=== PATIENT | female | born 1960 | race African-American/Black ===

== ENCOUNTER 2025-04-18 16:44 | Outpatient (BNV) | payer MEDICAID, SELFPAY | END 2025-04-29 14:09 | PROVIDERS: Admitting Provider Psychiatry & Neurology Psychiatry; Visit Provider Radiology Diagnostic Radiology | DX: G93.89 Other specified disorders of brain (principal) | CPT/HCPCS: 70450 ==

== ENCOUNTER 2025-04-18 16:44 | Outpatient (BNV) | payer MEDICAID, SELFPAY | END 2025-04-20 17:25 | PROVIDERS: Admitting Provider Psychiatry & Neurology Psychiatry; Visit Provider Student in an Organized Health Care Education/Training Program | DX: K80.20 Calculus of gallbladder without cholecystitis without obstruction (principal) | CPT/HCPCS: 74176 ==

== ENCOUNTER 2025-04-18 16:44 | Inpatient (IN) | payer OTHER, SELFPAY ==
--- OUTSIDE RECORDS SUMMARY | 2023-11-01 08:00 | XMS_ITS ---
Author Organization [facility], [facility] Address [address] [place] [address] Care Team Providers Care Printed Circuit Boards Beveler Name Role Phone Renata Junior Primary Care Provider Aida Anderson Unavailable [phone] Ricardo Umana Unavailable [phone] REASON FOR VISIT 2 mon f/u- want to see dr. umana Encounters Encounter Location Date Provider Diagnosis [facility], [address] [place] [address] 11/01/2023 Ricardo Umana Plan Of Treatment Next Appt Details Provider Name:Ricardo Umana, 06/20/2025 11:20:00 AM, [address] [place] [address], [facility] [address], [address], Provider Name:Aida mendoza, 08/02/2025 01:00:00 PM, [address] [place] [address], [facility] [address], [place], [address], Progress Notes * Siena DODDDOB:09/1960 (64 yo F)Acc No.[id number]:11/01/2023 Progress Notes Patient: Yves ESCOBAR Siena Provider: Rafy Umana D.O. :1960 A ge:63 Y S ex:Female Date:11/01/2023 Address:[address] [place] [address] [address], [id number] Pcp:Renata Junior Subjective: * Chief Complaints: * 1 . 2 mon f/u- want to see dr. umana. * Medical History: Objective: * Vitals: Assessment: Plan: * Treatment: * * Electronic signature of Jone Umana DO on 04/18/2025 at 06:56 PM EST Sign off status: Pending * Provider: Rafy Umana D.O. Date: 0 11/01/2023 Generated for Kirill leal/Kayla/Ethanitting on: 06/18/2024 06:56 PM EST
--- OUTSIDE RECORDS SUMMARY | 2023-12-06 05:20 | XMS_ITS ---
Author Organization [facility] [employer], [facility] Address [address] [place] [address] Care Team Providers Care Polarity Tester Name Role Phone Renata Junior Primary Care Provider Aida Anderson Unavailable [phone] Ricardo Umana Unavailable [phone] REASON FOR VISIT 3 month f/u Encounters Encounter Location Date Provider Diagnosis [facility], [address] [place] [address] 12/06/2023 Ricardo Umana Plan Of Treatment Next Appt Details Provider Name:Ricardo Umana, 06/20/2025 11:20:00 AM, [address] [place] [address], [address], [place], [address], Provider Name:Aida mendoza, 08/02/2025 01:00:00 PM, [address] [place] [address], [address], [place], [address], Progress Notes * JUSienaDOB:09/1960 (64 yo F)Acc No.[id number]:12/06/2023 Progress Notes Patient: Siena AGUILAR Provider: Rafy Umana D.O. :1960 A ge:63 Y S ex:Female Date:12/06/2023 Address:[address] [place] [address] [address], [facility] Pcp:Renata Junior Subjective: * Chief Complaints: * 1 . 3 month f/u. * Medical History: Objective: * Vitals: Assessment: Plan: * Treatment: * * Electronic signature of Jone Umana DO on 04/18/2025 at 06:56 PM EST Sign off status: Pending * Provider: Rafy Umana D.O. Date: 0 12/06/2023 Generated for Kirill leal/Kayla/Abelardo on: 06/18/2024 06:56 PM EST
--- OUTSIDE RECORDS SUMMARY | 2024-06-19 06:20 | XMS_ITS ---
Author Organization [employer] Address [address] [address] Care Team Providers Care Anesthesiology Resident Name Role Phone Renata Junior Primary Care Provider Aida Anderson Unavailable [phone] Allergies Allergen (clinical drug ingredient) Drug/Non Drug Allergy documented on EMR Reaction Allergy Type Onset Date Status Blueberry Flavor Unknown Drug Allergy Active Penicillin Unknown Drug Allergy Active Shellfish (FN) Shellfish-derived Products Unknown Drug Allergy Active REASON FOR VISIT 6 month f/u Medications Medication SIG (Take, Route, Frequency, Duration) Notes Start Date End Date Status carBAMazepine 200 MG TAKE 3 TABLETS BY MOUTH TWICE A DAY; Duration: 30 Active Gabapentin 300 MG TAKE 1 CAPSULE BY MOUTH EVERYDAY AT BEDTIME; Duration: 30 Active levETIRAcetam 500 MG 2 tablets in the morning and 3 in the evening orally every 12 hrs as directed; Duration: 90 days Active Ondansetron 4 MG 1 tablet on the tong ue and allow to dissolve Orally Once a day; Duration: 30 day(s) Not-Taking Furosemide 20 MG TAKE 1/2 TABLET BY MOUTH in THE MORNING Orally Once a day; Duration: 90 days Active Januvia 100 MG TAKE 1 TABLET BY DOMINIC TH EVERY DAY Oral; Duration: 90 Active Eliquis 5 MG TAKE 1 TABLET BY DOMINIC TH TWICE A DAY Oral; Duration: 90 Active Lisinopril 10 MG TAKE 1 TABLET BY DOMINIC TH EVERY DAY IN THE MORNING Oral; Duration: 90 Active amLODIPine Besylate 10 MG TAKE 1 TABLET BY MOUTH EVERY DAY Oral; Duration: 90 Active Acetaminophen 325 MG TAKE 2 TABLETS (650 MG TOTAL) BY MOUTH EVERY 6 HOURS NEEDED FOR PAIN OR FEVER FOR UP TO 7 DAYS. Oral; Duration: 7 Active Docusate Sodium 100 MG 1 capsule as need ed Orally Once a day; Duration: 30 day(s) Active Ezetimibe 10 MG 1 tablet Orally Once a day; Duration: 30 day(s) Active Bisacodyl 5 MG 1 tablet as needed Orally Once a day; Duration: 30 day(s) Active Atorvastatin Calcium 40 MG TAKE 1 TABLET BY MOUTH EVERY DAY Orally Once a day Active Sertraline HCl 100 MG TAKE 2 TABLETS BY MOUTH EVERY DAY IN THE MORNING Oral; Duration: 30 Active Lactaid 3000 UNIT 1 tablet with first bite of dairy - containing food Orally Once a day; Duration: 30 day(s) Not-Taking Chlorthalidone 25 MG TAKE 1 TABLET BY MO UTH EVERY DAY Oral; Duration: 90 Not-Taking Calcium & Magnesium Carbonates Not-Taking Meclizine HCl 12.5 MG 2 tablets as neede d Orally Once a day; Duration: 30 day(s) Active Multivitamin - 1 tablet Orally Once a day; Duration: 30 day(s) Active oxyBUTYnin Chloride 5 MG 1 tablet Orally Twice a day; Duration: 30 day(s) Not-Taking metFORMIN HCl 500 MG 1 tablet with a pedro luis l Orally Once a day; Duration: 30 day(s) Not-Taking Prazosin HCl 2 MG 1 capsule at bedtime Oral Once a day Not-Taking OXcarbazepine 600 MG 1 tablet Orally Twi ce a day; Duration: 30 day(s) Not-Taking Banophen 50 MG TAKE 1 CAPSULE BY MOUTH TWICE A DAY NEEDED FOR ANXIETY AND INSOMNIA Oral; Duration: 30 Not-Taking Fluticasone Propionate 50 MCG/ACT 1 spray in each nostril Nasally Once a day; Duration: 30 day(s) Not-Taking busPIRone HCl 15 MG TAKE 1 TABLET BY DOMINIC TH TWICE A DAY Oral; Duration: 30 Not-Taking Escitalopram Oxalate 20 MG 1 tablet Oral ly Once a day; Duration: 30 day(s) Not-Taking risperiDONE 0.5 MG TAKE 1 TABLET BY DOMINIC TH EVERY DAY AT NIGHT Oral; Duration: 30 Not-Taking Social History Tobacco Use: Social History Observation Description Date Details (start date - stop date) Never Smoker NA - NA Tobacco Use/Smoking Question Answer Notes Are you a nonsmoker Alcohol Screen (Audit-C) Question Answer Notes Did you have a drink containing alcohol in the p ast year? No Points 0 Interpretation Negative Encounters Encounter Location Date Provider Diagnosis [address] [place] [address] 06/19/2024 Aida Gordon Plan Of Treatment Next Appt Details Provider Name:Ricardo Umana, 06/20/2025 11:20:00 AM, [address] [place] [address], [address], [place], [address], Provider Name:Aida Tyrone kelly, 08/02/2025 01:00:00 PM, [address] [place] [address], [address], [place], [address], Progress Notes * Siena DODDDOB:09/1960 (64 yo F)Acc No.[id number]:06/19/2024 Progress Notes Patient: Yves Siena ESCOBAR Provider: Yves Gordon D.O. :1960 A ge:63 Y S ex:Female Date:06/19/2024 Address:[address] [place] [address], [address] Pcp:Renata Junior Subjective: * Chief Complaints: * 1 . 6 month f/u. * Medical History: H ypercholesterolemia, Essential (primary) hypertension, Diabetes mellitus, SEIZURES, Localization-related (focal) (partial) idiopathic epilepsy 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, not intractable, without status epilepticus, Left spastic hemiparesis, Meniere''s disease, unspecified laterality, JACQUELINE (obstructive sleep apnea). * Surgical History: t uballigation . * Hospitalization/Major Diagno stic Procedure: s eizure 12/2020, seizures 04/2021, TIA 08/2023. * Family History: F ather: . M other: . 3 son(s) , 5 daughter(s) . . N on-Contributory. Pt does not know much of family history. * Social History: T obacco Use: T obacco Use/Smoking A re you a n onsmoker. D rugs/Alcohol: D rugs H ave you used drugs other than those for medical reasons in the past 12 months??No. A lcohol Screen (Audit-C) D id you have a drink containing alcohol in the past year? No, P oints 0 , I nterpretation N egative. C affeine I ntake: n one Tea, Soda. D o you smoke marijuana?: Denies. Do you drink alcohol?: No. * Medications: T aking Multivitamin - Tablet 1 tablet Orally Once a day , Taking Meclizine HCl 12.5 MG Tablet 2 tablets as needed Orally Once a day , Taking Ezetimibe 10 MG Tablet 1 tablet Orally Once a day , Taking Docusate Sodium 100 MG Capsule 1 capsule as needed Orally Once a day , Taking Bisacodyl 5 MG Tablet Delayed Release 1 tablet as needed Orally Once a day , Taking Sertraline HCl 100 MG Tablet TAKE 2 TABLETS BY MOUTH EVERY DAY IN THE MORNING Oral , Taking Atorvastatin Calcium 40 MG Tablet TAKE 1 TABLET BY MOUTH EVERY DAY Orally Once a day , Taking Eliquis 5 MG Tablet TAKE 1 TABLET BY MOUTH TWICE A DAY Oral , Taking Januvia 100 MG Tablet TAKE 1 TABLET BY MOUTH EVERY DAY Oral , Taking amLODIPine Besylate 10 MG Tablet TAKE 1 TABLET BY MOUTH EVERY DAY Oral , Taking Lisinopril 10 MG Tablet TAKE 1 TABLET BY MOUTH EVERY DAY IN THE MORNING Oral , Taking Acetaminophen 325 MG Tablet TAKE 2 TABLETS (650 MG TOTAL) BY MOUTH EVERY 6 HOURS NEEDED FOR PAIN OR FEVER FOR UP TO 7 DAYS. Oral , Taking Furosemide 20 MG Tablet TAKE 1/2 TABLET BY MOUTH in THE MORNING Orally Once a day , Taking Gabapentin 300 MG Capsule TAKE 1 CAPSULE BY MOUTH EVERYDAY AT BEDTIME , Taking carBAMazepine 200 MG Tablet TAKE 3 TABLETS BY MOUTH TWICE A DAY , Taking levETIRAcetam 500 MG Tablet 2 tablets in the morning and 3 in the evening orally every 12 hrs as directed , Not-Taking/PRN Ondansetron 4 MG Tablet Disintegrating 1 tablet on the tongue and allow to dissolve Orally Once a day , Not-Taking/PRN Fluticasone Propionate 50 MCG/ACT Suspension 1 spray in each nostril Nasally Once a day , Not-Taking/PRN Escitalopram Oxalate 20 MG Tablet 1 tablet Orally Once a day , Not-Taking/PRN busPIRone HCl 15 MG Tablet TAKE 1 TABLET BY MOUTH TWICE A DAY Oral , Not- Taking/PRN risperiDONE 0.5 MG Tablet TAKE 1 TABLET BY MOUTH EVERY DAY AT NIGHT Oral , Not-Taking/PRN Prazosin HCl 2 MG Capsule 1 capsule at bedtime Oral Once a day , Not-Taking/PRN Banophen 50 MG Capsule TAKE 1 CAPSULE BY MOUTH TWICE A DAY NEEDED FOR ANXIETY AND INSOMNIA Oral , Not-Taking/PRN OXcarbazepine 600 MG Tablet 1 tablet Orally Twice a day , Not-Taking/PRN oxyBUTYnin Chloride 5 MG Tablet 1 tablet Orally Twice a day , Not-Taking/PRN metFORMIN HCl 500 MG Tablet 1 tablet with a meal Orally Once a day , Not-Taking/PRN Lactaid 3000 UNIT Tablet 1 tablet with first bite of dairy - containing food Orally Once a day , Not-Taking/PRN Calcium & Magnesium Carbonates , Not-Taking/PRN Chlorthalidone 25 MG Tablet TAKE 1 TABLET BY MOUTH EVERY DAY Oral , Medication List reviewed and reconciled with the patient * Allergies: P enicillin, Shellfish-derived Products, Blueberry Flavor. Objective: * Vitals: Assessment: Plan: * Treatment: * * Electronic signature of Lit Gordon DO on 04/18/2025 at 06:57 PM EST Sign off status: Pending * Provider: Yves Gordon D.O. Date: 0 06/19/2024 Generated for Kirill leal/Kayla/Abelardo on: 06/18/2024 06:57 PM EST
--- OUTSIDE RECORDS SUMMARY | 2024-10-16 06:00 | XMS_ITS ---
Author Organization [facility] [facility], [facility] Address [address] [place] [address] Care Team Providers Care Personal Lines Sales Rep Name Role Phone Renata Junior Primary Care Provider Aida Anderson Unavailable [phone] Ricardo Umana Unavailable [phone] REASON FOR VISIT 6 month f/u m Encounters Encounter Location Date Provider Diagnosis [facility], [address] [place] [address] 10/16/2024 Ricardo Umana Plan Of Treatment Next Appt Details Provider Name:Ricardo Umana, 06/20/2025 11:20:00 AM, [address] [place] [address], [facility] [place], [address], Provider Name:Aida mendoza, 08/02/2025 01:00:00 PM, [address] [place] [address], [address], [address], Progress Notes * JUSienaDOB:09/1960 (64 yo F)Acc No.[id number]:10/16/2024 Progress Notes Patient: Siena AGUILAR Provider: Rafy Umana D.O. :1960 A ge:64 Y S ex:Female Date:10/16/2024 Address:[address] [place] [address] [address], [facility] Pcp:Renata Junior Subjective: * Chief Complaints: * 1 . 6 month f/u m. * Medical History: Objective: * Vitals: Assessment: Plan: * Treatment: * * Electronic signature of Jone Umana DO on 04/18/2025 at 06:56 PM EST Sign off status: Pending * Provider: Rafy Umana D.O. Date: 0 10/16/2024 Generated for Kirill leal/Kayla/Abelardo on: 06/18/2024 06:56 PM EST
--- NOTE | ~2025-04-18 | CT_ITS ---
CLINICAL HISTORY: N V CT abdomen and pelvis without contrast Comparison: None provided Absence of IV contrast limits evaluation of the organs and vasculature. Findings: Lung bases: Clear. Liver: No focal lesions. No biliary ductal dilatation. Gallbladder: Noninflamed gallbladder. Cholelithiasis. Spleen: Normal. Pancreas: Unremarkable. Adrenal glands: No nodules. Kidneys: No hydronephrosis. No stones. Pelvic organs: 3.3 cm lesion adjacent to the left uterine fundus and left ovary (4, 522). Peritoneum and Gastrointestinal: Small hiatal hernia. No bowel obstruction, pneumoperitoneum, or ascites. Noninflamed appendix. Lymph nodes: No lymphadenopathy. Vessels: Atherosclerosis. Bones and soft tissues: Small fat containing anterior abdominal wall hernias. IMPRESSION: No acute CT findings of the abdomen or pelvis. Cholelithiasis. 3.3 cm lesion of the left pelvis which may be a pedunculated fibroid versus an ovarian lesion. Recommend a pelvic ultrasound on a nonurgent basis. This document has been electronically signed by: Mora Bach MD on 04/20/2025 18:22:45
--- NOTE | ~2025-04-18 | US_ITS ---
EXAMINATION: US PELVIS CLINICAL INFORMATION: mass noted in abd/pelvis CT COMPARISON: CT April 20, 2025 TECHNIQUE: Ultrasound of the pelvis is performed using both transabdominal transducers along with Doppler. FINDINGS: Uterus: The uterus is anteverted and measures 8.4 x 4.5 x 5.4 cm. The double wall endometrial thickness is 4 mm. The uterus is smooth in contour and has normal myometrial echogenicity. No visible fibroid. Adnexa: Right ovary measures 4.5 x 2.7 x 2.5 cm. There is a anechoic lesion with increased through transmission that measures 4.4 x 2.4 x 2.3 cm. And demonstrates no internal blood flow or septations. Venous and arterial blood flow is documented in the right ovary by duplex. Left ovary: Not seen US/US pelvic complete IMPRESSION: No left fundal or left adnexal mass is identified. Upon further review of the prior CT scan, the left ovarian vein drains from the left adnexal mass that was described on the prior study which is most consistent with left ovary abutting the left uterine fundus. 4.4 cm simple cyst of the right ovary. Follow-up ultrasound in 3-6 month. Electronically signed by: Cheo Antonio MD 04/29/2025 05:39 PM EST
--- NOTE | ~2025-04-18 | CT_ITS ---
EXAMINATION: CT HEAD WITHOUT IV CONTRAST HISTORY: progressing changes in mental status. TECHNIQUE: Unenhanced helical CT of the head was performed per standard departmental protocol. Coronal and sagittal reformats of the head were also evaluated. One or more of the following techniques was used for dose reduction: Automated exposure control, adjustment of the mA and/or kV according to patient size, use of iterative reconstruction technique. DLP: 668 mGy-cm COMPARISON: There are no prior studies available for comparison. FINDINGS: BRAIN: There is no evidence of an extra-axial collection. There is no evidence of intra or extra-axial hemorrhage. There is large area of encephalomalacia in the right parietal lobe probably representing an old infarct. There is a smaller area of low attenuation in the subcortical white matter of the left parietal lobe also probably representing an old infarct. No mass, mass effect or acute infarct. There is ex vacuo dilatation of the right lateral ventricle. The ventricles and extra-axial CSF spaces are otherwise appropriate. There is nonspecific periventricular white matter disease. SINUSES: Small polyp or cyst in the left posterior ethmoid and sphenoid sinuses. The visualized paranasal sinuses are otherwise clear. The mastoid air cells and middle ear cavities are well pneumatized. ORBITS: The visualized orbits are unremarkable. BONES/SOFT TISSUES: The extracranial soft tissues are unremarkable. The calvarium is intact. No suspicious lytic or sclerotic lesions. CT/CT head/brain wo IV con IMPRESSION: Large area of encephalomalacia in the right parietal lobe probably representing an old infarct. Smaller subcortical white matter low attenuation in the left parietal lobe also probably representing an old infarct. Electronically signed by: Sadia Delatorre MD 04/29/2025 02:36 PM [facility]
[2025-04-18 17:52] VITALS: BMI 38.3
--- NOTE | 2025-04-18 17:59 | PHA.MEDREC ---
Pharmacy Consult ? Medication Reconciliation Pharmacy has reviewed the medication reconciliation completed by nursing, continued medications matched claims.
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
--- OUTSIDE RECORDS SUMMARY | 2025-04-18 18:57 | XMS_ITS | Encounter Summary ---
Author Organization [facility] Address [address] [place] [address] Care Team Providers Care Manager E Learning Name Role Phone Renata Junior MD Primary Care Provider [phone] Encounter Details Date Type Department Care Team (Late st Contact Info) Description 05/09/2020 Orders Only [facility] [address] [place] [address] Cora Eduardo, MANAGER COMMODITIES [address] [place], [place] [id number] Exposure to SARS-associated coronavirus (Primary Dx) Social History Tobacco Use Types Packs/Day Years Used Date Smoking Tobacco: Never Smokeless Tobacco: Never Comments:: Alcohol Use Standard Drinks/Week Comments No 0 (1 standard drink = 0.6 oz pur e alcohol) Comments No Sex and Gender Information Value Date Recorded Sex Assigned at Female 08/14/2023 9:03 AM EDT Legal Sex Female 6:50 PM EDT Gender Identity Not on file Sexual Orientation Not on file documented as of this encounter Plan of Treatment Not on file documented as of this encounter Visit Diagnoses Diagnosis Exposure to SARS-associated coronavirus- Primary documented in this encounter Additional Health Concerns Infection Onset Date Last Indicated Resolved Time COVID-19 - Suspected infection 05/09/2020 05/10/2020 05/10/2020 4:56 AM EST R/O Respiratory Virus Infection 07/13/2021 2 07/13/2021 8:30 PM EST R/O Influenza 07/13/2021 07/13/2021 07/13/2021 8:3 0 PM EST COVID-19 - Suspected infection 07/13/2021 07/13/2021 07/13/2021 8:30 PM EST R/O Respiratory Virus Infection 08/24/2021 08/24/2021 10:05 AM EDT R/O Influenza 08/24/2021 08/24/2021 08/24/2021 10: 05 AM EDT COVID-19 - Suspected infection 08/24/2021 08/24/2021 08/24/2021 10:05 AM EDT documented as of this encounter Care Teams Manager E Learning Relationship Specialty Start Date End Date Renata Junior MD [address] [place] [address] PCP - General Family Medicine 05/18/19 documented as of this encounter
--- OUTSIDE RECORDS SUMMARY | 2025-04-18 18:57 | XMS_ITS | Encounter Summary ---
Author Organization [facility] Address [address] [place] [address] Care Team Providers Care Transitional Kindergarten Teacher Name Role Phone Renata Junior MD Primary Care Provider [phone] Reason for Visit * Reason Comments Med Refill Encounter Details Date Type Department Care Team (Late st Contact Info) Description 03/14/2021 Refill [facility] [address] [place] [address] Zayra Florence MD [address] [place] [address] Social History Tobacco Use Types Packs/Day Years [...] documented as of this encounter Visit Diagnoses Not on filedocumented in this encounter Additional Health Concerns Infection Onset Date Last Indicated Resolved Time R/O Respiratory Virus Infection 07/13/2021 07/13/2021 8:30 PM EST R/O Influenza 07/13/2021 07/13/2021 07/13/2021 8:3 0 PM EST COVID-19 - Suspected infection 07/13/2021 07/13/2021 07/13/2021 8:30 PM EST R/O Respiratory Virus Infection 08/24/2021 08/24/2021 10:05 AM EDT R/O Influenza 08/24/2021 08/24/2021 08/24/2021 10: 05 AM EDT COVID-19 - Suspected infection 08/24/2021 08/24/2021 08/24/2021 10:05 AM EDT documented as of this encounter Care Teams Transitional Kindergarten Teacher Relationship Specialty Start Date End Date Renata Junior MD [address] [place] [address] PCP - General Family Medicine 05/18/19 documented as of this encounter
--- OUTSIDE RECORDS SUMMARY | 2025-04-18 18:57 | XMS_ITS | Clinical Summary ---
Author Organization [facility] Address [address] [facility] [address] [place] [address] Care Team Providers Care Bottle Assembler Name Role Phone Renata Junior MD Primary Care Provider [phone] Social History Tobacco Use Types Packs/Day Years Used Date Smoking Tobacco: Never Assessed Comments Unknown Sex and Gender Information Value Date Recorded Sex Assigned at Not on file Legal Sex Female 12:19 PM EST Gender Identity Not on file Sexual Orientation Not on file Plan of Treatment Health Maintenance Due Date Last Done Comments Colorectal Cancer: COLONOSCO PY Screening every 10 yrs (or Modifier) 1960 Depression: Screening Annual ly using PHQ-2/9 in Adults 18 yrs or above (or HM Modifier)([facility]) 1978 SDOH Screening Reminder: Sheridan shannon for all adults ([facility]) 1978 Tobacco Smoking Cessation: i n Adults excluding Women: Behavioral and Pharmacotherapy Interventions ([facility]) 1978 Cervical Cancer Screenin 1-65 yrs of age (or Modifier) 1981 Cervical Cancer Screening: P ap every 3 yrs pts age 21-65 1981 Cervical Cancer: Pap Screeni ng with Modifier timing ([facility]) 1981 Cervical Cancer: hrHPV alone or with cotesting Pap for Pts 30-65yrs screening every 5yrs ([facility]) 1981 Colorectal Cancer Screening 45 -75 Yrs (or HM Modifier) 2005 Colorectal Cancer: FLEXIBLE SIGMOIDOSCOPY Screening every 5 yrs 2005 Colorectal Cancer: Fecal Immunochemical Test (FIT) Annually [facility] 2005 Colorectal Cancer: High-sens itivity gFOBT Screening Annually [facility] 2005 Colorectal Cancer: Stool Col oguard Screening every 3 yrs 2005 Colorectal Cancer:CT Colonog mayur Screening every 5 yrs 2005 Pneumococcal Vaccination Scr eening: Patients 50+ yrs of age ([facility] ) (1 of 1 - PCV) 2010 DTaP/Tdap/Td Vaccines ([facility]) (1 - Tdap) 06/13/2019 06/12/2019 Zoster/Shingles Vaccine Seri es Screening: Adults aged 18+ yrs (or HM Modifiers)([facility] ) (2 of 2) 01/16/2021 11/21/2020 Breast Cancer: Screening Sheridan ually age 50-74 yrs (or HM Modifier)([facility]) 11/27/2021 11/27/2020, 11/23/2019, 08/31/2018, Additional history exists Flu Vaccination: Yearly for ages 18mos through 64 years (or Modifier)([facility] ) 01/04/2025 03/17/2022, 06/11/2021, 03/28/2019, Additional history exists COVID-19 Vaccine Screening: Initial Series and Booster Status ([facility]) ( - 2024- season) 2025 05/19/2022, 10/29/2020, 09/29/2020, Additional history exists RSV Vaccines (1 - 1-dose 75+ series) 10/08/2035 Hepatitis C Virus Infection in Adolescents and Adults: Screening (or Modifier) ([facility] ) Completed 08/24/2021 Medical Devices Not on file Insurance [facility] Care Teams Bottle Assembler Relationship Specialty Start Date End Date Renata Junior MD [address] [place] [address] PCP - General Family Medicine 04/10/25
--- OUTSIDE RECORDS SUMMARY | 2025-04-18 18:57 | XMS_ITS | Encounter Summary ---
Author Organization [facility] Address [address] [place] [address] Care Team Providers Care Pecan Sheller Name Role Phone Renata Junior MD Primary Care Provider [phone] Reason for Visit * Reason Comments Med Refill Encounter Details Date Type Department Care Team (Late st Contact Info) Description 06/27/[address] [address] Rachel Ferrell MD [address] [place] [address] Social History Tobacco Use Types Packs/Day Years [...] 07/13/2021 8:30 PM EST R/O Influenza 07/13/2021 07/13/202107/1307/13/2021 8:3 0 PM EST COVID-19 - Suspected infection 07/13/2021 07/13/2021 07/13/2021 8:30 PM EST R/O Respiratory Virus Infection 08/24/2021 08/24/2021 10:05 AM EDT R/O Influenza 08/24/2021 08/24/2021 08/24/2021 10: 05 AM EDT COVID-19 - Suspected infection 08/24/2021 08/24/2021 08/24/2021 10:05 AM EDT documented as of this encounter Care Teams Pecan Sheller Relationship Specialty Start Date End Date Renata Junior MD [address] [place] [address] PCP - General Family Medicine 05/18/19 documented as of this encounter
--- OUTSIDE RECORDS SUMMARY | 2025-04-18 18:57 | XMS_ITS | Encounter Summary ---
Author Organization [facility] Address [address] [place] [address] Care Team Providers Care Management Coordinator Name Role Phone Renata Junior MD Primary Care Provider [phone] Reason for Visit * Reason Comments Med Refill Encounter Details Date Type Department Care Team (Late st Contact Info) Description 07/01/[address] [address] Rachel Ferrell MD [address] [place] [address] Social History Tobacco Use Types Packs/Day Years [...] documented as of this encounter Care Teams Management Coordinator Relationship Specialty Start Date End Date Renata Junior MD [address] [place] [address] PCP - General Family Medicine 05/18/19 documented as of this encounter
--- OUTSIDE RECORDS SUMMARY | 2025-04-18 18:57 | XMS_ITS | Data Portability ---
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 issues. no PMB. Mya Medina MD [address], [id number], [facility] 05/01/2024 08:14:21 OBGyn Episode No OBEpisode recorded.
--- OUTSIDE RECORDS SUMMARY | 2025-04-18 18:57 | XMS_ITS | Patient Health Record ---
Author Organization [facility] Address [address] [address] Care Team Providers Care Structural Engineer Name Role Phone Tessagarrick Christodelmy Primary Care Provider Aida Anderson Unavailable [phone] Ricardo Umana Unavailable [phone] Allergies Allergen (clinical drug ingredient) Drug/Non Drug Allergy documented on EMR Reaction Allergy Type Onset Date Status Blueberry Flavor Unknown Drug Allergy Active Penicillin Unknown Drug Allergy Active Shellfish (FN) Shellfish-derived Products Unknown Drug Allergy Active Results Component Value Reference Range Notes Hepatic Function Panel (7)-[id number] Reviewed date:09/27/2024 09:03:18 AM Interpretation: Performing Lab: Notes/Report: Lipid Panel Reviewed date:09/27/2024 09:01:52 AM Interpretation: Performing Lab: Notes/Report: Hemoglobin V2o-[id number] Reviewed date:07/12/2024 01:14:22 PM Interpretation: Performing Lab:[facility], [address] [facility], Phone - [phone], Director - [facility] Notes/Report: Clinical Information:SRC: Hemoglobin A1c 6.3 4.8-5.6 % . Prediabetes: 5.7 - 6.4 Diabetes: >6.4 Glycemic control for adults with diabetes: <7.0 CBC With Differential/Platel et-[id number] Reviewed date:06/23/2024 08:35:44 PM Interpretation: Performing Lab:[facility], [address] [facility], Phone - [phone], Director - [facility] Notes/Report: Clinical Information:SRC: WBC 9.1 3.4-10.8 x10E3/uL RBC 4.95 3.77-5.28 x10E6/uL Hemoglobin 12.4 11.1-15.9 g/dL Hematocrit 38.6 34.0-46.6 % MCV 78 79-97 fL MCH 25.1 26.6-33.0 pg MCHC 32.1 31.5-35.7 g/dL RDW 14.5 11.7-15.4 % Platelets 250 150-450 x10E3/uL Neutrophils 63 Not Estab. % Lymphs 28 Not Estab. % Monocytes 8 Not Estab. % Eos 1 Not Estab. % Basos 0 Not Estab. % Neutrophils (Absolute) 5.6 1.4-7.0 x10E3/uL Lymphs (Absolute) 2.6 0.7-3.1 x10E3/uL Monocytes(Absolute) 0.8 0.1-0.9 x10E3/uL Eos (Absolute) 0.1 0.0-0.4 x10E3/uL Baso (Absolute) 0.0 0.0-0.2 x10E3/uL Immature Granulocytes 0 Not Estab. % Immature Grans (Abs) 0.0 0.0-0.1 x10E3/uL Lipid Panel-[id number] Reviewed date:07/12/2024 01:16:40 PM Interpretation: Performing Lab:[facility], [address] [facility], Phone - [phone], Director - [facility] Notes/Report: Clinical Information:SRC: Cholesterol, Total 163 100-199 mg/dL Triglycerides 80 0-149 mg/dL HDL Cholesterol 31 >39 mg/dL VLDL Cholesterol Wero 15 5-40 mg/dL LDL Chol Calc ([facility]) 117 0-99 mg/dL Comp. Metabolic Panel (14)-[id number] Reviewed date:06/23/2024 08:35:50 PM Interpretation: Performing Lab:[facility], [address] [facility], Phone - [phone], Director - [facility] Notes/Report: Clinical Information:SRC: Glucose 111 70-99 mg/dL BUN 8 8-27 mg/dL Creatinine 0.76 0.57-1.00 mg/dL eGFR 88 >59 mL/min/1.73 BUN/Creatinine Ratio 11 12-28 Sodium 137 134-144 mmol/L Potassium 4.5 3.5-5.2 mmol/L Chloride 100 96-106 mmol/L Carbon Dioxide, Total 24 20-29 mmol/L Calcium 9.2 8.7-10.3 mg/dL Protein, Total 8.0 6.0-8.5 g/dL Albumin 3.9 3.9-4.9 g/dL Globulin, Total 4.1 1.5-4.5 g/dL Bilirubin, Total 0.4 0.0-1.2 mg/dL Alkaline Phosphatase 81 44-121 IU/L AST (SGOT) 17 0-40 IU/L ALT (SGPT) 20 0-32 IU/L TSH reflex to [id number] Reviewed date:06/23/2024 08:37:28 PM Interpretation: Performing Lab:[facility], [address] [place] [address], Phone - [phone], Director - [facility] Notes/Report: Clinical Information:SRC: TSH 1.140 0.450-4.500 uIU/mL Lipid Panel Reviewed date:09/24/2024 01:50:46 PM Interpretation: Performing Lab: Notes/Report: Renal Panel ([id number] Reviewed date:09/19/2024 03:22:28 PM Interpretation: Performing Lab:[facility], [address] [place] [address], Phone - [phone], Director - [facility] Notes/Report: Glucose 94 70-99 mg/dL BUN 17 8-27 mg/dL Creatinine 0.73 0.57-1.00 mg/dL eGFR 92 >59 mL/min/1.73 BUN/Creatinine Ratio 23 12-28 Sodium 142 134-144 mmol/L Potassium 4.8 3.5-5.2 mmol/L Chloride 104 96-106 mmol/L Carbon Dioxide, Total 19 20-29 mmol/L Calcium 9.2 8.7-10.3 mg/dL Phosphorus 2.0 3.0-4.3 mg/dL Albumin 4.1 3.9-4.9 g/dL Lipid Panel-[id number] Reviewed date:10/03/2024 12:24:20 PM Interpretation: Performing Lab:[facility] [address] [place] [address], Phone - [phone], Director - MDJodry Notes/Report: Cholesterol, Total 193 100-199 mg/dL Triglycerides 129 0-149 mg/dL HDL Cholesterol 32 >39 mg/dL VLDL Cholesterol Wero 24 5-40 mg/dL LDL Chol Calc ([facility]) 137 0-99 mg/dL Hepatic Function Panel (7)-3 [id number] Reviewed date:09/10/2024 02:59:29 PM Interpretation: Performing Lab: Notes/Report: Lipid Panel-[id number] Reviewed date:09/10/2024 02:59:06 PM Interpretation: Performing Lab: Notes/Report: Hepatic Function Panel (7)-3 [id number] Reviewed date:12/15/2024 09:19:11 AM Interpretation: Performing Lab:[facility], [address] [place] [address], Phone - [phone], Director - MDJodry Notes/Report: Protein, Total 7.5 6.0-8.5 g/dL Albumin 3.9 3.9-4.9 g/dL Bilirubin, Total 0.3 0.0-1.2 mg/dL Bilirubin, Direct 0.11 0.00-0.40 mg/dL Alkaline Phosphatase 75 44-121 IU/L AST (SGOT) 15 0-40 IU/L ALT (SGPT) 14 0-32 IU/L Hepatic Function Panel (7)-3 [id number] Reviewed date:12/14/2024 01:51:49 PM Interpretation: Performing Lab: Notes/Report: Lipid Panel-[id number] Reviewed date:12/15/2024 09:19:24 AM Interpretation: Performing Lab:[facility], [address] [facility], Phone - [phone], Director - MDJodry Notes/Report: Cholesterol, Total 175 100-199 mg/dL Triglycerides 172 0-149 mg/dL HDL Cholesterol 28 >39 mg/dL VLDL Cholesterol Wero 31 5-40 mg/dL LDL Chol Calc ([facility]) 116 0-99 mg/dL Reason For Referral Referring Provider First Name Renata Referring Provider Last Name Vernon Referring Provider Speciality Family Pra ctice Referred Organization [facility], [facility] Referred Provider Ricardo Umana Referred Address [address] [place] [address],[address],[place], [place],[address], Referred Provider Specialty Neurology Referral Priority Routine Medications Medication SIG (Take, Route, Frequency, Duration) Notes Start Date End Date Status Ezetimibe 10 MG 1 tablet Orally Once a day; Duration: 30 day(s) Active oxyBUTYnin Chloride 5 MG 1 tablet Orally Twice a day; Duration: 30 day(s) Not-Taking Docusate Sodium 100 MG 1 capsule as need ed Orally Once a day; Duration: 30 day(s) Active Lactaid 3000 UNIT 1 tablet with first bite of dairy - containing food Orally Once a day; Duration: 30 day(s) Not-Taking Multivitamin - 1 tablet Orally Once a day; Duration: 30 day(s) Not-Taking Banophen 50 MG TAKE 1 CAPSULE BY MOUTH TWICE A DAY NEEDED FOR ANXIETY AND INSOMNIA Oral; Duration: 30 Not-Taking Meclizine HCl 12.5 MG 2 tablets as neede d Orally Once a day; Duration: 30 day(s) Active OXcarbazepine 600 MG 1 tablet Orally Twi ce a day; Duration: 30 day(s) Not-Taking risperiDONE 0.5 MG TAKE 1 TABLET BY DOMINIC EVERY DAY AT NIGHT Oral; Duration: 30 Not-Taking Prazosin HCl 2 MG 1 capsule at bedtime Oral Once a day Not-Taking busPIRone HCl 15 MG TAKE 1 TABLET BY DOMINIC TWICE A DAY Oral; Duration: 30 Not-Taking Gabapentin 300 MG TAKE 1 CAPSULE BY MOUTH EVERYDAY AT BEDTIME; Duration: 30 Active Lisinopril 40 MG 1 tablet Oral Once a day; Duration: 90 days Active Eliquis 5 MG TAKE 1 TABLET BY DOMINIC TWICE A DAY Oral; Duration: 90 Active amLODIPine Besylate 10 MG TAKE 1 TABLET BY MOUTH EVERY DAY Oral; Duration: 90 Not-Taking Bisacodyl 5 MG 1 tablet as needed Orally Once a day; Duration: 30 day(s) Active Calcium & Magnesium Carbonates Not-Taking Sertraline HCl 100 MG TAKE 2 TABLETS BY MOUTH EVERY DAY IN THE MORNING Oral; Duration: 30 Active Chlorthalidone 25 MG TAKE 1 TABLET BY [facility] EVERY DAY Oral; Duration: 90 Not-Taking carBAMazepine 200 MG 2 tablets Twice a d ay; Duration: 30 days Active Rosuvastatin Calcium 40 MG 1 tablet Oral ly Once a day; Duration: 90 days 10/03/2024 Active Acetaminophen 325 MG 2 tablets Oral; Duration: 7 days As needed Active Furosemide 20 MG TAKE 1/2 TABLET BY MOUTH in THE MORNING Orally Once a day; Duration: 90 days Active levETIRAcetam 500 MG 2 tablets orally tw ice a day; Duration: 90 days Active Fluticasone Propionate 50 MCG/ACT 1 spray in each nostril Nasally Once a day; Duration: 30 day(s) Not-Taking Escitalopram Oxalate 20 MG 1 tablet Oral ly Once a day; Duration: 30 day(s) Not-Taking metFORMIN HCl 500 MG 1 tablet with a pedro luis l Orally Once a day; Duration: 30 day(s) Active Ondansetron 4 MG 1 tablet on the tong ue and allow to dissolve Orally Once a day; Duration: 30 day(s) Not-Taking Social History Tobacco Use: Social History Observation Description Date Details (start date - stop date) Never Smoker NA - NA Tobacco Use/Smoking Question Answer Notes Are you a nonsmoker Alcohol Screen (Audit-C) Question Answer Notes Did you have a drink containing alcohol in the p ast year? 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, not intractable, without status epilepticus (G40.009) Active confirmed Problem Essential hypertension (94963173) Essential primary hypertension (I10) Active confirmed no headache, nausea, vomiting, chest pain, significant lower extremity edema No evidence of end-organ damage Blood pressure well controlled Problem Migraine (49816925) Migraine (G43.909) Active confirmed Problem Insomnia (304518821) Insomnia (G47.00) Active confirmed Problem Obstructive sleep apnea syndrome (83897415) JACQUELINE (obstructive sleep apnea) (G47.33) Active confirmed Problem Diabetes mellitus (46750042) Diabetes mellitus (E11.9) Active confirmed HbA1C 6.3 Problem Diabetic neuropathy (452300259) Diabetic neuropathy (E11.40) Active confirmed Problem Intermittent palpitations (534463641) Intermittent palpitations (R00.2) Active confirmed Patient had one episode today after a long period of being asymptomatic and in remission. Will defer investigation for now with follow-up in 6 months. Can evaluate earlier if symptoms repeat and persist. Problem Spastic hemiplegia of nondominant side (399555695) Left spastic hemiparesis (G81.14) Active confirmed Problem Hypercholesterolem ia (31102282) Hypercholesterol emia (E78.00) Active confirmed Last lipid panel in 04/29: 185/163/29/123 needs improvement Problem Presbycusis (79961668) Presbycusis of both ears (H91.13) Active confirmed Problem Meniere disease (68391556) Meniere''s disease, unspecified laterality (H81.09) Active confirmed Problem Edema (570328385) Lower extremit y edema (R60.0) Active confirmed at baseline. Left lower extremity is mildly edematous, non-pitting and associated with tenderness. Recommend icing and rest to ankle. Problem Body mass index 35.00 to 39.99 (436061863557854) Body mass index [BMI] 36.0-36.9, adult (Z68.36) Active confirmed Problem Chronic cough (43406826) Chronic cough (R05.3) Active confirmed Patient notes cough with expectoration of white sputum since 2.5 months. Admits to needing Tums frequently for heartburn. Would benefit from a PPI, Tesselon pearls for symptomatic relief. Problem History of cerebrovascular accident without residual deficits (730095527) History of CVA (cerebrovascular accident) (Z86.73) Active confirmed Problem History of pulmonary embolism on long-term anticoagulation therapy (15899739236883198 ) Hx pulmonary embolism (Z86.711) Active confirmed Problem Obese class II (finding) (266428376248412) Obesity, class 2 (E66.812) Active confirmed Problem Wound cellulitis (664324175) Wound cellulitis (L03.90) Active confirmed Problem Vascular insufficiency of intestine (79097439) Mesenteric ischemia (K55.9) Active confirmed Vital Signs Heart Rate 85 /min 12/18/2024 Temperature 97.9 degrees Fahrenheit 12/18/2024 Oximetry 95 % 12/18/2024 Blood pressure diastolic 68 mm Hg 12/18/2024 Height 65 in 12/18/2024 Blood pressure systolic 124 mm Hg 12/18/2024 Weight 220 lbs 12/18/2024 BMI 36.61 kg/m2 12/18/2024 Procedures Procedure Date Ordered Date Performed Result Body Sit e Obtain prior medical records 12/18/2024 12/18/2024 N/A Audiology evaluation 12/14/2024 12/19/2024 N/A Lab results needed 06/19/2024 06/19/2024 N/A Encounters Encounter Location Date Provider Diagnosis [address] [place] [address] 06/19/2024 Aida Gordon Essential primary hypertension I10 ; Hypercholesterolemia E78.00 ; Diabetes mellitus E11.9 ; Localization-related (focal) (partial) idiopathic epilepsy 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, not intractable, without status epilepticus G40.009 ; Hx pulmonary embolism Z86.711 ; History of CVA (cerebrovascular accident) Z86.73 ; Lower extremity edema R60.0 ; Intermittent palpitations R00.2 ; Chronic cough R05.3 ; Wound cellulitis L03.90 ; Morbid (severe) obesity due to excess calories E66.01 ; Body mass index [BMI] 36.0-36.9, adult Z68.36 ; Obesity, class 2 E66.812 and Mesenteric ischemia K55.[address] [place] [address] 12/14/2024 Ricardo Umana Localization-related (focal) (partial) idiopathic epilepsy 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, not intractable, without status epilepticus G40.009 ; Left spastic hemiparesis G81.14 and Presbycusis of both ears H91.[address] [place] [address] 12/18/2024 Aida Gordon Essential primary hypertension I10 ; Hypercholesterolemia E78.00 ; Diabetes mellitus E11.9 ; Localization-related (focal) (partial) idiopathic epilepsy 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, not intractable, without status epilepticus G40.009 ; Hx pulmonary embolism Z86.711 ; History of CVA (cerebrovascular accident) Z86.73 ; Lower extremity edema R60.0 ; Intermittent palpitations R00.2 ; Chronic cough R05.3 ; Wound cellulitis L03.90 ; Morbid (severe) obesity due to excess calories E66.01 ; Body mass index [BMI] 36.0-36.9, adult Z68.36 ; Obesity, class 2 E66.812 and Mesenteric ischemia K55.[address] [place] [address] 10/03/2024 Aida Gordon Assessments Encounter Date Diagnosis (ICD Code) Assessment Notes Treatment Notes Treatment Clinical Notes Section Notes 06/19/2024 Essential primary hypertension (ICD-10 - I10) no headache, nausea, vomiting, chest pain, significant lower extremity edema No evidence of end-organ damage Blood pressure well controlled Siena's blood pressure is well controlled today.She does not have known end-organ damage on her electrocardiogram, but likely has heart failure, preserved ejection fraction, LVH as she has lower extremity edema occasionally.Last ECHO was reassuring. Lasix was 20, now half tabamlodipinelisin opril Her ASCVD risk is equivalent to a diabetic; therefore, her atorvastatin was increased to 80 as every diabetic should be on high-intensity moderate dose statin or high-intensity high dose statin. LDL 80 and Alejandrina is not on aspirin as she is on Eliquis. I had the pleasure meeting Azam today in cardiovascular follow-up for lower extremity edema multiple cardiovascular risk factors CVAs TIAs and seizures. Siena is symptomatic with left arm pain appears like cellulitis and anxiety. As well as chronic cough since the fall. Siena has the following cardiovascular risk factors postmenopausal female -Batool n sedentary lifestyle central obesity elevated blood pressure at initial eval then drops and within normal limits on end of visit mixed hyperlipidemia diabetes clotting disorder CVAs mesenteric ischemia I will see her back in 6 months [facility] 06/19/2024 Hypercholesterolem ia (ICD-10 - E78.00) Last lipid panel in 04/29: 185/163/29/123 needs improvement Last lipid panel in 04/29: 185/163/29/123, needs improvement Her goal LDL is 70. If coronary artery disease is identified it would be 55. She is on atorvastatin 40 as every diabetic should be on high-intensity moderate to high dose statin as stated above.zetia on board increase statin to 80 I had the pleasure meeting Azam today in cardiovascular follow-up for lower extremity edema multiple cardiovascular risk factors CVAs TIAs and seizures. Siena is symptomatic with left arm pain appears like cellulitis and anxiety. As well as chronic cough since the fall. Siena has the following cardiovascular risk factors postmenopausal female -Batool n sedentary lifestyle central obesity elevated blood pressure at initial eval then drops and within normal limits on end of visit mixed hyperlipidemia diabetes clotting disorder CVAs mesenteric ischemia I will see her back in 6 months [facility] 12/14/2024 Localization-relat ed (focal) (partial) idiopathic epilepsy 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, not intractable, without status epilepticus (ICD-10 - G40.009) Ms. Zhang is a 64-year-old female who is presenting for follow up for epilepsy and left-sided spastic hemiparesis following a remote acute ischemic stroke. For epilepsy, she has not experienced any seizures since the last visit. 12/14/2024 Left spastic hemiparesis (ICD-10 - G81.14) For left-sided spastic hemiparesis, no new symptoms or changes in her condition were reported. 12/18/2024 Essential primary hypertension (ICD-10 - I10) no headache, nausea, vomiting, chest pain, significant lower extremity edema No evidence of end-organ damage Blood pressure well controlled Siena's blood pressure is well controlled today.She does not have known end-organ damage on her electrocardiogram, but likely has heart failure, preserved ejection fraction, LVH as she has lower extremity edema occasionally.Last ECHO was reassuring. Lasix was 20/20, now half tabamlodipinelisin opril 20/20 Her ASCVD risk is equivalent to a diabetic; therefore, her atorvastatin was increased to 80 as every diabetic should be on high-intensity moderate dose statin or high-intensity high dose statin. LDL 80 and Alejandrina is not on aspirin as she is on Eliquis. I had the pleasure meeting Azam today in cardiovascular follow-up for lower extremity edema multiple cardiovascular risk factors CVAs TIAs and seizures. Siena is symptomatic with left arm pain appears like cellulitis and anxiety. As well as chronic cough since the fall. Siena has the following cardiovascular risk factors postmenopausal female -Batool n sedentary lifestyle central obesity elevated blood pressure at initial eval then drops and within normal limits on end of visit mixed hyperlipidemia diabetes clotting disorder CVAs mesenteric ischemia I will see her back in 6 months Plan (CPT Codes): Anticoagulation : Continue apixaban; emphasize strict adherence to prevent recurrence of venous thromboembolism . (No change) - 49185 (anticoagulatio n management) Lipid management: Maintain increased atorvastatin dose and ezetimibe 10 mg daily; recheck lipid panel in 3 months - 22098. Blood pressure: Continue lisinopril; home BP monitoring advised. Diabetes/Neurop athy: Continue metformin and gabapentin; coordinate with endocrinology for possible neuropathic pain regimen optimization. Order repeat A1c in 3 months - 77730. Imaging: Reschedule transthoracic echocardiogram to assess cardiac structure and function - 98925. Laboratory: Repeat CMP, CBC, lipid panel with A1c at next visit - 77606, 60135, 07373. 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 Return precautions: Seek immediate care for new-onset chest pain, shortness of breath, unilateral leg swelling, or signs of bleeding. Patient Education / Instructions:Di scussed importance of uninterrupted Eliquis therapy, signs/symptoms of DVT/PE, and when to seek urgent evaluation. Reviewed diabetes control, neuropathy strategies (foot care, glucose control), and adherence to statin and antihypertensiv e medications. Provided verbal guidance on weight control and dietary sodium reduction; offered printed handouts on anticoagulation safety and diabetic foot care. 12/18/2024 Hypercholesterolem ia (ICD-10 - E78.00) Last lipid panel in 04/29: 185/163/29/123 needs improvement Last lipid panel in 04/29: 185/163/29/123, needs improvement Her goal LDL is 70. If coronary artery disease is identified it would be 55. She is on atorvastatin 40 as every diabetic should be on high-intensity moderate to high dose statin as stated above.jennietia on board increase statin to 80 I had the pleasure meeting Azam today in cardiovascular follow-up for lower extremity edema multiple cardiovascular risk factors CVAs TIAs and seizures. Siena is symptomatic with left arm pain appears like cellulitis and anxiety. As well as chronic cough since the fall. Siena has the following cardiovascular risk factors postmenopausal female -Batool n sedentary lifestyle central obesity elevated blood pressure at initial eval then drops and within normal limits on end of visit mixed hyperlipidemia diabetes clotting disorder CVAs mesenteric ischemia I will see her back in 6 months Plan (CPT Codes): Anticoagulation : Continue apixaban; emphasize strict adherence to prevent recurrence of venous thromboembolism . (No change) - 59000 (anticoagulatio n management) Lipid management: Maintain increased atorvastatin dose and ezetimibe 10 mg daily; recheck lipid panel in 3 months - 90731. Blood pressure: Continue lisinopril; home BP monitoring advised. Diabetes/Neurop athy: Continue metformin and gabapentin; coordinate with endocrinology for possible neuropathic pain regimen optimization. Order repeat A1c in 3 months - 95787. Imaging: Reschedule transthoracic echocardiogram to assess cardiac structure and function - 61232. Laboratory: Repeat CMP, CBC, lipid panel with A1c at next visit - 84062, 08723, 98268. 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 Return precautions: Seek immediate care for new-onset chest pain, shortness of breath, unilateral leg swelling, or signs of bleeding. Patient Education / Instructions:Di scussed importance of uninterrupted Eliquis therapy, signs/symptoms of DVT/PE, and when to seek urgent evaluation. Reviewed diabetes control, neuropathy strategies (foot care, glucose control), and adherence to statin and antihypertensiv e medications. Provided verbal guidance on weight control and dietary sodium reduction; offered printed handouts on anticoagulation safety and diabetic foot care. 12/14/2024 Presbycusis of both ears (ICD-10 - H91.13) 06/19/2024 Diabetes mellitus (ICD-10 - E11.9) HbA1C 6.3 Reviewed diabetes and cardiovascular risk equivalent. I also reviewed risk of renal dysfunction and on brendan renal protection HbA1C in 04/29 6.3 I had the pleasure meeting Azam today in cardiovascular follow-up for lower extremity edema multiple cardiovascular risk factors CVAs TIAs and seizures. Siena is symptomatic with left arm pain appears like cellulitis and anxiety. As well as chronic cough since the fall. Siena has the following cardiovascular risk factors postmenopausal female -Batool n sedentary lifestyle central obesity elevated blood pressure at initial eval then drops and within normal limits on end of visit mixed hyperlipidemia diabetes clotting disorder CVAs mesenteric ischemia I will see her back in 6 months [facility] 06/19/2024 Localization-relat ed (focal) (partial) idiopathic epilepsy 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, not intractable, without status epilepticus (ICD-10 - G40.009) lasix I had the pleasure meeting Azam today in cardiovascular follow-up for lower extremity edema multiple cardiovascular risk factors CVAs TIAs and seizures. Siena is symptomatic with left arm pain appears like cellulitis and anxiety. As well as chronic cough since the fall. Siena has the following cardiovascular risk factors postmenopausal female -Batool n sedentary lifestyle central obesity elevated blood pressure at initial eval then drops and within normal limits on end of visit mixed hyperlipidemia diabetes clotting disorder CVAs mesenteric ischemia I will see her back in 6 months [facility] 12/18/2024 Diabetes mellitus (ICD-10 - E11.9) HbA1C 6.3 Reviewed diabetes and cardiovascular risk equivalent. I also reviewed risk of renal dysfunction and on brendan renal protection HbA1C in 04/29 6.3 I had the pleasure meeting Azam today in cardiovascular follow-up for lower extremity edema multiple cardiovascular risk factors CVAs TIAs and seizures. Siena is symptomatic with left arm pain appears like cellulitis and anxiety. As well as chronic cough since the fall. Siena has the following cardiovascular risk factors postmenopausal female -[place] sedentary lifestyle central obesity elevated blood pressure at initial eval then drops and within normal limits on end of visit mixed hyperlipidemia diabetes clotting disorder CVAs mesenteric ischemia I will see her back in 6 months Plan (CPT Codes): Anticoagulation : Continue apixaban; emphasize strict adherence to prevent recurrence of venous thromboembolism . (No change) - 40768 (anticoagulatio n management) Lipid management: Maintain increased atorvastatin dose and ezetimibe 10 mg daily; recheck lipid panel in 3 months - 79690. Blood pressure: Continue lisinopril; home BP monitoring advised. Diabetes/Neurop athy: Continue metformin and gabapentin; coordinate with endocrinology for possible neuropathic pain regimen optimization. Order repeat A1c in 3 months - 92624. Imaging: Reschedule transthoracic echocardiogram to assess cardiac structure and function - 15382. Laboratory: Repeat CMP, CBC, lipid panel with A1c at next visit - 20582, 34211, 65001. 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 Return precautions: Seek immediate care for new-onset chest pain, shortness of breath, unilateral leg swelling, or signs of bleeding. Patient Education / Instructions:Di scussed importance of uninterrupted Eliquis therapy, signs/symptoms of DVT/PE, and when to seek urgent evaluation. Reviewed diabetes control, neuropathy strategies (foot care, glucose control), and adherence to statin and antihypertensiv e medications. Provided verbal guidance on weight control and dietary sodium reduction; offered printed handouts on anticoagulation safety and diabetic foot care. 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 Siena is symptomatic with left arm pain appears like cellulitis and anxiety. As well as chronic cough since the fall. Siena has the following cardiovascular risk factors postmenopausal female -[place] sedentary lifestyle central obesity elevated blood pressure at initial eval then drops and within normal limits on end of visit mixed hyperlipidemia diabetes clotting disorder CVAs mesenteric ischemia I will see her back in 6 months Plan (CPT Codes): Anticoagulation : Continue apixaban; emphasize strict adherence to prevent recurrence of venous thromboembolism . (No change) - 02688 (anticoagulatio n management) Lipid management: Maintain increased atorvastatin dose and ezetimibe 10 mg daily; recheck lipid panel in 3 months - 52186. Blood pressure: Continue lisinopril; home BP monitoring advised. Diabetes/Neurop athy: Continue metformin and gabapentin; coordinate with endocrinology for possible neuropathic pain regimen optimization. Order repeat A1c in 3 months - 33321. Imaging: Reschedule transthoracic echocardiogram to assess cardiac structure and function - 28118. Laboratory: Repeat CMP, CBC, lipid panel with A1c at next visit - 14950, 90182, 43058. 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 Return precautions: Seek immediate care for new-onset chest pain, shortness of breath, unilateral leg swelling, or signs of bleeding. Patient Education / Instructions:Di scussed importance of uninterrupted Eliquis therapy, signs/symptoms of DVT/PE, and when to seek urgent evaluation. Reviewed diabetes control, neuropathy strategies (foot care, glucose control), and adherence to statin and antihypertensiv e medications. Provided verbal guidance on weight control and dietary sodium reduction; offered printed handouts on anticoagulation safety and diabetic foot care. 06/19/2024 Hx pulmonary embolism (ICD-10 - Z86.711) It is unclear whether she has a clotting disorder or not. She has also had a CVA and a history of a mesenteric thrombosis. She is on anticoag life long. Will continue such. I had the pleasure meeting Azam today in cardiovascular follow-up for lower extremity edema multiple cardiovascular risk factors CVAs TIAs and seizures. Siena is symptomatic with left arm pain appears like cellulitis and anxiety. As well as chronic cough since the fall. Siena has the following cardiovascular risk factors postmenopausal female -[place] sedentary lifestyle central obesity elevated blood pressure at initial eval then drops and within normal limits on end of visit mixed hyperlipidemia diabetes clotting disorder CVAs mesenteric ischemia I will see her back in 6 months [facility] 06/19/2024 History of CVA (cerebrovascular accident) (ICD-10 - Z86.73) History of embolic stroke. 30-day event monitor no atrial fibrillation. She is on anticoag, which is reassuring. I had the pleasure meeting Azam today in cardiovascular follow-up for lower extremity edema multiple cardiovascular risk factors CVAs TIAs and seizures. Siena is symptomatic with left arm pain appears like cellulitis and anxiety. As well as chronic cough since the fall. Siena has the following cardiovascular risk factors postmenopausal female -[place] sedentary lifestyle central obesity elevated blood pressure at initial eval then drops and within normal limits on end of visit mixed hyperlipidemia diabetes clotting disorder CVAs mesenteric ischemia I will see her back in 6 months [facility] 12/18/2024 Hx pulmonary embolism (ICD-10 - Z86.711) It is unclear whether she has a clotting disorder or not. She has also had a CVA and a history of a mesenteric thrombosis. She is on anticoag life long. Will continue such. I had the pleasure meeting Azam today in cardiovascular follow-up for lower extremity edema multiple cardiovascular risk factors CVAs TIAs and seizures. Siena is symptomatic with left arm pain appears like cellulitis and anxiety. As well as chronic cough since the fall. Siena has the following cardiovascular risk factors postmenopausal female -[place] sedentary lifestyle central obesity elevated blood pressure at initial eval then drops and within normal limits on end of visit mixed hyperlipidemia diabetes clotting disorder CVAs mesenteric ischemia I will see her back in 6 months Plan (CPT Codes): Anticoagulation : Continue apixaban; emphasize strict adherence to prevent recurrence of venous thromboembolism . (No change) - 34615 (anticoagulatio n management) Lipid management: Maintain increased atorvastatin dose and ezetimibe 10 mg daily; recheck lipid panel in 3 months - 65802. Blood pressure: Continue lisinopril; home BP monitoring advised. Diabetes/Neurop athy: Continue metformin and gabapentin; coordinate with endocrinology for possible neuropathic pain regimen optimization. Order repeat A1c in 3 months - 72296. Imaging: Reschedule transthoracic echocardiogram to assess cardiac structure and function - 76384. Laboratory: Repeat CMP, CBC, lipid panel with A1c at next visit - 04344, 49224, 64443. 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 Return precautions: Seek immediate care for new-onset chest pain, shortness of breath, unilateral leg swelling, or signs of bleeding. Patient Education / Instructions:Di scussed importance of uninterrupted Eliquis therapy, signs/symptoms of DVT/PE, and when to seek urgent evaluation. Reviewed diabetes control, neuropathy strategies (foot care, glucose control), and adherence to statin and antihypertensiv e medications. Provided verbal guidance on weight control and dietary sodium reduction; offered printed handouts on anticoagulation safety and diabetic foot care. 12/18/2024 History of CVA (cerebrovascular accident) (ICD-10 - Z86.73) History of embolic stroke. 30-day event monitor no atrial fibrillation. She is on anticoag, which is reassuring. I had the pleasure meeting Azam jones in cardiovascular follow-up for lower extremity edema multiple cardiovascular risk factors CVAs TIAs and seizures. Siena is symptomatic with left arm pain appears like cellulitis and anxiety. As well as chronic cough since the fall. Siena has the following cardiovascular risk factors postmenopausal female -[place] sedentary lifestyle central obesity elevated blood pressure at initial eval then drops and within normal limits on end of visit mixed hyperlipidemia diabetes clotting disorder CVAs mesenteric ischemia I will see her back in 6 months Plan (CPT Codes): Anticoagulation : Continue apixaban; emphasize strict adherence to prevent recurrence of venous thromboembolism . (No change) - 21143 (anticoagulatio n management) Lipid management: Maintain increased atorvastatin dose and ezetimibe 10 mg daily; recheck lipid panel in 3 months - 85392. Blood pressure: Continue lisinopril; home BP monitoring advised. Diabetes/Neurop athy: Continue metformin and gabapentin; coordinate with endocrinology for possible neuropathic pain regimen optimization. Order repeat A1c in 3 months - 91902. Imaging: Reschedule transthoracic echocardiogram to assess cardiac structure and function - 70849. Laboratory: Repeat CMP, CBC, lipid panel with A1c at next visit - 20739, 15806, 57506. 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 Return precautions: Seek immediate care for new-onset chest pain, shortness of breath, unilateral leg swelling, or signs of bleeding. Patient Education / Instructions:Di scussed importance of uninterrupted Eliquis therapy, signs/symptoms of DVT/PE, and when to seek urgent evaluation. Reviewed diabetes control, neuropathy strategies (foot care, glucose control), and adherence to statin and antihypertensiv e medications. Provided verbal guidance on weight control and dietary sodium reduction; offered printed handouts on anticoagulation safety and diabetic foot care. 06/19/2024 Lower extremity edema (ICD-10 - R60.0) at baseline. Left lower extremity is mildly edematous, non-pitting and associated with tenderness. Recommend icing and rest to ankle. Lower extremity edema improvement with Lasix euvolemic today I had the pleasure meeting Jun in cardiovascular follow-up for lower extremity edema multiple cardiovascular risk factors CVAs TIAs and seizures. Siena is symptomatic with left arm pain appears like cellulitis and anxiety. As well as chronic cough since the fall. Siena has the following cardiovascular risk factors postmenopausal female -[place] sedentary lifestyle central obesity elevated blood pressure at initial eval then drops and within normal limits on end of visit mixed hyperlipidemia diabetes clotting disorder CVAs mesenteric ischemia I will see her back in 6 months [facility] 06/19/2024 Intermittent palpitations (ICD-10 - R00.2) Patient had one episode today after a long period of being asymptomatic and in remission. Will defer investigation for now with follow-up in 6 months. Can evaluate earlier if symptoms repeat and persist. resolves with deep breathing, antianxiety meds, occurs during panic Palpitations resolved with antianxiety lytics and occurred during anxiety and panic attacks event monitor in the past no arrhythmias 30-day event monitor no A-fib on anticoagulation will continue to evaluate I had the pleasure meeting Jun in cardiovascular follow-up for lower extremity edema multiple cardiovascular risk factors CVAs TIAs and seizures. Siena is symptomatic with left arm pain appears like cellulitis and anxiety. As well as chronic cough since the fall. Siena has the following cardiovascular risk factors postmenopausal female -[place] sedentary lifestyle central obesity elevated blood pressure at initial eval then drops and within normal limits on end of visit mixed hyperlipidemia diabetes clotting disorder CVAs mesenteric ischemia I will see her back in 6 months [facility] 12/18/2024 Lower extremity edema (ICD-10 - R60.0) at baseline. Left lower extremity is mildly edematous, non-pitting and associated with tenderness. Recommend icing and rest to ankle. Lower extremity edema improvement with Lasix euvolemic today I had the pleasure meeting Azam jones in cardiovascular follow-up for lower extremity edema multiple cardiovascular risk factors CVAs TIAs and seizures. Siena is symptomatic with left arm pain appears like cellulitis and anxiety. As well as chronic cough since the fall. Siena has the following cardiovascular risk factors postmenopausal female -[place] sedentary lifestyle central obesity elevated blood pressure at initial eval then drops and within normal limits on end of visit mixed hyperlipidemia diabetes clotting disorder CVAs mesenteric ischemia I will see her back in 6 months Plan (CPT Codes): Anticoagulation : Continue apixaban; emphasize strict adherence to prevent recurrence of venous thromboembolism . (No change) - 73413 (anticoagulatio n management) Lipid management: Maintain increased atorvastatin dose and ezetimibe 10 mg daily; recheck lipid panel in 3 months - 99234. Blood pressure: Continue lisinopril; home BP monitoring advised. Diabetes/Neurop athy: Continue metformin and gabapentin; coordinate with endocrinology for possible neuropathic pain regimen optimization. Order repeat A1c in 3 months - 01060. Imaging: Reschedule transthoracic echocardiogram to assess cardiac structure and function - 16229. Laboratory: Repeat CMP, CBC, lipid panel with A1c at next visit - 60376, 51677, 48644. 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 Return precautions: Seek immediate care for new-onset chest pain, shortness of breath, unilateral leg swelling, or signs of bleeding. Patient Education / Instructions:Di scussed importance of uninterrupted Eliquis therapy, signs/symptoms of DVT/PE, and when to seek urgent evaluation. Reviewed diabetes control, neuropathy strategies (foot care, glucose control), and adherence to statin and antihypertensiv e medications. Provided verbal guidance on weight control and dietary sodium reduction; offered printed handouts on anticoagulation safety and diabetic foot care. 12/18/2024 Intermittent palpitations (ICD-10 - R00.2) Patient had one episode today after a long period of being asymptomatic and in remission. Will defer investigation for now with follow-up in 6 months. Can evaluate earlier if symptoms repeat and persist. resolves with deep breathing, antianxiety meds, occurs during panic Palpitations resolved with antianxiety lytics and occurred during anxiety and panic attacks event monitor in the past no arrhythmias 30-day event monitor no A-fib on anticoagulation will continue to evaluate I had the pleasure meeting Azam today in cardiovascular follow-up for lower extremity edema multiple cardiovascular risk factors CVAs TIAs and seizures. Siena is symptomatic with left arm pain appears like cellulitis and anxiety. As well as chronic cough since the fall. Siena has the following cardiovascular risk factors postmenopausal female -[place] sedentary lifestyle central obesity elevated blood pressure at initial eval then drops and within normal limits on end of visit mixed hyperlipidemia diabetes clotting disorder CVAs mesenteric ischemia I will see her back in 6 months Plan (CPT Codes): Anticoagulation : Continue apixaban; emphasize strict adherence to prevent recurrence of venous thromboembolism . (No change) - 21926 (anticoagulatio n management) Lipid management: Maintain increased atorvastatin dose and ezetimibe 10 mg daily; recheck lipid panel in 3 months - 87192. Blood pressure: Continue lisinopril; home BP monitoring advised. Diabetes/Neurop athy: Continue metformin and gabapentin; coordinate with endocrinology for possible neuropathic pain regimen optimization. Order repeat A1c in 3 months - 43936. Imaging: Reschedule transthoracic echocardiogram to assess cardiac structure and function - 66053. Laboratory: Repeat CMP, CBC, lipid panel with A1c at next visit - 64172, 29050, 20733. 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 Return precautions: Seek immediate care for new-onset chest pain, shortness of breath, unilateral leg swelling, or signs of bleeding. Patient Education / Instructions:Di scussed importance of uninterrupted Eliquis therapy, signs/symptoms of DVT/PE, and when to seek urgent evaluation. Reviewed diabetes control, neuropathy strategies (foot care, glucose control), and adherence to statin and antihypertensiv e medications. Provided verbal guidance on weight control and dietary sodium reduction; offered printed handouts on anticoagulation safety and diabetic foot care. 06/19/2024 Chronic cough (ICD-10 - R05.3) Patient notes cough with expectoration of white sputum since 2.5 months. Admits to needing Tums frequently for heartburn. Would benefit from a PPI, Tesselon pearls for symptomatic relief. Patient notes cough with expectoration of white sputum since 2.5 months. Admits to needing Tums frequently for heartburn. Would benefit from a PPI, Tesselon pearls for symptomatic relief. I had the pleasure meeting Azam today in cardiovascular follow-up for lower extremity edema multiple cardiovascular risk factors CVAs TIAs and seizures. Siena is symptomatic with left arm pain appears like cellulitis and anxiety. As well as chronic cough since the fall. Siena has the following cardiovascular risk factors postmenopausal female -[place] sedentary lifestyle central obesity elevated blood pressure at initial eval then drops and within normal limits on end of visit mixed hyperlipidemia diabetes clotting disorder CVAs mesenteric ischemia I will see her back in 6 months [facility] 12/18/2024 Chronic cough (ICD-10 - R05.3) Patient notes cough with expectoration of white sputum since 2.5 months. Admits to needing Tums frequently for heartburn. Would benefit from a PPI, Tesselon pearls for symptomatic relief. Patient notes cough with expectoration of white sputum since 2.5 months. Admits to needing Tums frequently for heartburn. Would benefit from a PPI, Tesselon pearls for symptomatic relief. I had the pleasure meeting Azam today in cardiovascular follow-up for lower extremity edema multiple cardiovascular risk factors CVAs TIAs and seizures. Siena is symptomatic with left arm pain appears like cellulitis and anxiety. As well as chronic cough since the fall. Siena has the following cardiovascular risk factors postmenopausal female -[place] sedentary lifestyle central obesity elevated blood pressure at initial eval then drops and within normal limits on end of visit mixed hyperlipidemia diabetes clotting disorder CVAs mesenteric ischemia I will see her back in 6 months Plan (CPT Codes): Anticoagulation : Continue apixaban; emphasize strict adherence to prevent recurrence of venous thromboembolism . (No change) - 27849 (anticoagulatio n management) Lipid management: Maintain increased atorvastatin dose and ezetimibe 10 mg daily; recheck lipid panel in 3 months - 38620. Blood pressure: Continue lisinopril; home BP monitoring advised. Diabetes/Neurop athy: Continue metformin and gabapentin; coordinate with endocrinology for possible neuropathic pain regimen optimization. Order repeat A1c in 3 months - 37866. Imaging: Reschedule transthoracic echocardiogram to assess cardiac structure and function - 03341. Laboratory: Repeat CMP, CBC, lipid panel with A1c at next visit - 68742, 98259, 65681. 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 Return precautions: Seek immediate care for new-onset chest pain, shortness of breath, unilateral leg swelling, or signs of bleeding. Patient Education / Instructions:Di scussed importance of uninterrupted Eliquis therapy, signs/symptoms of DVT/PE, and when to seek urgent evaluation. Reviewed diabetes control, neuropathy strategies (foot care, glucose control), and adherence to statin and antihypertensiv e medications. Provided verbal guidance on weight control and dietary sodium reduction; offered printed handouts on anticoagulation safety and diabetic foot care. 06/19/2024 Wound cellulitis (ICD-10 - L03.90) Left arm redness and induration with tenderness. Patient does not recall insect bite, recent vaccination or injections at the site. No fevers, chills, malaise noted. Would benefit from short course of antibiotics. I had the pleasure meeting Azam jones in cardiovascular follow-up for lower extremity edema multiple cardiovascular risk factors CVAs TIAs and seizures. Siena is symptomatic with left arm pain appears like cellulitis and anxiety. As well as chronic cough since the fall. Siena has the following cardiovascular risk factors postmenopausal female -[place] sedentary lifestyle central obesity elevated blood pressure at initial eval then drops and within normal limits on end of visit mixed hyperlipidemia diabetes clotting disorder CVAs mesenteric ischemia I will see her back in 6 months [facility] 12/18/2024 Wound cellulitis (ICD-10 - L03.90) Left arm redness and induration with tenderness. Patient does not recall insect bite, recent vaccination or injections at the site. No fevers, chills, malaise noted. Would benefit from short course of antibiotics. I had the pleasure meeting Azam jones in cardiovascular follow-up for lower extremity edema multiple cardiovascular risk factors CVAs TIAs and seizures. Siena is symptomatic with left arm pain appears like cellulitis and anxiety. As well as chronic cough since the fall. Siena has the following cardiovascular risk factors postmenopausal female -[place] sedentary lifestyle central obesity elevated blood pressure at initial eval then drops and within normal limits on end of visit mixed hyperlipidemia diabetes clotting disorder CVAs mesenteric ischemia I will see her back in 6 months Plan (CPT Codes): Anticoagulation : Continue apixaban; emphasize strict adherence to prevent recurrence of venous thromboembolism . (No change) - 80333 (anticoagulatio n management) Lipid management: Maintain increased atorvastatin dose and ezetimibe 10 mg daily; recheck lipid panel in 3 months - 05749. Blood pressure: Continue lisinopril; home BP monitoring advised. Diabetes/Neurop athy: Continue metformin and gabapentin; coordinate with endocrinology for possible neuropathic pain regimen optimization. Order repeat A1c in 3 months - 71309. Imaging: Reschedule transthoracic echocardiogram to assess cardiac structure and function - 50251. Laboratory: Repeat CMP, CBC, lipid panel with A1c at next visit - 03149, 64880, 02851. 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 Return precautions: Seek immediate care for new-onset chest pain, shortness of breath, unilateral leg swelling, or signs of bleeding. Patient Education / Instructions:Di scussed importance of uninterrupted Eliquis therapy, signs/symptoms of DVT/PE, and when to seek urgent evaluation. Reviewed diabetes control, neuropathy strategies (foot care, glucose control), and adherence to statin and antihypertensiv e medications. Provided verbal guidance on weight control and dietary sodium reduction; offered printed handouts on anticoagulation safety and diabetic foot care. 06/19/2024 Morbid (severe) obesity due to excess calories (ICD-10 - E66.01) Educated on maintaining a healthy lifestyle with diet and exercise as tolerated. 40 minutes 5 days a week of aerobic exercise encouraged. Nutritional plan reviewed with portion control and an increase in lean protein, veggies and fruits I had the pleasure meeting Azam jones in cardiovascular follow-up for lower extremity edema multiple cardiovascular risk factors CVAs TIAs and seizures. Siena is symptomatic with left arm pain appears like cellulitis and anxiety. As well as chronic cough since the fall. Siena has the following cardiovascular risk factors postmenopausal female -Batool n sedentary lifestyle central obesity elevated blood pressure at initial eval then drops and within normal limits on end of visit mixed hyperlipidemia diabetes clotting disorder CVAs mesenteric ischemia I will see her back in 6 months [facility] 06/19/2024 Body mass index [BMI] 36.0-36.9, adult (ICD-10 - Z68.36) Educated on maintaining a healthy lifestyle with diet and exercise as tolerated. 40 minutes 5 days a week of aerobic exercise encouraged. Nutritional plan reviewed with portion control and an increase in lean protein, veggies and fruits I had the pleasure meeting Azam today in cardiovascular follow-up for lower extremity edema multiple cardiovascular risk factors CVAs TIAs and seizures. Siena is symptomatic with left arm pain appears like cellulitis and anxiety. As well as chronic cough since the fall. Siena has the following cardiovascular risk factors postmenopausal female -Batool n sedentary lifestyle central obesity elevated blood pressure at initial eval then drops and within normal limits on end of visit mixed hyperlipidemia diabetes clotting disorder CVAs mesenteric ischemia I will see her back in 6 months [facility] 12/18/2024 Morbid (severe) obesity due to excess calories (ICD-10 - E66.01) Educated on maintaining a healthy lifestyle with diet and exercise as tolerated. 40 minutes 5 days a week of aerobic exercise encouraged. Nutritional plan reviewed with portion control and an increase in lean protein, veggies and fruits I had the pleasure meeting Azam today in cardiovascular follow-up for lower extremity edema multiple cardiovascular risk factors CVAs TIAs and seizures. Siena is symptomatic with left arm pain appears like cellulitis and anxiety. As well as chronic cough since the fall. Siena has the following cardiovascular risk factors postmenopausal female -Batool n sedentary lifestyle central obesity elevated blood pressure at initial eval then drops and within normal limits on end of visit mixed hyperlipidemia diabetes clotting disorder CVAs mesenteric ischemia I will see her back in 6 months Plan (CPT Codes): Anticoagulation : Continue apixaban; emphasize strict adherence to prevent recurrence of venous thromboembolism . (No change) - 85475 (anticoagulatio n management) Lipid management: Maintain increased atorvastatin dose and ezetimibe 10 mg daily; recheck lipid panel in 3 months - 85861. Blood pressure: Continue lisinopril; home BP monitoring advised. Diabetes/Neurop athy: Continue metformin and gabapentin; coordinate with endocrinology for possible neuropathic pain regimen optimization. Order repeat A1c in 3 months - 57450. Imaging: Reschedule transthoracic echocardiogram to assess cardiac structure and function - 11498. Laboratory: Repeat CMP, CBC, lipid panel with A1c at next visit - 18427, 96971, 70239. 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 Return precautions: Seek immediate care for new-onset chest pain, shortness of breath, unilateral leg swelling, or signs of bleeding. Patient Education / Instructions:Di scussed importance of uninterrupted Eliquis therapy, signs/symptoms of DVT/PE, and when to seek urgent evaluation. Reviewed diabetes control, neuropathy strategies (foot care, glucose control), and adherence to statin and antihypertensiv e medications. Provided verbal guidance on weight control and dietary sodium reduction; offered printed handouts on anticoagulation safety and diabetic foot care. 06/19/2024 Obesity, class 2 (ICD-10 - E66.812) Educated on maintaining a healthy lifestyle with diet and exercise as tolerated. 40 minutes 5 days a week of aerobic exercise encouraged. Nutritional plan reviewed with portion control and an increase in lean protein, veggies and fruits. I had the pleasure meeting Azam today in cardiovascular follow-up for lower extremity edema multiple cardiovascular risk factors CVAs TIAs and seizures. Siena is symptomatic with left arm pain appears like cellulitis and anxiety. As well as chronic cough since the fall. Siena has the following cardiovascular risk factors postmenopausal female -Batool n sedentary lifestyle central obesity elevated blood pressure at initial eval then drops and within normal limits on end of visit mixed hyperlipidemia diabetes clotting disorder CVAs mesenteric ischemia I will see her back in 6 months [facility] 12/18/2024 Body mass index [BMI] 36.0-36.9, adult (ICD-10 - Z68.36) Educated on maintaining a healthy lifestyle with diet and exercise as tolerated. 40 minutes 5 days a week of aerobic exercise encouraged. Nutritional plan reviewed with portion control and an increase in lean protein, veggies and fruits I had the pleasure meeting Azam today in cardiovascular follow-up for lower extremity edema multiple cardiovascular risk factors CVAs TIAs and seizures. Siena is symptomatic with left arm pain appears like cellulitis and anxiety. As well as chronic cough since the fall. Siena has the following cardiovascular risk factors postmenopausal female -Batool n sedentary lifestyle central obesity elevated blood pressure at initial eval then drops and within normal limits on end of visit mixed hyperlipidemia diabetes clotting disorder CVAs mesenteric ischemia I will see her back in 6 months Plan (CPT Codes): Anticoagulation : Continue apixaban; emphasize strict adherence to prevent recurrence of venous thromboembolism . (No change) - 44312 (anticoagulatio n management) Lipid management: Maintain increased atorvastatin dose and ezetimibe 10 mg daily; recheck lipid panel in 3 months - 22480. Blood pressure: Continue lisinopril; home BP monitoring advised. Diabetes/Neurop athy: Continue metformin and gabapentin; coordinate with endocrinology for possible neuropathic pain regimen optimization. Order repeat A1c in 3 months - 23691. Imaging: Reschedule transthoracic echocardiogram to assess cardiac structure and function - 54548. Laboratory: Repeat CMP, CBC, lipid panel with A1c at next visit - 36321, 05659, 36310. 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 Return precautions: Seek immediate care for new-onset chest pain, shortness of breath, unilateral leg swelling, or signs of bleeding. Patient Education / Instructions:Di scussed importance of uninterrupted Eliquis therapy, signs/symptoms of DVT/PE, and when to seek urgent evaluation. Reviewed diabetes control, neuropathy strategies (foot care, glucose control), and adherence to statin and antihypertensiv e medications. Provided verbal guidance on weight control and dietary sodium reduction; offered printed handouts on anticoagulation safety and diabetic foot care. 12/18/2024 Obesity, class 2 (ICD-10 - E66.812) Educated on maintaining a healthy lifestyle with diet and exercise as tolerated. 40 minutes 5 days a week of aerobic exercise encouraged. Nutritional plan reviewed with portion control and an increase in lean protein, veggies and fruits. I had the pleasure meeting Azam jones in cardiovascular follow-up for lower extremity edema multiple cardiovascular risk factors CVAs TIAs and seizures. Siena is symptomatic with left arm pain appears like cellulitis and anxiety. As well as chronic cough since the fall. Siena has the following cardiovascular risk factors postmenopausal female -Batool n sedentary lifestyle central obesity elevated blood pressure at initial eval then drops and within normal limits on end of visit mixed hyperlipidemia diabetes clotting disorder CVAs mesenteric ischemia I will see her back in 6 months Plan (CPT Codes): Anticoagulation : Continue apixaban; emphasize strict adherence to prevent recurrence of venous thromboembolism . (No change) - 86628 (anticoagulatio n management) Lipid management: Maintain increased atorvastatin dose and ezetimibe 10 mg daily; recheck lipid panel in 3 months - 13521. Blood pressure: Continue lisinopril; home BP monitoring advised. Diabetes/Neurop athy: Continue metformin and gabapentin; coordinate with endocrinology for possible neuropathic pain regimen optimization. Order repeat A1c in 3 months - 82922. Imaging: Reschedule transthoracic echocardiogram to assess cardiac structure and function - 95653. Laboratory: Repeat CMP, CBC, lipid panel with A1c at next visit - 24151, 61744, 43687. 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 Return precautions: Seek immediate care for new-onset chest pain, shortness of breath, unilateral leg swelling, or signs of bleeding. Patient Education / Instructions:Di scussed importance of uninterrupted Eliquis therapy, signs/symptoms of DVT/PE, and when to seek urgent evaluation. Reviewed diabetes control, neuropathy strategies (foot care, glucose control), and adherence to statin and antihypertensiv e medications. Provided verbal guidance on weight control and dietary sodium reduction; offered printed handouts on anticoagulation safety and diabetic foot care. 06/19/2024 Mesenteric ischemia (ICD-10 - K55.9) anticoag and statin I had the pleasure meeting Azam today in cardiovascular follow-up for lower extremity edema multiple cardiovascular risk factors CVAs TIAs and seizures. Siena is symptomatic with left arm pain appears like cellulitis and anxiety. As well as chronic cough since the fall. Siena has the following cardiovascular risk factors postmenopausal female -Batool n sedentary lifestyle central obesity elevated blood pressure at initial eval then drops and within normal limits on end of visit mixed hyperlipidemia diabetes clotting disorder CVAs mesenteric ischemia I will see her back in 6 months [facility] 12/18/2024 Mesenteric ischemia (ICD-10 - K55.9) anticoag and statin I had the pleasure meeting Azam today in cardiovascular follow-up for lower extremity edema multiple cardiovascular risk factors CVAs TIAs and seizures. Siena is symptomatic with left arm pain appears like cellulitis and anxiety. As well as chronic cough since the fall. Siena has the following cardiovascular risk factors postmenopausal female -Batool n sedentary lifestyle central obesity elevated blood pressure at initial eval then drops and within normal limits on end of visit mixed hyperlipidemia diabetes clotting disorder CVAs mesenteric ischemia I will see her back in 6 months Plan (CPT Codes): Anticoagulation : Continue apixaban; emphasize strict adherence to prevent recurrence of venous thromboembolism . (No change) - 73774 (anticoagulatio n management) Lipid management: Maintain increased atorvastatin dose and ezetimibe 10 mg daily; recheck lipid panel in 3 months - 72788. Blood pressure: Continue lisinopril; home BP monitoring advised. Diabetes/Neurop athy: Continue metformin and gabapentin; coordinate with endocrinology for possible neuropathic pain regimen optimization. Order repeat A1c in 3 months - 71110. Imaging: Reschedule transthoracic echocardiogram to assess cardiac structure and function - 89365. Laboratory: Repeat CMP, CBC, lipid panel with A1c at next visit - 38205, 86253, 72067. 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 Return precautions: Seek immediate care for new-onset chest pain, shortness of breath, unilateral leg swelling, or signs of bleeding. Patient Education / Instructions:Di scussed importance of uninterrupted Eliquis therapy, signs/symptoms of DVT/PE, and when to seek urgent evaluation. Reviewed diabetes control, neuropathy strategies (foot care, glucose control), and adherence to statin and antihypertensiv e medications. Provided verbal guidance on weight control and dietary sodium reduction; offered printed handouts on anticoagulation safety and diabetic foot care. 06/19/2024 Other Total Time spent: 54 minutes: - Counseling and educating the patient/family/car egiver: 16minutes - Documenting clinical information in the EHR or other health record:18 minutes - Performing a medically appropriate examination and /or evaluation: 6 minutes - Obtaining and/or reviewing separately obtained history: 10 minutes - Ordering medications, test, or procedures: 4 minutes - Referring and communicating with other health care providers: 0 minutes - Independently interpreting results and communicating results to the patient/family/car egiver: 0 minutes I had the pleasure meeting Azam jones in cardiovascular follow-up for lower extremity edema multiple cardiovascular risk factors CVAs TIAs and seizures. Siena is symptomatic with left arm pain appears like cellulitis and anxiety. As well as chronic cough since the fall. Siena has the following cardiovascular risk factors postmenopausal female -Batool n sedentary lifestyle central obesity elevated blood pressure at initial eval then drops and within normal limits on end of visit mixed hyperlipidemia diabetes clotting disorder CVAs mesenteric ischemia I will see her back in 6 months [facility] 12/14/2024 Other For bilateral feet edema, she reports swelling in both feet, more pronounced in the right foot. She has an upcoming appointment with Dr. Gordon, on 12/19/2024, who will likely order an ultrasound of her heart to investigate the cause of the swelling. For hearing loss, a referral to an commissary production supervisor will be made for her hearing aids. The patient will follow up in 6 months. This note has been generated using [employer]. 12/18/2024 Other Total Time spent: 37minutes: - Counseling and educating the patient/family/car egiver: 14minutes - Documenting clinical information in the EHR or other health record:11 minutes - Performing a medically appropriate examination and /or evaluation: 5 minutes - Obtaining and/or reviewing separately obtained history: 5minutes - Ordering medications, test, or procedures: 2 minutes - Referring and communicating with other health care providers: 0 minutes - Independently interpreting results and communicating results to the patient/family/car egiver: 0 minutes I had the pleasure meeting Azam jones in cardiovascular follow-up for lower extremity edema multiple cardiovascular risk factors CVAs TIAs and seizures. Siena is symptomatic with left arm pain appears like cellulitis and anxiety. As well as chronic cough since the fall. Siena has the following cardiovascular risk factors postmenopausal female -Batool n sedentary lifestyle central obesity elevated blood pressure at initial eval then drops and within normal limits on end of visit mixed hyperlipidemia diabetes clotting disorder CVAs mesenteric ischemia I will see her back in 6 months Plan (CPT Codes): Anticoagulation : Continue apixaban; emphasize strict adherence to prevent recurrence of venous thromboembolism . (No change) - 49511 (anticoagulatio n management) Lipid management: Maintain increased atorvastatin dose and ezetimibe 10 mg daily; recheck lipid panel in 3 months - 20745. Blood pressure: Continue lisinopril; home BP monitoring advised. Diabetes/Neurop athy: Continue metformin and gabapentin; coordinate with endocrinology for possible neuropathic pain regimen optimization. Order repeat A1c in 3 months - 51917. Imaging: Reschedule transthoracic echocardiogram to assess cardiac structure and function - 85060. Laboratory: Repeat CMP, CBC, lipid panel with A1c at next visit - 99304, 16067, 84903. 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 Return precautions: Seek immediate care for new-onset chest pain, shortness of breath, unilateral leg swelling, or signs of bleeding. Patient Education / Instructions:Di scussed importance of uninterrupted Eliquis therapy, signs/symptoms of DVT/PE, and when to seek urgent evaluation. Reviewed diabetes control, neuropathy strategies (foot care, glucose control), and adherence to statin and antihypertensiv e medications. Provided verbal guidance on weight control and dietary sodium reduction; offered printed handouts on anticoagulation safety and diabetic foot care. Plan Of Treatment Pending Test Test Name Order Date EKG 06/19/2024 EKG 12/18/2024 Levetiracetam (Keppra), [id number] Next Appt Details Provider Name:Ricardo Lyndsay, 06/20/2025 11:20:00 AM, [address] [place] [address], [address], [place], [address], Provider Name:Aida Tyrone mendoza, 08/02/2025 01:00:00 PM, [address] [place] [address], [address], [place], [address], Insurance Providers Payer Name Payer Address Payer Phone Subscriber Number Group Number Insured Name Patient Relationship to Insured Coverage Start Date Coverage End Date [facility] [address] [place] [phone] [id number] HarishSiena Koch Self - patient is the insured Medical (General) History Medical History History ICD Code Hypercholesterolemia E78.00 Essential (primary) hypertension I10 Diabetes mellitus E11.9 SEIZURES Localization-related (focal) (partial) idiopathic epilepsy 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, not intractable, without status epilepticus G40.009 Left spastic hemiparesis G81.14 Meniere''s disease, unspecified laterali ty H81.09 JACQUELINE (obstructive sleep apnea) G47.33 Mesenteric thrombosis pulmonary embolism Surgical History Surgery Date(Month/Year) tuballigation Hospitalization History Reason Date(Month/Year) TIA 08/2023 seizures 04/2021 seizure 12/2020
--- OUTSIDE RECORDS SUMMARY | 2025-04-18 18:57 | XMS_ITS | Clinical Summary ---
Author Organization [facility] Address [address] [place] [address] Care Team Providers Care Scheduling Analyst Name Role Phone Renata Junior MD Primary Care Provider [phone] Allergies Active Allergy Reactions Criticality Noted Date Comments Blueberry Hives,Rash 08/01/2017 Penicillins Dermatitis,Rash 03/09/2017 Shellfish Derived Hives,Anaphylaxis,Itching,Rash High 08/01/2017 Medications * This document contains information received from the source organization and may not represent a complete record from that organization. docusate sodium (COLACE) 100 mg capsule Take 1 capsule by mouth 2 times a day. Active atorvastatin (LIPITOR) 80 mg tablet Take 80 mg by mouth once a day. Active apixaban (ELIQUIS) 5 mg tablet Take 5 mg by mouth every 12 hours. Active ezetimibe (ZETIA) 10 mg tablet Take 10 mg by mouth once a day. Active levETIRAcetam (KEPPRA) 500 mg tablet Take 3 tablets (1,500 mg total) by mouth 2 times a day. 180 tablet 04/18/20 21 Active acetaminophen (TYLENOL) 325 mg tablet Take 2 tablets (650 mg total) by mouth every 6 hours as needed for headache, fever or pain. 08/27/19 22 Active gabapentin (NEURONTIN) 300 mg capsule Take 300 mg by mouth at bed time. Active diphenhydrAMIN E (Banophen) 25 mg capsule Take 25 mg by mouth nightly as needed for itching. Active carBAMazepine (TEGretol) 200 mg tablet Take 3 tablets (600 mg total) by mouth every 12 hours. 08/18/19 24 Active meclizine (ANTIVERT) 25 mg tablet Take 1 tablet (25 mg total) by mouth 3 times a day as needed for dizziness or nausea. 90 tablet 08/18/19 24 Active sertraline (ZOLOFT) 100 mg tablet Take 2 tablets (200 mg total) by mouth once a day. 08/18/19 24 Active prazosin (MINIPRESS) 2 mg capsuleIndicat ions:hypertens ion Take 1 capsule (2 mg total) by mouth nightly Indications: high blood pressure. 30 capsule 08/18/19 24 Active prochlorperazi ne (COMPAZINE) 10 mg tablet Take 1 tablet (10 mg total) by mouth every 6 hours as needed for nausea or vomiting. 20 tablet 08/18/19 24 Active metoprolol succinate XL (TOPROL XL) 25 mg tablet Take 1 tablet (25 mg total) by mouth once a day. 30 tablet 08/18/19 24 Active butalbital-brendan taminophen-caf feine (FIORICET) 50-325-40 mg tablet Take 1 tablet by mouth every 4 hours as needed for headache. 20 tablet 08/18/19 24 Active carBAMazepine (TEGretol) 200 mg tablet Take 400 mg by mouth 2 (two) times a day. Active furosemide (LASIX) 20 mg tablet Take 20 mg by mouth once a day. Active lisinopriL (PRINIVIL,ZEST RIL) 40 mg tablet Take 40 mg by mouth once a day. Active metFORMIN (GLUCOPHAGE) 500 mg tablet Take 500 mg by mouth daily with food. Active FLUoxetine (PROzac) 40 mg capsuleIndicat ions:major depressive disorder Take 40 mg by mouth daily. 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-sided weakness 08/15/2023 TIA (transient ischemic attack) 08/14/2023 Acute hypokalemia 08/14/2023 Hypoxia 07/14/2021 Seizure 04/16/2021 Other headache syndrome 12/13/2020 History of CVA with residual deficit 12/11/2020 Schizoaffective disorder, depressive type 2020 PTSD (post-traumatic stress disorder) 12/11/2020 Recurrent major depressive disorder, in remissio n 12/11/2020 Anxiety 12/11/2020 Epilepsy 12/11/2020 Fever 12/09/2020 Hypoxia 12/09/2020 Metabolic alkalosis 12/09/2020 Acute pulmonary edema 12/09/2020 Urinary incontinence 12/08/2020 Acute intractable headache 12/08/2020 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 Arthritis, midfoot 09/12/2017 Chronic intractable headache 09/07/2017 Acute right ankle pain 08/01/2017 Arthritis of right foot 08/01/2017 Hemiparesis 11/03/2016 Stroke syndrome 11/03/2016 Seizure disorder 11/03/2016 Screening for human papillomavirus (HPV) 017 Vulvar lesion 09/14/2016 TIA involving carotid artery 01/14/2015 Hypertension Obesity, Class II, BMI 35-39.9 Elevated C-reactive protein (CRP) Leukocytosis Microcytosis On apixaban therapy At risk for polypharmacy Diabetes mellitus Mobility impaired Resolved Problems Problem Noted Date Diagnosed Date Resolved Date Chest heaviness 08/24/2021 08/26/2021 Seizure 12/09/2020 12/16/2020 Severe sepsis 12/09/2020 12/16/2020 Hyponatremia 12/16/2020 Lactic acidosis 12/09/2020 Family History Medical History Relation Name Comments Other Mother No pertinent fa valencia history Relation Name Status Comments Mother Social History Tobacco Use Types Packs/Day Years Used Date Smoking Tobacco: Never Smokeless Tobacco: Never Tobacco Cessation:Counseling Given: No Comments:: Alcohol Use Standard Drinks/Week Comments No 0 (1 standard drink = 0.6 oz pur e alcohol) Comments No Sex and Gender Information Value Date Recorded Sex Assigned at Female 08/14/2023 9:03 AM EDT Legal Sex Female 6:50 PM EDT Gender Identity Not on file Sexual Orientation Not on file Last Filed Vital Signs Vital Sign Reading Time Taken Comments Blood Pressure 141/76 04/18/2025 9:59 AM EST Pulse 81 04/18/2025 9:59 AM EST Temperature 37.1 C (98.8 F) 04/18/2025 9:59 AM EST Respiratory Rate 18 04/18/2025 9:59 AM EST Oxygen Saturation 95% 04/18/2025 9:59 AM EST Inhaled Oxygen Concentration - - Weight 104.3 kg (230 lb) 04/17/2025 5:42 AM EST Height 165.1 cm (5' 5 ) 08/15/2023 10:31 AM EDT Body Mass Index 38.27 08/15/2023 10:31 AM EDT Plan of Treatment Health Maintenance Due Date Last Done Comments Cologuard 1960 Colon Cancer Screening 1960 Colonoscopy 1960 FOBT / Fit Test 1960 Sigmoidoscopy 1960 Ophthalmology Exam 1970 Chlamydia Screening 1976 DTaP,Tdap,and Td Vaccines (1 - Tdap) 06/13/2019 06/12/2019 Pap Smear 09/15/2019 09/14/2016 Pneumococcal Vaccine: 50+ Ye ars (2 of 2 - PCV) 05/02/2020 05/02/2019 Urine Microalbumin 11/11/2020 11/12/2019 Zoster Vaccines (2 of 2) 01/16/2021 11/21/2020 Cervical Cancer Screening 09/14/2021 HPV and Pap Smear 09/14/2021 09/14/2016 Mammogram 08/20/2023 08/19/2021, 07/0 06/2020, 12/04/2020, Additional history exists Hemoglobin A1C 02/15/2024 08/15/2023, 06/0 01/2020, 01/14/2015 Alcohol/Substance Use Screening 06/06/2024 Depression Screening and Follow-Up 06/06/2024 Social Drivers of Health Sher[place] ual Screening 06/06/2024 COVID-19 Vaccine (5 - 2024-2 6 season) 2025 05/19/2022, 10/29/2020, 09/29/2020, Additional history exists Basic Metabolic Panel 04/17/2026 04/17/2025 , 08/16/2023, 08/15/2023, Additional history exists RSV Vaccine (60+ years old a nd patients) (1 - 1-dose 75+ series) 10/08/2035 Hepatitis B Vaccines Completed 11/15/2019, 06/12/2019, 05/02/2019 Influenza Vaccine Completed 03/27/2025, , 03/17/2022, Additional history exists HIV Screening Completed 04/17/2025 Hepatitis C Screening Completed 04/17/2025, 022 Procedures * Due to [place] [employer] law, this organization might not be sharing negative HIV tests. Procedure Name Priority Date/Time Associated Diagnosis Comments URINALYSIS W/REFLEX TO MICROSCOPIC (NO CULTURE) STAT 04/18/2025 10:43 AM EST CHLAMYDIA/NEISSERIA GONORRHEA DNA ([facility] ONLY) STAT 04/17/2025 9:23 AM EST CBC AUTO DIFFERENTIAL STAT 04/17/2025 6:22 AM EST COMPREHENSIVE METABOLIC PANEL STAT 04/17/2025 6:22 AM EST HEPATITIS C ANTIBODY W/REFLEX TO HCV RNA, QUANTITATIVE PCR STAT 04/17/2025 6:22 AM EST HEPATITIS B CORE ANTIBODY, TOTAL STAT 04/17/2025 6:22 AM EST HEPATITIS B SURFACE ANTIGEN W/CONFIRMATION STAT 04/17/2025 6:22 AM EST HEPATITIS B SURFACE ANTIBODY STAT 04/17/2025 6:22 AM EST HEMOGLOBIN A1C Routine 08/15/2023 5:19 AM EDT US BREAST LIMITED LEFT Routine 1 3:45 PM EDT Abnormal finding on mammography MICROALBUMIN, RANDOM URINE WITH CREATININE Routine 11/12/2019 5:29 PM EDT Essential hypertension, benign Mixed hyperlipidemia Type 2 diabetes mellitus without complication, unspecified whether custodial insulin use [facility] PAP W/HPV, MRNA E6/E7, REFLEX 16/18/45 Routine 09/14/2016 12:00 AM EDT from Last 3 Months or Most Recently Relevant to Health Maintenance Results * Due to [place] [employer] law, this organization might not be sharing negative HIV tests. * Urinalysis W/Reflex to Microscopic (No Culture) (04/18/2025 10:43 AM EST) Color, Urine Light Yellow Colorless, Light Yellow, Yellow, Dark Yellow 04/18/2025 10:50 AM EST [facility] Clarity, Urine Clear Clear 04/18/2025 10:50 AM EST [facility] Specific Widener, Urine 1.014 <1.030 04/18/2025 10:50 AM EST [facility] pH, Urine 6.0 5.0 - 8.0 04/18/2025 10:50 AM EST [facility] Protein, Urine Negative Negative 04/18/2025 10:50 AM EST [facility] Glucose, Urine Negative Negative 04/18/2025 10:50 AM EST [facility] Ketones, Urine Negative Negative 04/18/2025 10:50 AM EST [facility] Bilirubin, Urine Negative Negative 04/18/2025 10:50 AM EST [facility] Blood, Urine Negative Negative 04/18/2025 10:50 AM EST [facility] Nitrite, Urine Negative Negative 04/18/2025 10:50 AM EST [facility] Urobilinogen , Urine Normal Normal 04/18/2025 10:50 AM EST [facility] Leukocyte Esterase, Urine Negative Negative 04/18/2025 10:50 AM EST [facility] Urine Urine specimen collection, clean catch / Unknown Non-Blood Collection / Unknown 04/18/2025 10:43 AM EST 04/18/2025 10:46 AM EST [facility] - 04/18/2025 10:50 AM EST Microscopic not indicated according to established criteria. us Terri Muse MD LAB URINE ORDERABLES Cindy l Result Performing Organization Address [facility]/ZIP Co de Phone Number [facility] [address] [place] [phone], [place] * Chlamydia/N Gonorrhoeae DNA DNA ([facility] ONLY) (04/17/2025 9:23 AM EST) C trachomatis DNA Not Detected Not Detected CEPHEID GENEXPERT 04/17/2025 3:21 PM EST [facility] N gonorrhoeae DNA Not Detected Not Detected CEPHEID GENEXPERT 04/17/2025 3:21 PM EST [facility] Swab Structure of anterior region of neck / Unknown Non-Blood Collection / Unknown 04/17/2025 9:23 AM EST 04/17/2025 9:26 AM EST us Delfino Perez MD LAB BODY FLUIDS AND STOO LS ORDERABLES Final Result Performing Organization Address [facility] Co de Phone Number [facility] [address] [place] [phone], [place] * (ABNORMAL) CBC Auto Differential (04/17/2025 6:22 AM EST) WBC 7.2 3.8 - 10.8 10*3/uL 04/17/2025 6:38 AM EST [facility] RBC 5.13(H) 3.80 - 5.10 10*6/uL 04/17/2025 6:38 AM EST [facility] Hemoglobin 13.2 11.7 - 15.5 g/dL 04/17/2025 6:38 AM EST [facility] Hematocrit 38.2 35.0 - 45.0 % 04/17/2025 6:38 AM EST [facility] MCV 74.5(L) 80.0 - 100.0 fL 04/17/2025 6:38 AM EST [facility] MCH 25.7(L) 27.0 - 33.0 pg 04/17/2025 6:38 AM EST [facility] MCHC 34.6 32.0 - 36.0 g/dL 04/17/2025 6:38 AM EST [facility] RDW 14.1 11.0 - 15.0 % 04/17/2025 6:38 AM EST [facility] Platelets 233 140 - 400 10*3/uL 04/17/2025 6:38 AM EST [facility] MPV 9.8 7.5 - 12.5 fL 04/17/2025 6:38 AM EST [facility] Neutrophil % 54.2 % 04/17/2025 6:38 AM EST [facility] Immature Grans % 0.3 0.0 - 0.9 % 04/17/2025 6:38 AM EST [facility] Lymphocyte % 36.1 % 04/17/2025 6:38 AM EST [facility] Monocyte % 7.6 % 04/17/2025 6:38 AM EST [facility] Eosinophil % 1.7 % 04/17/2025 6:38 AM EST [facility] Basophil % 0.1 % 04/17/2025 6:38 AM EST [facility] Neutrophil # 3.91 1.50 - 7.80 10*3/uL 04/17/2025 6:38 AM EST [facility] Immature Grans # <0.03 <=0.03 10*3/uL 04/17/2025 6:38 AM EST [facility] Lymphocyte # 2.60 0.85 - 3.90 10*3/uL 04/17/2025 6:38 AM EST [facility] Monocyte # 0.60 0.20 - 0.95 10*3/uL 04/17/2025 6:38 AM EST [facility] Eosinophil # 0.10 0.02 - 0.50 10*3/uL 04/17/2025 6:38 AM EST [facility] Basophil # <0.03 0.00 - 0.20 10*3/uL 04/17/2025 6:38 AM EST [facility] nRBC % 0.0 /100 WBCs 04/17/2025 6:38 AM EST [facility] nRBC # <0.01 <0.01 10*3/uL 04/17/2025 6:38 AM EST [facility] Blood Structure of peripheral vein / Unknown Venipuncture / Unknown 04/17/2025 6:22 AM EST 04/17/2025 6:33 AM EST us Delfino Perez MD LAB BLOOD ORDERABLES Fin al Result [facility] [address] [place] [address], * Hepatitis C Antibody w/Reflex to PCR (04/17/2025 6:22 AM EST) Hepatitis C Antibody Interpretation Nonreactive Nonreactive 04/18/2025 7:58 AM EST [facility] Blood Structure of peripheral vein / Unknown Venipuncture / Unknown 04/17/2025 6:22 AM EST 04/17/2025 6:34 AM EST Delfino Perez MD LAB BLOOD ORDERABLES Fin al Result Performing Organization Address City/[facility] Co de Phone Number [facility] [address] [place] [phone], [place] * Hepatitis B Core Antibody, Total (04/17/2025 6:22 AM EST) Pathologist [facility] Hepatitis B Core Ab Total Non-React philip Non-React philip 04/18/2025 8:14 AM EST [facility] Blood Structure of peripheral vein / Unknown Venipuncture / Unknown 04/17/2025 6:22 AM EST 04/17/2025 6:34 AM EST Delfino Perez MD LAB BLOOD ORDERABLES Fin al Result Performing Organization Address [facility] de Phone Number [facility] [address] [place] [phone], [place] * Hepatitis B Surface Antibody (04/17/2025 6:22 AM EST) Pathologist [facility] Hepatitis B Surface Antibody Interpretation Reactive Reactive 04/18/2025 8:35 AM EST [facility] Comment:Anti-HBs concentrati on detected at >10 mlU/mL. Individual is considered to be immune to infection with HBV. Blood Structure of peripheral vein / Unknown Venipuncture / Unknown 04/17/2025 6:22 AM EST 04/17/2025 6:33 AM EST Delfino Perez MD LAB BLOOD ORDERABLES Fin al Result Performing Organization Address [facility] Co de Phone Number [facility] [address] [place] [id number], [place] * Hepatitis B Surface Antigen w/Confirmation (04/17/2025 6:22 AM EST) Hepatitis B Surface Antigen Interpretation Non-Reac tive Non-Reac tive 04/18/2025 8:35 AM EST [facility] Blood Structure of peripheral vein / Unknown Venipuncture / Unknown 04/17/2025 6:22 AM EST 04/17/2025 6:34 AM EST us Delfino Perez MD LAB BLOOD ORDERABLES Fin al Result [facility] [address] [place] [phone], * (ABNORMAL) Comprehensive Metabolic Panel (04/17/2025 6:22 AM EST) NA 137 135 - 145 mmol/L 04/17/2025 7:03 AM EST [facility] K 4.2 3.5 - 5.3 mmol/L 04/17/2025 7:03 AM EST [facility] Cl 103 97 - 110 mmol/L 04/17/2025 7:03 AM EST [facility] CO2 27 22 - 32 mmol/L 04/17/2025 7:03 AM EST [facility] Anion Gap 7 5 - 15 04/17/2025 7:03 AM EST [facility] Glucose 117(H) 65 - 99 mg/dL 04/17/2025 7:03 AM EST [facility] Creatinine 0.79 0.50 - 1.20 mg/dL 04/17/2025 7:03 AM EST [facility] Calcium 9.4 8.6 - 10.5 mg/dL 04/17/2025 7:03 AM EST [facility] Total Protein 7.9 6.0 - 8.0 g/dL 04/17/2025 7:03 AM EST [facility] Albumin 3.7 3.5 - 5.2 g/dL 04/17/2025 7:03 AM EST [facility] Bilirubin, Total 0.5 0.2 - 1.2 mg/dL 04/17/2025 7:03 AM EST [facility] Alkaline Phosphatase 72 35 - 129 U/L 04/17/2025 7:03 AM EST [facility] AST 16 10 - 40 U/L 04/17/2025 7:03 AM EST [facility] ALT 12 10 - 40 U/L 04/17/2025 7:03 AM EST [facility] BUN 9 7 - 23 mg/dL 04/17/2025 7:03 AM EST [facility] eGFR 84 >=60 mL/min/1 .73m2 04/17/2025 7:03 AM EST [facility] Comment:The estimated glomer ular filtration rate (eGFR) is calculated using a new formula developed by the NKF-ASN task force to eliminate race-based correction factors. The new formula uses serum/plasma creatinine, age, and gender to determine eGFR. A value below 60mls/min might indicate kidney disease and will be flagged. For additional information, see Michelle et al, Am J Kidney Dis. 2021;79(2):268- 288, A Unifying Approach for GFR estimation: Recommendations of the NKF-ASN Task Force on Reassessing the Inclusion of Race in Diagnosing Kidney Disease . Globulin, Total 4.2 2.1 - 4.2 g/dL 04/17/2025 7:03 AM EST [facility] A/G Ratio 0.9(L) 1.5 - 3.0 04/17/2025 7:03 AM EST [facility] [employer] [facility] Blood Structure of peripheral vein / Unknown Venipuncture / Unknown 04/17/2025 6:22 AM EST 04/17/2025 6:33 AM EST us Delfino Perez MD LAB BLOOD ORDERABLES Fin al Result Performing Organization Address City/[facility]/ZIP Co de Phone Number [facility] [employer] [facility]AINnPicker[facility] [address] [place] [address], [place] * (ABNORMAL) Hemoglobin A1c (08/15/2023 5:19 AM EDT) Hemoglobin A1c 5.7(H) <5.7 % 08/15/2023 6:26 AM EDT [facility]ITAL[facility]ITALnPicker[facility] Comment: Patients >=18 years: 5.7-6.4% Increased risk for diabetes (prediabetes) >= 6.5% Diabetes Patients <18 years: Hemoglobin A1c criteria for diagnosing diabetes have not been established for this age range. Estimated Average Glucose 117 mg/dL 08/15/2023 6:26 AM EDT [facility]ITAL[facility] Blood Structure of peripheral vein / Unknown Venipuncture / Unknown 08/15/2023 5:19 AM EDT 08/15/2023 6:01 AM EDT us Saurav Obrien MD LAB BLOOD ORDERABLES Final Res ult [facility] [address] [place] [id number], [place] * US Breast Limited Left (12/04/2020 3:45 PM EDT) Anatomical Region Laterality Modality Breast Left Ultrasound Narrative 12/04/2020 4:01 PM EDT INDICATIONS 60-year-old woman recalled from screening for a focal asymmetry in the left upper inner breast. TECHNIQUE ELINA Left Add Views Digital Mammo and [place] US Breast Limited Left. R2 CAD was used in the interpretation of this study. The mammographic images are the best possible. Per the technologist, the patient has left-sided weakness related to a prior stroke, and these images were obtained with extra assistance. COMPARISON Compared to: 11/27/2020 [facility] Bilateral Screening Digital Mammogram, 11/23/2019 [facility] Bilateral Screening Digital Mammogram, 08/31/2018 [facility] Bilateral Screening Digital Mammogram, 08/29/2017 US Breast Limited Left, 08/29/2017 ELINA Left Add Views Digital Mamm[facility] [place], 08/22/2017 [facility] Bilateral Screening Digital Mammogram, and 08/19/2016 [facility] Bilateral Screening Digital Mammogram FINDINGS ELINA Left Add Views Digital Mammo and [place] The left breast has scattered areas of fibroglandular density. The previously described focal asymmetry in the left upper inner breast at posterior depth persists on additional views, and corresponds to a low density mass measuring 1.5 cm. This was further evaluated with targeted ultrasound. There is no unexplained architectural distortion or suspicious grouped microcalcifications in the left breast. US Breast Limited Left Targeted ultrasound of the left breast was performed in the area of the mass seen on mammography. In the left breast at 11:00, 6 cm from the nipple there is a simple cyst measuring 1.2 x 0.8 x 0.5 cm. This corresponds to the mammographic mass, and is benign. Of note, the cyst was previously imaged in 2018, and while it has increased slightly in size, it it has not significantly changed in appearance. Return to annual screening mammography is recommended. IMPRESSION A simple cyst in the left breast at 11:00 corresponds to the mass seen on mammography. This is benign, and return to annual screening mammography is recommended. BI-RADS ATLAS category (left): 2 Benign MANAGEMENT Back on Schedule is recommended for left. The patient was entered into a reminder system with a target date for their next breast imaging exam. The above results and recommendations were discussed with the patient by the safety representative immediately following imaging. The patient agrees with the plan. She was given information to schedule her next screening mammogram. If this radiology report contains a blank impression section, it is an incomplete radiology report. Please contact the interpreting radiologist or applicable radiology division as soon as possible to obtain the completed interpretation. us Renata Junior MD IMG BI PROCEDURES Final Resul t * (ABNORMAL) Microalbumin, Random Urine with Creatinine (11/12/2019 5:29 PM EDT) Microalbumin, Urine 1.4 0.0 - 3.0 mg/dL 11/12/2019 8:03 PM EDT [facility] Creatinine, Urine 196(H) 30 - 150 mg/dL 11/12/2019 8:03 PM EDT [facility] Microalb/Creat Ratio, Random Urine 7.1 <30.0 mcg/mgCr 11/12/2019 8:03 PM EDT [facility] Urine Voided urine specimen / Unknown Non-Blood Collection / Unknown 11/12/2019 5:29 PM EDT 11/12/2019 5:29 PM EDT us [place] Katherine Junior MD LAB URINE ORDERABLES Final Re sult [facility] [address] [place] [address], [place] * [facility] Pap w/HPV, mRNA E6/E7, Reflex 16/18/45 (09/14/2016 12:00 AM EDT) Pathologist [facility] TIS, mRNA E6/E7 Miryam (See Below) [facility] Comment: TIS,mRNA E6/E7 MIRYAM CLINICAL INFORMATION: Routine exam Postmenopausal LMP: PMENO PREV. PAP: NONE GIVEN PREV. BX: NONE GIVEN SOURCE: Cervix, Endocervix STATEMENT OF ADEQUACY: Satisfactory for evaluation. Endocervical/transformation zone component present. GENERAL CATEGORIZATION: EPITHELIAL CELL ABNORMALITY INTERPRETATION/RESULT: Atypical Squamous Cells of Undetermined Significance (ASC-US) COMMENT: This Pap test has been evaluated with computer assisted technology. WELDING MACHINE OPERATOR HELPER GAS: DIEGO CASTILLO(ASCP) CT screening location: [address] [address] PATHOLOGIST: Vera Lew M.D. Direct , Board Certified in Anatomic and Clinical Pathology and Cytopathology (electronic signature) Consulting Pathologist [facility] [address] [place] [id number] HPV mRNA E6/E7: Not Detected This test was performed using the APTIMA HPV Assay ([employer] . This assay detects E6/E7 viral messenger RNA (mRNA) from 14 high-risk HPV types (16,18,31,33,35,39,45,51,52,56,58,59,66,68). 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 anation MOLST/POLST 04/20/2021 10:26 AM 06-12-19 Health Care Proxy 12/11/2020 11:16 PM 12-11 Health Care Proxy 12/11/2020 4:12 PM 2020 MOLST/POLST 04/23/2016 [id number] * Full Code (Latest Code Status on File) Date Activated Date Inactivated Comments 08/14/2023 3:35 PM 08/18/2023 7:29 PM * Full Code Date Activated Date Inactivated Comments 08/24/2021 1:00 PM 08/26/2021 6:36 PM * Full Code Date Activated Date Inactivated Comments 07/14/2021 3:59 AM 07/16/2021 4:20 PM * Full Code Date Activated Date Inactivated Comments 04/16/2021 10:50 AM 04/19/2021 6:45 PM * Full Code Date Activated Date Inactivated Comments 12/10/2020 11:46 PM 12/17/2020 4:21 PM Healthcare Agents on File Name Relationship [facility] Bobby Story Daughter Health Care Agent Yasemin Quinones Daughter Alternate Health Care Agent Care Teams Scheduling Analyst Relationship Specialty Start Date End Date Renata Junior MD [address] [place] [id number] PCP - General Family Medicine 05/18/19
--- OUTSIDE RECORDS SUMMARY | 2025-04-18 18:57 | XMS_ITS | Clinical Summary ---
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 Name Role Phone Renata Junior MD Primary Care Provider [phone] Immunizations Immunization Administration Dates Next Due COVID-19, mRNA (Moderna Pre Fall 2022) Monovalent, 100 mcg/0.5 ml or 50 mcg/0.25 ml dose 10/29/2020,08/28/2020 COVID-19, mRNA (Moderna Pre Fall 2022) bivalent, 25 mcg/0.25 ml (6 months - 11 years) or 50 mcg/0.5 ml (12+ years) 05/19/2022 COVID-19, mRNA (Pfizer Pre 2022) Monovalent, 30 mcg/0.3 ml 09/29/2020 Hep A (adult) 08/19/2020,11/15/2019 Hep B (adult) 11/15/2019,06/12/2019,05/02/2019 Influenza,injectable,quad,Prsrv Fr 03/17,06/11/2021,03/28/2019,2017 Influenza,injectable,quad,pr eservativ e 09/25/2020,04/05/2020 Td (adult), adsorbed 06/12/2019 Zoster (Shingrix) 11/21/2020 Social History Tobacco Use Types Packs/Day Years Used Date Smoking Tobacco: Never Assessed Intimate Partner Violence Answer Date R ecorded Fear of Current or Ex-Partner Not on file Emotionally Abused Not on file 01/27/2023 Physically Abused Not on file 01/27/2023 Sexually Abused Not on file 01/27/2023 Feel Safe at Home Not on file 01/27/2023 Comments Unknown Sex and Gender Information Value Date Recorded Sex Assigned at Not on file Legal Sex Female 11:02 AM EDT Gender Identity Not on file Sexual Orientation Not on file Plan of Treatment Health Maintenance Due Date Last Done Comments Hepatitis C Screening 1960 Pap Smear 1976 Mammogram/Breast Imaging 2000 Colon Cancer Screening 2005 Pneumococcal 50+ years (1 of 1 - PCV) 2010 DTaP/Tdap/Td (1 - Tdap) 06/13/2019 06/12/2019 Zoster (Shingrix) (2 of 2) 01/16/2021 11/21/2020 COVID-19 Vaccine ( season) 2025 05/19/2022, 10/29/2020, 09/29/2020, Additional history exists Influenza (#1) 2025 03/17/2022, 11/2021, 09/25/2020, Additional history exists RSV (1 - 1-dose 75+ series) 10/08/2035 Hep B Completed 11/15/2019, 12/2019, 05/02/2019 Hep A Aged Out 08/19/2020, 11/15/2019 No lo nger eligible based on patient's age to complete this topic HPV Vaccine (No Doses Required) Completed Hib Aged Out No longer eligi ble based on patient's age to complete this topic Meningococcal ACWY Aged Out No longer eligible based on patient's age to complete this topic Zoster (Zostavax) Discontinued Insurance [id number] [place] [address] [place] [address] MEDICAID Care Teams Senior Chemical Process Engineer Relationship Specialty Start Date End Date Renata Junior MD [facility] [address] [place] [id number] PCP - General Family Medicine 02/18/21
--- OUTSIDE RECORDS SUMMARY | 2025-04-18 18:58 | XMS_ITS | Data Portability ---
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 [address] 6, [facility] 2 15:49:40 Seizure disorder 307313340 Active 2021 Yang Bassett MD [address] [place] [address], [address] [place] [address], [facility] 2 15:49:40 Obstruct philip sleep apnea of adult 72730497599 03 Active 2021 Yang Bassett MD [address] [place] [address], [address] 6, [facility] 2 15:49:40 Paranoid disorder 830586179 Active 2022 Renata Abarca MD [address] [place] [address], [address], [facility] 3 13:10:05 Diabetes resolved 314564762 Active 2022 Renata Abarca MD [address] [place] [address], [address] 6, [facility] 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 3 08:59:49 Essentia l hyperten gloria 52829965 Active 2022 Renata Abarca MD [address] [place] [address], [address] 6, [facility] 3 10:50:55 Mixed anxiety and depressi ve disorder 634693804 Active 2024 Renata Abarca MD [address] [place] [address], [address] 6, [facility] 5 12:28:19 Prediabe sharonda 555813416 Active 2024 Renata Abarca MD [address] [place] [address], [address] 6, [facility] 5 12:30:47 Hypoalbu minemia 925835532 Active 2024 Renata Abarca MD [address] [place] [address], [address] 6, [facility] 5 15:21:23 Notes:blood clot in the stom ach 2017 Problem Notes None recorded. Procedures Surgical History Date Name Laterality Status Provider Name and Address Organization Details Recorded Time 1 completed Violet Hong [facility] 06/09/2021 16:12:43 0 AWE 5-10 Year Plan - Female completed Renata Abarca MD [address] [place] [address], [phone], [facility] 06/12/2019 13:22:16 0 Fall Risk Screening Tool [facility] 06/12/2019 12:31:49 0 Visual Acuity completed Litzy Gomes [facility] 06/12/2019 12:42:24 0 [facility]COG [facility] 06/12/2019 12:37:58 0 PHQ-9 [facility] 06/12/2019 12:49:47 Tubal Ligation completed Litzy Gomes [facility] 04/04/2019 11:14:41 Coverage Specialist Rn Surgery completed Virginia Meier [facility] 11/17/2020 11:57:57 Imaging Results None recorded. Procedure Notes None recorded. Medical Equipment None Reported. Allergies Allergen ID Allergen Name Allergen Category Reaction Reaction Severity Criticality Documentation Date Start Date Code Code System Note Provider Name and Address Organization Details Recorded Time 167064 blueberry extract food hives rash Not available Not available Not available 10/03/20172017 37829 29 RxNorm Britany patterson [facility] 2 10:34:40 087474 shellfish derived food,medi cation anaphylax is itching rash Not available Not available Not available Not available 10/03/2017 Virginia patterson [facility] 1 11:57:37 971080 Product containin g penicilli n (product) medicatio n rash Not available Not available 10/03/2017 86941 8001 SNOMED Alexus Kirk patterson [facility] 8 12:02:42 Medications Name Sig Start Date Stop Date Status Note LastModified by Organization Details LastModified Time quetiapin e 25 mg tablet TAKE 1 TABLET BY MOUTH EVERY DAY 03/21 completed Not Available Not Available Not Available fluoxetin e 40 mg capsule TAKE 1 CAPSULE BY MOUTH EVERY DAY 01/16 completed Not Available Not Available Not Available atorvasta tin 40 mg tablet TAKE 1 TABLET BY MOUTH EVERY DAY 07/13 completed Not Available Not Available Not Available buspirone 5 mg tablet TAKE 1 1/2TABS 2X/DAILY X1WK, THEN 2 TABS 2X/DAY X1WK, 3TABS IN AM, 2 IN PM X1WK, 3 TABS 2X/DAY X1WK 08/19 completed Not Available Not Available Not Available metformin 500 mg tablet TAKE 1 TABLET BY MOUTH EVERY DAY 2024 active rufina 03/19/25 upcoming appt 06/18/25 Not Available Not Available Not Available RA Underpads 28 x36 active Not Available Not Available Not Available atorvasta tin 80 mg tablet TAKE 1 TABLET BY MOUTH EVERY DAY FOR 90 DAYS active Not Available Not Available No t Available acetamino phen 325 mg tablet Take 650 mg every 6 hours by oral route. 2021 active as needed Not Available Not Available Not Available atorvasta tin 20 mg tablet Take 80 mg by oral route. 11/05 completed Not Available Not Available Not Available sulfameth oxazole 400 mg-trimet hoprim 80 mg tablet TAKE 1 TABLET BY MOUTH EVERY DAY FOR 10 DAYS 09/04 completed Not Available Not Available Not Available levetirac etam 500 mg tablet TAKE 2 TABLETS BY MOUTH TWICE A DAY active Not Available Not Available No t Available hydrocodo ne 5 mg-acetam inophen 325 mg tablet TAKE 1 TABLET BY MOUTH EVERY 6 HOURS NEEDED FOR PAIN FOR UP TO 7 DAYS 01/19 completed Not Available Not Available Not Available lisinopri l 20 mg tablet TAKE 1 TABLET TWICE A DAY BY MOUTH FOR 90 DAYS. 09/04 completed not taking Not Available Not Available Not Available ondansetr on HCl 4 mg tablet 4 mg every 6 hours by oral route. 08/14 completed Not Available Not Available Not Available sertralin e 100 mg tablet TAKE 2 TABLETS BY MOUTH EVERY DAY IN THE MORNING 2024 active Not Available Not Available Not Avai lable terconazo le 0.8 % vaginal cream Insert 1 applicat orful every day by vaginal route for 3 days. 11/08 completed Not Available Not Available Not Available Diflucan 150 mg tablet Take 1 tablet every day by oral route for 1 day. 04/06 completed Not Available Not Available Not Available meclizine 12.5 mg tablet Take 1 {tbl} 3 times a day by oral route. 11/17 completed Not Available Not Available Not Available amlodipin e 2.5 mg tablet TAKE 1 TABLET TWICE A DAY BY ORAL ROUTE FOR 90DAYS. 04/23 completed Not Available Not Available Not Available chlorthal idone 25 mg tablet TAKE 1 TABLET BY MOUTH EVERY DAY active Not Available Not Available No t Available prochlorp erazine maleate 10 mg tablet Take 10 mg every 6 hours by oral route. 09/04 completed Not Available Not Available Not Available tramadol 50 mg tablet Take 50 mg by oral route. 11/17 completed Not Available Not Available Not Available acetamino phen 500 mg tablet Take 500 mg every 6 hours by oral route. 11/17 completed Not Available Not Available Not Available butalbita l-acetami nophen-ca ffeine 50 mg-325 mg-40 mg tablet 1 {tbl} by oral route. 08/17 completed Not Available Not Available Not Available ondansetr on 8 mg disintegr ating tablet Place 1 tablet every 8 hours by translin gual route for 2 days. 11/08 completed Not Available Not Available Not Available carbamaze pine 200 mg tablet TAKE 2 TABLETS BY MOUTH TWICE A DAY active Not Available Not Available No t Available Mi-Acid (calcium carb-magn esium hydroxide ) 700 mg-300 mg chew tablet Take 1 {tbl} 3 times a day by oral route. 11/17 completed Not Available Not Available Not Available warfarin 6 mg tablet TAKE 2 TABLETS BY MOUTH EVERY DAY active RUFINA 09/24/19 , NOV 11/26/19 Not Available Not Available Not Available lorazepam 0.5 mg tablet Take 1 tablet every day by oral route as needed for 30 days. 07/13 completed Not Available Not Available Not Available nifedipin e ER 90 mg tablet,ex tended release 24 hr TAKE 1 TABLET BY MOUTH EVERY DAY 04/18 completed Not Available Not Available Not Available meclizine 25 mg tablet TAKE 1 TABLET BY MOUTH THREE TIMES A DAY NEEDED FOR 10 DAYS active Not Available Not Available No t Available amlodipin e 10 mg tablet TAKE 1 TABLET BY MOUTH EVERY DAY 04/23 completed Not Available Not Available Not Available benzonata te 100 mg capsule TAKE 1 CAPSULE BY MOUTH THREE TIMES A DAY NEEDED FOR 30 DAYS 09/04 completed Not Available Not Available Not Available Lactaid 3,000 unit tablet Take 1 {tbl} 3 times a day by oral route. 11/17 completed Not Available Not Available Not Available triamcino lone acetonide 0.1 % topical ointment APPLY TO ITCHY RASH, ON DAMP SKIN DAILY, AFTER BATHS, FOR 1-2 WEEKS 09/23 completed Not Available Not Available Not Available clotrimaz ole-betam ethasone 1 %-0.05 % topical cream APPLY TO AFFECTED AND SURROUND ED AREAS OF SKIN 3 TIMES DAILY IN THE MORNING AND EVENING FOR 2 WEEKS active Not Available Not Available No t Available lisinopri l 10 mg tablet TAKE 1 TABLET BY MOUTH EVERY DAY IN THE MORNING 90 DAYS 02/17 completed Not Available Not Available Not Available warfarin 2 mg tablet active Not Available Not Available Not Available warfarin 5 mg tablet TAKE 1-2 TABLETS BY MOUTH EVERY DAY AT BEDTIME 09/16 completed RUFINA 04/04/19 , Upcoming -06/12/19 Not Available Not Available Not Available nitroglyc denver 0.4 mg sublingua l tablet 08/14 completed Not Available Not Available Not Available docusate sodium 100 mg capsule Take 1 {capsule } by oral route. 04/23 completed Not Available Not Available Not Available gabapenti n 300 mg capsule TAKE 1 CAPSULE BY MOUTH EVERYDAY AT BEDTIME active Not Available Not Available No t Available Banophen 25 mg capsule Take 25 mg by oral route. 03/13 completed Not Available Not Available Not Available mupirocin 2 % topical ointment APPLY A SMALL AMOUNT TO AFFECTED AREA 3 TIMES A DAY 03/10 completed Not Available Not Available Not Available furosemid e 20 mg tablet TAKE 1 TABLET BY MOUTH EVERY DAY active Not Available Not Available No t Available metoprolo l succinate ER 25 mg tablet,ex tended release 24 hr TAKE 1 TABLET BY MOUTH EVERY DAY IN THE MORNING active Not Available Not Available No t Available ergocalci ferol (vitamin D2) 1,250 mcg (50,000 unit) capsule TAKE 1 CAPSULE EVERY WEEK BY ORAL ROUTE. 09/18 completed Not Available Not Available Not Available lorazepam 1 mg tablet TAKE 1 TABLET BY MOUTH EVERY DAY FOR 10 DAYS 03/21 completed Not Available Not Available Not Available warfarin 1 mg tablet TAKE 1 TABLET BY MOUTH EVERY DAY 09/16 completed Not Available Not Available Not Available hydrocort isone 2.5 % topical ointment APPLY A THIN LAYER TO THE AFFECTED AREA(S) BY TOPICAL ROUTE 2 TIMES PER DAY ON BOTH CHEEKS active Not Available Not Available No t Available oxybutyni n chloride 5 mg tablet 1 {tbl} by oral route. 08/14 completed Not Available Not Available Not Available lisinopri l 40 mg tablet TAKE 1 TABLET BY MOUTH EVERY DAY active Not Available Not Available No t Available ondansetr on 4 mg disintegr ating tablet DISSOLVE 1 TABLET (4 MG TOTAL) IN THE MOUTH EVERY 8 HOURS NEEDED FOR NAUSEA OR VOMITING . 11/17 completed Not Available Not Available Not Available fluoxetin e 20 mg capsule TAKE 1 CAPSULE BY MOUTH ONCE A DAY 10/17 completed Not Available Not Available Not Available fluticaso ne propionat e 50 mcg/actua tion nasal spray,oralia pension 2 {spray}s by nasal route. 08/14 completed Not Available Not Available Not Available lisinopri l 2.5 mg tablet Take 2.5 mg by oral route. 11/17 completed Not Available Not Available Not Available risperido ne 0.5 mg tablet 0.5 mg by oral route. 08/14 completed Not Available Not Available Not Available prazosin 2 mg capsule TAKE 1 CAPSULE BY MOUTH EVERY EVENING 2024 active lov03/19 upcoming appt 06/18/19 26 Not Available Not Available Not Available metoclopr amide 10 mg tablet TAKE 1 TABLET (10 MG TOTAL) BY MOUTH 3 TIMES A DAY NEEDED FOR NAUSEA FOR UP TO 7 DAYS. 07/21 completed for vomittin g , on this hospital admissio n Not Available Not Available Not Available Adult Briefs - Large 09/02 completed Not Available Not Available Not Available buspirone 15 mg tablet TAKE 1 TABLET BY MOUTH TWICE A DAY 12/23 completed Not Available Not Available Not Available escitalop shashank 20 mg tablet Take by oral route. 06/11 completed once a day/ given at the hospital Not Available Not Available Not Available ezetimibe 10 mg tablet TAKE 1 TABLET BY MOUTH EVERY DAY active Not Available Not Available No t Available Correctol 5 mg tablet Take 2 {tbl}s by oral route. 11/17 completed Not Available Not Available Not Available psyllium husk 0.52 gram capsule Take 2 capsules 3 times a day by oral route for 90 days. 09/18 completed Not Available Not Available Not Available Gloves active Not Available Not Availa ble Not Available levetirac etam 1,000 mg tablet TAKE 1 TABLET (1500MG TOTAL) BY MOUTH EVERY 12 HOURS. 01/03 completed Not Available Not Available Not Available Januvia 100 mg tablet 08/14 completed Not Available Not Available Not Available OneTouch Verio test strips active Daughter of Siena jesus this Not Available Not Available Not Available Banophen 50 mg capsule TAKE 1 CAPSULE BY MOUTH TWICE A DAY NEEDED FOR ANXIETY AND INSOMNIA 09/17 completed Not Available Not Available Not Available Eliquis 5 mg tablet TAKE 1 TABLET BY MOUTH TWICE A DAY, 90 days 2024 active Not Available Not Available Not Avai lable Vitals Date Recorded Systolic And Diastolic Provider Name and Address Organization Details Last Updated DateTime 09/04/2024 110/50 mm[Hg] Yves Gresham [address] [place], [address], [facility] 09/04/2024 12:05:33 Date Recorded Oxygen saturation Oxygen saturation in Arterial blood by Pulse oximetry Heart rate Respiratory rate Body temperature Provider Name and Address Organization Details Last Updated DateTime 93 % 93 % 88 /min 16 /min 97.3 [degF] Mary Ruej [facility] 11:45:43 Date Recorded Systolic And Diastolic Provider Name and Address Organization Details Last Updated DateTime 12/04/2024 100/60 mm[Hg] Yves Gresham [address] [place], [address] 12/04/2024 11:35:13 Date Recorded Body weight Oxygen saturation Oxygen saturation in Arterial blood by Pulse oximetry Heart rate Respiratory rate Body temperature Provider Name and Address Organization Details Last Updated DateTime 013772. 42 g 95 % 95 % 77 /min 16 /min 97.7 [degF] Mary Ruiloba RMA [facility] 11:14:07 Date Recorded Body weight Systolic And Diastolic Provider Name and Address Organization Details Last Updated DateTime 03/13/2024 053225.43 g 120/64 mm[Hg] Renata Abarca MD [address] [place], [address], [facility] 03/13/2024 14:47:58 Date Recorded Body temperature Respiratory rate Oxygen saturation Oxygen saturation in Arterial blood by Pulse oximetry Heart rate Systolic And Diastolic Provider Name and Address Organization Details Last Updated DateTime 4 98 [degF] 16 /min 94 % 94 % 68 /min 144/70 mm[Hg] Mary GARCIA [facility] [employer] 4 14:21:40 Date Recorded Systolic And Diastolic Provider Name and Address Organization Details Last Updated DateTime 03/19/2025 122/60 mm[Hg] Yves Gresham [address] [place], [address] [employer] 03/19/2025 11:50:01 Date Recorded Body weight Body temperature Heart rate Oxygen saturation Oxygen saturation in Arterial blood by Pulse oximetry Pain severity - 0-10 verbal numeric rating [Score] - Reported Systolic And Diastolic Provider Name and Address Organization Details Last Updated DateTime 5 994320. 13 g 98.7 [degF] 84 /min 93 % 93 % 0 144/64 mm[Hg] Marika Farfan [facility] [employer] 5 11:36:50 Date Recorded Systolic And Diastolic Provider Name and Address Organization Details Last Updated DateTime 04/18/2024 120/50 mm[Hg] Yves Gresham [address] [place], [address] [employer] 04/18/2024 15:03:23 Date Recorded Oxygen saturation Oxygen saturation in Arterial blood by Pulse oximetry Heart rate Systolic And Diastolic Provider Name and Address Organization Details Last Updated DateTime 04/18/2024 97 % 97 % 96 /min 137/60 mm[Hg] Giovanna Bonds [facility] [employer] 4 14:53:05 Social History Question Answer Notes LastModified by Organizat ion Details LastModified Time Tobacco Smoking Status Never Smoker Alexus patterson [facility] 10/03/2017 12:04:48 Do You Have An Advance Directive? Yes [email or web address] Information not available 02/01/2020 Animal Exposure? No [email or web address] Informat ion not available 11/02/2022 Auto Related Injury? No [email or web address] Information not available 11/02/2022 Are You Blind Or Do You Have Difficulty Seeing? Yes [email or web address] Information not available 12/27/2018 Is Blood Transfusion Acceptable In An Emergency? Yes [email or web address] Information not available 04/27/2019 What Is Your Level Of Caffeine Consumption? None [email or web address] Information not available 04/27/2019 How Much Tobacco Do You Chew? None [email or web address] Information not available 11/02/2022 Are You Deaf Or Do You Have Serious Difficulty Hearing? Yes Sometimes [email or web address] Information not available 07/13/2019 What Type Of Diet Are You Following? REGULAR [email or web address] Information not available 04/27/2019 Which Of Your Hands Is Dominant? Right [email or web address] Information not available 12/21/2017 Live Alone Or With Others? Alone Has QUILL SKINNER [email or web address] Information not available 11/02/2022 Date Of Last Colonoscopy Pt Refused [email or web address] Information not available 06/12/2019 Date Of Last PSA N/a [email or web address] Informat ion not available 04/04/2019 Do You Have A Health Care Proxy? Yes Karen grubbs [email or web address] Information not available 12/21/2017 Smoking Status Non-smoker [email or web address] Informati on not available 07/13/2019 Have You Fallen Within The Last 12 Months No [email or web address] Information not available 04/04/2019 Have You Glidden Down, Depressed, Or Hopeless In The Last 2 Weeks? Yes [email or web address] Information not available 11/09/2019 Do You Have Little Interest Or Pleasure In Doing Things? Yes [email or web address] Information not available 11/09/2019 Illicit Drug Use? No [email or web address] Information not available 04/27/2019 Does The Patient Have Fever And Cough Or Shortness Of Breath AND In The Last 14 Days Has The Patient Come In Contact With Someone With Confirmed 2019-nCoV? No [email or web address] Information not available 07/13/2019 Does The Patient Have Fever OR Cough OR Shortness Of Breath? No [email or web address] Information not available 02/01/2020 In The Last 14 Days, Has The Patient Had Contact With A COVID-19 Positive Patient Or A COVID-19 Suspect Patient Awaiting Test Results? No [email or web address] Information not available 02/01/2020 If Pulse Oximetry Was Done: Is The Patient's Sp02 Less Than 93% On Room Air? No [email or web address] Information not available 02/01/2020 Does The Patient Have At Least TWO Of These Symptoms? Diarrhea, Chills, Muscle Pain, Repeated Shaking & Chills, Headache, Sore Throat, Or New Loss Of Taste/Smell No [email or web address] Information not available 02/01/2020 Marital Status [email or web address] Informatio n not available 11/02/2022 What Was The Date Of Your Most Recent Tobacco Screening? 03/19/2025 [email or web address] Information not available 03/18/2025 How Many Children Do You Have? 8 [email or web address] Information not available 11/02/2022 Do You Have Any Pets? No [email or web address] Information not available 11/02/2022 What Is Your Relationship Status? [email or web address] Information not available 11/02/2022 General Stress Level Medium [email or web address] Information not available 11/02/2022 Has Tobacco Cessation Counseling Been Provided? No [email or web address] Information not available 11/02/2022 How Many Years Have You Smoked Tobacco? 0 [email or web address] Information not available 11/02/2022 Do You Have Difficulty Walking Or Climbing Stairs? Yes [email or web address] Information not available 11/02/2022 Work Related Injury? No [email or web address] Information not available 11/02/2022 Sex: Unknown Functional Status Question Answer Note LastModified by Organizat ion Details LastModified Time Do you use any illicit or recreational drugs? No [email or web address] Information not available 02/17/2021 Do you or have you ever used any other forms of tobacco or nicotine? No [email or web address] Information not available 12/10/2021 What is your level of alcohol consumption? None [email or web address] Information not available 12/21/2017 Do you or have you ever used smokeless tobacco? Never used smokeless tobacco [email or web address] Information not available 11/02/2022 Are you currently employed? No Information not available 11/17/2020 Do you have transportation difficulties? No [email or web address] Information not available 11/02/2022 Are you able to walk independently without assistance or assistive devices? YESLIMIT [email or web address] Information not available 11/02/2022 Do you have difficulty doing errands alone? Yes [email or web address] Information not available 11/02/2022 Are you able to care for yourself independently? No [email or web address] Information not available 02/01/2020 Do you have difficulty dressing, bathing, grooming, or toileting? Yes [email or web address] Information not available 11/02/2022 Do you or have you ever used e-cigarettes or vape? Never used electronic cigarettes [email or web address] Information not available 11/02/2022 What is your exercise level? None Information not available 11/17/2020 Mental Status Question Answer Note LastModified by Organizat ion Details LastModified Time Do you feel stressed (tense, restless, nervous, or anxious, or unable to sleep at night)? [id number] [email or web address] Information not available 12/10/2021 Do you have difficulty concentrating, remembering or making decisions? Yes concentrating [email or web address] Information not available 11/02/2022 Family History Relationship Description Onset Age of this Age Resolved Age Notes LastModified by Organization Details LastModified Time Paternal Grandmother Adopted [email or web address] Not available 06/2021 10:34:12 Medical History Condition Response Seizure Disorder Y Gallbladder Disease/Stones N High Blood Pressure (Hypertension) Y AFib (Atrial Fibrillation) N Edema (Swelling) Y Kidney Disease/Stones N High Cholesterol (Hyperlipidemia) Y Blood Clot (Deep Vein Thrombosis) Y Neuropathy (Numbness, Pain, Tingling) N CHF (Congestive Heart Failure) N Pulmonary Embolism (Blood Clot in the Clau ng) N Diabetes (Non-Insulin Dependent) Y Claustrophobic Y Heart Attack (Myocardial Infarction) N Cancer N Heart Disease/Valve Disease N Heart Rhythm Problem (Palpitations) Y Asthma N Liver Disease/Hepatitis N Headache Y COPD (Chronic Obstructive Pulmonary Dise ase) N Stroke/TIA Y Sleep Apnea N Prior Blood Transfusion N Bleeding Problems N Syncope or Passing Out N CAD (Coronary Artery Disease) N Thyroid Disease/Disorder N Gynecological History Statement/Question Response 12/04/2020 Date of last mammogram 08/27/21 Result of last mammogram normal Date of last pap 08/03/21 Facility of last mammogram History of Abnormal Pap Smear? N Current Control Method Tubal Ligat ion Obstetrics History GPAL:G 0 P 0 0 0 0 Immunizations Vaccine Type Date Status Note Provider Nam e and Address Organization Details Recorded Time Influenza, split virus, quadrivalent, PF 9 completed Not Available [facility] 06/23/2019 02:13:58 Td (adult), 2 Lf tetanus toxoid, preservative free, adsorbed 0 completed Not Available [facility] 06/23/2019 02:12:58 Influenza, split virus, quadrivalent, PF 2 completed Renata Abarca MD [address] [place] [address], [phone], [facility] 03/17/2022 21:22:05 Influenza, split virus, quadrivalent, preservative 0 completed Not Available [facility] 02/19/2023 12:52:27 COVID-19, mRNA, LNP-S, PF, 30 mcg/0.3 mL dose 1 completed Not Available [facility] 02/19/2023 12:52:27 Influenza, split virus, quadrivalent, PF 3 completed Renata Abarca MD [address] [place] [address], [phone], [facility] 04/13/2023 20:18:26 Influenza, split virus, quadrivalent, preservative 1 completed Not Available [facility] 02/19/2023 12:52:27 Influenza, split virus, trivalent, PF 5 [facility] 09:31:19 zoster recombinant 1 completed Not Available [facility] 02/19/2023 12:52:27 COVID-19, mRNA, LNP-S, PF, 100 mcg/0.5mL dose or 50 mcg/0.25mL dose 1 completed Not Available [facility] 02/19/2023 12:52:27 COVID-19, mRNA, LNP-S, PF, 100 mcg/0.5mL dose or 50 mcg/0.25mL dose 1 completed Not Available [facility] 02/19/2023 12:52:27 pneumococcal polysaccharide PPV23 9 completed Not Available [facility] 02/19/2023 12:52:27 Hep A, adult 0 completed Not Available [facility] 02/19/2023 12:52:27 [facility] B, adult 0 completed [facility] 02/19/2023 12:52:27 Hep B, adult 9 completed Not Available [facility] 02/19/2023 12:52:27 Hep A, adult 1 completed Not Available [facility] 02/19/2023 12:52:27 Hep B, adult 0 completed Not Available [facility] 02/19/2023 12:52:27 COVID-19, mRNA, LNP-S, PF, 30 mcg/0.3 mL dose 1 completed Not Available [facility] 02/19/2023 12:52:27 Influenza, split virus, quadrivalent, PF 2 completed Not Available [facility] 02/19/2023 12:52:27 Influenza, split virus, quadrivalent, PF 8 completed Not Available [facility] 02/19/2023 12:52:27 COVID-19, mRNA, LNP-S, bivalent, PF, 50 mcg/0.5 mL or 25mcg/0.25 mL dose 2 completed Not Available [facility] 02/19/2023 12:52:27 zoster recombinant 1 completed Not Available [facility] 03/19/2025 11:18:52 Past Encounters Encounter ID Performer Location Encounter Start Date Encounter Closed Date Diagnosis/Indication Diagnosis SNOMED-CT Code Diagnosis ICD10 Code Diagnosis IMO Codes Diagnosis Note [id number] Salbador Jon MD [facility] [address] 10/03/2017 11:37:51 10/03/2017 12:58:02 Obesity 352712615 E66.9 Anxiety 84598869 F41.9 Seizure disorder 3911821 02 G40.909 Mesenteric embolus 97801 0007 K55.059 not sure if this is the diagnosisw ill wait for records to arriveinr therapeuti cpt is having visiting nursehave provided instructio n for next inr History of cerebrovascular accident 488795441 Z86.73 pt having physical therapy Benign ess ential hypertension 2929215 I10 continue current meds [id number] Salbador Jon MD [address] [address] 10/17/2017 12:36:23 10/17/2017 13:05:44 Blood coagulation disorder 80822063 D68.9 ? hx of blood clot Benign ess ential hypertension 1005042 I10 continue current meds Depressive disorder 3548 9007 F32.9 Deep venou s thrombosis 627810736 I82.458 [id number] Salbador Jon MD [address] [address] 11/17/2017 15:32:06 11/17/2017 16:23:05 Depressive disorder 73611671 F32.9 Benign ess ential hypertension 6122426 I10 continue current meds [id number] Ricardo Umana neurology - [facility] - office [address] [place] [address],[address] [place] [address] 12/21/2017 14:11:42 12/21/2017 14:48:07 Long-term drug therapy 205703562 Z79.899 Hemiplegia of nondominant side as late effect of cerebrovascular disease 161153970 I69.959 Focal epilepsy 608193355 G40.880 [id number] Salbador Jon MD [address] [address] 01/17/2018 15:39:59 01/17/2018 16:13:46 Abdominal pain 95698508 R10.9 Anxiety 13820291 F41.9 Superior m esenteric vein thrombosis 053599217 K55.059 will obtain records from the gastroente rologist to see the next steps for pancreatic mass Benign hypertension 1072 5009 I10 Mass of pancreas 9774345 00 K86.89 will obtain records from dr ching [id number] Salbador Jon MD [address] [address] 03/21/2018 14:02:22 03/21/2018 15:09:03 Mass of pancreas 036010359 K86.89 pancreatic mass seen in late january on ct, ercp was ordered by surgeon but patient never went for follow up Superior m esenteric vein thrombosis 611527302 K55.059 INR being managed by visiting nurse Depressive disorder 2564 9946 F32.9 Screening for malignant neoplasm of colon 277713732 Z12.11 Administra tion of influenza vaccine 89386274 Z23 [id number] Elvin Aguilera PA-C neurology - [facility] - office [address] [place] [address],[address] [place] [address] 03/23/2018 13:51:55 03/23/2018 15:15:38 Focal epilepsy 476431543 G40.009 Hemiplegia of nondominant side as late effect of cerebrovascular disease 844212172 I69.959 Dizziness 046872020 R42 [id number] Salbador Jon MD [facility] [address] 06/16/2018 08:45:51 06/16/2018 09:38:55 Screening for malignant neoplasm of colon 001423449 Z12.11 Mass of pancreas 1283900 00 K86.89 pancreatic mass seen in late january on ct, ercp was ordered by surgeon but patient never went for follow up Pruritic rash 09903967 L 28.2 Blood coag ulation disorder 46234601 D68.9 ? hx of blood clot Hemiplegia of nondominant side as late effect of cerebrovascular disease 926363784 I69.959 Depressive disorder 3548 9007 F32.9 [id number] Ricardo Umana neurology - [facility] - office [address] [place] [address],[address] [address] 09/25/2018 12:13:13 09/25/2018 12:44:04 Focal epilepsy 640548730 G40.009 Hemiplegia of nondominant side as late effect of cerebrovascular disease 426780234 I69.959 Dizziness 827076750 R42 [id number] Ricardo Umana neurology - [facility] - office [address] [place] [address],[address] [address] 12/27/2018 13:46:50 12/27/2018 14:45:11 Long-term drug therapy 404655815 Z79.899 Edema of l ower extremity 094886818 R60.0 Edema of t he upper extremity 770904065 R60.0 Focal epilepsy 382766127 G40.009 Left hemiplegia 63978590 8 G81.94 [id number] Renata Abarca MD [facility] [address] [place] [address] 03/28/2019 13:08:47 03/28/2019 14:58:35 Paranoid schizophrenia 95486506 F20.0 Patient seen today with the history of paranoid schizophre isra ,since 2015 after traumatic event. Patient continues to have feelings of paranoia, Will set patient up for Psychiatry and counseling as soon as possible Essential hypertension 97691824 I10 Patient seen today with BP at borderline , will continue on the same dose of amlodipine 10 mg. Will obtain the labs as ordered. Viral screening 44021295 4 Z11.59 Patient opted for screening Antibody measurement 352 7003 Z01.84 Patient wishes to be screened Venereal d isease screening 418142286 Z11.3 Patient opted for screening Thyroid di sorder screening 155365751 Z13.29 Need update on Labs Hyperlipid emia screening 068086755 Z13.220 Need update on labs Diabetes m ellitus screening 208658895 Z13.1 need update on labs Administra tion of influenza vaccine 07318449 Z23 Patient received Influenza vaccine Obesity 922708312 E66.9 Patient Education: .H:Health Mainneelam e:Diet Counseling Diet: Encouraged to adjust caloric intake to maintain achieve ideal body weight, to emphasize fruits, vegetables , whole grains, and fat-free or low-fat milk and milk products; includes lean meats, poultry, fish, beans, eggs, and nuts; and is low in saturated fats, trans fats, cholestero l, salt (sodium), and added Screening for malignant neoplasm of colon 648561313 Z12.11 patient refused colonoscop y but agrees to FOBT card Has a sore throat 027597 002 J02.9 Patient seen today with the concern of having a sore throat. patient advised on supportive care. Edema of l ower extremity 890546847 R60.0 patient seen with E/L edema , patient to start using compressio n stocking as prescribed [id number] Renata Abarca MD [facility] [address] [place] [address] 04/04/2019 10:50:12 04/04/2019 12:34:18 Type 2 diabetes mellitus without complication 975778964 E11.9 Diabetes- new diagnosis Discussed labs and its inference in detail patient is given understand ing of pathophysi ology , clinical manifestat ion ad well as log term complicati ons of diabetes if not well controlled diabetic care and management discussed in detail goal of blood sugar and HBA1C as well as importance of glycemic controll discussed Pt's questions answered. Reviewed diet, exercise, weight reduction and medication s. discussed importance of annual eye exams and routine foot exams. Follow up visits and labs as ordered. patient verbalize understand ing of plan and agreed to adherence to medical plan Infective hepatitis immunization 025798953 Z23 pt with diagnosis of diabetes , and no hep immunity , needs hep b vaccine , though had recently had flu vaccine , will wait 4 weeks before updating her immunizati on Mixed hyperlipidemia 267 274085 E78.2 . Labs reviewed. Reviewed role of diet, exercise and weight reduction. Discussed management of hyperlipid emia and side effects of medication s. pt to start meds as prescribed Follow up labs and office visit as ordered. Routine gy necologic examination done 2927415625 9101 Z01.419 Patient made aware of quality internship exam finding , alka await pap smear report Screening for malignant neoplasm of cervix 193897907 Z12.4 Pap smear sample taken today. Screening for malignant neoplasm of colon 093309709 Z12.11 patient refused colonoscop y but agrees to FOBT card , pt has FIT card given advised to bring in Fransisca Candidiasis of vagina 72 700152 B37.3 med as prescribed Cough 88659556 R05 patient seen today with cough of over a month , worse at night , given exam likely from post nasal drip Gave nasal steroid spray for symptoms: discussed OTC a nasal saline use and encouraged use four times a day v/s use of netipot once a day prescribed cough syrup as prescribed pt to maintain adequate hydration to come in if no improvemen t over next 3 days or any worsening Administra tion of pneumococcal vaccine 10564981 Z23 pt with diagnosis of diabetes , needs pneumonia 23 vaccine though had recently had flu vaccine , will wait 4 weeks before updating her immunizati on [id number] Aida Gordon, DO [facility] [address] [place] [address],[address] [place] [address] 04/27/2019 14:08:23 04/27/2019 15:45:15 Essential hypertension 67883583 I10 Siena bey blood pressure is not well controlled today. She has a right arm of 160/90 and a left arm of 140/80. She does not have known end-organ damage on her electrocar diogram, but likely has heart failure, preserved ejection fraction, LVH as she has lower extremity edema occasional ly. We will obtain an echocardio gram. I reviewed that it will be done at the hospital. We will do it at hospital as we will get better images. We will also use the opportunit y for a bubble study in the setting of CVA to make sure there is no PFO. She demonstrat ed understand ing and agrees to plan. We will up-titrate her clorthalid one to 25 mg p.o. daily and we will continue her amlodipine 10 mg p.o. daily. The next agent to add is an brendan or an ARB as she is a diabetic and this will help her blood pressure control as well. In one month if her blood pressure remains uncontroll ed, I will add an brendan or an ARB. Her ASCVD risk is equivalent to a diabetic; therefore, her atorvastat in was increased to 40 as every diabetic should be on high-inten sity moderate dose statin or high-inten sity high dose statin. We will repeat lipids in three months, which will be July 28, 2018. She is not on aspirin as she is on warfarin. It would be an increased bleeding risk. She knows her goal INR is 2.5. History of pulmonary embolus 195943187 Z86.711 It is unclear whether she has a clotting disorder or not. She has also had a CVA and a history of a mesenteric thrombosis . She is on warfarin life long. Will continue such. Reviewed goal INRs. I will try to see if she has a clotting disorder based on her documentat ion and records. Mixed hyperlipidemia 267 957823 E78.2 Her goal LDL is 70. If coronary artery disease is identified it would be 55. She is on atorvastat in 40 as every diabetic should be on high-inten sity moderate to high dose statin as stated above. Type 2 alexis betes mellitus without complication 141955786 E11.9 Reviewed diabetes and cardiovasc ular risk equivalent . I also reviewed risk of renal dysfunctio n and starting an brendan or an ARB at next visit if her blood pressure remains uncontroll ed after clorthalid one doubling. She demonstrat ed understand ing. Embolic stroke 335774073 I63.40 We are placing a 30-day event monitor to make sure there is no atrial fibrillati on. She is on warfarin, which is reassuring , but with her symptoms, she is rather symptomati c. We will further evaluate. History of embolism 2755 72523 Z86.718 Obesity 632270430 E66.9 Educated on maintainin g a healthy lifestyle with diet and exercise as tolerated. 40 minutes 5 days a week of aerobic exercise encouraged . Nutritiona l plan reviewed with portion control and an increase in lean protein, veggies and fruits. Edema of lizbeth ower extremity 721836050 R60.0 Likely heart failure, preserved ejection fraction or LVH in the setting of difficult to control blood pressures. Echocardio gram pending. Clorthalid one up-titrate d, which will help edema. Will likely transition her Lasix at next visit. Palpitations 07103612 R0 0.2 We are placing a 30-day event monitor to make sure there is no atrial fibrillati on. She is on warfarin, which is reassuring , but with her symptoms, she is rather symptomati c. We will further evaluate. Non-specif ic intraventricular conduction delay 145542634 I45.4 [id number] Renata Abarca MD [facility] [address] [place] [address] 05/02/2019 09:08:26 05/02/2019 09:44:06 Active or passive immunization 360924166 Z23 05.02.19 admin pneumo 23 to R deltoid, pt. tolerated well, Bren Causey RN05.02.19 admin 1st of Hep b series to L deltoid, pt. tolerated well, Bren Causey RN [id number] [facility] [address] [place] [address] 06/12/2019 11:45:45 06/12/2019 13:57:07 Adult health examination 076714036 Z00.01 patient seen today for well visit Discussed general health measures, self breast exam, need for regular preventati ve care including screening mammogram, pelvic exam, pap smear, osteoporos is screening, colonoscop y. Health maintenanc e measures reviewed. patient declined quality internship exam on this visit Routine blood work setup for patient CBC, CMP, Lipid panel, TSH Labs reviewed with patient Patient Education: .H: Health Maintenanc e or achieve ideal body weight, to emphasize fruits, vegetables , whole grains, and fat-free or low-fat milk and milk products; includes lean meats, poultry, fish, beans, eggs, and nuts; and is low in saturated fats, trans fats, cholestero l, salt (sodium), and added sugars. 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 Stressed the importance of regular exercise Essential hypertension 10062995 I10 Patient seen today with BP at borderline , will continue on the same dose of amlodipine 10 mg. Will obtain the labs as ordered. Paranoid schizophrenia 13308502 F20.0 Patient seen today with the history of paranoid schizophre isra ,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 Patient continues to have feelings of paranoia, Will set patient up for Psychiatry and counseling as soon as possible Obesity 948705949 E66.9 Patient Education: .H:Health Maintenanc e:Diet Counseling Diet: Encouraged to adjust caloric intake to maintain achieve ideal body weight, to emphasize fruits, vegetables , whole grains, and fat-free or low-fat milk and milk products; includes lean meats, poultry, fish, beans, eggs, and nuts; and is low in saturated fats, trans fats, cholestero l, salt (sodium), and added Active or passive immunization 798002494 Z23 updated on immunizati on Administra tion of diphtheria and tetanus vaccine 81641683 Z23 updated on immunizati on Screening for malignant neoplasm of breast 282149390 Z12.39 Patient is due for yearly mammogram , mammogram ordered Mixed hyperlipidemia 267 248953 E78.2 pt who was started on atorvastat in 40 mg on her last ov 3 months ago , needs utd on lab Severe sugey or depression 826615464 F32.2 pt with prison use of escitalopr am 20 mg , unchanged mood , alka ltry to change to sertraline and observe . pt had paper work done to get psychistri st and therapist , not yet scheduled Requires c ourse of hepatitis B vaccination 343617713 Z28.3 pt who was started on hep b series , given booster [id number] Ricardo Umana neurology - [facility] - office [address] [place] [address] 07/13/2019 11:27:22 07/13/2019 11:59:40 Focal epilepsy 959704977 G40.009 Left hemiplegia 39568297 8 G81.94 [id number] Renata Abarca MD [facility] [address] [place] [address] 09/24/2019 11:56:56 09/24/2019 14:13:59 Pruritic rash 50196702 L28.2 pt with recurring itching skin patch under both breasts , needs refil on ointment that always helps her . agreed Essential hypertension 49064085 I10 Patient talked with today with elevated systolic bp , pt is on amlodipine 10 mg , chlorthali done 25 mg and lisinopril 2.5 mg , will increase dose of lisinopril to 10 mg will continue on the same dose of amlodipine 10 mg. Will obtain the labs as ordered. Paranoid schizophrenia 76744699 F20.0 Patient seen today with the history of paranoid schizophre isra ,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 Patient continues to have feelings of paranoia, pt was given referral for Psychiatry and counseling , not yet scheduled , pt has not heard from either Mixed hyperlipidemia 267 778543 E78.2 pt who was started on atorvastat in 40 mg on her last ov 3 months ago , needs utd on lab Severe sugey or depression 654942161 F32.2 pt with prison use of escitalopr am was changed to sertraline from citalopram , 150 mg , doing slighly better in depression . will increase dose to 200 mg a pt had paper work done to get psychiatri st and therapist , not yet scheduled Type 2 alexis betes mellitus without complication 453337381 E11.9 pt needs utd on lab Anxiety 16241263 F41.9 Anxiety: patient is not improved. Plan to increase dose ofsertrali ne and add buspirone med. Changes in medication plan listed below. Patient agrees to call if symptoms worsening before next visit. Plan to meet again in 4 wks. Microalbuminuria 1772116 06 R80.9 pt is started on lisinopril , will utd on l ab in 2 months MD [facility] [address] [place] [address] 11/09/2019 10:29:04 11/11/2019 10:46:53 Severe recurrent major depression without psychotic features 67906910 F33.2 pt with PTSD ,talked with today reporting worsening of depression , though did not see depressed, pt not sure what she is taking, need co ordinated care with visiting nurse Essential hypertension 83004683 I10 Patient talked with today with elevated systolic bp , pt is on amlodipine 10 mg , chlorthali done 25 mg and lisinopril 10 mg , per daughter high pressure when she cries or wakes up in AM , but repeat always normal , I alka schedule ot for hypertensi on f/p myselfwill uTD on lab Mixed hyperlipidemia 267 365507 E78.2 pt who was started on atorvastat in 40 mg on her last ov 3 months ago , needs utd on lab Type 2 alexis betes mellitus without complication 887990760 E11.9 pt needs utd on lab Mass of pancreas 5099012 00 K86.89 pancreatic mass seen in january 2018 on ct, repeat CT abdomen from 06/2019 did not show mass , Steatotic liver disease 132549992 K76.0 patient talked with natural progressio n of this disease in detail , urged her to refrain from alcohol , to serious consider life style modificati on in terms of diet and exercise . to refrain from drugs / medication s that impairs liver function Microalbuminuria 5561303 06 R80.9 pt is started on lisinopril , needs utd on lab [id number] MD [facility] [address] [place] [address] 11/15/2019 11:39:38 11/15/2019 13:01:05 Essential hypertension 99482778 I10 Patient seen today with bp at goal , pt is on amlodipine 10 mg , chlorthali done 25 mg and lisinopril 10 mg , no change in med Mixed hyperlipidemia 267 461460 E78.2 pt with hx of embolic stroke , seen recently w/ LDL at 1421 on current atorvastat in 80 mg , pt reports eating tring healthy , pt who is wheelchair bound agrees to increase physical activity , stationary bicycle . pt sees cardiologi st . will forward this report and see what dr Gordon , cardiologi opines . to add zetia or not Anxiety 93023813 F41.9 Anxiety: patient is not improved. pt is currently off buspirone and on 200 mg of sertraline Plan to resume buspirone Patient agrees to call if symptoms worsening before next visit. Plan to meet again in 4 wks. Severe rec urrent major depression without psychotic features 17648784 F33.2 pt with PTSD ,talked with today reporting worsening of depression , I strongly advised ot call insurance to find a psychiatri st for management Paranoid schizophrenia 09121907 F20.0 Patient seen today with the history of paranoid schizophre isra ,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 Patient continues to have feelings of paranoia, pt was given referral for Psychiatry and counseling , not yet scheduled , pt has not heard from either Steatotic liver disease 736968239 K76.0 patient talked with natural progressio n of this disease in detail , urged her to refrain from alcohol , to serious consider life style modificati on in terms of diet and exercise . to refrain from drugs / medication s that impairs liver function Requires a hepatitis A vaccination [id number] Z28.3 started on hep a series Type 2 alexis betes mellitus without complication 813552121 E11.9 recent A1c at 6 , no change in med , pt is on metformin 500 mg bid Requires c ourse of hepatitis B vaccination 709464510 Z28.3 pt who was started on hep B series , given 3rd dose today [id number] Ricardo Umana neurology - [facility] - office [address] [place] [address] 02/01/2020 10:52:43 02/01/2020 11:12:08 M ni re's disease 79942322 H81.03 Left hemiplegia 52574348 8 G81.94 Focal epilepsy 894727811 G40.895 [id number] Renata Abarca MD [facility] [address] [place] [address] 02/20/2020 12:48:10 02/20/2020 14:09:00 Type 2 diabetes mellitus without complication 059573078 E11.9 recent A1C at 6 , no change in med , pt is on metformin 500 mg bid but reports GI upset so will change to Januvia. Mixed hyperlipidemia 267 249572 E78.2 pt with hx of embolic stroke , seen recently w/ LDL at 142 on current atorvastat in 80 mg , pt reports eating tring healthy , pt who is wheelchair bound agrees to increase physical activity , stationary bicycle . pt sees cardiologi st Benign hypertension 1072 5009 I10 Patient seen today with blood pressure at goal on current dose of amlodipine 10 mg , chlorthali done 25 mg and lisinopril 10 mg Severe rec urrent major depression without psychotic features 74284646 F33.2 pt with PTSD ,talked with today reporting worsening of depression , I strongly advised ot call insurance to find a psychiatri st for management Anxiety 80159663 F41.9 Anxiety: patient is improved. pt is currently off buspirone and on 200 mg of sertraline Plan to continue same dose of buspirone Patient agrees to call if symptoms worsening before next visit. Plan to meet again in 4 wks. Obesity 230303756 E66.9 Patient Education: .H:Health Maintenanc e:Diet Counseling Diet: Encouraged to adjust caloric intake to maintain achieve ideal body weight, to emphasize fruits, vegetables , whole grains, and fat-free or low-fat milk and milk products; includes lean meats, poultry, fish, beans, eggs, and nuts; and is low in saturated fats, trans fats, cholestero l, salt (sodium), and added [id number] Renata Abarca MD [facility] [address] [place] [address] 08/19/2020 13:42:24 08/19/2020 15:31:31 Body mass index 30+ - obesity 965298507 Z68.38 Patient Education: .H:Health Maintenanc e:Diet Counseling Diet: Encouraged to adjust caloric intake to maintain achieve ideal body weight, to emphasize fruits, vegetables , whole grains, and fat-free or low-fat milk and milk products; includes lean meats, poultry, fish, beans, eggs, and nuts; and is low in saturated fats, trans fats, cholestero l, salt (sodium), and added .H:Health Maintenanc e:Exercise [employer] Operators Supervisor Stressed the importance of regular exercise Type 2 alexis betes mellitus without complication 842324574 E11.9 last A1C at 6 from 11/2019 , needs utd on lab ,p t is on januvia 100 mg ,. pt stopped takin g metformin for intoleranc e e in terms of stomach pain Microalbuminuria 9035886 06 R80.9 pt is started on lisinopril , last lab from high creat , but no microalbum in , alka utd on lab annually Mixed hyperlipidemia 267 487976 E78.2 pt with hx of embolic stroke , seen recently w/ LDL at at goal form 11/2019 , needs utd on lab Steatotic liver disease 610108126 K76.0 patient talked with natural progressio n of this disease in detail , urged her to refrain from alcohol , to serious consider life style modificati on in terms of diet and exercise . to refrain from drugs / medication s that impairs liver function Benign hypertension 1072 5009 I10 Patient seen today with blood pressure at goal on current dose of amlodipine 10 mg , chlorthali done 25 mg and lisinopril 10 mg , though given pt is on furosemide , started by neurologis t , discussed risk of hypokalemi a , pot agreed ot stop furosemide Severe rec urrent major depression without psychotic features 35453799 F33.2 pt with PTSD ,talked with today with worsening of depression , now seeing therapist franck psychiatrrobbin araiza , needs TSHand vit d level checked Screening for malignant neoplasm of colon 752568490 Z12.11 patient refused colonoscop y but agrees to FOBT card , pt has FIT card given advised to bring in Fransisca Requires a hepatitis A vaccination 941349374 Z28.3 started on hep a series , given second dose today [id number] Renata Abarca MD [facility] [address] [place] [address] 11/17/2020 11:42:15 11/17/2020 13:13:03 Body mass index 30+ - obesity 864676422 Z68.38 Patient Education: .H:Health Maintenanc e:Diet Counseling Diet: Encouraged to adjust caloric intake to maintain achieve ideal body weight, to emphasize fruits, vegetables , whole grains, and fat-free or low-fat milk and milk products; includes lean meats, poultry, fish, beans, eggs, and nuts; and is low in saturated fats, trans fats, cholestero l, salt (sodium), and added .H:Health Maintenanc e:Exercise [employer] Operators Supervisor Stressed the importance of regular exercise Type 2 alexis betes mellitus without complication 059348002 E11.9 last A1C at 6.2, stable from 11/2020 , needs utd on lab in 3 months ,p t is on januvia 100 mg ,. pt stopped taking metformin for intoleranc e in terms of stomach pain UTD on microalbum in today on A1c and CMP in 3 months ( 6 monthly) History of pulmonary embolus 529898858 Z86.711 pt with hx of PE and embolic stroke , continue with eliquis Benign hypertension 1072 5009 I10 Patient seen today with blood pressure at goal on current dose of amlodipine 10 mg and lisinopril 10 mg , pt was on chlorthali done was taken off as pt was started on furosemide , started by neurologcarol t , no change in med Mixed hyperlipidemia 267 820355 E78.2 pt with hx of embolic stroke , seen recently w/ LDL above goal from 08/2020 needs utd on lab Adult heal th examination 204873675 Z00.01 patient seen today for well visit Discussed general health measures, self breast exam, need for regular preventati ve care including screening mammogram, pelvic exam, pap smear, osteoporos is screening, colonoscop y. Health maintenanc e measures reviewed. patient declined quality internship exam on this visit Routine blood work setup for patient CBC, CMP, Lipid panel, TSH Labs reviewed with patient Patient Education: .H: Health Maintenanc e or achieve ideal body weight, to emphasize fruits, vegetables , whole grains, and fat-free or low-fat milk and milk products; includes lean meats, poultry, fish, beans, eggs, and nuts; and is low in saturated fats, trans fats, cholestero l, salt (sodium), and added sugars. 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 Stressed the importance of regular exercise Immunization advised 310 966078 Z71.9 discussed shingles vaccine in detail Patient agreed to shingles vaccine , prescripti on sent over [id number] Renata Abarca MD [facility] [address] [place] [address] 12/23/2020 12:25:06 12/23/2020 14:05:53 Headache 58458175 R51.9 this was [facility] -7 visit for this pt with hx of embolic stroke with residual weakness , with anseem santos admisison to neuro -icu following her complaint of headache and nausea for concern for seizure and status eplileptic us , also concern for meningitis , s/p negative LP , EEG with epilepsy, but as per erici ng and career center advisor daughter no clear diagnosis on and at discharge and definitely not told to have seizure , seen today with some headache and blurry right eye vision . no clear answer yet for headache she presented withgiven hx possible ? migraine headache Blurring o f visual image 163952963 H53.8 pt with headache and blurry vision , known diabetic , will seek opthalmolo gis's opnion Mixed hyperlipidemia 267 088175 E78.2 pt with hx of embolic stroke , seen recently w/ LDL above goal from 08/2020 needs utd on lab Type 2 alexis betes mellitus without complication 009858734 E11.9 last A1C at 6.2, stable from 11/2020 , needs utd on lab in 3 months ,p t is on januvia 100 mg ,. pt stopped taking metformin for intoleranc e in terms of stomach pain UTD on microalbum in today on A1c and CMP in 3 months ( 6 monthly) Vitamin D deficiency 347 22186 E55.9 pt with hx of vit d deficiency , in view of persistent feelnig of fatigue will obtain vit d level Obesity 234226693 E66.9 Patient Education: .H:Health Maintenanc e:Diet Counseling Diet: Encouraged to adjust caloric intake to maintain achieve ideal body weight, to emphasize fruits, vegetables , whole grains, and fat-free or low-fat milk and milk products; includes lean meats, poultry, fish, beans, eggs, and nuts; and is low in saturated fats, trans fats, cholestero l, salt (sodium), and added [id number] Renata Abarca MD [facility] [address] [place] [address] 02/17/2021 10:10:54 02/17/2021 11:28:20 Benign hypertension 95231720 I10 Patient seen today with blood pressure at goal on current dose of amlodipine 10 mg and lisinopril 10 mg , pt was on chlorthali done was taken off as pt was started on furosemide , started by neurologis t , fpr menier's disease given current bp alka l increase dose of lisinopril to 10 mg po bid Type 2 alexis betes mellitus without complication 476556621 E11.9 last A1C at 6.2, stable from 11/2020 , needs utd on lab in 3 months ,p t is on januvia 100 mg ,. pt stopped taking metformin for intoleranc e in terms of stomach pain Body mass index 30+ - obesity 556437722 Z68.38 Patient Education: .H:Health Maintenanc e:Diet Counseling Diet: Encouraged to adjust caloric intake to maintain achieve ideal body weight, to emphasize fruits, vegetables , whole grains, and fat-free or low-fat milk and milk products; includes lean meats, poultry, fish, beans, eggs, and nuts; and is low in saturated fats, trans fats, cholestero l, salt (sodium), and added .H:Health Maintenanc e:Exercise [employer] Operators Supervisor Stressed the importance of regular exercise Mixed hyperlipidemia 267 094370 E78.2 pt with hx of embolic stroke , seen recently w/ LDL at goal , no change in atrovastat in 80 mg and zetia 10 mg Carotid bruit 514956286 R09.89 pt with hx of embolic stroke , current exam with / carotid bruit , will obtain carotid US [id number] Aida Gordon DO [facility] - [address], [address] [place] [address] 08/04/2021 10:27:23 08/04/2021 11:15:02 Essential hypertension 62329945 I10 Siena bey blood pressure is now well controlled today. She has a right arm of 160/90 and a left arm of 140/80. After a bit 130/70sShe does not have known end-organ damage on her electrocar diogram, but likely has heart failure, preserved ejection fraction, LVH as she has lower extremity edema occasional ly.We will obtain an echocardio gram. Lasix, if her blood pressure remains uncontroll ed, I will add an brendan or an ARB. Her ASCVD risk is equivalent to a diabetic; therefore, her atorvastat in was increased to 80 as every diabetic should be on high-inten sity moderate dose statin or high-inten sity high dose statin. LDL 80 to be repeated 11/25 She is not on aspirin as she is on Eliquis. History of pulmonary embolus 581051195 Z86.711 It is unclear whether she has a clotting disorder or not. She has also had a CVA and a history of a mesenteric thrombosis . She is on anticoag life long. Will continue such. Mixed hyperlipidemia 267 422393 E78.2 Her goal LDL is 70. If coronary artery disease is identified it would be 55. She is on atorvastat in 80 as every diabetic should be on high-inten sity moderate to high dose statin as stated above. Type 2 alexis betes mellitus without complication 870396572 E11.9 Reviewed diabetes and cardiovasc ular risk equivalent . I also reviewed risk of renal dysfunctio n and starting an brendan or an ARB at next visit if her blood pressure remains uncontroll ed after Embolic stroke 126575409 I63.40 30-day event monitor no atrial fibrillati on. She is on anticoag, which is reassuring , but with her symptoms, she is rather symptomati c. We will further evaluate. History of embolism 2755 62208 Z86.718 Obesity 233732150 E66.8 Educated on maintainin g a healthy lifestyle with diet and exercise as tolerated. 40 minutes 5 days a week of aerobic exercise encouraged . Nutritiona l plan reviewed with portion control and an increase in lean protein, veggies and fruits. Edema of l ower extremity 638510603 R60.0 lasix with improvemen t. Palpitations 30858928 R0 0.2 resolves with antianxiet y meds, occurs during panic Non-specif ic intraventricular conduction delay 251445090 I45.4 [id number] Renata Abarca MD [facility] ts [address] [place] [address] 06/11/2021 11:22:47 06/11/2021 12:53:13 Body mass index 40+ - severely obese 616728497 Z68.41 Patient Education: .H:Health Maintenanc e:Diet Counseling Diet: Encouraged to adjust caloric intake to maintain achieve ideal body weight, to emphasize fruits, vegetables , whole grains, and fat-free or low-fat milk and milk products; includes lean meats, poultry, fish, beans, eggs, and nuts; and is low in saturated fats, trans fats, cholestero l, salt (sodium), and added .H:Health Maintenanc e:Exercise [employer] Operators Supervisor Stressed the importance of regular exercise History of hypertension 926530060 Z86.79 pt with current use of frusemide 20 mg twice for pulmonary edema on her hopital admisison from 04/16/21 and taken off other 3 anti hypertensi ve med seen with bp at goalobserv e off her medslab as ordered Pulmonary edema 62697298 J81.1 pt with current use of frusemide 20 mg twice for pulmonary edema on her hopital admisison from 04/16/21 seen today asymptomat ic advised to increase or take additional ; dose of lasix , 1/2 to 1 tab as needed if increase in swelling advised to decrease dose to hold if overnight weight loss of 2-3 lbs all instructio ns given in written Type 2 alexis betes mellitus without complication 535218118 E11.9 last A1C at 6.4, stable from 02/2021 , alka l utd on labpt and career center advisor daughter reminded for annual eye exam this month Mixed hyperlipidemia 267 594697 E78.2 pt with hx of embolic stroke , seen recently w/ LDL at goal , current use atrovastat in 80 mg and zetia 10 mgneeds utd on lab Vitamin D deficiency 347 77731 E55.9 pt with hx of vit d deficiency , pt used high dose only one monthcurre ntly taking otc vit d - not sure of dosewill obtain vit d level Administra tion of influenza vaccine 79718743 Z23 Patient received Influenza vaccine Screening for malignant neoplasm of colon 880286729 Z12.11 patient refused colonoscop y but agrees to FOBT card ,last negative FIT test from 08-20-2020 pt has FIT card given [facility] 2605684620 100 Z91.89 pt with hx of stroke and seizure , recent hospital admisison with stroke like symptoms , but not stroke , sees neurologis t , is high risk for readmissio n to hospital , pt lives home alone , dtr who lives in contact visits her , explored her safety measure and health alert measures. pt wears health allert , has aid coming in [id number] Renata Abarca MD [facility] ts [address] [place] [address] 07/21/2021 10:30:43 07/21/2021 12:18:41 Prolonged QT interval 467750327 I45.81 pt noted to have prolobged QT time on EKG on admssion , will add ot her diagnossi so st ot make sure no med she takes that can have negative effect Hypoxia 264165260 R09.02 pt who was obseserded night itme desat , is advised sleep study , set her uo for home sleep study Screening for malignant neoplasm of colon 738229010 Z12.11 patient refused colonoscop y but agrees to FOBT card ,last negative FIT test from 08-20-2020 pt has FIT card given advised to bring in august Seizure disorder 4060980 02 G40.909 this was TCM 7 visit for this pt with freq hopaital admisison with seizure , likely form non complainac e with use of medication pt is living home alone , dtr living in [place] , comes and viists her as needed , though for now has moved in to live with pt for few monthspt has [employer] coming in night timea nurse comes once a week for pt's medication arrangemen t on this visit good time a spent [place] pt and héctor mederos to [facility] 1) how to increase compliance of medication use , for this pt who forgets to take med leading to seizure . i made few suggestion s such as ot change timmig of pt's medication , change 5 pm medication time ot 10 PM so chainstitch felled seam operator who ocmes in can medicate her , her dtr is home in [place] pt;s dtr nighat , may be be [employer] can have extended 12 hours stay with pt2) pt who was gonig ot day care but stopped going [facility] , ot consider resuming day care so she remains under observatio n3) to have video coles to be hoked u with her dtr's phone so when pt have seizure , she can have immediate attention and helppt with hx of CVA sec to seizure4) pt to f/p with neurologis t Reconcilli ation of drug / mediation done on this office visit [id number] Renata Abarca MD [facility] [address] [place] [address] 09/02/2021 15:14:11 09/02/2021 16:24:21 Dizziness 474217012 R42 this was f/p visit for this pt with known seizure activity , seen in ER on 08/31 with dizziness , normal CT , requests med as prescribed . Patient made aware of medication side effects .pt is advised f/p with cardiologi st Blood pressure taking 46 118124 Z01.30 pt with past hx of htn , off med with bp low on med , had been doing well , recent hospital admission for feeling dizzy , pt's BP was found elevated , this admisison was with seizure , likely cause for elevated bp , pt seen today with normal bp , so was seen on her last ov from 07/21/21 and on visit from 08/04/21 with cardiologi stpt requests medication for BP . I discussed that I will correlate care with cardiologi st [id number] Renata Abarca MD [facility] ts [address] [place] [address] 09/09/2021 11:05:31 09/09/2021 12:30:20 Pruritic rash 60763088 L28.2 pt with recurring itching skin patch under both breasts , needs refil on ointment that always helps her . agreed Essential hypertension 05873872 I10 Patient seen today with bp with mild sytolic elevation , , pt was on amlodipine 10 mg , chlorthali done 25 mg and lisinopril 10 mg , was taken off on her hospital admssion 3 weeks agowil, start with amlodipine 5 mg Type 2 alexis betes mellitus without complication 087227441 E11.9 last A1C at 6.4, stable from 02/2021 , alka nieves utd on labpt and cheri leal manager rn case reminded for annual eye exam this month Mixed hyperlipidemia 267 793799 E78.2 pt with hx of embolic stroke , seen recently w/ LDL at goal , current use atrovastat in 80 mg and zetia 10 mgneeds utd on lab Screening for malignant neoplasm of colon 489539371 Z12.11 Patient has been discussed with colon cancer screen and screening options . Patient does not want colonoscop y , had agreed to FIT test , . stool card for FIT test was given , patient is not submitting it . urged her to submit [facility] [id number] Aida Gordon, DO [facility] [address], [address] [place] [address] 09/17/2021 10:18:07 09/17/2021 11:08:15 Essential hypertension 43293263 I10 Siena bey blood pressure is not well controlled today. She has a right arm of 160/90 and a left arm of 140/80. After a bit 130/70sShe does not have known end-organ damage on her electrocar diogram, but likely has heart failure, preserved ejection fraction, LVH as she has lower extremity edema occasional ly.We will obtain an echocardio gram. Lasix, adding back lisinopril Her ASCVD risk is equivalent to a diabetic; therefore, her atorvastat in was increased to 80 as every diabetic should be on high-inten sity moderate dose statin or high-inten sity high dose statin. LDL 80 to be repeated 11/25 She is not on aspirin as she is on Eliquis. History of pulmonary embolus 866430826 Z86.711 It is unclear whether she has a clotting disorder or not. She has also had a CVA and a history of a mesenteric thrombosis . She is on anticoag life long. Will continue such. Mixed hyperlipidemia 267 912728 E78.2 Her goal LDL is 70. If coronary artery disease is identified it would be 55. She is on atorvastat in 80 as every diabetic should be on high-inten sity moderate to high dose statin as stated above. Type 2 alexis betes mellitus without complication 371410549 E11.9 Reviewed diabetes and cardiovasc ular risk equivalent . I also reviewed risk of renal dysfunctio n and starting an brendan or an ARB at next visit if her blood pressure remains uncontroll ed after Embolic stroke 263057731 I63.40 30-day event monitor no atrial fibrillati on. She is on anticoag, which is reassuring , but with her symptoms, she is rather symptomati c. We will further evaluate. History of embolism 2754 14039 Z86.718 Obesity 838423442 E66.8 Educated on maintainin g a healthy lifestyle with diet and exercise as tolerated. 40 minutes 5 days a week of aerobic exercise encouraged . Nutritiona l plan reviewed with portion control and an increase in lean protein, veggies and fruits. Edema of l ower extremity 805866997 R60.0 lasix with improvemen t. Palpitations 33944101 R0 0.2 resolves with antianxiet y meds, occurs during panic Non-specif ic intraventricular conduction delay 072858585 I45.4 [id number] Aida Gordon DO [facility] [address], [address] [address] 09/23/2021 10:16:09 09/23/2021 11:00:16 [id number] Aida Gordon DO [facility] [address], [address] [address] 10/29/2021 10:21:27 10/29/2021 12:36:41 Essential hypertension 78675460 I10 Siena bey blood pressure is now well controlled today.She does not have known end-organ damage on her electrocar diogram, but likely has heart failure, preserved ejection fraction, LVH as she has lower extremity edema occasional ly.reviewe d reassuring echo today Lasix 20/20, lisinopril 20/20 Her ASCVD risk is equivalent to a diabetic; therefore, her atorvastat in was increased to 80 as every diabetic should be on high-inten sity moderate dose statin or high-inten sity high dose statin. LDL 80 to be repeated 11/25 She is not on aspirin as she is on Eliquis. History of pulmonary embolus 538625486 Z86.711 It is unclear whether she has a clotting disorder or not. She has also had a CVA and a history of a mesenteric thrombosis . She is on anticoag life long. Will continue such. Mixed hyperlipidemia 267 906158 E78.2 Her goal LDL is 70. If coronary artery disease is identified it would be 55. She is on atorvastat in 80 as every diabetic should be on high-inten sity moderate to high dose statin as stated above. Type 2 alexis betes mellitus without complication 520423114 E11.9 Reviewed diabetes and cardiovasc ular risk equivalent . I also reviewed risk of renal dysfunctio n and on brendan renal protection Embolic stroke 440034744 I63.40 30-day event monitor no atrial fibrillati on. She is on anticoag, which is reassuring , but with her symptoms, she is rather symptomati c. We will further evaluate. History of embolism 2755 82997 Z86.718 Obesity 358439160 E66.8 Educated on maintainin g a healthy lifestyle with diet and exercise as tolerated. 40 minutes 5 days a week of aerobic exercise encouraged . Nutritiona l plan reviewed with portion control and an increase in lean protein, veggies and fruits. Edema of l ower extremity 597237623 R60.0 lasix with improvemen t. Palpitations 00570600 R0 0.2 resolves with antianxiet y meds, occurs during panic Non-specif ic intraventricular conduction delay 288253330 I45.4 [id number] Yang Bassett MD [facility] [address] 11/05/2021 14:35:51 11/05/2021 15:38:12 Left hemiplegia 118119954 G81.90 Acute pulmonary edema 40 732492 J81.0 History of embolic stroke with deficits 2851158927 50957 I69.30 Diabetes mellitus 418362 09 E11.9 Headache 16217801 R51.9 History of hypertension 568046743 Z86.79 History of pulmonary embolus 024136590 Z86.711 Obese class II [id number] 1 38257 E66.9 Obesity 536105137 E66.9 [id number] Renata Abarca MD [facility] [address] [place] [address] 12/10/2021 11:05:06 12/10/2021 12:57:46 Type 2 diabetes mellitus without complication 624645887 E11.9 last A1C at 6.4, stable from 02/2021 , alka maldonado on labpt and cheri leal manager rn case reminded for annual eye exam this month Adult heal th examination 238671596 Z00.01 patient seen today for well visit Discussed general health measures, self breast exam, need for regular preventati ve care including screening mammogram, pelvic exam, pap smear, osteoporos is screening, colonoscop y. Health maintenanc e measures reviewed. patient declined quality internship exam on this visit Routine blood work setup for patient CBC, CMP, Lipid panel, TSH Labs reviewed with patient Patient Education: .H: Health Maintenanc e or achieve ideal body weight, to emphasize fruits, vegetables , whole grains, and fat-free or low-fat milk and milk products; includes lean meats, poultry, fish, beans, eggs, and nuts; and is low in saturated fats, trans fats, cholestero l, salt (sodium), and added sugars. 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 Stressed the importance of regular exercise Body mass index 30+ - obesity 167350261 Z68.38 Patient Education: .H:Health Maintenanc e:Diet Counseling Diet: Encouraged to adjust caloric intake to maintain achieve ideal body weight, to emphasize fruits, vegetables , whole grains, and fat-free or low-fat milk and milk products; includes lean meats, poultry, fish, beans, eggs, and nuts; and is low in saturated fats, trans fats, cholestero l, salt (sodium), and added .H:Health Maintenanc e:Exercise [employer]punch Operators Supervisor Stressed the importance of regular exercise History of pulmonary embolus 154239361 Z86.711 pt with hx of PE and embolic stroke , continue with eliquis 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 Pt's questions answered. Reviewed diet, exercise, weight reduction and medication s. Pt reminded of annual eye exams and routine foot exams. Pt's diabetes is well controlled . Medication s to be continued. Follow up visits and labs as ordered. 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 to refrain from drugs / medication s that impairs liver function Essential hypertension 06207874 I10 Patient seen today with bp with mild sytolic elevation , , pt was on amlodipine 10 mg , chlorthali done 25 mg and lisinopril 10 mg , was taken off on her hospital admission 3 weeks agowill, start with amlodipine 5 mg Mixed anxi ety and depressive disorder 109857469 F41.8 pt not doing wellfor now no change in medpt was terminated form her last psych service and have failed ot obtain new providerwi l refer to [employer] [facility] Administra tion of influenza vaccine 83047993 Z23 Patient received Influenza vaccine Mixed hyperlipidemia 267 080356 E78.2 pt with hx of embolic stroke , seen recently w/ LDL at goal , current use atrovastat in 80 mg and zetia 10 mgno change in med Paranoid schizophrenia 24806044 F20.0 Patient seen today with the history of paranoid schizophre isra ,since 2015 after traumatic event. Patient continues to have feelings of paranoia, pt was given referral for Psychiatry and counseling , not yet scheduled , pt has not heard from eitherwil refer to [employer] [facility] [id number] Aida Gordon DO [facility] - [address], [address] [place] [address] 04/20/2022 13:22:10 04/20/2022 14:56:36 Essential hypertension 32578698 I10 Siena s blood pressure is now well controlled today.She does not have known end-organ damage on her electrocar diogram, but likely has heart failure, preserved ejection fraction, LVH as she has lower extremity edema occasional ly.reviewe d reassuring echo today Lasix , lisinopril 20/ Her ASCVD risk is equivalent to a diabetic; therefore, her atorvastat in was increased to 80 as every diabetic should be on high-inten sity moderate dose statin or high-inten sity high dose statin. LDL 80 to be repeated 11/25 She is not on aspirin as she is on Eliquis. History of pulmonary embolus 304313225 Z86.711 It is unclear whether she has a clotting disorder or not. She has also had a CVA and a history of a mesenteric thrombosis . She is on anticoag life long. Will continue such. Mixed hyperlipidemia 267 668281 E78.2 Her goal LDL is 70. If coronary artery disease is identified it would be 55. She is on atorvastat in 80 as every diabetic should be on high-inten sity moderate to high dose statin as stated above. Type 2 alexis betes mellitus without complication 791623257 E11.9 Reviewed diabetes and cardiovasc ular risk equivalent . I also reviewed risk of renal dysfunctio n and on brendan renal protection Embolic stroke 348097762 I63.40 30-day event monitor no atrial fibrillati on. She is on anticoag, which is reassuring , but with her symptoms, she is rather symptomati c. We will further evaluate. History of embolism 2755 55301 Z86.718 on AC Obesity 082703613 E66.8 Educated on maintainin g a healthy lifestyle with diet and exercise as tolerated. 40 minutes 5 days a week of aerobic exercise encouraged . Nutritiona l plan reviewed with portion control and an increase in lean protein, veggies and fruits. Edema of l ower extremity 670259806 R60.0 lasix with improvemen t. Palpitations 20241873 R0 0.2 resolves with antianxiet y meds, occurs during panic Non-specif ic intraventricular conduction delay 896086070 I45.4 [id number] Renata Abarca MD [facility] [address] [place] [address] 08/19/2022 12:01:12 08/19/2022 13:56:31 Type 2 diabetes mellitus without complication 618895602 E11.9 Diabetes-D iscussed labs and etiology and management of diabetes. Pt's questions answered. Reviewed diet, exercise, weight reduction and medication s. Pt reminded of annual eye exams and routine foot exams. Pt's diabetes is well controlled . Medication s to be continued. Follow up visits and labs as ordered. 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 to refrain from drugs / medication s that impairs liver function Essential hypertension 42815075 I10 Patient seen today with bp with mild sytolic elevation , , pt was on amlodipine 10 mg , chlorthali done 25 mg and lisinopril 10 mg , was taken off on her hospital admission 3 weeks agowill, start with amlodipine 5 mg Mixed anxi ety and depressive disorder 212004717 F41.8 pt is currently donig wellfor now no change in med - sertraline 100 mgpt was terminated form her last psych service and have failed to obtain newon her last ov , I had pt referred to psychiatri , not yet scheduled Mixed hyperlipidemia 267 521030 E78.2 pt with hx of embolic stroke , seen recently w/ LDL at goal , current use atorvastat in 80 mg and zetia 10 mgno change in med Paranoid disorder 513319 009 F22 Patient seen today with the history of paranoid schizophre isra ,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 Patient continues to have feelings of paranoia, pt was given referral for Psychiatry and counseling , not yet scheduled , pt has not heard from eitheron this pt denies having schizophre isra . Constipation 04622676 K5 9.00 pt wit chronic constipati on , failed colace use advise to increase po fluid intake , fibers in diet and to start using OTC metamucil // miralax med as prescribe patient to contact if no proper BM despite measures and medication or any discomfort Spasm 24954956 R25.2 pt with use of furosemide , seen with complain of muscle spasms of both LE, obtained lab as ordered Vitamin D deficiency 347 63380 E55.9 pt with hx of vit d deficiency , pt used high dose only one monthcurre ntly taking otc vit d - not sure of dosewill obtain vit d level Body mass index 30+ - obesity 577694684 Z68.38 Patient Education: .H:Health Maintenanc e:Diet Counseling Diet: Encouraged to adjust caloric intake to maintain achieve ideal body weight, to emphasize fruits, vegetables , whole grains, and fat-free or low-fat milk and milk products; includes lean meats, poultry, fish, beans, eggs, and nuts; and is low in saturated fats, trans fats, cholestero l, salt (sodium), and added .H:Health Maintenanc e:Exercise [employer] Operators Supervisor Stressed the importance of regular exercise Obstructiv e sleep apnea of adult 0173537086 103 G47.33 pt sees pulmonolog ist , diagnosis of laura , pt is n ot yet on C p[apwill let pulmonolog ist know about it to take action [id number] Aida Gordon, [facility] [address] [place] [address] 11/02/2022 12:03:16 11/02/2022 13:42:22 Essential hypertension 50095308 I10 Siena bey blood pressure is now well controlled today.She does not have known end-organ damage on her electrocar diogram, but likely has heart failure, preserved ejection fraction, LVH as she has lower extremity edema occasional ly.reviewe d reassuring echo today Lasix was 20/20, now half tabamlodip ine lisinopril 20/20 Her ASCVD risk is equivalent to a diabetic; therefore, her atorvastat in was increased to 80 as every diabetic should be on high-inten sity moderate dose statin or high-inten sity high dose statin. LDL 80 to be repeated 11/25 She is not on aspirin as she is on Eliquis. History of pulmonary embolus 827169864 Z86.711 It is unclear whether she has a clotting disorder or not. She has also had a CVA and a history of a mesenteric thrombosis . She is on anticoag life long. Will continue such. Mixed hyperlipidemia 267 583997 E78.2 Her goal LDL is 70. If coronary artery disease is identified it would be 55. She is on atorvastat in 80 as every diabetic should be on high-inten sity moderate to high dose statin as stated above.zezaid a on board Type 2 alexis betes mellitus without complication 061373867 E11.9 Reviewed diabetes and cardiovasc ular risk equivalent . I also reviewed risk of renal dysfunctio n and on brendan renal protection Embolic stroke 682899767 I63.40 30-day event monitor no atrial fibrillati on. She is on anticoag, which is reassuring , but with her symptoms, she is rather symptomati c. We will further evaluate. History of embolism 2755 30246 Z86.718 on AC Obesity 202182142 E66.8 Educated on maintainin g a healthy lifestyle with diet and exercise as tolerated. 40 minutes 5 days a week of aerobic exercise encouraged . Nutritiona l plan reviewed with portion control and an increase in lean protein, veggies and fruits. Edema of l ower extremity 474472843 R60.0 lasix with improvemen t. Palpitations 94340449 R0 0.2 resolves with antianxiet y meds, occurs during panic Non-specif ic intraventricular conduction delay 462899965 I45.4 [id number] [address] Abarca [facility] [address] [place] [address] 01/03/2023 09:49:57 01/03/2023 11:12:53 Essential hypertension 75527239 I10 Patient seen today with bp on lisinopril 20 mg and amlodipine 2.5 mg. Blood pressure well controlled . No change in med.refill on med at same dose Mixed hyperlipidemia 267 053915 E78.2 pt with hx of embolic stroke , seen recently w/ LDL at goal , current use atorvastat in 80 mg and zetia 10 mgno change in med Obstructiv e sleep apnea of adult 5862759180 103 G47.33 pt sees pulmonolog ist , diagnosis of lauar , pt is n ot yet on C p[apwill let pulmonolog ist know about it to take action Mixed anxi ety and depressive disorder 766831759 F41.8 pt has a SIMONE 19 and PHQ 13 as of today due to an identifiab le stressor at home. She is currently taking 200mg of sertraline . She states the identifiab le stressor has since been taken care of and should no longer be effecting her. Will keep on same med since the identifiab le trigger is taken care of. Pt would benefit from therapy/gr oup therapy services. pt was terminated form her last psych service and have failed to obtain newon her last ov , I had pt referred to psychiatrrobbin araiza , not yet scheduled Diabetes resolved 118619 004 Z86.39 pt with hx of diabetes , last a1c at 5.2c from 08/2022 , off januvia since b seen with a1c A1c today on 01/03/23 in pre diabetic range at 6.1Patient not currently on any medication s for diabetes. Pt has been advised to control with her diet. Avoiding high sugar and carbs, more whole grains, lean protein, fruit vegetables , and low fat dairy products. Screening for malignant neoplasm of colon 929425631 Z12.11 Patient has been discussed with colon cancer screen and screening options . Patient does not want colonoscop y , had agreed to FIT test , . stool card for FIT test was given , patient is not submitting it . urged her to submit [facility] Body mass index measurement declined [id number] 78766 Z53.20 pt declined today BMI checkPatie nt Education: .H:Health Maintenanc e:Diet Counseling Diet: Encouraged to adjust caloric intake to maintain achieve ideal body weight, to emphasize fruits, vegetables , whole grains, and fat-free or low-fat milk and milk products; includes lean meats, poultry, fish, beans, eggs, and nuts; and is low in saturated fats, trans fats, cholestero l, salt (sodium), and added .H:Health Maintenanc e:Exercise [employer] Operators Supervisor Stressed the importance of regular exercise [id number] Jonelle Church DO [facility] [address] [place] [address] 02/23/2023 11:48:35 02/23/2023 14:53:18 Essential hypertension 91577832 I10 [id number] Renata Abarca MD [facility] [address] [place] [address] 04/13/2023 11:06:59 04/13/2023 12:50:55 Constipation 52664130 K59.00 pt with chronic constipati on , failed colace use advise to increase po fluid intake , fibers in diet and to start using OTC metamucil // miralax med as prescribe ( was prescribed on her last ov , pt never obtianed it )patient to contact if no proper BM despite measures and medication or any discomfort Essential hypertension 91272311 I10 Patient seen today with bp on lisinopril 20 mg and amlodipine 2.5 mg.and metoprolol Er 50 mgBlood pressure well controlled . No change in med.refill on med at same dose Mixed hyperlipidemia 267 544637 E78.2 pt with hx of embolic stroke , seen recently w/ LDL at goal , current use atorvastat in 80 mg and zetia 10 mgno change in med Obstructiv e sleep apnea of adult 7887039767 103 G47.33 pt sees neurologis tfollowing her l sleep study , she was advised aut cpap , that pt says was never obtained or started onrev neurologis ts note- mention of using Cpap regularlyI have my nurse ot call office of phuong schaefer to get update on this Mixed anxi ety and depressive disorder 964986880 F41.8 pt has a SIMONE 19 and PHQ 13 as of today due to an identifiab le stressor at home. She is currently taking 200mg of sertraline . She states the identifiab le stressor has since been taken care of and should no longer be effecting her. Will keep on same med since the identifiab le trigger is taken care of. Pt would benefit from therapy/gr oup therapy services. pt was terminated form her last psych service and have failed to obtain newon her last ov , I had pt referred to psychiatrrobbin araiza , pt is on waiting list to be see by psychiatrrobbin araiza Diabetes resolved 045167 004 Z86.39 pt with hx of diabetes , last a1c at 5.2c from 08/2022 , off januvia since b seen with a1c A1c today on 01/03/23 in pre diabetic range at 6.1Patient not currently on any medication s for diabetes. Pt has been advised to control with her diet. Avoiding high sugar and carbs, more whole grains, lean protein, fruit vegetables , and low fat dairy products. Screening for malignant neoplasm of colon 354177908 Z12.11 Patient has been discussed with colon cancer screen and screening options . Patient does not want colonoscop y , had agreed to FIT test , . stool card for FIT test was given , patient is not submitting it . urged her to submit [facility] Body mass index measurement declined [id number] 21320 Z53.20 pt declined today BMI checkPatie nt Education: .H:Health Maintenanc e:Diet Counseling Diet: Encouraged to adjust caloric intake to maintain achieve ideal body weight, to emphasize fruits, vegetables , whole grains, and fat-free or low-fat milk and milk products; includes lean meats, poultry, fish, beans, eggs, and nuts; and is low in saturated fats, trans fats, cholestero l, salt (sodium), and added .H:Health Maintenanc e:Exercise [employer] Operators Supervisor Stressed the importance of regular exercise Prediabetes 568352648 R7 3.03 3p t with hx of diabetes , was last seen with a1c in pre diabetic rangeGluco se in pre diabetic range , pt to restrict carbohydra te and fatty food in diet to prevent progressio n to diabetes . staff genetic counselor on Regular exercisela b on her next ov Hyperlipidemia 76086010 E78.5 pt with current day use of atorvastat in 80 mg and ezetimibe 10 mg , last LDL above goal , obtain lab Administra tion of influenza vaccine 79321957 Z23 Patient received Influenza vaccine Delusional disorder 4850 0005 F22 pt with current day use of prazosin today , seen today reporting paranoid and delusional citation thought of various med for bipolar , but given drug interactio n defer from prescribin g any med now Noncomplia nce with treatment 4680730 Z91.199 pt has visiting nurse who had called to report that pt is not taking her meds prescribed by neurologis t , for seizure as prescribed I talked to pt on this vit , pt reported that she felt it was too much and so started taking lessI spent good time counsellin g pt to remain adherent to medical planadvise to talk to prescribed if she does not feel comfortabl e taking med as prescribed rather than changing dose on her own [id number] Renata Abarca MD [facility] [address] [place] [address] 09/19/2023 10:05:59 09/19/2023 11:46:39 Essential hypertension 41843253 I10 Patient seen today with bp on lisinopril 20 mg and amlodipine 2.5 mg.and metoprolol Er 50 mgBlood pressure well controlled . No change in med.refill on med at same dose Constipation 32542366 K5 9.00 pt with chronic constipati on , failed colace use advise to increase po fluid intake , fibers in diet and to start using OTC metamucil // miralax med as prescribe ( was prescribed on her last ov , pt never obtianed it )patient to contact if no proper BM despite measures and medication or any discomfort Mixed hyperlipidemia 267 362309 E78.2 pt with hx of embolic stroke , seen recently w/ LDL at goal , current use atorvastat in 80 mg and zetia 10 mgno change in med Mixed anxi ety and depressive disorder 479771275 F41.8 pt has a SIMONE 19 and PHQ 13 as of today due to an identifiab le stressor at home. She is currently taking 200mg of sertraline . She states the identifiab le stressor has since been taken care of and should no longer be effecting her. Will keep on same med since the identifiab le trigger is taken care of. Pt would benefit from therapy/gr oup therapy services. pt was terminated form her last psych service and have failed to obtain newon her last ov , I had pt referred to psychiatri , pt is on waiting list to be see by psychiatri Diabetes resolved 417043 004 Z86.39 pt with hx of diabetes , last a1c at 5.2c from 08/2022 , off januvia since b seen with a1c A1c today on 01/03/23 in pre diabetic range at 6.1Patient not currently on any medication s for diabetes. Pt has been advised to control with her diet. Avoiding high sugar and carbs, more whole grains, lean protein, fruit vegetables , and low fat dairy products. Screening for malignant neoplasm of colon 177656098 Z12.11 Patient has been discussed with colon cancer screen and screening options . Patient does not want colonoscop y , had agreed to FIT test , . stool card for FIT test was given , patient is not submitting it . urged her to submitin feb 2024 Body mass index measurement declined [id number] 97533 Z53.20 pt declined today BMI checkPatie nt Education: .H:Health Maintenanc e:Diet Counseling Diet: Encouraged to adjust caloric intake to maintain achieve ideal body weight, to emphasize fruits, vegetables , whole grains, and fat-free or low-fat milk and milk products; includes lean meats, poultry, fish, beans, eggs, and nuts; and is low in saturated fats, trans fats, cholestero l, salt (sodium), and added .H:Health Maintenanc e:Exercise [employer] Operators Supervisor Stressed the importance of regular exercise Prediabetes 701209982 R7 3.03 3p t with hx of diabetes , was last seen with a1c in pre diabetic rangeGluco se in pre diabetic range , pt to restrict carbohydra te and fatty food in diet to prevent progressio n to diabetes . staff genetic counselor on Regular exercisela b on her next ov Hyperlipidemia 88976467 E78.5 pt with current day use of atorvastat in 80 mg and ezetimibe 10 mg , last LDL above goal , obtain lab Delusional disorder 4850 0005 F22 pt with current day use of prazosin today , seen today reporting paranoid and delusional citation thought of various med for bipolar , but given drug interactio n defer from prescribin g any med now Noncomplia nce with treatment 2786886 Z91.199 pt has visiting nurse who had called to report that pt is not taking her meds prescribed by neurologis t , for seizure as prescribed I talked to pt on this vit , pt reported that she felt it was too much and so started taking lessI spent good time counsellin g pt to remain adherent to medical planadvise to talk to prescribed if she does not feel comfortabl e taking med as prescribed rather than changing dose on her own 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 pt was seeing psychiatri st , med prescribed by her , but pt missed appointmen t and is terminated from careagreed to refill this time , but pt needs psych care Edema of l ower extremity 406805008 R60.0 patient seen with resolved edema , patient to start using compressio n stocking as prescribed needs utd on lab [id number] Renata Abarca MD [facility] [address] [place] [address] 03/13/2024 14:02:45 03/13/2024 15:17:55 Adult health examination 891085176 Z00.01 patient seen today for well visit Discussed general health measures, self breast exam, need for regular preventati ve care including screening mammogram, pelvic exam, pap smear, osteoporos is screening, colonoscop y. Health maintenanc e measures reviewed. patient declined quality internship exam on this visit Routine blood work setup for patient CBC, CMP, Lipid panel, TSH Labs reviewed with patient Patient Education: .H: Health Maintenanc e or achieve ideal body weight, to emphasize fruits, vegetables , whole grains, and fat-free or low-fat milk and milk products; includes lean meats, poultry, fish, beans, eggs, and nuts; and is low in saturated fats, trans fats, cholestero l, salt (sodium), and added sugars. 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 Stressed the importance of regular exercise Body mass index 30+ - obesity [id number] Z68.38 pt could not have BMI measuremen t as could not check her height , but apparently is obese Patient Education: .H:Health Maintenanc e:Diet Counseling Diet: Encouraged to adjust caloric intake to maintain achieve ideal body weight, to emphasize fruits, vegetables , whole grains, and fat-free or low-fat milk and milk products; includes lean meats, poultry, fish, beans, eggs, and nuts; and is low in saturated fats, trans fats, cholestero l, salt (sodium), and added .H:Health Maintenanc e:Exercise Keypunch Operators Supervisor Stressed the importance of regular exercise Prediabetes 322549173 R7 3.03 03/13/2024 pt with hx of diabetes , was last seen with a1c in pre diabetic rangeGluco se in pre diabetic range , pt to restrict carbohydra te and fatty food in diet to prevent progressio n to diabetes . staff genetic counselor on Regular exercisela b today Hyperlipidemia 68381523 E78.5 pt with current day use of atorvastat in 80 mg and ezetimibe 10 mg , last LDL above goal , obtain lab Administra tion of influenza vaccine [id number] Z23 Patient received Influenza vaccine [id number] Renata Abarca MD [facility] [address] [place] [address] 04/18/2024 14:34:36 04/18/2024 15:21:25 Mixed hyperlipidemia 659460176 E78.2 pt with hx of embolic stroke , seen recently w/ LDL at goal , current use atorvastat in 80 mg and zetia 10 mgno change in med Prediabetes 454890291 R7 3.03 03/13/2024 pt with hx of diabetes , was last seen with a1c in pre diabetic rangeGluco se in pre diabetic range , pt to restrict carbohydra te and fatty food in diet to prevent progressio n to diabetes . staff genetic counselor on Regular exercisela b today Skin lesion 17308934 L98 .9 pt with intermitte ntly itching thickened skin patches on both cheeks , unclear nature , refer ot dermatolog ist , pending visit lilian CASILLAS as prescribed for symptoms relief Essential hypertension 08702311 I10 Patient seen today with bp on lisinopril 20 mg and amlodipine 2.5 mg.and metoprolol Er 50 mgBlood pressure well controlled . No change in med.though meds rev shows that pt has not filled in her amlodipine for over 2 months , pt is getting both 20 mg and 40 mg lisinopril filledpt could not confirmnee ben nieves pharmacist and visiting nurse to see what pt is takingrefi ll on med at same dose Mixed anxi ety and depressive disorder 273754694 F41.8 pt has a SIMONE 19 and PHQ 13 as of today due to an identifiab le stressor at home. She is currently taking 200mg of sertraline . She states the identifiab le stressor has since been taken care of and should no longer be effecting her. Will keep on same med since the identifiab le trigger is taken care of. Pt would benefit from therapy/gr oup therapy services. pt was terminated form her last psych service and have failed to obtain newon her last ov , I had pt referred to psychiatrrobbin araiza , pt is on waiting list to be see by psychiatrrobbin araiza Delusional disorder 2790 0005 F22 pt with current day use of prazosin today , seen today reporting paranoid and delusional citation thought of various med for bipolar , but given drug interactio n defer from prescribin g any med nowpt has been repetitive ly talked with seeing psychiatri st , not seeing one and refusesdes pite my discussion that to treat [psychotic disorder is out of my specialty and comfort zonept is on prazocin Edema of l ower extremity 641955231 R60.0 patient seen with resolved edema , patient to start using compressio n stocking as prescribed needs utd on lab Body mass index 30+ - obesity 275283218 Z68.38 pt declined today BMI checkPatie nt Education: .H:Health Maintenanc e:Diet Counseling Diet: Encouraged to adjust caloric intake to maintain achieve ideal body weight, to emphasize fruits, vegetables , whole grains, and fat-free or low-fat milk and milk products; includes lean meats, poultry, fish, beans, eggs, and nuts; and is low in saturated fats, trans fats, cholestero l, salt (sodium), and added .H:Health Maintenanc e:Exercise Keypunch Operators Supervisor Stressed the importance of regular exercise Medication review done by doctor [id number] Z76.89 during and after visit I rev pt's medslot of meds that pt has not filled inneed call pharmacy and visiting nurse to conform what pt is taking and what not - message sent to my staff to call both [id number] Renata Abarca [facility] [address] [place] [address] 09/04/2024 11:31:55 09/04/2024 12:59:55 Hyperlipidemia 29385546 E78.5 pt with current day use of atorvastat in 80 mg and ezetimibe 10 mg , last LDL above goal , obtain f/p lab Prediabetes 508764446 R7 3.03 needs utd on labGlucose in pre diabetic range , pt to restrict carbohydra te and fatty food in diet to prevent progressio n to diabetes . staff genetic counselor on Regular exercisept with only one a1c at 6.5 from , ont on any meds Essential hypertension 09208614 I10 Patient seen today with bp on lisinopril 20 mg and amlodipine 2.5 mg.and metoprolol Er 50 mgBlood pressure well controlled . No change in med.though meds rev shows that pt has not filled in her amlodipine for over 2 months , pt is getting both 20 mg and 40 mg lisinopril filledpt could not confirmnemahogany nieves pharmacist and visiting nurse to see what pt is takingrefi ll on med at same dose Mixed anxi ety and depressive disorder 303548899 F41.8 pt seen today with resolved anxiety , depression last sertraline prescribed 200 mg from 03/[facility] pt reports taking itnurse is filling up her med boxI called and talked to nurse Maddy , who agreed pt getting sertraline 200 mg?/ old medmutuall 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 Delusional disorder 4850 0005 F22 pt with current day use of prazosin today , seen today reporting paranoid and delusional citation thought of various med for bipolar , but given drug interactio n defer from prescribin g any med nowpt has been repetitive ly talked with seeing psychiatri st , not seeing one and refusesdes pite my discussion that to treat [psychotic disorder is out of my specialty and comfort zonept is on prazosin Edema of l ower extremity 248205322 R60.0 patient seen with resolved edema on furosemide 20 mg History of embolic stroke with deficits [id number] 27397 I69.30 pt to continue with med usereminde d meds side effect especially risk involved with fallpt is mostly wheelchair bound [id number] Renata Abarca MD [facility] [address] [place] [address] 12/04/2024 10:55:44 12/04/2024 11:51:24 Hyperlipidemia 80931758 E78.5 pt with current day use of atorvastat in 80 mg and ezetimibe 10 mg , last LDL from 09/04/24 above goal at 107 , , low HDL and high TGcounsel on life style changes and diet improvemen tno change in med Essential hypertension 12224905 I10 Patient seen today with bp on lisinopril 20 mg and amlodipine 2.5 mg.and metoprolol Er 50 mgBlood pressure well controlled . 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
[2025-04-18 20:00] VITALS: BP 121/58; PULSE 68; RESP 16; TEMP 36.8; O2SAT 95
[2025-04-19 08:14] LABS: Alanine Aminotransferase 13 U/L (0-31); Albumin Level 3.4 g/dL (3.5-5.0); Alkaline Phosphatase 65 U/L (39-117); Anion Gap 12 (12-20); Aspartate Amino Transferase 19 U/L (5-31); Blood Urea Nitrogen 10 mg/dL (9-16); Calcium 8.8 mg/dL (8.4-10.2); Carbon Dioxide 28 mmol/L (22-29); Chloride 106 mmol/L (96-108); Cholesterol 125 mg/dL (<200); Creatinine Clr Calc Pharmacy 79.1; Estimated Glomerular Filt Rate > 60; HDL Cholesterol 24 mg/dL (>40); Potassium 4.5 mmol/L (3.3-5.1); Sodium 141 mmol/L (135-145); Total Protein 7.1 g/dL (6.5-8.0); Triglycerides 79 mg/dL (<150)
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
[2025-04-19 08:53] VITALS: BP 124/58; PULSE 86; RESP 18; TEMP 36.6; O2SAT 97
[2025-04-19] MEDS: Metoprolol Succinate ER 25 MG TAB.ER.24H PO (08:56)
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
[2025-04-19 20:00] VITALS: BP 129/62; PULSE 73; RESP 16; TEMP 36.9; O2SAT 93
[2025-04-20 08:00] VITALS: BP 159/74; PULSE 91; RESP 18; TEMP 2.7; TEMP 36.8; O2SAT 96
[2025-04-20] MEDS: Metoprolol Succinate ER 25 MG TAB.ER.24H PO (09:18)
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
[2025-04-20 20:00] VITALS: BP 112/66; PULSE 91; RESP 16; TEMP 36.7; O2SAT 95
--- NOTE | 2025-04-20 20:11 | PM.EVENT ---
Event Note Date of Service: 04/20/25 Event Note: Abdomen pelvic CT showed left pelvic lesion; ovarian lesion vs fibroid. Nonurgent pelvic US ordered. All urgent labs ordered are still pending. Time Spent With Patient Time: Total time managing care of this patient today ____ minutes.
[2025-04-20 20:15] LABS: MANUAL DIFF FLAG NO
[2025-04-20 20:18] LABS: Hematocrit 37.3 % (37.0-47.0); Hemoglobin 12.7 g/dl (12.0-16.0); Imm Gran Abs Auto 0.03 X10*3/uL (0.00-0.03); Imm Gran Pct Auto 0.3 % (0.0-0.4); Lymphocytes Absolute Auto 2.6 X10*3/uL (1.2-4.9); Mean Corpuscular HGB Conc 34.0 g/dl (31.0-35.0); Mean Corpuscular Hemoglobin 25.5 pg (27.0-33.0); Mean Corpuscular Volume 74.9 fL (80.0-98.0); NRBC Abs Auto 0.000 X10*3/uL (0.0-0.012); NRBC Pct Auto 0.0 /100WBC (0.0-0.2); Platelet Count 242 X10*3/uL (160-400); Red Blood Count 4.98 X10*6/uL (4.20-5.50); White Blood Count 10.3 X10*3/uL (4.8-10.8)
[2025-04-20 20:34] LABS: Alanine Aminotransferase 15 U/L (0-31); Albumin Level 3.8 g/dL (3.5-5.0); Alkaline Phosphatase 75 U/L (39-117); Anion Gap 15 (12-20); Aspartate Amino Transferase 18 U/L (5-31); Blood Urea Nitrogen 9 mg/dL (9-16); Calcium 9.6 mg/dL (8.4-10.2); Carbon Dioxide 29 mmol/L (22-29); Chloride 99 mmol/L (96-108); Creatinine Clr Calc Pharmacy 83.0; Estimated Glomerular Filt Rate > 60; Lipase 6 U/L (8-78); Potassium 4.5 mmol/L (3.3-5.1); Sodium 138 mmol/L (135-145); Total Protein 7.9 g/dL (6.5-8.0)
[2025-04-20 20:35] LABS: Carbamazepine Tegretol 12.8 mcg/mL (5.0-12.0)
[2025-04-20] MEDS: Milk of Magnesia 30 ML ORAL.SUSP PO (20:48)
[2025-04-21 08:00] VITALS: BP 137/66; PULSE 88; RESP 16; TEMP 37.5; O2SAT 93
[2025-04-21] MEDS: Metoprolol Succinate ER 25 MG TAB.ER.24H PO (09:03)
[2025-04-21 09:50] VITALS: BP 138/70
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
[2025-04-21 20:00] VITALS: BP 140/70; PULSE 84; RESP 16; TEMP 36.6; O2SAT 97
[2025-04-22 08:25] VITALS: BP 131/66; PULSE 82; RESP 16; TEMP 36.2; O2SAT 94
--- NOTE | 2025-04-22 08:34 | P.PNIM_ITS ---
Subjective Subjective Date of Service: 04/22/25 Interval History: Patient is seen for follow up nausea and vomiting. Patient reports that she feels much better today eating her meal. Patient was noted to have a 3.3 cm lesion in the left pelvis which is noted to be other a fibroid versus ovarian lesion. It was recommended that a pelvic ultrasound be performed, patient declined this. CA125 pending. Labs otherwise unremarkable, no liver or renal dysfunction. Lipase not elevated. No leukocytosis. On exam she denies any abdominal pain, chest pain, shortness of breath or any other concerning symptoms. Review of Systems Denies any shortness of breath, chest pain, headaches, dysuria, abdominal pain or discomfort, nausea, vomiting or diarrhea. Denies fever or chills. Physical Exam 2 Exam: Exam: CONST: Alert and oriented, in NAD. Well nourished HEENT: Normocephalic, atraumatic RESP: Respiratory rate even and regular HEART: Not performed GI: Not performed : Not performed SKIN: Color within normal limits, no visible lesions or rashes NEURO: Moves all extremities, Speech clear PSYCH: Answers questions Vital Signs: Vital Signs: Last Vital Signs Temp 97.8 F 04/21/25 20:00 Pulse 84 04/21/25 20:00 Resp 16 04/21/25 20:00 BP 140/70 H 04/21/25 20:00 Pulse Ox 97 04/21/25 20:00 O2 Del Method Room Air 04/21/25 20:00 BMI result Body Mass Index 38.3 Objective Data Active Medications Acetaminophen (Acetaminophen 325 Mg Tablet) 650 mg PO Q6H PRN PRN Reason: Headache/Pain, Scale 1-10 Last Admin: 04/19/25 08:54 Dose: 650 mg Documented By: RITA Al Hydroxide/Mg Hydroxide (Magnesium Hydrox/Alum Hydrox 30 Ml Oral.Susp) 30 ml PO Q6H PRN PRN Reason: Heartburn/Nausea Apixaban (Apixaban 5 Mg Tablet) 5 mg PO BID [facility] Last Admin: 04/21/25 21:56 Dose: 5 mg Documented By: KIAN Carbamazepine (Carbamazepine 200 Mg Tablet) 400 mg PO BID [facility] Last Admin: 04/21/25 22:02 Dose: Not Given Documented By: KIAN Non-Admin Reason: I get this already. she gave me at 5. Furosemide (Furosemide 20 Mg Tablet) 20 mg PO DAILY [facility]; Protocol Last Admin: 04/21/25 09:03 Dose: 20 mg Documented By: BASSAM Gabapentin (Gabapentin 300 Mg Capsule) 300 mg PO BEDTIME [facility] Last Admin: 04/21/25 22:00 Dose: Not Given Documented By: KIAN Non-Admin Reason: Patient Refused Hydroxyzine HCl (Hydroxyzine Hcl 25 Mg Tablet) 25 mg PO Q6H PRN PRN Reason: mild anxiety Magnesium Hydroxide (Milk Of Magnesia 30 Ml Oral.Susp) 30 ml PO DAILY PRN PRN Reason: Constipation Last Admin: 04/20/25 20:48 Dose: 30 ml Documented By: KIAN Metformin HCl (Metformin Hcl 500 Mg Tablet) 500 mg PO DAILY [facility] Last Admin: 04/21/25 09:03 Dose: 500 mg Documented By: BASSAM Metoprolol Succinate (Metoprolol Succinate Er 25 Mg Tab.Er.24h) 25 mg PO DAILY [facility]; Protocol Last Admin: 04/21/25 09:03 Dose: 25 mg Documented By: BASSAM Nicotine (Nicotine 21 Mg Patch.Td24) 21 mg TRANSDERMA DAILY PRN PRN Reason: smoking cessation Nicotine Polacrilex (Nicotine Polacrilex 2 Mg Gum) 4 mg BUCCAL Q2H PRN PRN Reason: Nicotine Cravings Olanzapine (Olanzapine 5 Mg Tablet) 5 mg PO TID PRN PRN Reason: agitation Ondansetron HCl (Ondansetron Odt 4 Mg Tab.Rapdis) 4 mg TRANSLINGU Q6H PRN PRN Reason: Nausea and Vomiting Last Admin: 04/21/25 13:58 Dose: 4 mg Documented By: BASSAM Prazosin HCl (Prazosin Hcl 1 Mg Capsule) 2 mg PO BEDTIME [facility]; Protocol Last Admin: 04/21/25 21:56 Dose: 2 mg Documented By: KIAN Risperidone (Risperidone 0.5 Mg Tablet) 0.5 mg PO BID [facility] Last Admin: 04/21/25 21:56 Dose: 0.5 mg Documented By: KIAN Senna (Sennosides 8.6 Mg Tablet) 17.2 mg PO BEDTIME [facility] Last Admin: 04/21/25 21:56 Dose: 17.2 mg Documented By: KIAN Sertraline HCl (Sertraline Hcl 100 Mg Tablet) 200 mg PO DAILY [facility] Last Admin: 04/21/25 09:03 Dose: 200 mg Documented By: ROMÁNLEOPOLDO Trazodone HCl (Trazodone Hcl 50 Mg Tablet) 50 mg PO BEDTIME MRX1 PRN PRN Reason: Insomnia Labs 04/20/25 19:51 04/20/25 19:51 Assessment and Plan (1) Cholelithiasis: Status: Acute Plan 64-year-old female with past medical history as listed below who presented to the emergency with delusions. Patient was admitted here for further stabilization. She is being seen today in follow up for nausea and vomiting. PTSD/social anxiety/major depressive disorder/agoraphobia/PTSD/delusions Treatment per psychiatric team Nausea/vomiting Resolved Left pelvic lesion Pelvic ultrasound Ordered, patient declining CA 125 pending We will need outpatient follow up for incidental 3.3 cm lesion in the left pelvis which may represent a fibroid versus ovarian lesion Cholelithiasis Workup revealed cholelithiasis, normal liver function We will need outpatient follow up History of CVA/hypertension/history of clotting disorder Continue on Lasix, Eliquis, and Toprol Patient reports that with she was previously on lisinopril Blood pressure stable at this time we will continue to monitor. Cholesterol panel within normal, HDL low. Epilepsy Continue on Tegretol b.i.d., gabapentin at bedtime Type 2 diabetes Continue metformin daily Recent A1c 5.8 Migraines Tylenol as needed Thank you for allowing me to participate in the care of this patient. Will follow with you, please notify medical provider with any changes in condition or concerns. Quality Stroke Does the patient have a stroke diagnosis?: No VTE Prior VTE?: No VTE Risk Level:: Medical - low VTE Device Contraindication: Treatment Not Indicated VTE Drug Contraindication: N/A - Med Ordered
[2025-04-22] MEDS: Metoprolol Succinate ER 25 MG TAB.ER.24H PO (09:15)
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
[2025-04-22] MEDS: Milk of Magnesia 30 ML ORAL.SUSP PO (12:49)
[2025-04-22 20:00] VITALS: BP 120/63; PULSE 69; RESP 16; TEMP 36.9; O2SAT 93
--- NOTE | 2025-04-22 23:10 | PC.NURSE ---
Neurontin @ has been refused by patient since admit.
[2025-04-23 08:00] VITALS: BP 128/59; PULSE 75; RESP 19; TEMP 36.9; O2SAT 93
[2025-04-23 08:23] LABS: Carbamazepine Tegretol 11.7 mcg/mL (5.0-12.0)
[2025-04-23 08:37] VITALS: BP 128/59
[2025-04-23 08:38] VITALS: BP 128/59; PULSE 75
[2025-04-23] MEDS: Metoprolol Succinate ER 25 MG TAB.ER.24H PO (08:38)
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
[2025-04-23 20:00] VITALS: BP 124/59; PULSE 77; RESP 18; TEMP 37; O2SAT 96
[2025-04-23 20:31] VITALS: BP 124/60
[2025-04-24 08:00] VITALS: BP 131/79; PULSE 84; RESP 16; TEMP 36.7; O2SAT 94
[2025-04-24 08:14] LABS: CA-125 7 U/mL (<35)
[2025-04-24 08:54] VITALS: BP 131/79
[2025-04-24 08:55] VITALS: BP 131/79; PULSE 84
[2025-04-24] MEDS: Metoprolol Succinate ER 25 MG TAB.ER.24H PO (08:55)
--- NOTE | 2025-04-24 09:18 | P.PNPSI_ITS ---
Subjective Subjective Date of Service: 04/24/25 Reason For Visit: psychoytic decompensation Subjective Notes: [place] Warning and Conditional Voluntary Medical Problems Affecting Mental Status: Yes Interim History: Has been in control. Remains paranoid about others intentions here in hospital, refused abd U/S again but will think about it. Less forthcoming than on admission but actively mistrustful of clinical staff. Seems frightened and vigilant. Family meeting scheduled. Patient does not seem able to provide more remote history and does not have insight in to symptoms, causing her to refuse care, feel others are in some way trying to harm her and has been reportedly been questioning others intentions (to not feed her, why dothey ask her to sign something) Refuse one of her medications but Has been receiving medications with minimal refusal Side effects from medications: No (not reported) Attending Groups: Intermittent Review of Systems Had 2 CVAs with neurocognitive sequelae. CT abd/pelvis small adnexal/uterine mass, refused U/s several times Medical Review of Systems: unchanged Review of Systems Review of Systems No changes except as above Mental Status Exam Mental Status Exam Patient Appearance: Unkempt Patient Orientation: Person, Place and Time (partial) Level of Consciousness: Awake, Drowsy (alert but slowed down (not change in intensity)), Alert and Follows Commands Patient Behavior: Appropriate, Guarded, Passive, Suspicious, Anxious, Fearful, Avoidant, Fatigued, Confused and Isolative Mood Description: Blunted, Sad and Nervous Affect Description: Fearful, Anxious and Blunted Ability to Follow Directions: Good (simple verbal) Speech Pattern: Impoverished, Monotone, Soft-Spoken, Delayed and Long Pauses Memory Description: Immediate Impaired, Chain Saw Operator Impaired and Recent Impaired Hallucinations: Tactile (gustatory, tastes semen) Delusions: Paranoid Ideation and Present Perceptual Disturbances: Hallucinations Thought Process: Rumination, Slowed Thinking and Confusion Thought Content: positive for [place], positive for Perseveration, positive for Poverty of Content, positive for Preoccupation, positive for Slowed Thinking, positive for Evasive, negative for Suicidal Ideation or negative for Homicidal Ideation Abnormal Motor Activity Signs and Symptoms: Psychomotor Retardation Judgement: Poor (increasingly deems to be worse than believed initially ) Diagnostics Vital Signs (24Hr): Vital Signs - 24 hr 04/23/25 20:00 04/23/25 20:31 04/24/25 08:00 Temperature 98.6 F 98.1 F Pulse Rate 77 84 Respiratory Rate 18 16 Blood Pressure 124/59 L 124/60 131/79 Pulse Oximetry 96 94 Oxygen Delivery Method Room Air Room Air 04/24/25 08:54 04/24/25 08:55 Temperature Pulse Rate 84 Respiratory Rate Blood Pressure 131/79 131/79 Pulse Oximetry Oxygen Delivery Method BMI result Body Mass Index 38.3 Labs 04/20/25 19:51 04/20/25 19:51 Labs: Laboratory Results - last 48 hr 04/21/25 04/23/25 16:05 07:26 CA 125 Antigen 7 Carbamazepine 11.7 Imaging Radiology Impressions: CT scan if none recent Medications Medications Current Medications Acetaminophen (Acetaminophen 325 Mg Tablet) 650 mg PO Q6H PRN PRN Reason: Headache/Pain, Scale 1-10 Last Admin: 04/24/25 02:34 Dose: 650 mg Al Hydroxide/Mg Hydroxide (Magnesium Hydrox/Alum Hydrox 30 Ml Oral.Susp) 30 ml PO Q6H PRN PRN Reason: Heartburn/Nausea Apixaban (Apixaban 5 Mg Tablet) 5 mg PO BID [facility] Last Admin: 04/24/25 08:54 Dose: 5 mg Carbamazepine (Carbamazepine 200 Mg Tablet) 400 mg PO BID [facility] Last Admin: 04/24/25 08:54 Dose: 400 mg Furosemide (Furosemide 20 Mg Tablet) 20 mg PO DAILY [facility]; Protocol Last Admin: 04/24/25 08:54 Dose: 20 mg Gabapentin (Gabapentin 300 Mg Capsule) 300 mg PO BEDTIME [facility] Last Admin: 04/23/25 20:35 Dose: Not Given Hydroxyzine HCl (Hydroxyzine Hcl 25 Mg Tablet) 25 mg PO Q6H PRN PRN Reason: mild anxiety Magnesium Hydroxide (Milk Of Magnesia 30 Ml Oral.Susp) 30 ml PO DAILY PRN PRN Reason: Constipation Last Admin: 04/22/25 12:49 Dose: 30 ml Metformin HCl (Metformin Hcl 500 Mg Tablet) 500 mg PO DAILY [facility] Last Admin: 04/24/25 08:54 Dose: 500 mg Metoprolol Succinate (Metoprolol Succinate Er 25 Mg Tab.Er.24h) 25 mg PO DAILY [facility]; Protocol Last Admin: 04/24/25 08:55 Dose: 25 mg Nicotine (Nicotine 21 Mg Patch.Td24) 21 mg TRANSDERMA DAILY PRN PRN Reason: smoking cessation Nicotine Polacrilex (Nicotine Polacrilex 2 Mg Gum) 4 mg BUCCAL Q2H PRN PRN Reason: Nicotine Cravings Olanzapine (Olanzapine 5 Mg Tablet) 5 mg PO TID PRN PRN Reason: agitation Ondansetron HCl (Ondansetron Odt 4 Mg Tab.Rapdis) 4 mg TRANSLINGU Q6H PRN PRN Reason: Nausea and Vomiting Last Admin: 04/23/25 11:40 Dose: 4 mg Prazosin HCl (Prazosin Hcl 1 Mg Capsule) 2 mg PO BEDTIME [facility]; Protocol Last Admin: 04/23/25 20:31 Dose: 2 mg Risperidone (Risperidone 0.5 Mg Tablet) 0.5 mg PO BID [facility] Last Admin: 04/24/25 08:54 Dose: 0.5 mg Senna (Sennosides 8.6 Mg Tablet) 17.2 mg PO BEDTIME [facility] Last Admin: 04/23/25 20:34 Dose: 17.2 mg Sertraline HCl (Sertraline Hcl 100 Mg Tablet) 200 mg PO DAILY [facility] Last Admin: 04/24/25 08:54 Dose: 200 mg Trazodone HCl (Trazodone Hcl 50 Mg Tablet) 50 mg PO BEDTIME MRX1 PRN PRN Reason: Insomnia Allergies Allergies Allergy/AdvReac Type Severity Reaction Status Date / Time Penicillins AdvReac Unknown Unknown Verified 04/18/25 17:49 shellfish derived (shellfish) AdvReac Unknown Unknown Verified 04/18/25 16:56 blueberries AdvReac Unknown Unknown Uncoded 04/18/25 16:56 Assessment & Plan Assessment & Plan (1) Major depression with psychotic features: Status: Acute Code(s): F32.3 - Major depressive disorder, single episode, severe with psychotic features (2) Mild neurocognitive disorder due to another medical condition: Status: Acute Code(s): F06.70 - Mild neurocognitive disorder due to known physiological condition without behavioral disturbance (3) Type 2 diabetes mellitus: Status: Acute Code(s): E11.9 - Type 2 diabetes mellitus without complications (4) Cholelithiasis: Status: Acute Code(s): K80.20 - Calculus of gallbladder without cholecystitis without obstruction (5) Obesity: Status: Acute Code(s): E66.9 - Obesity, unspecified (6) CVD (cerebrovascular disease): Status: Acute Code(s): I67.9 - Cerebrovascular disease, unspecified (7) 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 She has not been treated for psychotic symptoms and only prescribed been mostly untreated in the sense that she has been prescribed only antidepressants, despite the ongoing and insidious nature of her current symptomatology. She denies SI/HI. She has agreed to receive treatment in a voluntary basis. Collateral information from daughter reviewed- daughter who also confirms the onset and trajectory of her symptoms and confirmed that also it has been difficult to assist patient due to her paranoid, there are no safety concerns in terms of suicidal or homicidal ideation or violence towards others, however significant impairment in self care and distress associated with delusions/hallucinations that have affected her being open to get help from family. We discussed risks, benefits and alternative treatment options. Pt agreed to start risperidone 0.5mg po BID and to titration. PLAN Legal CV, 15 minutes checks 2. start risperidone 0.5mg po BID. Continue sertraline 200mg po daily. contiue prazosin. 3. OT assessment: cognitive/memory/functional 4. family meeting 5-coord care, aftercare and d/c planning as appropriate for safe transition 04/20: If N/V unresolved will consult medicine. Otherwise continue current management and treatment plan. 04/21: continue current management and treatment plan. Adjust Risperidone slowly given some sedation objectively. Patient educated on: diagnosis, medication risk/benefits and therapeutic strategies Informed Consent: further education needed Reason for continued inpatient stay Substantial Risk for: inability to function, rapid decompensation and other Time Spent With Patient Time: Total time managing care of this patient today ___30_ minutes.
--- NOTE | 2025-04-24 17:46 | PC.NURSE ---
Shift Review 3pm-7pm Patient alert and oriented with confusion at times. Pt using WC in halls IND. Ate 100% of dinner. No pain, feels safe. Continue POC
[2025-04-24 20:00] VITALS: BP 150/70; PULSE 78; RESP 18; TEMP 36.9; O2SAT 97
--- NOTE | 2025-04-25 03:44 | PC.NURSE ---
Pt took all her HS meds except for Gabapentin and Risperidal, states I will talk to my Provider tomorrow.
[2025-04-25 08:00] VITALS: BP 143/67; PULSE 81; RESP 18; TEMP 37; O2SAT 96
[2025-04-25 08:19] VITALS: BP 143/67; PULSE 81
[2025-04-25] MEDS: Metoprolol Succinate ER 25 MG TAB.ER.24H PO (08:19)
--- NOTE | 2025-04-25 11:30 | HO.HCP ---
Health Care Proxy Invocation Health Care Proxy Declaration: Sabrina Kruger MD , on the date cited below, have determined that, Siena Calderon, lacks the capacity to make or communicate, informed health care decision. This determination is made in accordance with accepted standards of medical judgment and pursuant to [place] c[place] 201[place], the [place] Health Care Proxy Law. The cause, nature, extent and probable duration of the patient's inapacity are described below: Cause: Psychiatric and neurocognitive symptoms associated with CVA Nature: Delusions/hallucinations Neuropsychiatric Sequelae of stroke x2 (CVA'S) Delusional thinking causing to believe others are harming her or plotting to do. No insight and poor judgment, including rejecting assistance/services placed given inability to safely function. In addition to the impact of delusions and hallucinations, patient has neurocognitive sequelae of two CVA's furthr impact her comprehension and retention of relevant information (diagnostic/treatment/supportive interventions recommended), her appreciating symptoms and need to accept supports for safe return to the community. She has not demonstrated appreciation of impact of her symptoms in her safety and prognosis. She is not able to manage the information to make a consistent and informed decision about care proposed./ She does not demonstrate an ability to weight risks/and benefits of interventions recommended and to communicate consistent choices (ie, accepts/then refuses interventions such as pelvic U/S for uterine mass despite education bc she doesn't trust others intentions) Combination of symptoms impair ability to understand and retain information, to appreciate impact of symptoms in her life and to rationally weight factors including prognosis, risks, benefits, implications of her choices. She Has been inconsistent in her choices, which are not consistent or informed due to current mental status and functional abilities/limitations. Extent: Understanding and retaining info needed to make informed decision regarding medical, psychiatric and environmental interventions to support her remaining safe in the setting appropriate for care. Probable Duration of Patient's Incapacity:extended
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
[2025-04-25 20:00] VITALS: BP 149/72; PULSE 83; RESP 18; TEMP 36.6; O2SAT 97
[2025-04-25] MEDS: Milk of Magnesia 30 ML ORAL.SUSP PO (23:51)
[2025-04-26 08:00] VITALS: BP 154/74; PULSE 77; RESP 18; O2SAT 95
[2025-04-26 08:01] LABS: Creatinine Clr Calc Pharmacy 81.1; Estimated Glomerular Filt Rate > 60
[2025-04-26 08:25] VITALS: BP 154/74
[2025-04-26 08:26] VITALS: BP 154/74; PULSE 77
[2025-04-26] MEDS: Metoprolol Succinate ER 25 MG TAB.ER.24H PO (08:26)
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
[2025-04-26 20:00] VITALS: BP 149/66; PULSE 84; RESP 18; TEMP 36.8; O2SAT 95
[2025-04-27 08:24] VITALS: BP 149/70; PULSE 88; RESP 17; TEMP 36.8; O2SAT 94
[2025-04-27] MEDS: Metoprolol Succinate ER 25 MG TAB.ER.24H PO (08:25)
[2025-04-27 08:52] LABS: Creatinine Clr Calc Pharmacy 86.2; Estimated Glomerular Filt Rate > 60
[2025-04-27 08:58] LABS: Carbamazepine Tegretol 7.9 mcg/mL (5.0-12.0)
--- NOTE | 2025-04-27 12:18 | HO.PSYCHPN ---
Subjective Subjective Date of Service: 04/27/25 Reason For Visit: psychoytic decompensation Subjective Notes: Conditional Voluntary Interim History: Patient was seen and discussed in rounds today. Records and plans were reviewed. Continues to be pleasant and cooperative but still very paranoid. Medications are taken most of the time. She is anxious and fearful about leaving. No behavioral issues. No SI. No changes were made today Review of Systems Review of Systems Yes all other systems are reviewed and are negative Mental Status Exam Mental Status Exam Patient Appearance: Fatigued and Unkempt Patient Orientation: Person (forgets who I am, gave her names of team members in writing), Place and Situation Level of Consciousness: Awake, Drowsy and Follows Commands Patient Behavior: Guarded, Passive, Suspicious, Anxious and Fearful Mood Description: Suspicious, Fearful, Anxious, Blunted and Nervous Affect Description: Suspicious, Anxious, Blunted and Nervous Ability to Follow Directions: Good Speech Pattern: Impoverished, Monotone, Soft-Spoken, Delayed and Long Pauses Hallucinations: Tactile (gustatory) Delusions: Paranoid Ideation, Present and Bizarre Perceptual Disturbances: Hallucinations Thought Process: Distracted, Rumination, Slowed Thinking and Confusion Thought Content: positive for [place], positive for Perseveration, positive for Poverty of Content, positive for Preoccupation, positive for Thought Blocking, positive for Slowed Thinking, negative for Suicidal Ideation or negative for Homicidal Ideation Abnormal Motor Activity Signs and Symptoms: Psychomotor Retardation Judgement: Poor (limited) Diagnostics Vital Signs (24Hr): Vital Signs - 24 hr 04/26/25 20:00 04/27/25 08:24 Temperature 98.2 F 98.3 F Pulse Rate 84 88 Respiratory Rate 18 17 Blood Pressure 149/66 H 149/70 H Pulse Oximetry 95 94 Oxygen Delivery Method Room Air Blow By Room Air BMI result Body Mass Index 38.3 Labs 04/20/25 19:51 04/27/25 08:14 Labs: Laboratory Results - last 48 hr 04/26/25 04/27/25 04/27/25 07:15 08:14 08:15 Creatinine 0.84 0.79 Estim Creat Clear Calc 81.1 86.2 Estimated GFR > 60 > 60 Carbamazepine 7.9 Medications Medications Current Medications Acetaminophen (Acetaminophen 325 Mg Tablet) 650 mg PO Q6H PRN PRN Reason: Headache/Pain, Scale 1-10 Last Admin: 04/25/25 13:08 Dose: 650 mg Al Hydroxide/Mg Hydroxide (Magnesium Hydrox/Alum Hydrox 30 Ml Oral.Susp) 30 ml PO Q6H PRN PRN Reason: Heartburn/Nausea Apixaban (Apixaban 5 Mg Tablet) 5 mg PO BID [facility] Last Admin: 04/27/25 08:26 Dose: 5 mg Carbamazepine (Carbamazepine 200 Mg Tablet) 400 mg PO BID [facility] Last Admin: 04/27/25 08:27 Dose: 400 mg Furosemide (Furosemide 20 Mg Tablet) 20 mg PO DAILY [facility]; Protocol Last Admin: 04/27/25 08:26 Dose: 20 mg Gabapentin (Gabapentin 300 Mg Capsule) 300 mg PO BEDTIME [facility] Last Admin: 04/26/25 22:15 Dose: Not Given Hydroxyzine HCl (Hydroxyzine Hcl 25 Mg Tablet) 25 mg PO Q6H PRN PRN Reason: mild anxiety Hydroxyzine HCl (Hydroxyzine Hcl 10 Mg Tablet) 10 mg PO Q6H PRN PRN Reason: Anxiety Magnesium Hydroxide (Milk Of Magnesia 30 Ml Oral.Susp) 30 ml PO DAILY PRN PRN Reason: Constipation Last Admin: 04/25/25 23:51 Dose: 30 ml Metformin HCl (Metformin Hcl 500 Mg Tablet) 500 mg PO DAILY [facility] Last Admin: 04/27/25 08:26 Dose: 500 mg Metoprolol Succinate (Metoprolol Succinate Er 25 Mg Tab.Er.24h) 25 mg PO DAILY [facility]; Protocol Last Admin: 04/27/25 08:25 Dose: 25 mg Nicotine (Nicotine 21 Mg Patch.Td24) 21 mg TRANSDERMA DAILY PRN PRN Reason: smoking cessation Nicotine Polacrilex (Nicotine Polacrilex 2 Mg Gum) 4 mg BUCCAL Q2H PRN PRN Reason: Nicotine Cravings Olanzapine (Olanzapine 5 Mg Tablet) 5 mg PO TID PRN PRN Reason: agitation Ondansetron HCl (Ondansetron Odt 4 Mg Tab.Rapdis) 4 mg TRANSLINGU Q6H PRN PRN Reason: Nausea and Vomiting Last Admin: 04/25/25 13:08 Dose: 4 mg Prazosin HCl (Prazosin Hcl 1 Mg Capsule) 2 mg PO BEDTIME [facility]; Protocol Last Admin: 04/26/25 20:25 Dose: 2 mg Risperidone (Risperidone 0.5 Mg Tablet) 0.5 mg PO BID [facility] Last Admin: 04/27/25 08:27 Dose: 0.5 mg Senna (Sennosides 8.6 Mg Tablet) 17.2 mg PO BEDTIME [facility] Last Admin: 04/26/25 20:27 Dose: 17.2 mg Sertraline HCl (Sertraline Hcl 100 Mg Tablet) 200 mg PO DAILY [facility] Last Admin: 04/27/25 08:26 Dose: 200 mg Trazodone HCl (Trazodone Hcl 50 Mg Tablet) 50 mg PO BEDTIME PRN PRN Reason: Insomnia Allergies Allergies Allergy/AdvReac Type Severity Reaction Status Date / Time Penicillins AdvReac Unknown Unknown Verified 04/18/25 17:49 shellfish derived (shellfish) AdvReac Unknown Unknown Verified 04/18/25 16:56 blueberries AdvReac Unknown Unknown Uncoded 04/18/25 16:56 Assessment & Plan Assessment & Plan (1) Major depression with psychotic features: Status: Acute Code(s): F32.3 - Major depressive disorder, single episode, severe with psychotic features (2) Mild neurocognitive disorder due to another medical condition: Status: Acute Code(s): F06.70 - Mild neurocognitive disorder due to known physiological condition without behavioral disturbance (3) Type 2 diabetes mellitus: Status: Acute Code(s): E11.9 - Type 2 diabetes mellitus without complications (4) Cholelithiasis: Status: Acute Code(s): K80.20 - Calculus of gallbladder without cholecystitis without obstruction (5) Obesity: Status: Acute Code(s): E66.9 - Obesity, unspecified (6) CVD (cerebrovascular disease): Status: Acute Code(s): I67.9 - Cerebrovascular disease, unspecified (7) 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 She has not been treated for psychotic symptoms and only prescribed been mostly untreated in the sense that she has been prescribed only antidepressants, despite the ongoing and insidious nature of her current symptomatology. She denies SI/HI. She has agreed to receive treatment in a voluntary basis. Collateral information from daughter reviewed- daughter who also confirms the onset and trajectory of her symptoms and confirmed that also it has been difficult to assist patient due to her paranoid, there are no safety concerns in terms of suicidal or homicidal ideation or violence towards others, however significant impairment in self care and distress associated with delusions/hallucinations that have affected her being open to get help from family. We discussed risks, benefits and alternative treatment options. Pt agreed to start risperidone 0.5mg po BID and to titration. PLAN Legal CV, 15 minutes checks 2. start risperidone 0.5mg po BID. Continue sertraline 200mg po daily. contiue prazosin. Refused Gabapentin again, took risperdal but c/o excessive sedation despite small dose and will hold increase to avoiod making her more sedated/drowsy. 3. OT assessment: cognitive/memory/functional 4. family meeting 5-coord care, aftercare and d/c planning as appropriate for safe transition 04/20: If N/V unresolved will consult medicine. Otherwise continue current management and treatment plan. 04/21: continue current management and treatment plan. Adjust Risperidone slowly given some sedation objectively. 04/26 HCP invoked, patient reminded but seems to have little interest and says she itrusts dtrs who are HCPs but not the one who is HOME HEALTH CARE PROVIDER. Ongoing delusions and increasing paranoid beliefs, however, patient c/o being too sleepy despite low dose Risperdal--will checlk labs including CBZ levels and hold on medication increase. Has been refusing Neurontin off and on--will hold and reevaluate. Will lower Trazodone to one maximum (without repeat) and consider Hydroxyzine 04/27:Continue current regimen and plans Reason for continued inpatient stay Substantial Risk for: med/psych decompensation Time Spent With Patient Time: Total time managing care of this patient today ____ minutes.
[2025-04-27 20:00] VITALS: BP 148/74; PULSE 76; RESP 17; TEMP 37.3; O2SAT 96
[2025-04-27 20:55] VITALS: BP 148/74
[2025-04-28 08:02] LABS: Creatinine Clr Calc Pharmacy 81.1; Estimated Glomerular Filt Rate > 60
[2025-04-28 08:20] VITALS: BP 147/68; PULSE 77; RESP 16; TEMP 36.8
[2025-04-28] MEDS: Metoprolol Succinate ER 25 MG TAB.ER.24H PO (08:38)
--- NOTE | 2025-04-28 12:50 | P.PNPSI_ITS ---
Subjective Subjective Date of Service: 04/28/25 Reason For Visit: psychoytic decompensation Subjective Notes: Conditional Voluntary Interim History: Patient was seen and discussed in rounds today. Records and plans were reviewed. She denies any depression or anxiety. She is hiding things in her room. Continues to be religiously preoccupied. She also states that she has been on lisinopril which was not part of the home meds. Nursing will verify with her pharmacy and we will order it accordingly. No SI. No changes were made today so far. Constipation is resolved by will leave the lactulose on for now Review of Systems Review of Systems Yes all other systems are reviewed and are negative Mental Status Exam Mental Status Exam Patient Appearance: Fatigued and Unkempt Patient Orientation: Person (forgets who I am, gave her names of team members in writing), Place and Situation Level of Consciousness: Awake, Drowsy and Follows Commands Patient Behavior: Guarded, Passive, Suspicious, Anxious and Fearful Mood Description: Suspicious, Fearful, Anxious, Blunted and Nervous Affect Description: Suspicious, Anxious, Blunted and Nervous Ability to Follow Directions: Good Speech Pattern: Impoverished, Monotone, Soft-Spoken, Delayed and Long Pauses Hallucinations: Tactile (gustatory) Delusions: Paranoid Ideation, Present and Bizarre Perceptual Disturbances: Hallucinations Thought Process: Distracted, Rumination, Slowed Thinking and Confusion Thought Content: positive for [place], positive for Perseveration, positive for Poverty of Content, positive for Preoccupation, positive for Thought Blocking, positive for Slowed Thinking, negative for Suicidal Ideation or negative for Homicidal Ideation Abnormal Motor Activity Signs and Symptoms: Psychomotor Retardation Judgement: Poor (limited) Diagnostics Vital Signs (24Hr): Vital Signs - 24 hr 04/27/25 20:00 04/27/25 20:55 04/28/25 08:20 Temperature 99.1 F 98.2 F Pulse Rate 76 77 Respiratory Rate 17 16 Blood Pressure 148/74 H 148/74 H 147/68 H Pulse Oximetry 96 Oxygen Delivery Method Room Air Room Air BMI result Body Mass Index 38.3 Labs 04/20/25 19:51 04/28/25 07:21 Labs: Laboratory Results - last 48 hr 04/27/25 04/27/25 04/28/25 08:14 08:15 07:21 Creatinine 0.79 0.84 Estim Creat Clear Calc 86.2 81.1 Estimated GFR > 60 > 60 Carbamazepine 7.9 Medications Medications Current Medications Acetaminophen (Acetaminophen 325 Mg Tablet) 650 mg PO Q6H PRN PRN Reason: Headache/Pain, Scale 1-10 Last Admin: 04/25/25 13:08 Dose: 650 mg Al Hydroxide/Mg Hydroxide (Magnesium Hydrox/Alum Hydrox 30 Ml Oral.Susp) 30 ml PO Q6H PRN PRN Reason: Heartburn/Nausea Apixaban (Apixaban 5 Mg Tablet) 5 mg PO BID [facility] Last Admin: 04/28/25 08:38 Dose: 5 mg Carbamazepine (Carbamazepine 200 Mg Tablet) 400 mg PO BID [facility] Last Admin: 04/28/25 08:38 Dose: 400 mg Furosemide (Furosemide 20 Mg Tablet) 20 mg PO DAILY [facility]; Protocol Last Admin: 04/28/25 08:38 Dose: 20 mg Gabapentin (Gabapentin 300 Mg Capsule) 300 mg PO BEDTIME [facility] Last Admin: 04/27/25 20:56 Dose: Not Given Hydroxyzine HCl (Hydroxyzine Hcl 25 Mg Tablet) 25 mg PO Q6H PRN PRN Reason: mild anxiety Hydroxyzine HCl (Hydroxyzine Hcl 10 Mg Tablet) 10 mg PO Q6H PRN PRN Reason: Anxiety Lactulose (Lactulose 20 Gm/30 Ml Solution) 30 gm PO DAILY [facility] Stop: 04/30/25 12:29 Last Admin: 04/28/25 08:39 Dose: 30 gm Magnesium Hydroxide (Milk Of Magnesia 30 Ml Oral.Susp) 30 ml PO DAILY PRN PRN Reason: Constipation Last Admin: 04/25/25 23:51 Dose: 30 ml Metformin HCl (Metformin Hcl 500 Mg Tablet) 500 mg PO DAILY [facility] Last Admin: 04/28/25 08:39 Dose: 500 mg Metoprolol Succinate (Metoprolol Succinate Er 25 Mg Tab.Er.24h) 25 mg PO DAILY [facility]; Protocol Last Admin: 04/28/25 08:38 Dose: 25 mg Nicotine (Nicotine 21 Mg Patch.Td24) 21 mg TRANSDERMA DAILY PRN PRN Reason: smoking cessation Nicotine Polacrilex (Nicotine Polacrilex 2 Mg Gum) 4 mg BUCCAL Q2H PRN PRN Reason: Nicotine Cravings Olanzapine (Olanzapine 5 Mg Tablet) 5 mg PO TID PRN PRN Reason: agitation Ondansetron HCl (Ondansetron Odt 4 Mg Tab.Rapdis) 4 mg TRANSLINGU Q6H PRN PRN Reason: Nausea and Vomiting Last Admin: 04/25/25 13:08 Dose: 4 mg Prazosin HCl (Prazosin Hcl 1 Mg Capsule) 2 mg PO BEDTIME [facility]; Protocol Last Admin: 04/27/25 20:55 Dose: 2 mg Risperidone (Risperidone 0.5 Mg Tablet) 0.5 mg PO BID [facility] Last Admin: 04/28/25 08:39 Dose: 0.5 mg Senna (Sennosides 8.6 Mg Tablet) 17.2 mg PO BEDTIME [facility] Last Admin: 04/27/25 20:56 Dose: 17.2 mg Sertraline HCl (Sertraline Hcl 100 Mg Tablet) 200 mg PO DAILY [facility] Last Admin: 04/28/25 08:39 Dose: 200 mg Trazodone HCl (Trazodone Hcl 50 Mg Tablet) 50 mg PO BEDTIME PRN PRN Reason: Insomnia Allergies Allergies Allergy/AdvReac Type Severity Reaction Status Date / Time Penicillins AdvReac Unknown Unknown Verified 04/18/25 17:49 shellfish derived (shellfish) AdvReac Unknown Unknown Verified 04/18/25 16:56 blueberries AdvReac Unknown Unknown Uncoded 04/18/25 16:56 Assessment & Plan Assessment & Plan (1) Major depression with psychotic features: Status: Acute Code(s): F32.3 - Major depressive disorder, single episode, severe with psychotic features (2) Mild neurocognitive disorder due to another medical condition: Status: Acute Code(s): F06.70 - Mild neurocognitive disorder due to known physiological condition without behavioral disturbance (3) Type 2 diabetes mellitus: Status: Acute Code(s): E11.9 - Type 2 diabetes mellitus without complications (4) Cholelithiasis: Status: Acute Code(s): K80.20 - Calculus of gallbladder without cholecystitis without obstruction (5) Obesity: Status: Acute Code(s): E66.9 - Obesity, unspecified (6) CVD (cerebrovascular disease): Status: Acute Code(s): I67.9 - Cerebrovascular disease, unspecified (7) 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 She has not been treated for psychotic symptoms and only prescribed been mostly untreated in the sense that she has been prescribed only antidepressants, despite the ongoing and insidious nature of her current symptomatology. She denies SI/HI. She has agreed to receive treatment in a voluntary basis. Collateral information from daughter reviewed- daughter who also confirms the onset and trajectory of her symptoms and confirmed that also it has been difficult to assist patient due to her paranoid, there are no safety concerns in terms of suicidal or homicidal ideation or violence towards others, however significant impairment in self care and distress associated with delusions/hallucinations that have affected her being open to get help from family. We discussed risks, benefits and alternative treatment options. Pt agreed to start risperidone 0.5mg po BID and to titration. PLAN Legal CV, 15 minutes checks 2. start risperidone 0.5mg po BID. Continue sertraline 200mg po daily. contiue prazosin. Refused Gabapentin again, took risperdal but c/o excessive sedation despite small dose and will hold increase to avoiod making her more sedated/drowsy. 3. OT assessment: cognitive/memory/functional 4. family meeting 5-coord care, aftercare and d/c planning as appropriate for safe transition 04/20: If N/V unresolved will consult medicine. Otherwise continue current management and treatment plan. 04/21: continue current management and treatment plan. Adjust Risperidone slowly given some sedation objectively. 04/26 HCP invoked, patient reminded but seems to have little interest and says she itrusts dtrs who are HCPs but not the one who is [employer]. Ongoing delusions and increasing paranoid beliefs, however, patient c/o being too sleepy despite low dose Risperdal--will checlk labs including CBZ levels and hold on medication increase. Has been refusing Neurontin off and on--will hold and reevaluate. Will lower Trazodone to one maximum (without repeat) and consider Hydroxyzine 04/27:Continue current regimen and plans 04/28:Continue current regimen and plans. Verify lisinopril with pharmacy Patient educated on: medication risk/benefits Reason for continued inpatient stay Substantial Risk for: med/psych decompensation Time Spent With Patient Time: Total time managing care of this patient today ____ minutes.
[2025-04-28 20:00] VITALS: BP 144/74; PULSE 71; RESP 18; TEMP 36.8; O2SAT 95
[2025-04-29 08:00] VITALS: BP 136/63; PULSE 80; RESP 18; TEMP 36.8; O2SAT 95
[2025-04-29 08:09] LABS: Creatinine Clr Calc Pharmacy 85.1; Estimated Glomerular Filt Rate > 60
[2025-04-29 09:26] VITALS: BP 136/63
[2025-04-29 09:27] VITALS: BP 136/63; PULSE 80
[2025-04-29] MEDS: Metoprolol Succinate ER 25 MG TAB.ER.24H PO (09:27)
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
[2025-04-29 20:00] VITALS: BP 152/72; PULSE 85; RESP 18; TEMP 36; O2SAT 94
[2025-04-30 08:00] VITALS: BP 154/71; PULSE 80; RESP 19; TEMP 36.8; O2SAT 92
[2025-04-30 08:35] LABS: Creatinine Clr Calc Pharmacy 84.1; Estimated Glomerular Filt Rate > 60
[2025-04-30] MEDS: Metoprolol Succinate ER 25 MG TAB.ER.24H PO (10:03)
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
[2025-04-30 14:20] VITALS: BP 148/67
--- NOTE | 2025-04-30 17:35 | PC.NURSE ---
Patient refused TEDs stating I just took them off Continues to be paranoid/ suspicious about her food, was upset at breakfast stating they are messing with my food, they are doing it on purpose BP elevated in am systolic 154, recheck slightly lower systolic at 148. Patient c/o R hip/back pain, treated with Tylenol with good effect. Compliant with medication, visible in the common area, in the wheelchair able to move by herself.
--- NOTE | 2025-04-30 17:51 | PC.NURSE ---
Patient refused TEDs stating I just took them off Continues to be paranoid/ suspicious about her food, was upset at breakfast stating they are messing with my food, they are doing it on purpose BP elevated in am systolic 154, recheck slightly lower systolic at 148. Compliant with medication, visible in the common area, in the wheelchair able to move by herself. No c/o pain.
[2025-04-30 20:00] VITALS: BP 134/71; PULSE 86; RESP 18; TEMP 37; O2SAT 97
[2025-05-01 08:11] VITALS: BP 126/65; PULSE 83; RESP 17; TEMP 36.2; O2SAT 96
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
[2025-05-01 08:43] LABS: Creatinine Clr Calc Pharmacy 84.1; Estimated Glomerular Filt Rate > 60
[2025-05-01] MEDS: Metoprolol Succinate ER 25 MG TAB.ER.24H PO (09:01)
[2025-05-01 20:00] VITALS: BP 131/61; PULSE 82; RESP 15; TEMP 36.7; O2SAT 95
[2025-05-01 20:29] VITALS: BP 131/61
[2025-05-02 08:23] VITALS: BP 158/73; PULSE 92; RESP 16; TEMP 36.3; O2SAT 90
[2025-05-02] MEDS: Metoprolol Succinate ER 25 MG TAB.ER.24H PO (08:28)
--- NOTE | 2025-05-02 08:51 | P.PNPSI_ITS ---
Subjective Subjective Date of Service: 05/02/25 Reason For Visit: psychoytic decompensation Subjective Notes: Conditional Voluntary Interim History: Pt slept through the night. She reports she feels better, less anxious. She seems more trusting of the staff here on the unit. She denies SI/HI. VS stable. no behavioral concerns. Medication Compliance: Intermittent Mental Status Exam Mental Status Exam Narrative: Appearance: wearing hospital gown, fair hygiene, in wheelchair, in NAD Behavior: cooperative and friendly Psychomotor: no agitation or retardation noted Speech: clear, normal rate/rhythm/volume, spontaneous TP: mostly linear TC: feeling better Mood: better Affect: calm SI: denies HI: denies VH/AH: Delusions: less persecutory/paranoid delusions. Insight/judgment: improving x 2. Memory/cog: alert, oriented x 3. Diagnostics Vital Signs (24Hr): Vital Signs - 24 hr 05/01/25 20:00 05/01/25 20:29 05/02/25 08:23 Temperature 98.1 F 97.3 F Pulse Rate 82 92 Respiratory Rate 15 16 Blood Pressure 131/61 131/61 158/73 H Pulse Oximetry 95 90 L Oxygen Delivery Method Room Air Room Air BMI result Body Mass Index 38.3 Labs 04/20/25 19:51 05/02/25 07:25 Labs: Laboratory Results - last 48 hr 05/01/25 05/02/25 07:26 07:25 Hold Purple Top SEE NOTE Creatinine 0.81 Estim Creat Clear Calc 84.1 Estimated GFR > 60 Imaging Radiology Impressions: ITS Impressions Head CT 04/29/25 14:09 IMPRESSION: Large area of encephalomalacia in the right parietal lobe probably representing an old infarct. Smaller subcortical white matter low attenuation in the left parietal lobe also probably representing an old infarct. Electronically signed by: Sadia Delatorre MD 04/29/2025 02:36 PM [facility] Pelvis Ultrasound 04/29/25 16:58 IMPRESSION: No left fundal or left adnexal mass is identified. Upon further review of the prior CT scan, the left ovarian vein drains from the left adnexal mass that was described on the prior study which is most consistent with left ovary abutting the left uterine fundus. 4.4 cm simple cyst of the right ovary. Follow-up ultrasound in 3-6 month. Electronically signed by: Cheo Antonio MD 04/29/2025 05:39 PM [facility] Medications Medications Current Medications Acetaminophen (Acetaminophen 325 Mg Tablet) 650 mg PO Q6H PRN PRN Reason: Headache/Pain, Scale 1-10 Last Admin: 04/29/25 22:38 Dose: 650 mg Al Hydroxide/Mg Hydroxide (Magnesium Hydrox/Alum Hydrox 30 Ml Oral.Susp) 30 ml PO Q6H PRN PRN Reason: Heartburn/Nausea Apixaban (Apixaban 5 Mg Tablet) 5 mg PO BID [facility] Last Admin: 05/02/25 08:28 Dose: 5 mg Carbamazepine (Carbamazepine 200 Mg Tablet) 400 mg PO BID [facility] Last Admin: 05/02/25 08:29 Dose: 400 mg Furosemide (Furosemide 20 Mg Tablet) 20 mg PO DAILY [facility]; Protocol Last Admin: 05/02/25 08:28 Dose: 20 mg Gabapentin (Gabapentin 300 Mg Capsule) 300 mg PO BEDTIME [facility] Last Admin: 05/01/25 20:33 Dose: Not Given Hydroxyzine HCl (Hydroxyzine Hcl 25 Mg Tablet) 25 mg PO Q6H PRN PRN Reason: mild anxiety Hydroxyzine HCl (Hydroxyzine Hcl 10 Mg Tablet) 10 mg PO Q6H PRN PRN Reason: Anxiety Magnesium Hydroxide (Milk Of Magnesia 30 Ml Oral.Susp) 30 ml PO DAILY PRN PRN Reason: Constipation Last Admin: 04/25/25 23:51 Dose: 30 ml Metformin HCl (Metformin Hcl 500 Mg Tablet) 500 mg PO DAILY [facility] Last Admin: 05/02/25 08:25 Dose: 500 mg Metoprolol Succinate (Metoprolol Succinate Er 25 Mg Tab.Er.24h) 25 mg PO DAILY [facility]; Protocol Last Admin: 05/02/25 08:28 Dose: 25 mg Nicotine (Nicotine 21 Mg Patch.Td24) 21 mg TRANSDERMA DAILY PRN PRN Reason: smoking cessation Nicotine Polacrilex (Nicotine Polacrilex 2 Mg Gum) 4 mg BUCCAL Q2H PRN PRN Reason: Nicotine Cravings Olanzapine (Olanzapine 5 Mg Tablet) 5 mg PO TID PRN PRN Reason: agitation Ondansetron HCl (Ondansetron Odt 4 Mg Tab.Rapdis) 4 mg TRANSLINGU Q6H PRN PRN Reason: Nausea and Vomiting Last Admin: 04/25/25 13:08 Dose: 4 mg Prazosin HCl (Prazosin Hcl 1 Mg Capsule) 2 mg PO BEDTIME [facility]; Protocol Last Admin: 05/01/25 20:29 Dose: 2 mg Risperidone (Risperidone 1 Mg Tablet) 1 mg PO BEDTIME [facility] Last Admin: 05/01/25 20:29 Dose: 1 mg Risperidone (Risperidone 0.5 Mg Tablet) 0.5 mg PO DAILY [facility] Last Admin: 05/02/25 08:29 Dose: 0.5 mg Senna (Sennosides 8.6 Mg Tablet) 17.2 mg PO BEDTIME [facility] Last Admin: 05/01/25 20:30 Dose: 17.2 mg Sertraline HCl (Sertraline Hcl 100 Mg Tablet) 200 mg PO DAILY [facility] Last Admin: 05/02/25 08:29 Dose: 200 mg Trazodone HCl (Trazodone Hcl 50 Mg Tablet) 50 mg PO BEDTIME PRN PRN Reason: Insomnia Allergies Allergies Allergy/AdvReac Type Severity Reaction Status Date / Time Penicillins AdvReac Unknown Unknown Verified 04/18/25 17:49 shellfish derived (shellfish) AdvReac Unknown Unknown Verified 04/18/25 16:56 blueberries AdvReac Unknown Unknown Uncoded 04/18/25 16:56 Assessment & Plan Assessment & Plan (1) Mild neurocognitive disorder due to another medical condition: Status: Acute Code(s): F06.70 - Mild neurocognitive disorder due to known physiological condition without behavioral disturbance (2) Type 2 diabetes mellitus: Status: Acute Code(s): E11.9 - Type 2 diabetes mellitus without complications (3) Cholelithiasis: Status: Acute Code(s): K80.20 - Calculus of gallbladder without cholecystitis without obstruction (4) Obesity: Status: Acute Code(s): E66.9 - Obesity, unspecified (5) CVD (cerebrovascular disease): Status: Acute Code(s): I67.9 - Cerebrovascular disease, unspecified (6) 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): Status: Acute Code(s): I63.9 - Cerebral infarction, unspecified; F06.31 - Mood disorder due to known physiological condition with depressive features (7) Psychosis: Qualifiers: Psychosis type: unspecified psychosis type Qualified Code(s): F29 - Unspecified psychosis not due to a substance or known physiological condition Status: Acute Code(s): F29 - Unspecified psychosis not due to a substance or known physiological condition (8) Seizure disorder as sequela of cerebrovascular accident: Status: Acute Code(s): I69.398 - Other sequelae of cerebral infarction; G40.909 - Epilepsy, unspecified, not intractable, without status epilepticus Plan Mrs. 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 She has not been treated for psychotic symptoms and only prescribed been mostly untreated in the sense that she has been prescribed only antidepressants, despite the ongoing and insidious nature of her current symptomatology. She denies SI/HI. She has agreed to receive treatment in a voluntary basis. Collateral information from daughter reviewed- daughter who also confirms the onset and trajectory of her symptoms and confirmed that also it has been difficult to assist patient due to her paranoid, there are no safety concerns in terms of suicidal or homicidal ideation or violence towards others, however significant impairment in self care and distress associated with delusions/hallucinations that have affected her being open to get help from family. We discussed risks, benefits and alternative treatment options. Pt agreed to start risperidone 0.5mg po BID and to titration. PLAN Legal CV, 15 minutes checks 2. start risperidone 0.5mg po BID. Continue sertraline 200mg po daily. contiue prazosin. Refused Gabapentin again, took risperdal but c/o excessive sedation despite small dose and will hold increase to avoiod making her more sedated/drowsy. 3. OT assessment: cognitive/memory/functional 4. family meeting 5-coord care, aftercare and d/c planning as appropriate for safe transition 04/20: If N/V unresolved will consult medicine. Otherwise continue current management and treatment plan. 04/21: continue current management and treatment plan. Adjust Risperidone slowly given some sedation objectively. 04/26 HCP invoked, patient reminded but seems to have little interest and says she itrusts dtrs who are HCPs but not the one who is [employer]. Ongoing delusions and increasing paranoid beliefs, however, patient c/o being too sleepy despite low dose Risperdal--will checlk labs including CBZ levels and hold on medication increase. Has been refusing Neurontin off and on--will hold and reevaluate. Will lower Trazodone to one maximum (without repeat) and consider Hydroxyzine 04/27:Continue current regimen and plans 04/28:Continue current regimen and plans. Verify lisinopril with pharmacy 04/29 Long meeting with patient who presents as increasingly paranoid and depressed, feeling hopeless/helpless about situation and reporting she doesn't trust food as she continues to perceive world thru paranoid lens. Increase Risperdal slowly given c/o sedation. Reviewing antidepressant options 05/01 DC Neurontin Update HCP on results and tx recommendations. Collateral from neurologist if patient/HCP are able to identify 05/02 continue current medications. appears less paranoid, VS stable. taking medications. Reason for continued inpatient stay Substantial Risk for: inability to function Time Spent With Patient Time: Total time managing care of this patient today ____ minutes.
[2025-05-02] MEDS: Milk of Magnesia 30 ML ORAL.SUSP PO (09:02)
[2025-05-02 09:09] LABS: Creatinine Clr Calc Pharmacy 85.1; Estimated Glomerular Filt Rate > 60
[2025-05-02 20:00] VITALS: BP 163/78; PULSE 81; RESP 16; TEMP 37.3; O2SAT 95
[2025-05-03 08:00] VITALS: BP 148/75; PULSE 80; RESP 18; TEMP 36.8; O2SAT 97
[2025-05-03] MEDS: Metoprolol Succinate ER 25 MG TAB.ER.24H PO (08:15)
[2025-05-03 08:16] LABS: Creatinine Clr Calc Pharmacy 82.0; Estimated Glomerular Filt Rate > 60
[2025-05-03] MEDS: Milk of Magnesia 30 ML ORAL.SUSP PO (09:06)
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
[2025-05-03 20:00] VITALS: BP 135/72; PULSE 85; RESP 16; TEMP 36.6; O2SAT 98
[2025-05-04 07:39] LABS: Creatinine Clr Calc Pharmacy 85.1; Estimated Glomerular Filt Rate > 60
[2025-05-04 08:00] VITALS: BP 149/65; PULSE 68; RESP 16; TEMP 36.8; O2SAT 94
--- NOTE | 2025-05-04 08:35 | P.PNPSI_ITS ---
Subjective Subjective Date of Service: 05/04/25 Reason For Visit: psychoytic decompensation Subjective Notes: Conditional Voluntary Interim History: Pt reports she is doing fine, but feels somnolent in the morning. She did in fact slept through lunch and RN confirms they couldn't wake her up. Pt reports carbamazepne dose is high and it used to be 200mg po BID. however, this is not what records show and carbamazepine level is wnl. will continue to monitor and reasses. I did d/c gabapentin as pt declines. pt appears less paranoid. confused as to who this global technical writer is and then worried that she has seen me but struggles to remember my role, asks this global technical writer do you think that's a bad sign? Mental Status Exam Mental Status Exam Narrative: Appearance: wearing hospital gown, fair hygiene, in wheelchair, in NAD Behavior: cooperative and friendly Psychomotor: no agitation or retardation noted Speech: clear, normal rate/rhythm/volume, spontaneous TP: mostly linear TC: feeling better Mood: sleepy Affect: calm, more awake when seen but it appears earlier more sleepy. SI: denies HI: denies VH/AH: Delusions: less persecutory/paranoid delusions. Insight/judgment: improving x 2. Memory/cog: alert, oriented x 3. Diagnostics Vital Signs (24Hr): Vital Signs - 24 hr 05/03/25 20:00 Temperature 97.8 F Pulse Rate 85 Respiratory Rate 16 Blood Pressure 135/72 Pulse Oximetry 98 Oxygen Delivery Method Room Air BMI result Body Mass Index 38.3 Labs 04/20/25 19:51 05/05/25 08:09 Labs: Laboratory Results - last 48 hr 05/02/25 05/03/25 05/04/25 07:25 07:23 06:51 Creatinine 0.80 0.83 0.80 Estim Creat Clear Calc 85.1 82.0 85.1 Estimated GFR > 60 > 60 > 60 Imaging Radiology Impressions: ITS Impressions Head CT 04/29/25 14:09 IMPRESSION: Large area of encephalomalacia in the right parietal lobe probably representing an old infarct. Smaller subcortical white matter low attenuation in the left parietal lobe also probably representing an old infarct. Electronically signed by: Sadia Delatorre MD 04/29/2025 02:36 PM [facility] Pelvis Ultrasound 04/29/25 16:58 IMPRESSION: No left fundal or left adnexal mass is identified. Upon further review of the prior CT scan, the left ovarian vein drains from the left adnexal mass that was described on the prior study which is most consistent with left ovary abutting the left uterine fundus. 4.4 cm simple cyst of the right ovary. Follow-up ultrasound in 3-6 month. Electronically signed by: Cheo Antonio MD 04/29/2025 05:39 PM [facility] Medications Medications Current Medications Acetaminophen (Acetaminophen 325 Mg Tablet) 650 mg PO Q6H PRN PRN Reason: Headache/Pain, Scale 1-10 Last Admin: 04/29/25 22:38 Dose: 650 mg Al Hydroxide/Mg Hydroxide (Magnesium Hydrox/Alum Hydrox 30 Ml Oral.Susp) 30 ml PO Q6H PRN PRN Reason: Heartburn/Nausea Apixaban (Apixaban 5 Mg Tablet) 5 mg PO BID [facility] Last Admin: 05/03/25 20:40 Dose: 5 mg Carbamazepine (Carbamazepine 200 Mg Tablet) 400 mg PO BID [facility] Last Admin: 05/03/25 20:40 Dose: 400 mg Furosemide (Furosemide 20 Mg Tablet) 20 mg PO DAILY [facility]; Protocol Last Admin: 05/03/25 08:15 Dose: 20 mg Gabapentin (Gabapentin 300 Mg Capsule) 300 mg PO BEDTIME [facility] Last Admin: 05/03/25 20:42 Dose: Not Given Hydroxyzine HCl (Hydroxyzine Hcl 25 Mg Tablet) 25 mg PO Q6H PRN PRN Reason: mild anxiety Hydroxyzine HCl (Hydroxyzine Hcl 10 Mg Tablet) 10 mg PO Q6H PRN PRN Reason: Anxiety Magnesium Hydroxide (Milk Of Magnesia 30 Ml Oral.Susp) 30 ml PO DAILY PRN PRN Reason: Constipation Last Admin: 05/03/25 09:06 Dose: 30 ml Metformin HCl (Metformin Hcl 500 Mg Tablet) 500 mg PO DAILY [facility] Last Admin: 05/03/25 08:54 Dose: 500 mg Metoprolol Succinate (Metoprolol Succinate Er 25 Mg Tab.Er.24h) 25 mg PO DAILY [facility]; Protocol Last Admin: 05/03/25 08:15 Dose: 25 mg Nicotine (Nicotine 21 Mg Patch.Td24) 21 mg TRANSDERMA DAILY PRN PRN Reason: smoking cessation Nicotine Polacrilex (Nicotine Polacrilex 2 Mg Gum) 4 mg BUCCAL Q2H PRN PRN Reason: Nicotine Cravings Olanzapine (Olanzapine 5 Mg Tablet) 5 mg PO TID PRN PRN Reason: agitation Ondansetron HCl (Ondansetron Odt 4 Mg Tab.Rapdis) 4 mg TRANSLINGU Q6H PRN PRN Reason: Nausea and Vomiting Last Admin: 04/25/25 13:08 Dose: 4 mg Prazosin HCl (Prazosin Hcl 1 Mg Capsule) 2 mg PO BEDTIME [facility]; Protocol Last Admin: 05/03/25 20:39 Dose: 2 mg Risperidone (Risperidone 1 Mg Tablet) 1 mg PO BEDTIME [facility] Last Admin: 05/03/25 20:40 Dose: 1 mg Risperidone (Risperidone 0.5 Mg Tablet) 0.5 mg PO DAILY [facility] Last Admin: 05/03/25 08:15 Dose: 0.5 mg Senna (Sennosides 8.6 Mg Tablet) 17.2 mg PO BEDTIME [facility] Last Admin: 05/03/25 20:39 Dose: 17.2 mg Sertraline HCl (Sertraline Hcl 100 Mg Tablet) 200 mg PO DAILY [facility] Last Admin: 05/03/25 08:14 Dose: 200 mg Trazodone HCl (Trazodone Hcl 50 Mg Tablet) 50 mg PO BEDTIME PRN PRN Reason: Insomnia Allergies Allergies Allergy/AdvReac Type Severity Reaction Status Date / Time Penicillins AdvReac Unknown Unknown Verified 04/18/25 17:49 shellfish derived (shellfish) AdvReac Unknown Unknown Verified 04/18/25 16:56 blueberries AdvReac Unknown Unknown Uncoded 04/18/25 16:56 Assessment & Plan Assessment & Plan (1) Mild neurocognitive disorder due to another medical condition: Status: Acute Code(s): F06.70 - Mild neurocognitive disorder due to known physiological condition without behavioral disturbance (2) Type 2 diabetes mellitus: Status: Acute Code(s): E11.9 - Type 2 diabetes mellitus without complications (3) Cholelithiasis: Status: Acute Code(s): K80.20 - Calculus of gallbladder without cholecystitis without obstruction (4) Obesity: Status: Acute Code(s): E66.9 - Obesity, unspecified (5) CVD (cerebrovascular disease): Status: Acute Code(s): I67.9 - Cerebrovascular disease, unspecified (6) 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): Status: Acute Code(s): I63.9 - Cerebral infarction, unspecified; F06.31 - Mood disorder due to known physiological condition with depressive features (7) Psychosis: Qualifiers: Psychosis type: unspecified psychosis type Qualified Code(s): F29 - Unspecified psychosis not due to a substance or known physiological condition Status: Acute Code(s): F29 - Unspecified psychosis not due to a substance or known physiological condition (8) Seizure disorder as sequela of cerebrovascular accident: Status: Acute Code(s): I69.398 - Other sequelae of cerebral infarction; G40.909 - Epilepsy, unspecified, not intractable, without status epilepticus Plan Mrs. 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 She has not been treated for psychotic symptoms and only prescribed been mostly untreated in the sense that she has been prescribed only antidepressants, despite the ongoing and insidious nature of her current symptomatology. She denies SI/HI. She has agreed to receive treatment in a voluntary basis. Collateral information from daughter reviewed- daughter who also confirms the onset and trajectory of her symptoms and confirmed that also it has been difficult to assist patient due to her paranoid, there are no safety concerns in terms of suicidal or homicidal ideation or violence towards others, however significant impairment in self care and distress associated with delusions/hallucinations that have affected her being open to get help from family. We discussed risks, benefits and alternative treatment options. Pt agreed to start risperidone 0.5mg po BID and to titration. PLAN Legal CV, 15 minutes checks 2. start risperidone 0.5mg po BID. Continue sertraline 200mg po daily. contiue prazosin. Refused Gabapentin again, took risperdal but c/o excessive sedation despite small dose and will hold increase to avoiod making her more sedated/drowsy. 3. OT assessment: cognitive/memory/functional 4. family meeting 5-coord care, aftercare and d/c planning as appropriate for safe transition 04/20: If N/V unresolved will consult medicine. Otherwise continue current management and treatment plan. 04/21: continue current management and treatment plan. Adjust Risperidone slowly given some sedation objectively. 04/26 HCP invoked, patient reminded but seems to have little interest and says she itrusts dtrs who are HCPs but not the one who is COMMUNITY SERVICE WORKER. Ongoing delusions and increasing paranoid beliefs, however, patient c/o being too sleepy despite low dose Risperdal--will checlk labs including CBZ levels and hold on medication increase. Has been refusing Neurontin off and on--will hold and reevaluate. Will lower Trazodone to one maximum (without repeat) and consider Hydroxyzine 04/27:Continue current regimen and plans 04/28:Continue current regimen and plans. Verify lisinopril with pharmacy 04/29 Long meeting with patient who presents as increasingly paranoid and depressed, feeling hopeless/helpless about situation and reporting she doesn't trust food as she continues to perceive world thru paranoid lens. Increase Risperdal slowly given c/o sedation. Reviewing antidepressant options 05/01 DC Neurontin Update HCP on results and tx recommendations. Collateral from neurologist if patient/HCP are able to identify 05/02 continue current medications. appears less paranoid, VS stable. taking medications. 05/03 continue medications and tx plan 05/04 reports somnolence in the morning/mid day, missed lunch. RN confirms. looked into carbamazepine dose but this is the dose she came on for seizures, and level is therapeutic. will not lower, will defer to her primary attending. Reason for continued inpatient stay Substantial Risk for: inability to function Time Spent With Patient Time: Total time managing care of this patient today ____ minutes.
[2025-05-04] MEDS: Milk of Magnesia 30 ML ORAL.SUSP PO (08:54)
[2025-05-04] MEDS: Metoprolol Succinate ER 25 MG TAB.ER.24H PO (08:55)
[2025-05-04 20:00] VITALS: BP 143/71; PULSE 68; RESP 16; TEMP 36.9; O2SAT 98
[2025-05-05 08:00] VITALS: BP 125/66; PULSE 76; RESP 16; TEMP 37; O2SAT 95
[2025-05-05 08:52] LABS: Creatinine Clr Calc Pharmacy 88.4; Estimated Glomerular Filt Rate > 60
[2025-05-05] MEDS: Metoprolol Succinate ER 25 MG TAB.ER.24H PO (09:00)
[2025-05-05 19:49] VITALS: BP 150/72; PULSE 81; RESP 16; TEMP 36.4; O2SAT 95
--- NOTE | 2025-05-05 20:35 | HO.PSYCHPN ---
Subjective Subjective Date of Service: 05/05/25 Reason For Visit: psychoytic decompensation Subjective Notes: Conditional Voluntary Interim History: pt reports doing better here on the unit. less accusatory. Again, confused as to who this ad copy writer is and then worried that she has seen me but struggles to remember my role, asks this ad copy writer do you think that's a bad sign? No SI/HI. Vs stable, although noted SBP 150's Review of Systems Review of Systems No new Yes all other systems are reviewed and are negative and Other (c/o sedation due to medications otherwise no new complaints on ROS) Reports confusion Psychiatric: Reports anxiety, Reports confusion, Reports depression, Reports difficulty concentrating, Reports hopelessness, Reports anhedonia, Reports paranoia, Reports visual hallucinations and Reports hallucinations Mental Status Exam Mental Status Exam Narrative: Appearance: wearing hospital gown, fair hygiene, in wheelchair, in NAD Behavior: cooperative and friendly Psychomotor: no agitation or retardation noted Speech: clear, normal rate/rhythm/volume, spontaneous TP: mostly linear TC: feeling better Mood: sleepy Affect: calm, more awake when seen but it appears earlier more sleepy. SI: denies HI: denies VH/AH: Delusions: less persecutory/paranoid delusions. Insight/judgment: improving x 2. Memory/cog: alert, oriented x 3. Diagnostics Vital Signs (24Hr): Vital Signs - 24 hr 05/05/25 08:00 05/05/25 19:49 Temperature 98.6 F 97.6 F Pulse Rate 76 81 Respiratory Rate 16 16 Blood Pressure 125/66 150/72 H Pulse Oximetry 95 95 Oxygen Delivery Method Room Air Room Air BMI result Body Mass Index 38.3 Labs 04/20/25 19:51 05/05/25 08:09 Labs: Laboratory Results - last 48 hr 05/04/25 05/05/25 06:51 08:09 Hold Purple Top SEE NOTE Creatinine 0.80 0.77 Estim Creat Clear Calc 85.1 88.4 Estimated GFR > 60 > 60 Imaging Radiology Impressions: ITS Impressions Head CT 04/29/25 14:09 IMPRESSION: Large area of encephalomalacia in the right parietal lobe probably representing an old infarct. Smaller subcortical white matter low attenuation in the left parietal lobe also probably representing an old infarct. Electronically signed by: Sadia Delatorre MD 04/29/2025 02:36 PM EST RP Pelvis Ultrasound 04/29/25 16:58 IMPRESSION: No left fundal or left adnexal mass is identified. Upon further review of the prior CT scan, the left ovarian vein drains from the left adnexal mass that was described on the prior study which is most consistent with left ovary abutting the left uterine fundus. 4.4 cm simple cyst of the right ovary. Follow-up ultrasound in 3-6 month. Electronically signed by: Cheo Antonio MD 04/29/2025 05:39 PM EST RP Medications Medications Current Medications Acetaminophen (Acetaminophen 325 Mg Tablet) 650 mg PO Q6H PRN PRN Reason: Headache/Pain, Scale 1-10 Last Admin: 04/29/25 22:38 Dose: 650 mg Al Hydroxide/Mg Hydroxide (Magnesium Hydrox/Alum Hydrox 30 Ml Oral.Susp) 30 ml PO Q6H PRN PRN Reason: Heartburn/Nausea Apixaban (Apixaban 5 Mg Tablet) 5 mg PO BID ON LICENSE OF [facility] Last Admin: 05/05/25 20:22 Dose: 5 mg Carbamazepine (Carbamazepine 200 Mg Tablet) 400 mg PO BID ON LICENSE OF [facility] Last Admin: 05/05/25 20:23 Dose: 200 mg Furosemide (Furosemide 20 Mg Tablet) 20 mg PO DAILY ON LICENSE OF [facility]; Protocol Last Admin: 05/05/25 09:00 Dose: 20 mg Hydroxyzine HCl (Hydroxyzine Hcl 25 Mg Tablet) 25 mg PO Q6H PRN PRN Reason: mild anxiety Hydroxyzine HCl (Hydroxyzine Hcl 10 Mg Tablet) 10 mg PO Q6H PRN PRN Reason: Anxiety Magnesium Hydroxide (Milk Of Magnesia 30 Ml Oral.Susp) 30 ml PO DAILY PRN PRN Reason: Constipation Last Admin: 05/04/25 08:54 Dose: 30 ml Metformin HCl (Metformin Hcl 500 Mg Tablet) 500 mg PO DAILY ON LICENSE OF [facility] Last Admin: 05/05/25 09:01 Dose: 500 mg Metoprolol Succinate (Metoprolol Succinate Er 25 Mg Tab.Er.24h) 25 mg PO DAILY ON LICENSE OF [facility]; Protocol Last Admin: 05/05/25 09:00 Dose: 25 mg Nicotine (Nicotine 21 Mg Patch.Td24) 21 mg TRANSDERMA DAILY PRN PRN Reason: smoking cessation Nicotine Polacrilex (Nicotine Polacrilex 2 Mg Gum) 4 mg BUCCAL Q2H PRN PRN Reason: Nicotine Cravings Olanzapine (Olanzapine 5 Mg Tablet) 5 mg PO TID PRN PRN Reason: agitation Ondansetron HCl (Ondansetron Odt 4 Mg Tab.Rapdis) 4 mg TRANSLINGU Q6H PRN PRN Reason: Nausea and Vomiting Last Admin: 04/25/25 13:08 Dose: 4 mg Prazosin HCl (Prazosin Hcl 1 Mg Capsule) 2 mg PO BEDTIME [facility]; Protocol Last Admin: 05/05/25 20:22 Dose: 2 mg Risperidone (Risperidone 1 Mg Tablet) 1 mg PO BEDTIME [facility] Last Admin: 05/05/25 20:22 Dose: 1 mg Risperidone (Risperidone 0.5 Mg Tablet) 0.5 mg PO DAILY [facility] Last Admin: 05/05/25 09:00 Dose: 0.5 mg Senna (Sennosides 8.6 Mg Tablet) 17.2 mg PO BEDTIME [facility] Last Admin: 05/05/25 20:22 Dose: 17.2 mg Sertraline HCl (Sertraline Hcl 100 Mg Tablet) 200 mg PO DAILY [facility] Last Admin: 05/05/25 08:59 Dose: 200 mg Trazodone HCl (Trazodone Hcl 50 Mg Tablet) 50 mg PO BEDTIME PRN PRN Reason: Insomnia Allergies Allergies Allergy/AdvReac Type Severity Reaction Status Date / Time Penicillins AdvReac Unknown Unknown Verified 04/18/25 17:49 shellfish derived (shellfish) AdvReac Unknown Unknown Verified 04/18/25 16:56 blueberries AdvReac Unknown Unknown Uncoded 04/18/25 16:56 Assessment & Plan Assessment & Plan (1) Mild neurocognitive disorder due to another medical condition: Status: Acute Code(s): F06.70 - Mild neurocognitive disorder due to known physiological condition without behavioral disturbance (2) Type 2 diabetes mellitus: Status: Acute Code(s): E11.9 - Type 2 diabetes mellitus without complications (3) Cholelithiasis: Status: Acute Code(s): K80.20 - Calculus of gallbladder without cholecystitis without obstruction (4) Obesity: Status: Acute Code(s): E66.9 - Obesity, unspecified (5) CVD (cerebrovascular disease): Status: Acute Code(s): I67.9 - Cerebrovascular disease, unspecified (6) 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): Status: Acute Code(s): I63.9 - Cerebral infarction, unspecified; F06.31 - Mood disorder due to known physiological condition with depressive features (7) Psychosis: Qualifiers: Psychosis type: unspecified psychosis type Qualified Code(s): F29 - Unspecified psychosis not due to a substance or known physiological condition Status: Acute Code(s): F29 - Unspecified psychosis not due to a substance or known physiological condition (8) Seizure disorder as sequela of cerebrovascular accident: Status: Acute Code(s): I69.398 - Other sequelae of cerebral infarction; G40.909 - Epilepsy, unspecified, not intractable, without status epilepticus Plan Mrs. 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 She has not been treated for psychotic symptoms and only prescribed been mostly untreated in the sense that she has been prescribed only antidepressants, despite the ongoing and insidious nature of her current symptomatology. She denies SI/HI. She has agreed to receive treatment in a voluntary basis. Collateral information from daughter reviewed- daughter who also confirms the onset and trajectory of her symptoms and confirmed that also it has been difficult to assist patient due to her paranoid, there are no safety concerns in terms of suicidal or homicidal ideation or violence towards others, however significant impairment in self care and distress associated with delusions/hallucinations that have affected her being open to get help from family. We discussed risks, benefits and alternative treatment options. Pt agreed to start risperidone 0.5mg po BID and to titration. PLAN Legal CV, 15 minutes checks 2. start risperidone 0.5mg po BID. Continue sertraline 200mg po daily. contiue prazosin. Refused Gabapentin again, took risperdal but c/o excessive sedation despite small dose and will hold increase to avoiod making her more sedated/drowsy. 3. OT assessment: cognitive/memory/functional 4. family meeting 5-coord care, aftercare and d/c planning as appropriate for safe transition 04/20: If N/V unresolved will consult medicine. Otherwise continue current management and treatment plan. 04/21: continue current management and treatment plan. Adjust Risperidone slowly given some sedation objectively. 04/26 HCP invoked, patient reminded but seems to have little interest and says she itrusts dtrs who are HCPs but not the one who is [employer]. Ongoing delusions and increasing paranoid beliefs, however, patient c/o being too sleepy despite low dose Risperdal--will checlk labs including CBZ levels and hold on medication increase. Has been refusing Neurontin off and on--will hold and reevaluate. Will lower Trazodone to one maximum (without repeat) and consider Hydroxyzine 04/27:Continue current regimen and plans 04/28:Continue current regimen and plans. Verify lisinopril with pharmacy 04/29 Long meeting with patient who presents as increasingly paranoid and depressed, feeling hopeless/helpless about situation and reporting she doesn't trust food as she continues to perceive world thru paranoid lens. Increase Risperdal slowly given c/o sedation. Reviewing antidepressant options 05/01 DC Neurontin Update HCP on results and tx recommendations. Collateral from neurologist if patient/HCP are able to identify 05/02 continue current medications. appears less paranoid, VS stable. taking medications. 05/03 continue medications and tx plan 05/04 reports somnolence in the morning/mid day, missed lunch. RN confirms. looked into carbamazepine dose but this is the dose she came on for seizures, and level is therapeutic. will not lower, will defer to her primary attending. 05/05 continue tx. Reason for continued inpatient stay Substantial Risk for: inability to function Time Spent With Patient Time: Total time managing care of this patient today ____ minutes.
--- NOTE | 2025-05-06 07:58 | P.PNPSI_ITS ---
Subjective Subjective Date of Service: 05/06/25 Reason For Visit: psychoytic decompensation Subjective Notes: Conditional Voluntary Healthcare Proxy: Yes Medical Problems Affecting Mental Status: Yes Interim History: Less preoccupied than on admission Medication Compliance: Intermittent Side effects from medications: Yes Review of Systems Review of Systems No new Yes all other systems are reviewed and are negative and Other (c/o sedation due to medications otherwise no new complaints on ROS) Reports confusion Psychiatric: Reports anxiety, Reports confusion, Reports depression, Reports difficulty concentrating, Reports hopelessness, Reports anhedonia, Reports paranoia, Reports visual hallucinations and Reports hallucinations Mental Status Exam Mental Status Exam Narrative: Appearance: fair hygiene Behavior:calm, pleasant Psychomotor: mild retardation noted Speech: soft, some latency, normal rate/rhythm/low volume TP: tangentiality has decreased some, goal directed overall, poverty TC: not as forthcoming re: persecutory delusional ideas Mood:worried Affect: constricted, anxious SI/HI: no VH/AH: did not appear internally stimulated presently Insight/judgment: limited, improving x 2. Memory/cog: alert, oriented x 3. Diagnostics Vital Signs (24Hr): Vital Signs - 24 hr 05/05/25 08:00 05/05/25 19:49 Temperature 98.6 F 97.6 F Pulse Rate 76 81 Respiratory Rate 16 16 Blood Pressure 125/66 150/72 H Pulse Oximetry 95 95 Oxygen Delivery Method Room Air Room Air BMI result Body Mass Index 38.3 Labs 04/20/25 19:51 05/05/25 08:09 Labs: Laboratory Results - last 48 hr 05/05/25 08:09 Hold Purple Top SEE NOTE Creatinine 0.77 Estim Creat Clear Calc 88.4 Estimated GFR > 60 Imaging Radiology Impressions: ITS Impressions Head CT 04/29/25 14:09 IMPRESSION: Large area of encephalomalacia in the right parietal lobe probably representing an old infarct. Smaller subcortical white matter low attenuation in the left parietal lobe also probably representing an old infarct. Electronically signed by: Sadia Delatorre MD 04/29/2025 02:36 [place] [facility] [place] 04/29/25 16:58 IMPRESSION: No left fundal or left adnexal mass is identified. Upon further review of the prior CT scan, the left ovarian vein drains from the left adnexal mass that was described on the prior study which is most consistent with left ovary abutting the left uterine fundus. 4.4 cm simple cyst of the right ovary. Follow-up ultrasound in 3-6 month. Electronically signed by: Cheo Antonio MD 04/29/2025 05:39 PM [facility] [place] Medications Current Medications Acetaminophen (Acetaminophen 325 Mg Tablet) 650 mg PO Q6H PRN PRN Reason: Headache/Pain, Scale 1-10 Last Admin: 04/29/25 22:38 Dose: 650 mg Al Hydroxide/Mg Hydroxide (Magnesium Hydrox/Alum Hydrox 30 Ml Oral.Susp) 30 ml PO Q6H PRN PRN Reason: Heartburn/Nausea Apixaban (Apixaban 5 Mg Tablet) 5 mg PO BID [facility] Last Admin: 05/05/25 20:22 Dose: 5 mg Carbamazepine (Carbamazepine 200 Mg Tablet) 400 mg PO BID [facility] Last Admin: 05/05/25 20:23 Dose: 200 mg Furosemide (Furosemide 20 Mg Tablet) 20 mg PO DAILY [facility]; Protocol Last Admin: 05/05/25 09:00 Dose: 20 mg Hydroxyzine HCl (Hydroxyzine Hcl 25 Mg Tablet) 25 mg PO Q6H PRN PRN Reason: mild anxiety Hydroxyzine HCl (Hydroxyzine Hcl 10 Mg Tablet) 10 mg PO Q6H PRN PRN Reason: Anxiety Magnesium Hydroxide (Milk Of Magnesia 30 Ml Oral.Susp) 30 ml PO DAILY PRN PRN Reason: Constipation Last Admin: 05/04/25 08:54 Dose: 30 ml Metformin HCl (Metformin Hcl 500 Mg Tablet) 500 mg PO DAILY [facility] Last Admin: 05/05/25 09:01 Dose: 500 mg Metoprolol Succinate (Metoprolol Succinate Er 25 Mg Tab.Er.24h) 25 mg PO DAILY [facility]; Protocol Last Admin: 05/05/25 09:00 Dose: 25 mg Nicotine (Nicotine 21 Mg Patch.Td24) 21 mg TRANSDERMA DAILY PRN PRN Reason: smoking cessation Nicotine Polacrilex (Nicotine Polacrilex 2 Mg Gum) 4 mg BUCCAL Q2H PRN PRN Reason: Nicotine Cravings Olanzapine (Olanzapine 5 Mg Tablet) 5 mg PO TID PRN PRN Reason: agitation Ondansetron HCl (Ondansetron Odt 4 Mg Tab.Rapdis) 4 mg TRANSLINGU Q6H PRN PRN Reason: Nausea and Vomiting Last Admin: 04/25/25 13:08 Dose: 4 mg Prazosin HCl (Prazosin Hcl 1 Mg Capsule) 2 mg PO BEDTIME [facility]; Protocol Last Admin: 05/05/25 20:22 Dose: 2 mg Risperidone (Risperidone 1 Mg Tablet) 1 mg PO BEDTIME [facility] Last Admin: 05/05/25 20:22 Dose: 1 mg Risperidone (Risperidone 0.5 Mg Tablet) 0.5 mg PO DAILY [facility] Last Admin: 05/05/25 09:00 Dose: 0.5 mg Senna (Sennosides 8.6 Mg Tablet) 17.2 mg PO BEDTIME [facility] Last Admin: 05/05/25 20:22 Dose: 17.2 mg Sertraline HCl (Sertraline Hcl 100 Mg Tablet) 200 mg PO DAILY [facility] Last Admin: 05/05/25 08:59 Dose: 200 mg Trazodone HCl (Trazodone Hcl 50 Mg Tablet) 50 mg PO BEDTIME PRN PRN Reason: Insomnia Allergies Allergies Allergy/AdvReac Type Severity Reaction Status Date / Time Penicillins AdvReac Unknown Unknown Verified 04/18/25 17:49 shellfish derived (shellfish) AdvReac Unknown Unknown Verified 04/18/25 16:56 blueberries AdvReac Unknown Unknown Uncoded 04/18/25 16:56 Assessment & Plan Assessment & Plan (1) Mild neurocognitive disorder due to another medical condition: Status: Acute Code(s): F06.70 - Mild neurocognitive disorder due to known physiological condition without behavioral disturbance (2) Type 2 diabetes mellitus: Status: Acute Code(s): E11.9 - Type 2 diabetes mellitus without complications (3) Cholelithiasis: Status: Acute Code(s): K80.20 - Calculus of gallbladder without cholecystitis without obstruction (4) Obesity: Status: Acute Code(s): E66.9 - Obesity, unspecified (5) CVD (cerebrovascular disease): Status: Acute Code(s): I67.9 - Cerebrovascular disease, unspecified (6) 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): Status: Acute Code(s): I63.9 - Cerebral infarction, unspecified; F06.31 - Mood disorder due to known physiological condition with depressive features (7) Psychosis: Qualifiers: Psychosis type: unspecified psychosis type Qualified Code(s): F29 - Unspecified psychosis not due to a substance or known physiological condition Status: Acute Code(s): F29 - Unspecified psychosis not due to a substance or known physiological condition (8) Seizure disorder as sequela of cerebrovascular accident: Status: Acute Code(s): I69.398 - Other sequelae of cerebral infarction; G40.909 - Epilepsy, unspecified, not intractable, without status epilepticus Plan Mrs. 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 She has not been treated for psychotic symptoms and only prescribed been mostly untreated in the sense that she has been prescribed only antidepressants, despite the ongoing and insidious nature of her current symptomatology. She denies SI/HI. She has agreed to receive treatment in a voluntary basis. Collateral information from daughter reviewed- daughter who also confirms the onset and trajectory of her symptoms and confirmed that also it has been difficult to assist patient due to her paranoid, there are no safety concerns in terms of suicidal or homicidal ideation or violence towards others, however significant impairment in self care and distress associated with delusions/hallucinations that have affected her being open to get help from family. We discussed risks, benefits and alternative treatment options. Pt agreed to start risperidone 0.5mg po BID and to titration. PLAN Legal CV, 15 minutes checks 2. start risperidone 0.5mg po BID. Continue sertraline 200mg po daily. contiue prazosin. Refused Gabapentin again, took risperdal but c/o excessive sedation despite small dose and will hold increase to avoiod making her more sedated/drowsy. 3. OT assessment: cognitive/memory/functional 4. family meeting 5-coord care, aftercare and d/c planning as appropriate for safe transition 04/20: If N/V unresolved will consult medicine. Otherwise continue current management and treatment plan. 04/21: continue current management and treatment plan. Adjust Risperidone slowly given some sedation objectively. 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 Ongoing delusions and increasing paranoid beliefs, however, patient c/o being too sleepy despite low dose Risperdal--will checlk labs including CBZ levels and hold on medication increase. Has been refusing Neurontin off and on--will hold and reevaluate. Will lower Trazodone to one maximum (without repeat) and consider Hydroxyzine 04/27:Continue current regimen and plans 04/28:Continue current regimen and plans. Verify lisinopril with pharmacy 04/29 Long meeting with patient who presents as increasingly paranoid and depressed, feeling hopeless/helpless about situation and reporting she doesn't trust food as she continues to perceive world thru paranoid lens. Increase Risperdal slowly given c/o sedation. Reviewing antidepressant options 05/01 DC Neurontin Update HCP on results and tx recommendations. Collateral from neurologist if patient/HCP are able to identify 05/02 continue current medications. appears less paranoid, VS stable. taking medications. 05/03 continue medications and tx plan Reason for continued inpatient stay Substantial Risk for: inability to function Time Spent With Patient Time: Total time managing care of this patient today ____ minutes.
[2025-05-06 08:00] VITALS: BP 132/65; PULSE 76; RESP 16; TEMP 36.7; O2SAT 93
[2025-05-06] MEDS: Milk of Magnesia 30 ML ORAL.SUSP PO (08:19)
--- NOTE | 2025-05-06 08:20 | PC.NURSE ---
Pt refusing Tegretol 400mg, and stating I am cutting myself down . She took 200mg. Reported to provider.
[2025-05-06] MEDS: Metoprolol Succinate ER 25 MG TAB.ER.24H PO (08:36)
[2025-05-06 19:55] VITALS: BP 140/65; PULSE 77; RESP 16; TEMP 36.8; O2SAT 97
[2025-05-07 08:25] VITALS: BP 133/63; PULSE 74; RESP 17; TEMP 36.6; O2SAT 99
[2025-05-07] MEDS: Metoprolol Succinate ER 25 MG TAB.ER.24H PO (08:29)
[2025-05-07 20:00] VITALS: BP 138/68; PULSE 79; RESP 16; TEMP 36.6; O2SAT 95
[2025-05-07 20:52] VITALS: BP 138/68
[2025-05-08 09:09] VITALS: BP 136/63; PULSE 78; TEMP 37.2; O2SAT 93
[2025-05-08] MEDS: Metoprolol Succinate ER 25 MG TAB.ER.24H PO (09:13)
[2025-05-08] MEDS: Milk of Magnesia 30 ML ORAL.SUSP PO (09:20)
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
--- NOTE | 2025-05-08 09:33 | HO.PSYCHPN ---
Subjective Subjective Date of Service: 05/08/25 Reason For Visit: psychoytic decompensation Subjective Notes: Conditional Voluntary Healthcare Proxy: Yes Guardianship: No Medical Problems Affecting Mental Status: Yes Interim History: Patient seen, appears in better spirits today. Did not complain about food being switched, stated today she received what she ordered. Observed in DR, sitting with peers, appearing more comfortable. No physical complaints/concerns expressed.Vitals stable. Only accepted half of Tegretol again despite committing to take her full dose. Says again she will take full dose tonight. Given refusal of CBZ, and hx seizures, will avoid Bupropion and use Remeron to address sleep, depressive and anxiety sxs. Patient c/o sedation with meds, which has been noted and prevents repid increase in medication but bc of tolerance to rapid dose increases and because she feels dose of medication too high and will decline. Patient had call from daughter and visit was shorter today. Family meeting scheduled this week. Pharmacy records reflect prescriber for AED is Dr. Umana and will ask HCP for release to communicate with provider. Medication Compliance: Intermittent (partial for CBZ despite education. ) Side effects from medications: Yes ( sedation which impacts rate/acceptance of medications) Review of Systems Review of Systems No new medical complaints Yes all other systems are reviewed and are negative (as noted) and Other; No unobtainable due to endotracheal tube, Unobtainable due to mental condition or Unobtainable due to mental status Mental Status Exam Mental Status Exam Narrative: Appearance: fair hygiene, appropriate attire Behavior:cooperative, pleasant Psychomotor: mild retardation noted Speech: soft, some latency response, normal rate/rhythm/soft volume TP: no significant tangentiality, goal directed overall TC: less preoccupied by persecutory delusional ideas today Mood: worried , better Affect: constricted but reports she feels less anxious/depressed SI/HI: denies VH/AH: did not appear internally stimulated Insight/judgment: limited, improving x 2. Memory/cog: alert, oriented x 3, difficulty recalling information provided (ie test results). Patient Cognition Impaired: Yes Ability to Follow Directions: Good Diagnostics Vital Signs (24Hr): Vital Signs - 24 hr 05/07/25 20:00 05/07/25 20:52 05/08/25 09:09 Temperature 97.9 F 99.0 F Pulse Rate 79 78 Respiratory Rate 16 Blood Pressure 138/68 138/68 136/63 Pulse Oximetry 95 93 Oxygen Delivery Method Room Air Room Air BMI result Body Mass Index 38.3 Labs 04/20/25 19:51 05/05/25 08:09 Imaging Radiology Impressions: ITS Impressions Head CT 04/29/25 14:09 IMPRESSION: Large area of encephalomalacia in the right parietal lobe probably representing an old infarct. Smaller subcortical white matter low attenuation in the left parietal lobe also probably representing an old infarct. Electronically signed by: Sadia Delatorre MD 04/29/2025 02:36 PM EST RP Pelvis Ultrasound 04/29/25 16:58 IMPRESSION: No left fundal or left adnexal mass is identified. Upon further review of the prior CT scan, the left ovarian vein drains from the left adnexal mass that was described on the prior study which is most consistent with left ovary abutting the left uterine fundus. 4.4 cm simple cyst of the right ovary. Follow-up ultrasound in 3-6 month. Electronically signed by: Cheo Antonio MD 04/29/2025 05:39 PM EST RP Medications Medications Current Medications Acetaminophen (Acetaminophen 325 Mg Tablet) 650 mg PO Q6H PRN PRN Reason: Headache/Pain, Scale 1-10 Last Admin: 05/08/25 09:13 Dose: 650 mg Al Hydroxide/Mg Hydroxide (Magnesium Hydrox/Alum Hydrox 30 Ml Oral.Susp) 30 ml PO Q6H PRN PRN Reason: Heartburn/Nausea Apixaban (Apixaban 5 Mg Tablet) 5 mg PO BID [facility] Last Admin: 05/08/25 09:12 Dose: 5 mg Carbamazepine (Carbamazepine 200 Mg Tablet) 400 mg PO BID [facility] Last Admin: 05/08/25 09:14 Dose: 200 mg Furosemide (Furosemide 20 Mg Tablet) 20 mg PO DAILY [facility]; Protocol Last Admin: 05/08/25 09:13 Dose: 20 mg Hydroxyzine HCl (Hydroxyzine Hcl 25 Mg Tablet) 25 mg PO Q6H PRN PRN Reason: mild anxiety Hydroxyzine HCl (Hydroxyzine Hcl 10 Mg Tablet) 10 mg PO Q6H PRN PRN Reason: Anxiety Magnesium Hydroxide (Milk Of Magnesia 30 Ml Oral.Susp) 30 ml PO DAILY PRN PRN Reason: Constipation Last Admin: 12/03/25 09:20 Dose: 30 ml Metformin HCl (Metformin Hcl 500 Mg Tablet) 500 mg PO DAILY NAZANIN Last Admin: 05/08/25 09:12 Dose: 500 mg Metoprolol Succinate (Metoprolol Succinate Er 25 Mg Tab.Er.24h) 25 mg PO DAILY NAZANIN; Protocol Last Admin: 05/08/25 09:13 Dose: 25 mg Nicotine (Nicotine 21 Mg Patch.Td24) 21 mg TRANSDERMA DAILY PRN PRN Reason: smoking cessation Nicotine Polacrilex (Nicotine Polacrilex 2 Mg Gum) 4 mg BUCCAL Q2H PRN PRN Reason: Nicotine Cravings Olanzapine (Olanzapine 5 Mg Tablet) 5 mg PO TID PRN PRN Reason: agitation Ondansetron HCl (Ondansetron Odt 4 Mg Tab.Rapdis) 4 mg TRANSLINGU Q6H PRN PRN Reason: Nausea and Vomiting Last Admin: 04/25/25 13:08 Dose: 4 mg Prazosin HCl (Prazosin Hcl 1 Mg Capsule) 2 mg PO BEDTIME NAZANIN; Protocol Last Admin: 05/07/25 20:52 Dose: 2 mg Risperidone (Risperidone 1 Mg Tablet) 1 mg PO BEDTIME NAZANIN Last Admin: 05/07/25 20:53 Dose: 1 mg Risperidone (Risperidone 0.5 Mg Tablet) 0.5 mg PO DAILY NAZANIN Last Admin: 05/08/25 09:12 Dose: 0.5 mg Senna (Sennosides 8.6 Mg Tablet) 17.2 mg PO BEDTIME NAZANIN Last Admin: 05/07/25 20:53 Dose: 17.2 mg Sertraline HCl (Sertraline Hcl 100 Mg Tablet) 200 mg PO DAILY NAZANIN Last Admin: 05/08/25 09:12 Dose: 200 mg Trazodone HCl (Trazodone Hcl 50 Mg Tablet) 50 mg PO BEDTIME PRN PRN Reason: Insomnia Allergies Allergies Allergy/AdvReac Type Severity Reaction Status Date / Time Penicillins AdvReac Unknown Unknown Verified 04/18/25 17:49 shellfish derived (shellfish) AdvReac Unknown Unknown Verified 04/18/25 16:56 blueberries AdvReac Unknown Unknown Uncoded 04/18/25 16:56 Assessment & Plan Assessment & Plan (1) Mild neurocognitive disorder due to another medical condition: Status: Acute Code(s): F06.70 - Mild neurocognitive disorder due to known physiological condition without behavioral disturbance (2) Type 2 diabetes mellitus: Status: Acute Code(s): E11.9 - Type 2 diabetes mellitus without complications (3) Cholelithiasis: Status: Acute Code(s): K80.20 - Calculus of gallbladder without cholecystitis without obstruction (4) Obesity: Status: Acute Code(s): E66.9 - Obesity, unspecified (5) CVD (cerebrovascular disease): Status: Acute Code(s): I67.9 - Cerebrovascular disease, unspecified (6) 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): Status: Acute Code(s): I63.9 - Cerebral infarction, unspecified; F06.31 - Mood disorder due to known physiological condition with depressive features (7) Psychosis: Qualifiers: Psychosis type: unspecified psychosis type Qualified Code(s): F29 - Unspecified psychosis not due to a substance or known physiological condition Status: Acute Code(s): F29 - Unspecified psychosis not due to a substance or known physiological condition (8) Seizure disorder as sequela of cerebrovascular accident: Status: Acute Code(s): I69.398 - Other sequelae of cerebral infarction; G40.909 - Epilepsy, unspecified, not intractable, without status epilepticus Plan Mrs. 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 She has not been treated for psychotic symptoms and only prescribed been mostly untreated in the sense that she has been prescribed only antidepressants, despite the ongoing and insidious nature of her current symptomatology. She denies SI/HI. She has agreed to receive treatment in a voluntary basis. Collateral information from daughter reviewed- daughter who also confirms the onset and trajectory of her symptoms and confirmed that also it has been difficult to assist patient due to her paranoid, there are no safety concerns in terms of suicidal or homicidal ideation or violence towards others, however significant impairment in self care and distress associated with delusions/hallucinations that have affected her being open to get help from family. We discussed risks, benefits and alternative treatment options. Pt agreed to start risperidone 0.5mg po BID and to titration. PLAN Legal CV, 15 minutes checks 2. start risperidone 0.5mg po BID. Continue sertraline 200mg po daily. contiue prazosin. Refused Gabapentin again, took risperdal but c/o excessive sedation despite small dose and will hold increase to avoiod making her more sedated/drowsy. 3. OT assessment: cognitive/memory/functional 4. family meeting 5-coord care, aftercare and d/c planning as appropriate for safe transition 04/20: If N/V unresolved will consult medicine. Otherwise continue current management and treatment plan. 04/21: continue current management and treatment plan. Adjust Risperidone slowly given some sedation objectively. 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 Ongoing delusions and increasing paranoid beliefs, however, patient c/o being too sleepy despite low dose Risperdal--will checlk labs including CBZ levels and hold on medication increase. Has been refusing Neurontin off and on--will hold and reevaluate. Will lower Trazodone to one maximum (without repeat) and consider Hydroxyzine 04/27:Continue current regimen and plans 04/28:Continue current regimen and plans. Verify lisinopril with pharmacy 04/29 Long meeting with patient who presents as increasingly paranoid and depressed, feeling hopeless/helpless about situation and reporting she doesn't trust food as she continues to perceive world thru paranoid lens. Increase Risperdal slowly given c/o sedation. Reviewing antidepressant options 05/01 DC Neurontin Update HCP on results and tx recommendations. Collateral from neurologist if patient/HCP are able to identify 05/02 continue current medications. appears less paranoid, VS stable. taking medications. 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 05/08-Will simplify regime to limit side effects (sedation and cognitive), to allow dose modification and address potential refusal of additions Family meeting this week Patient educated on: diagnosis, medication risk/benefits, therapeutic strategies and medical condition Guardian/Caregiver educated on: diagnosis, medication risk/benefits, therapeutic strategies and medical condition Reason for continued inpatient stay Substantial Risk for: inability to function, rapid decompensation and med/psych decompensation Time Spent With Patient Time: Total time managing care of this patient today 35 ____ minutes.
[2025-05-08 20:00] VITALS: BP 136/67; PULSE 80; RESP 18; TEMP 36.6; O2SAT 94
--- NOTE | 2025-05-08 20:04 | HO.PSYCHPN ---
Subjective Subjective Reason For Visit: psychoytic decompensation Diagnostics Vital Signs (24Hr): Vital Signs - 24 hr 05/07/25 20:52 05/08/25 09:09 Temperature 99.0 F Pulse Rate 78 Blood Pressure 138/68 136/63 Pulse Oximetry 93 Oxygen Delivery Method Room Air BMI result Body Mass Index 38.3 Labs 04/20/25 19:51 05/05/25 08:09 Imaging Radiology Impressions: ITS Impressions Head CT 04/29/25 14:09 IMPRESSION: Large area of encephalomalacia in the right parietal lobe probably representing an old infarct. Smaller subcortical white matter low attenuation in the left parietal lobe also probably representing an old infarct. Electronically signed by: Sadia Delatorre MD 04/29/2025 02:36 PM EST RP Pelvis Ultrasound 04/29/25 16:58 IMPRESSION: No left fundal or left adnexal mass is identified. Upon further review of the prior CT scan, the left ovarian vein drains from the left adnexal mass that was described on the prior study which is most consistent with left ovary abutting the left uterine fundus. 4.4 cm simple cyst of the right ovary. Follow-up ultrasound in 3-6 month. Electronically signed by: Cheo Antonio MD 04/29/2025 05:39 PM EST RP Medications Medications Current Medications Acetaminophen (Acetaminophen 325 Mg Tablet) 650 mg PO Q6H PRN PRN Reason: Headache/Pain, Scale 1-10 Last Admin: 05/08/25 09:13 Dose: 650 mg Al Hydroxide/Mg Hydroxide (Magnesium Hydrox/Alum Hydrox 30 Ml Oral.Susp) 30 ml PO Q6H PRN PRN Reason: Heartburn/Nausea Apixaban (Apixaban 5 Mg Tablet) 5 mg PO BID [facility] Last Admin: 05/08/25 09:12 Dose: 5 mg Carbamazepine (Carbamazepine 200 Mg Tablet) 400 mg PO BID [facility] Last Admin: 05/08/25 09:14 Dose: 200 mg Furosemide (Furosemide 20 Mg Tablet) 20 mg PO DAILY [facility]; Protocol Last Admin: 05/08/25 09:13 Dose: 20 mg Hydroxyzine HCl (Hydroxyzine Hcl 10 Mg Tablet) 10 mg PO Q6H PRN PRN Reason: Anxiety Magnesium Hydroxide (Milk Of Magnesia 30 Ml Oral.Susp) 30 ml PO DAILY PRN PRN Reason: Constipation Last Admin: 05/08/25 09:20 Dose: 30 ml Metformin HCl (Metformin Hcl 500 Mg Tablet) 500 mg PO DAILY [facility] Last Admin: 05/08/25 09:12 Dose: 500 mg Metoprolol Succinate (Metoprolol Succinate Er 25 Mg Tab.Er.24h) 25 mg PO DAILY [facility]; Protocol Last Admin: 05/08/25 09:13 Dose: 25 mg Mirtazapine (Mirtazapine 7.5 Mg Tablet) 7.5 mg PO BEDTIME [facility] Nicotine (Nicotine 21 Mg Patch.Td24) 21 mg TRANSDERMA DAILY PRN PRN Reason: smoking cessation Nicotine Polacrilex (Nicotine Polacrilex 2 Mg Gum) 4 mg BUCCAL Q2H PRN PRN Reason: Nicotine Cravings Olanzapine (Olanzapine 5 Mg Tablet) 5 mg PO TID PRN PRN Reason: agitation Ondansetron HCl (Ondansetron Odt 4 Mg Tab.Rapdis) 4 mg TRANSLINGU Q6H PRN PRN Reason: Nausea and Vomiting Last Admin: 04/25/25 13:08 Dose: 4 mg Prazosin HCl (Prazosin Hcl 1 Mg Capsule) 2 mg PO BEDTIME [facility]; Protocol Last Admin: 05/07/25 20:52 Dose: 2 mg Risperidone (Risperidone 1 Mg Tablet) 1 mg PO BEDTIME [facility] Last Admin: 05/07/25 20:53 Dose: 1 mg Risperidone (Risperidone 0.5 Mg Tablet) 0.5 mg PO DAILY [facility] Last Admin: 05/08/25 09:12 Dose: 0.5 mg Senna (Sennosides 8.6 Mg Tablet) 17.2 mg PO BEDTIME [facility] Last Admin: 05/07/25 20:53 Dose: 17.2 mg Sertraline HCl (Sertraline Hcl 100 Mg Tablet) 200 mg PO DAILY [facility] Last Admin: 05/08/25 09:12 Dose: 200 mg Allergies Allergies Allergy/AdvReac Type Severity Reaction Status Date / Time Penicillins AdvReac Unknown Unknown Verified 04/18/25 17:49 shellfish derived (shellfish) AdvReac Unknown Unknown Verified 04/18/25 16:56 blueberries AdvReac Unknown Unknown Uncoded 04/18/25 16:56 Assessment & Plan Assessment & Plan (1) Mild neurocognitive disorder due to another medical condition: Status: Acute Code(s): F06.70 - Mild neurocognitive disorder due to known physiological condition without behavioral disturbance (2) Type 2 diabetes mellitus: Status: Acute Code(s): E11.9 - Type 2 diabetes mellitus without complications (3) Cholelithiasis: Status: Acute Code(s): K80.20 - Calculus of gallbladder without cholecystitis without obstruction (4) Obesity: Status: Acute Code(s): E66.9 - Obesity, unspecified (5) CVD (cerebrovascular disease): Status: Acute Code(s): I67.9 - Cerebrovascular disease, unspecified (6) 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): Status: Acute Code(s): I63.9 - Cerebral infarction, unspecified; F06.31 - Mood disorder due to known physiological condition with depressive features (7) Psychosis: Qualifiers: Psychosis type: unspecified psychosis type Qualified Code(s): F29 - Unspecified psychosis not due to a substance or known physiological condition Status: Acute Code(s): F29 - Unspecified psychosis not due to a substance or known physiological condition (8) Seizure disorder as sequela of cerebrovascular accident: Status: Acute Code(s): I69.398 - Other sequelae of cerebral infarction; G40.909 - Epilepsy, unspecified, not intractable, without status epilepticus Plan Mrs. 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 She has not been treated for psychotic symptoms and only prescribed been mostly untreated in the sense that she has been prescribed only antidepressants, despite the ongoing and insidious nature of her current symptomatology. She denies SI/HI. She has agreed to receive treatment in a voluntary basis. Collateral information from daughter reviewed- daughter who also confirms the onset and trajectory of her symptoms and confirmed that also it has been difficult to assist patient due to her paranoid, there are no safety concerns in terms of suicidal or homicidal ideation or violence towards others, however significant impairment in self care and distress associated with delusions/hallucinations that have affected her being open to get help from family. We discussed risks, benefits and alternative treatment options. Pt agreed to start risperidone 0.5mg po BID and to titration. PLAN Legal CV, 15 minutes checks 2. start risperidone 0.5mg po BID. Continue sertraline 200mg po daily. contiue prazosin. Refused Gabapentin again, took risperdal but c/o excessive sedation despite small dose and will hold increase to avoiod making her more sedated/drowsy. 3. OT assessment: cognitive/memory/functional 4. family meeting 5-coord care, aftercare and d/c planning as appropriate for safe transition 04/20: If N/V unresolved will consult medicine. Otherwise continue current management and treatment plan. 04/21: continue current management and treatment plan. Adjust Risperidone slowly given some sedation objectively. 04/26 HCP invoked, patient reminded but seems to have little interest and says she itrusts dtrs who are HCPs but not the one who is [employer]. Ongoing delusions and increasing paranoid beliefs, however, patient c/o being too sleepy despite low dose Risperdal--will checlk labs including CBZ levels and hold on medication increase. Has been refusing Neurontin off and on--will hold and reevaluate. Will lower Trazodone to one maximum (without repeat) and consider Hydroxyzine 04/27:Continue current regimen and plans 04/28:Continue current regimen and plans. Verify lisinopril with pharmacy 04/29 Long meeting with patient who presents as increasingly paranoid and depressed, feeling hopeless/helpless about situation and reporting she doesn't trust food as she continues to perceive world thru paranoid lens. Increase Risperdal slowly given c/o sedation. Reviewing antidepressant options 05/01 DC Neurontin Update HCP on results and tx recommendations. Collateral from neurologist if patient/HCP are able to identify 05/02 continue current medications. appears less paranoid, VS stable. taking medications. 05/03 continue medications and tx plan Time Spent With Patient Time: Total time managing care of this patient today ____ minutes.
--- NOTE | 2025-05-09 05:09 | PC.NURSE ---
Pt took half dose of ordered 400mg of TeGretol, educated by TW but she declined.
[2025-05-09 08:00] VITALS: BP 141/77; PULSE 76; RESP 17; TEMP 36.6; O2SAT 93
[2025-05-09 08:51] VITALS: BP 141/77; PULSE 76
[2025-05-09] MEDS: Metoprolol Succinate ER 25 MG TAB.ER.24H PO (08:51)
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
[2025-05-09] MEDS: Milk of Magnesia 30 ML ORAL.SUSP PO (15:17)
[2025-05-09 20:00] VITALS: BP 142/66; PULSE 84; RESP 18; TEMP 37.1; O2SAT 95
--- NOTE | 2025-05-10 06:09 | PC.NURSE ---
Pt took 200 out of the 400mg of Carbamezepine ordered.
[2025-05-10 08:00] VITALS: BP 153/67; PULSE 78; RESP 17; TEMP 36.3; O2SAT 97
[2025-05-10 08:53] VITALS: BP 153/67; PULSE 78
[2025-05-10] MEDS: Metoprolol Succinate ER 25 MG TAB.ER.24H PO (08:53)
[2025-05-10 08:55] VITALS: BP 153/67
--- NOTE | 2025-05-10 09:00 | PC.NURSE ---
Patient accepted 200 mg Carbamazepine. Refused to take the whole dose of 400mg. Provider notified.
--- NOTE | 2025-05-10 11:05 | PC.NURSE ---
Providers Dr San and Xavier Bennett aware that Siena want to be seen for skin issues on face.
--- NOTE | 2025-05-10 11:14 | HO.PM.IMPN ---
Subjective Subjective Date of Service: 05/10/25 Interval History: Patient is seen for follow up facial rash. Patient reports that she has some irritation on her cheeks. Occasionally itchy, she reports she has been applying toothpaste to the area. Facial redness with scattered papules and pustules over her cheeks and part of nose. Some areas abraded, some redness noted to cheeks. Skin is rough appearing. Thickened skin on nose and cheeks. Rash characteristic of rosacea. She otherwise feels well, no concerns. Review of Systems Denies any concerning symptoms. Physical Exam Exam: Exam: CONST: Alert and oriented, in NAD. Well nourished HEENT: Normocephalic, atraumatic RESP: Respiratory rate even and regular HEART: Decline GI: Decline : Decline SKIN: Color within normal limits, Facial redness with scattered papules and pustules over her cheeks and part of nose. Some areas abraded, some redness noted to cheeks. Skin is rough appearing. Thickened skin on nose and cheeks. NEURO: Moves all extremities, Speech clear PSYCH: Answers questions Vital Signs: Vital Signs: Last Vital Signs Temp 97.3 F 05/10/25 08:00 Pulse 78 05/10/25 08:53 Resp 17 05/10/25 08:00 BP 153/67 H 05/10/25 08:55 Pulse Ox 97 05/10/25 08:00 O2 Del Method Room Air 05/10/25 08:00 BMI result Body Mass Index 38.3 Objective Data Active Medications Acetaminophen (Acetaminophen 325 Mg Tablet) 650 mg PO Q6H PRN PRN Reason: Headache/Pain, Scale 1-10 Last Admin: 05/09/25 09:13 Dose: 650 mg Documented By: DEJON Al Hydroxide/Mg Hydroxide (Magnesium Hydrox/Alum Hydrox 30 Ml Oral.Susp) 30 ml PO Q6H PRN PRN Reason: Heartburn/Nausea Apixaban (Apixaban 5 Mg Tablet) 5 mg PO BID [facility] Last Admin: 05/10/25 08:56 Dose: 5 mg Documented By: DEJON Carbamazepine (Carbamazepine 200 Mg Tablet) 400 mg PO BID [facility] Last Admin: 05/10/25 08:55 Dose: 200 mg Documented By: DEJON Furosemide (Furosemide 20 Mg Tablet) 20 mg PO DAILY [facility]; Protocol Last Admin: 05/10/25 08:55 Dose: 20 mg Documented By: DEJON Hydroxyzine HCl (Hydroxyzine Hcl 10 Mg Tablet) 10 mg PO Q6H PRN PRN Reason: Anxiety Magnesium Hydroxide (Milk Of Magnesia 30 Ml Oral.Susp) 30 ml PO DAILY PRN PRN Reason: Constipation Last Admin: 05/09/25 15:17 Dose: 30 ml Documented By: DEJON Metformin HCl (Metformin Hcl 500 Mg Tablet) 500 mg PO DAILY [facility] Last Admin: 05/10/25 08:54 Dose: 500 mg Documented By: DEJON Metoprolol Succinate (Metoprolol Succinate Er 25 Mg Tab.Er.24h) 25 mg PO DAILY [facility]; Protocol Last Admin: 05/10/25 08:53 Dose: 25 mg Documented By: DEJON Mirtazapine (Mirtazapine 7.5 Mg Tablet) 7.5 mg PO BEDTIME [facility] Last Admin: 05/09/25 20:26 Dose: 7.5 mg Documented By: KUSHAL Nicotine (Nicotine 21 Mg Patch.Td24) 21 mg TRANSDERMA DAILY PRN PRN Reason: smoking cessation Nicotine Polacrilex (Nicotine Polacrilex 2 Mg Gum) 4 mg BUCCAL Q2H PRN PRN Reason: Nicotine Cravings Olanzapine (Olanzapine 5 Mg Tablet) 5 mg PO TID PRN PRN Reason: agitation Ondansetron HCl (Ondansetron Odt 4 Mg Tab.Rapdis) 4 mg TRANSLINGU Q6H PRN PRN Reason: Nausea and Vomiting Last Admin: 04/25/25 13:08 Dose: 4 mg Documented By: DEJON Prazosin HCl (Prazosin Hcl 1 Mg Capsule) 1 mg PO BEDTIME [facility]; Protocol Risperidone (Risperidone 1 Mg Tablet) 1 mg PO BEDTIME [facility] Last Admin: 05/09/25 20:25 Dose: 1 mg Documented By: KUSHAL Risperidone (Risperidone 0.5 Mg Tablet) 0.5 mg PO DAILY [facility] Last Admin: 05/10/25 08:56 Dose: 0.5 mg Documented By: DEJON Senna (Sennosides 8.6 Mg Tablet) 17.2 mg PO BEDTIME [facility] Last Admin: 05/09/25 20:25 Dose: 17.2 mg Documented By: KUSHAL Sertraline HCl (Sertraline Hcl 100 Mg Tablet) 200 mg PO DAILY [facility] Last Admin: 05/10/25 08:56 Dose: 200 mg Documented By: DEJON Labs 04/20/25 19:51 05/05/25 08:09 Assessment and Plan (1) Cholelithiasis: Status: Acute (2) Rosacea: Status: Acute Plan 64-year-old female with past medical history as listed below who presented to the emergency with delusions. Patient was admitted here for further stabilization. She is being seen today in follow up for nausea and vomiting. PTSD/social anxiety/major depressive disorder/agoraphobia/PTSD/delusions Treatment per psychiatric team Possible Rosacea Will treat with Metrogel BID for 7 days to see if there is improvement. Patient will need outpatient dermatology. Ovarian cyst Pelvic ultrasound revealed 4.4 cm simple cyst of the right ovary. Will need Follow-up ultrasound in 3-6 CA 125 negative Will need outpatient follow up for Ovarian cyst Cholelithiasis Workup revealed cholelithiasis, normal liver function We will need outpatient follow up History of CVA/hypertension/history of clotting disorder Continue on Lasix, Eliquis, and Toprol. Restart lisinopril due to elevated blood pressures. Cholesterol panel within normal, HDL low. Epilepsy Continue on Tegretol b.i.d., gabapentin at bedtime Type 2 diabetes Continue metformin daily Recent A1c 5.8 Migraines Tylenol as needed Thank you for allowing me to participate in the care of this patient. Will follow with you, please notify medical provider with any changes in condition or concerns. Quality Stroke Does the patient have a stroke diagnosis?: No VTE Prior VTE?: No VTE Risk Level:: Medical - low VTE Device Contraindication: Treatment Not Indicated VTE Drug Contraindication: N/A - Med Ordered
--- NOTE | 2025-05-10 18:25 | P.PNPSI_ITS ---
Subjective Subjective Date of Service: 05/10/25 Reason For Visit: psychotic decompensation Healthcare Proxy: Yes Interim History: Family meeting 1hr+ today, discussed presentation, history of symptoms, past and current functioning and expected difficulties with management as patient does not trust she will be safe if back at home due to persistent delusions. Medication Compliance: Intermittent Side effects from medications: Yes (sedation) Attending Groups: Intermittent Review of Systems Review of Systems no new complaints Mental Status Exam Mental Status Exam Narrative: Appearance: fair hygiene, casual attire Behavior:calm Psychomotor: mild retardation noted Speech: soft, some latency response, normal rate/rhythm TP: no significant tangentiality, goal directed overall TC: preoccupied by persecutory delusional ideas today Mood: worried Affect: constricted, reports she feels anxious/down SI/HI: denies VH/AH: did not appear internally stimulated Insight/judgment: limited, improving x 2. Memory/cog: alert, oriented x 3, difficulty recalling information provided (ie test results). Patient Appearance: Appropriate (a bit unkempt, appears clean) Diagnostics Vital Signs (24Hr): Vital Signs - 24 hr 05/09/25 20:00 05/10/25 08:00 05/10/25 08:53 Temperature 98.8 F 97.3 F Pulse Rate 84 78 78 Respiratory Rate 18 17 Blood Pressure 142/66 H 153/67 H 153/67 H Pulse Oximetry 95 97 Oxygen Delivery Method Room Air Room Air 05/10/25 08:55 Temperature Pulse Rate Respiratory Rate Blood Pressure 153/67 H Pulse Oximetry Oxygen Delivery Method BMI result Body Mass Index 38.3 Labs 05/16/25 13:46 05/19/25 07:02 Imaging Radiology Impressions: ITS Impressions Head CT 04/29/25 14:09 IMPRESSION: Large area of encephalomalacia in the right parietal lobe probably representing an old infarct. Smaller subcortical white matter low attenuation in the left parietal lobe also probably representing an old infarct. Electronically signed by: Sadia Delatorre MD 04/29/2025 02:36 PM [facility] Pelvis Ultrasound 04/29/25 16:58 IMPRESSION: No left fundal or left adnexal mass is identified. Upon further review of the prior CT scan, the left ovarian vein drains from the left adnexal mass that was described on the prior study which is most consistent with left ovary abutting the left uterine fundus. 4.4 cm simple cyst of the right ovary. Follow-up ultrasound in 3-6 month. Electronically signed by: Cheo Antonio MD 04/29/2025 05:39 PM EST Medications Medications Current Medications Acetaminophen (Acetaminophen 325 Mg Tablet) 650 mg PO Q6H PRN PRN Reason: Headache/Pain, Scale 1-10 Last Admin: 05/09/25 09:13 Dose: 650 mg Al Hydroxide/Mg Hydroxide (Magnesium Hydrox/Alum Hydrox 30 Ml Oral.Susp) 30 ml PO Q6H PRN PRN Reason: Heartburn/Nausea Apixaban (Apixaban 5 Mg Tablet) 5 mg PO BID [facility] Last Admin: 05/10/25 08:56 Dose: 5 mg Carbamazepine (Carbamazepine 200 Mg Tablet) 400 mg PO BID [facility] Last Admin: 05/10/25 08:55 Dose: 200 mg Furosemide (Furosemide 20 Mg Tablet) 20 mg PO DAILY [facility]; Protocol Last Admin: 05/10/25 08:55 Dose: 20 mg Hydroxyzine HCl (Hydroxyzine Hcl 10 Mg Tablet) 10 mg PO Q6H PRN PRN Reason: Anxiety Lisinopril (Lisinopril 10 Mg Tablet) 10 mg PO DAILY [facility]; Protocol Magnesium Hydroxide (Milk Of Magnesia 30 Ml Oral.Susp) 30 ml PO DAILY PRN PRN Reason: Constipation Last Admin: 05/09/25 15:17 Dose: 30 ml Metformin HCl (Metformin Hcl 500 Mg Tablet) 500 mg PO DAILY [facility] Last Admin: 05/10/25 08:54 Dose: 500 mg Metoprolol Succinate (Metoprolol Succinate Er 25 Mg Tab.Er.24h) 25 mg PO DAILY [facility]; Protocol Last Admin: 05/10/25 08:53 Dose: 25 mg Metronidazole (Metronidazole 0.75 % Gel 45 Gm Tube) 1 appl TOPICAL BID [facility] Stop: 05/17/25 20:59 Mirtazapine (Mirtazapine 7.5 Mg Tablet) 7.5 mg PO BEDTIME [facility] Last Admin: 05/09/25 20:26 Dose: 7.5 mg Nicotine (Nicotine 21 Mg Patch.Td24) 21 mg TRANSDERMA DAILY PRN PRN Reason: smoking cessation Nicotine Polacrilex (Nicotine Polacrilex 2 Mg Gum) 4 mg BUCCAL Q2H PRN PRN Reason: Nicotine Cravings Olanzapine (Olanzapine 5 Mg Tablet) 5 mg PO TID PRN PRN Reason: agitation Ondansetron HCl (Ondansetron Odt 4 Mg Tab.Rapdis) 4 mg TRANSLINGU Q6H PRN PRN Reason: Nausea and Vomiting Last Admin: 04/25/25 13:08 Dose: 4 mg Prazosin HCl (Prazosin Hcl 1 Mg Capsule) 1 mg PO BEDTIME [facility]; Protocol Risperidone (Risperidone 1 Mg Tablet) 1 mg PO BEDTIME [facility] Last Admin: 05/09/25 20:25 Dose: 1 mg Risperidone (Risperidone 0.5 Mg Tablet) 0.5 mg PO DAILY [facility] Last Admin: 05/10/25 08:56 Dose: 0.5 mg Senna (Sennosides 8.6 Mg Tablet) 17.2 mg PO BEDTIME [facility] Last Admin: 05/09/25 20:25 Dose: 17.2 mg Sertraline HCl (Sertraline Hcl 100 Mg Tablet) 200 mg PO DAILY [facility] Last Admin: 05/10/25 08:56 Dose: 200 mg Allergies Allergies Allergy/AdvReac Type Severity Reaction Status Date / Time Penicillins AdvReac Unknown Unknown Verified 04/18/25 17:49 shellfish derived (shellfish) AdvReac Unknown Unknown Verified 04/18/25 16:56 blueberries AdvReac Unknown Unknown Uncoded 04/18/25 16:56 Assessment & Plan Assessment & Plan (1) Cholelithiasis: Status: Acute Code(s): K80.20 - Calculus of gallbladder without cholecystitis without obstruction (2) Rosacea: Status: Acute Code(s): L71.9 - Rosacea, unspecified Plan 64-year-old female with past medical history as listed below who presented to the emergency with delusions. Patient was admitted here for further stabilization. She is being seen today in follow up for nausea and vomiting. Delusional/psychotic sxs/depressed mood/anxiety Continue current regime, encourage compliance Medical: Possible Rosacea Will treat with Metrogel BID for 7 days to see if there is improvement. Patient will need outpatient dermatology. Ovarian cyst Pelvic ultrasound revealed 4.4 cm simple cyst of the right ovary. Will need Follow-up ultrasound in 3-6 CA 125 negative Will need outpatient follow up for Ovarian cyst Cholelithiasis Workup revealed cholelithiasis, normal liver function We will need outpatient follow up History of CVA/hypertension/history of clotting disorder Continue on Lasix, Eliquis, and Toprol. Restart lisinopril due to elevated blood pressures. Cholesterol panel within normal, HDL low. Epilepsy Continue on Tegretol b.i.d., gabapentin at bedtime Type 2 diabetes Continue metformin daily Recent A1c 5.8 Migraines Tylenol as needed Reason for continued inpatient stay Substantial Risk for: inability to function and rapid decompensation Time Spent With Patient Time: Total time managing care of this patient today __65__ minutes.
[2025-05-10 19:59] VITALS: BP 159/76; PULSE 75; RESP 16; TEMP 36.6; O2SAT 98
[2025-05-10] MEDS: metroNIDAZOLE 0.75 % Gel 45 GM TUBE 1 APPL TOPICAL (20:56)
[2025-05-11 08:02] LABS: Carbamazepine Tegretol 4.9 mcg/mL (5.0-12.0)
[2025-05-11 08:58] VITALS: BP 117/58; PULSE 82; RESP 18; TEMP 37.3; O2SAT 94
[2025-05-11] MEDS: metroNIDAZOLE 0.75 % Gel 45 GM TUBE 1 APPL TOPICAL ×2 (09:00→20:42)
[2025-05-11] MEDS: Metoprolol Succinate ER 25 MG TAB.ER.24H PO (09:00)
--- NOTE | 2025-05-11 09:13 | P.PNPSI_ITS ---
Subjective Subjective Date of Service: 05/11/25 Reason For Visit: psychotic decompensation Subjective Notes: Conditional Voluntary Interim History: met with patient. Discussed with Nursing. Irritable. Paranoid that people have impersonated her regarding hospital admission. States believe she has been targeted because she wanted to adjust skin lotions because she believes people have been contaminating them and putting black things inside them which impacted her skin. Does well with support in listening. Denies feeling depressed outside of feeling targeted. Denies SI. Sleeping well. Eating okay. In the milieu utilizing wheelchair appropriately. No med concerns. Denies SI. Largely adherent with medications including Tegretol and Risperdal etc.. Review of Systems Review of Systems nothing acute Mental Status Exam Mental Status Exam Narrative: Appearance: fair hygiene, appropriate attire Behavior:cooperative, pleasant Psychomotor: mild retardation noted Speech: soft, some latency response, normal rate/rhythm/soft volume TP: no significant tangentiality, goal directed overall TC: less preoccupied by persecutory delusional ideas but still present Mood: ok I guess Affect: constricted but reports she feels less anxious/depressed SI/HI: denies VH/AH: did not appear internally stimulated Insight/judgment: limited, improving x 2. Memory/cog: alert, oriented x 3, difficulty recalling information provided (ie test results). Diagnostics Vital Signs (24Hr): Vital Signs - 24 hr 05/10/25 19:59 05/11/25 08:58 Temperature 98 F 99.1 F Pulse Rate 75 82 Respiratory Rate 16 18 Blood Pressure 159/76 H 117/58 L Pulse Oximetry 98 94 Oxygen Delivery Method Room Air Room Air BMI result Body Mass Index 38.3 Labs 04/20/25 19:51 05/05/25 08:09 Labs: Laboratory Results - last 48 hr 05/11/25 07:18 Carbamazepine 4.9 L Imaging Radiology Impressions: ITS Impressions Head CT 04/29/25 14:09 IMPRESSION: Large area of encephalomalacia in the right parietal lobe probably representing an old infarct. Smaller subcortical white matter low attenuation in the left parietal lobe also probably representing an old infarct. Electronically signed by: Sadia Delatorre MD 04/29/2025 02:36 PM [facility] Pelvis Ultrasound 04/29/25 16:58 IMPRESSION: No left fundal or left adnexal mass is identified. Upon further review of the prior CT scan, the left ovarian vein drains from the left adnexal mass that was described on the prior study which is most consistent with left ovary abutting the left uterine fundus. 4.4 cm simple cyst of the right ovary. Follow-up ultrasound in 3-6 month. Electronically signed by: Cheo Antonio MD 04/29/2025 05:39 PM [facility] Medications Medications Current Medications Acetaminophen (Acetaminophen 325 Mg Tablet) 650 mg PO Q6H PRN PRN Reason: Headache/Pain, Scale 1-10 Last Admin: 05/09/25 09:13 Dose: 650 mg Al Hydroxide/Mg Hydroxide (Magnesium Hydrox/Alum Hydrox 30 Ml Oral.Susp) 30 ml PO Q6H PRN PRN Reason: Heartburn/Nausea Apixaban (Apixaban 5 Mg Tablet) 5 mg PO BID [facility] Last Admin: 05/11/25 09:00 Dose: 5 mg Carbamazepine (Carbamazepine 200 Mg Tablet) 400 mg PO BID [facility] Last Admin: 05/11/25 09:00 Dose: 400 mg Furosemide (Furosemide 20 Mg Tablet) 20 mg PO DAILY [facility]; Protocol Last Admin: 05/11/25 09:00 Dose: 20 mg Hydroxyzine HCl (Hydroxyzine Hcl 10 Mg Tablet) 10 mg PO Q6H PRN PRN Reason: Anxiety Lisinopril (Lisinopril 10 Mg Tablet) 10 mg PO DAILY [facility]; Protocol Last Admin: 05/11/25 09:01 Dose: 10 mg Magnesium Hydroxide (Milk Of Magnesia 30 Ml Oral.Susp) 30 ml PO DAILY PRN PRN Reason: Constipation Last Admin: 05/09/25 15:17 Dose: 30 ml Metformin HCl (Metformin Hcl 500 Mg Tablet) 500 mg PO DAILY [facility] Last Admin: 05/11/25 09:01 Dose: 500 mg Metoprolol Succinate (Metoprolol Succinate Er 25 Mg Tab.Er.24h) 25 mg PO DAILY [facility]; Protocol Last Admin: 05/11/25 09:00 Dose: 25 mg Metronidazole (Metronidazole 0.75 % Gel 45 Gm Tube) 1 appl TOPICAL BID [facility] Stop: 05/17/25 20:59 Last Admin: 05/11/25 09:00 Dose: 1 appl Mirtazapine (Mirtazapine 7.5 Mg Tablet) 7.5 mg PO BEDTIME [facility] Last Admin: 05/10/25 20:53 Dose: 7.5 mg Nicotine (Nicotine 21 Mg Patch.Td24) 21 mg TRANSDERMA DAILY PRN PRN Reason: smoking cessation Nicotine Polacrilex (Nicotine Polacrilex 2 Mg Gum) 4 mg BUCCAL Q2H PRN PRN Reason: Nicotine Cravings Olanzapine (Olanzapine 5 Mg Tablet) 5 mg PO TID PRN PRN Reason: agitation Ondansetron HCl (Ondansetron Odt 4 Mg Tab.Rapdis) 4 mg TRANSLINGU Q6H PRN PRN Reason: Nausea and Vomiting Last Admin: 04/25/25 13:08 Dose: 4 mg Prazosin HCl (Prazosin Hcl 1 Mg Capsule) 1 mg PO BEDTIME [facility]; Protocol Last Admin: 05/10/25 20:54 Dose: 1 mg Risperidone (Risperidone 1 Mg Tablet) 1 mg PO BEDTIME [facility] Last Admin: 05/10/25 20:54 Dose: 1 mg Risperidone (Risperidone 0.5 Mg Tablet) 0.5 mg PO DAILY [facility] Last Admin: 05/11/25 09:01 Dose: 0.5 mg Senna (Sennosides 8.6 Mg Tablet) 17.2 mg PO BEDTIME [facility] Last Admin: 05/10/25 20:53 Dose: 17.2 mg Sertraline HCl (Sertraline Hcl 100 Mg Tablet) 200 mg PO DAILY [facility] Last Admin: 05/11/25 09:01 Dose: 200 mg Allergies Allergies Allergy/AdvReac Type Severity Reaction Status Date / Time Penicillins AdvReac Unknown Unknown Verified 04/18/25 17:49 shellfish derived (shellfish) AdvReac Unknown Unknown Verified 04/18/25 16:56 blueberries AdvReac Unknown Unknown Uncoded 04/18/25 16:56 Assessment & Plan Assessment & Plan (1) Cholelithiasis: Status: Acute Code(s): K80.20 - Calculus of gallbladder without cholecystitis without obstruction (2) Rosacea: Status: Acute Code(s): L71.9 - Rosacea, unspecified (3) Mild neurocognitive disorder due to another medical condition: Status: Acute Code(s): F06.70 - Mild neurocognitive disorder due to known physiological condition without behavioral disturbance (4) Type 2 diabetes mellitus: Status: Acute Code(s): E11.9 - Type 2 diabetes mellitus without complications (5) Obesity: Status: Acute Code(s): E66.9 - Obesity, unspecified (6) CVD (cerebrovascular disease): Status: Acute Code(s): I67.9 - Cerebrovascular disease, unspecified (7) 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): Status: Acute Code(s): I63.9 - Cerebral infarction, unspecified; F06.31 - Mood disorder due to known physiological condition with depressive features (8) Psychosis: Qualifiers: Psychosis type: unspecified psychosis type Qualified Code(s): F29 - Unspecified psychosis not due to a substance or known physiological condition Status: Acute Code(s): F29 - Unspecified psychosis not due to a substance or known physiological condition (9) Seizure disorder as sequela of cerebrovascular accident: Status: Acute Code(s): I69.398 - Other sequelae of cerebral infarction; G40.909 - Epilepsy, unspecified, not intractable, without status epilepticus Plan Mrs. 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 She has not been treated for psychotic symptoms and only prescribed been mostly untreated in the sense that she has been prescribed only antidepressants, despite the ongoing and insidious nature of her current symptomatology. She denies SI/HI. She has agreed to receive treatment in a voluntary basis. Collateral information from daughter reviewed- daughter who also confirms the onset and trajectory of her symptoms and confirmed that also it has been difficult to assist patient due to her paranoid, there are no safety concerns in terms of suicidal or homicidal ideation or violence towards others, however significant impairment in self care and distress associated with delusions/hallucinations that have affected her being open to get help from family. We discussed risks, benefits and alternative treatment options. Pt agreed to start risperidone 0.5mg po BID and to titration. PLAN Legal CV, 15 minutes checks 2. start risperidone 0.5mg po BID. Continue sertraline 200mg po daily. contiue prazosin. Refused Gabapentin again, took risperdal but c/o excessive sedation despite small dose and will hold increase to avoiod making her more sedated/drowsy. 3. OT assessment: cognitive/memory/functional 4. family meeting 5-coord care, aftercare and d/c planning as appropriate for safe transition 04/20: If N/V unresolved will consult medicine. Otherwise continue current management and treatment plan. 04/21: continue current management and treatment plan. Adjust Risperidone slowly given some sedation objectively. 04/26 HCP invoked, patient reminded but seems to have little interest and says she itrusts dtrs who are HCPs but not the one who is [employer]. Ongoing delusions and increasing paranoid beliefs, however, patient c/o being too sleepy despite low dose Risperdal--will checlk labs including CBZ levels and hold on medication increase. Has been refusing Neurontin off and on--will hold and reevaluate. Will lower Trazodone to one maximum (without repeat) and consider Hydroxyzine 04/27:Continue current regimen and plans 04/28:Continue current regimen and plans. Verify lisinopril with pharmacy 04/29 Long meeting with patient who presents as increasingly paranoid and depressed, feeling hopeless/helpless about situation and reporting she doesn't trust food as she continues to perceive world thru paranoid lens. Increase Risperdal slowly given c/o sedation. Reviewing antidepressant options 05/01 DC Neurontin Update HCP on results and tx recommendations. Collateral from neurologist if patient/HCP are able to identify 05/02 continue current medications. appears less paranoid, VS stable. taking medications. 05/03 continue medications and tx plan 05/06 05/07 discussed CBZ refusal, commits to taking after receiving education presents w/ongoing delusions and rejects idea of returning to apt or having dtr as [employer] 05/08-Will simplify regime to limit side effects (sedation and cognitive), to allow dose modification and address potential refusal of additions Family meeting this week 05/11/2025: No changes to current plan. Adherent with current med regimen and paranoia slowly decreasing Patient educated on: diagnosis, medication risk/benefits, therapeutic strategies and medical condition Guardian/Caregiver educated on: diagnosis, medication risk/benefits, therapeutic strategies and medical condition Reason for continued inpatient stay Substantial Risk for: inability to function, rapid decompensation and med/psych decompensation Time Spent With Patient Time: Total time managing care of this patient today ____ minutes.
[2025-05-11 20:00] VITALS: BP 138/63; PULSE 76; RESP 16; TEMP 36.8; O2SAT 96
--- NOTE | 2025-05-12 07:46 | P.PNPSI_ITS ---
Subjective Subjective Date of Service: 05/12/25 Reason For Visit: psychotic decompensation Subjective Notes: Conditional Voluntary Interim History: Met with patient. Discussed with Nursing. Less irritable. remains paranoid that people have impersonated her and adjusting her food/diet. Does OKl with supportive listening. Denies feeling depressed outside of feeling targeted. Denies SI. Sleeping well. Eating okay. No med concerns. Denies SI. Largely adherent with medications including Tegretol and Risperdal etc.. Medication Compliance: Yes Side effects from medications: No Attending Groups: No Review of Systems Acute medical concerns: No Review of Systems Review of Systems nothing acute Mental Status Exam Mental Status Exam Narrative: Appearance: fair hygiene, appropriate attire Behavior:cooperative, pleasant Psychomotor: mild retardation noted Speech: soft, some latency response, normal rate/rhythm/soft volume TP: goal directed overall TC: less preoccupied by persecutory delusional ideas but still present Mood: ok Affect: constricted but reports she feels less anxious/depressed SI/HI: denies VH/AH: did not appear internally stimulated Insight/judgment: limited, improving x 2. Memory/cog: alert, oriented x 3, difficulty recalling information provided (ie test results). Diagnostics Vital Signs (24Hr): Vital Signs - 24 hr 05/11/25 08:58 05/11/25 20:00 Temperature 99.1 F 98.3 F Pulse Rate 82 76 Respiratory Rate 18 16 Blood Pressure 117/58 L 138/63 Pulse Oximetry 94 96 Oxygen Delivery Method Room Air Room Air BMI result Body Mass Index 38.3 Labs 04/20/25 19:51 05/12/25 07:57 Labs: Laboratory Results - last 48 hr 05/11/25 07:18 Carbamazepine 4.9 L Imaging Radiology Impressions: ITS Impressions Head CT 04/29/25 14:09 IMPRESSION: Large area of encephalomalacia in the right parietal lobe probably representing an old infarct. Smaller subcortical white matter low attenuation in the left parietal lobe also probably representing an old infarct. Electronically signed by: Sadia Delatorre MD 04/29/2025 02:36 PM [facility] Pelvis Ultrasound 04/29/25 16:58 IMPRESSION: No left fundal or left adnexal mass is identified. Upon further review of the prior CT scan, the left ovarian vein drains from the left adnexal mass that was described on the prior study which is most consistent with left ovary abutting the left uterine fundus. 4.4 cm simple cyst of the right ovary. Follow-up ultrasound in 3-6 month. Electronically signed by: Cheo Antonio MD 04/29/2025 05:39 PM [facility] Medications Medications Current Medications Acetaminophen (Acetaminophen 325 Mg Tablet) 650 mg PO Q6H PRN PRN Reason: Headache/Pain, Scale 1-10 Last Admin: 05/09/25 09:13 Dose: 650 mg Al Hydroxide/Mg Hydroxide (Magnesium Hydrox/Alum Hydrox 30 Ml Oral.Susp) 30 ml PO Q6H PRN PRN Reason: Heartburn/Nausea Apixaban (Apixaban 5 Mg Tablet) 5 mg PO BID [facility] Last Admin: 05/11/25 20:40 Dose: 5 mg Carbamazepine (Carbamazepine 200 Mg Tablet) 400 mg PO BID [facility] Last Admin: 05/11/25 20:39 Dose: 400 mg Furosemide (Furosemide 20 Mg Tablet) 20 mg PO DAILY [facility]; Protocol Last Admin: 05/11/25 09:00 Dose: 20 mg Hydroxyzine HCl (Hydroxyzine Hcl 10 Mg Tablet) 10 mg PO Q6H PRN PRN Reason: Anxiety Lisinopril (Lisinopril 10 Mg Tablet) 10 mg PO DAILY [facility]; Protocol Last Admin: 05/11/25 09:01 Dose: 10 mg Magnesium Hydroxide (Milk Of Magnesia 30 Ml Oral.Susp) 30 ml PO DAILY PRN PRN Reason: Constipation Last Admin: 05/09/25 15:17 Dose: 30 ml Metformin HCl (Metformin Hcl 500 Mg Tablet) 500 mg PO DAILY [facility] Last Admin: 05/11/25 09:01 Dose: 500 mg Metoprolol Succinate (Metoprolol Succinate Er 25 Mg Tab.Er.24h) 25 mg PO DAILY [facility]; Protocol Last Admin: 05/11/25 09:00 Dose: 25 mg Metronidazole (Metronidazole 0.75 % Gel 45 Gm Tube) 1 appl TOPICAL BID [facility] Stop: 05/17/25 20:59 Last Admin: 05/11/25 20:42 Dose: 1 appl Mirtazapine (Mirtazapine 7.5 Mg Tablet) 7.5 mg PO BEDTIME [facility] Last Admin: 05/11/25 20:38 Dose: 7.5 mg Nicotine (Nicotine 21 Mg Patch.Td24) 21 mg TRANSDERMA DAILY PRN PRN Reason: smoking cessation Nicotine Polacrilex (Nicotine Polacrilex 2 Mg Gum) 4 mg BUCCAL Q2H PRN PRN Reason: Nicotine Cravings Olanzapine (Olanzapine 5 Mg Tablet) 5 mg PO TID PRN PRN Reason: agitation Ondansetron HCl (Ondansetron Odt 4 Mg Tab.Rapdis) 4 mg TRANSLINGU Q6H PRN PRN Reason: Nausea and Vomiting Last Admin: 04/25/25 13:08 Dose: 4 mg Prazosin HCl (Prazosin Hcl 1 Mg Capsule) 1 mg PO BEDTIME [facility]; Protocol Last Admin: 05/11/25 20:38 Dose: 1 mg Risperidone (Risperidone 1 Mg Tablet) 1 mg PO BEDTIME [facility] Last Admin: 05/11/25 20:41 Dose: 1 mg Risperidone (Risperidone 0.5 Mg Tablet) 0.5 mg PO DAILY [facility] Last Admin: 05/11/25 09:01 Dose: 0.5 mg Senna (Sennosides 8.6 Mg Tablet) 17.2 mg PO BEDTIME [facility] Last Admin: 05/11/25 20:40 Dose: 17.2 mg Sertraline HCl (Sertraline Hcl 100 Mg Tablet) 200 mg PO DAILY [facility] Last Admin: 05/11/25 09:01 Dose: 200 mg Allergies Allergies Allergy/AdvReac Type Severity Reaction Status Date / Time Penicillins AdvReac Unknown Unknown Verified 04/18/25 17:49 shellfish derived (shellfish) AdvReac Unknown Unknown Verified 04/18/25 16:56 blueberries AdvReac Unknown Unknown Uncoded 04/18/25 16:56 Assessment & Plan Assessment & Plan (1) Cholelithiasis: Status: Acute Code(s): K80.20 - Calculus of gallbladder without cholecystitis without obstruction (2) Rosacea: Status: Acute Code(s): L71.9 - Rosacea, unspecified (3) Mild neurocognitive disorder due to another medical condition: Status: Acute Code(s): F06.70 - Mild neurocognitive disorder due to known physiological condition without behavioral disturbance (4) Type 2 diabetes mellitus: Status: Acute Code(s): E11.9 - Type 2 diabetes mellitus without complications (5) Obesity: Status: Acute Code(s): E66.9 - Obesity, unspecified (6) CVD (cerebrovascular disease): Status: Acute Code(s): I67.9 - Cerebrovascular disease, unspecified (7) 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): Status: Acute Code(s): I63.9 - Cerebral infarction, unspecified; F06.31 - Mood disorder due to known physiological condition with depressive features (8) Psychosis: Qualifiers: Psychosis type: unspecified psychosis type Qualified Code(s): F29 - Unspecified psychosis not due to a substance or known physiological condition Status: Acute Code(s): F29 - Unspecified psychosis not due to a substance or known physiological condition (9) Seizure disorder as sequela of cerebrovascular accident: Status: Acute Code(s): I69.398 - Other sequelae of cerebral infarction; G40.909 - Epilepsy, unspecified, not intractable, without status epilepticus Plan Mrs. 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 She has not been treated for psychotic symptoms and only prescribed been mostly untreated in the sense that she has been prescribed only antidepressants, despite the ongoing and insidious nature of her current symptomatology. She denies SI/HI. She has agreed to receive treatment in a voluntary basis. Collateral information from daughter reviewed- daughter who also confirms the onset and trajectory of her symptoms and confirmed that also it has been difficult to assist patient due to her paranoid, there are no safety concerns in terms of suicidal or homicidal ideation or violence towards others, however significant impairment in self care and distress associated with delusions/hallucinations that have affected her being open to get help from family. We discussed risks, benefits and alternative treatment options. Pt agreed to start risperidone 0.5mg po BID and to titration. PLAN Legal CV, 15 minutes checks 2. start risperidone 0.5mg po BID. Continue sertraline 200mg po daily. contiue prazosin. Refused Gabapentin again, took risperdal but c/o excessive sedation despite small dose and will hold increase to avoiod making her more sedated/drowsy. 3. OT assessment: cognitive/memory/functional 4. family meeting 5-coord care, aftercare and d/c planning as appropriate for safe transition 04/20: If N/V unresolved will consult medicine. Otherwise continue current management and treatment plan. 04/21: continue current management and treatment plan. Adjust Risperidone slowly given some sedation objectively. 04/26 HCP invoked, patient reminded but seems to have little interest and says she itrusts dtrs who are HCPs but not the one who is [employer] WORK[employer]. Ongoing delusions and increasing paranoid beliefs, however, patient c/o being too sleepy despite low dose Risperdal--will checlk labs including CBZ levels and hold on medication increase. Has been refusing Neurontin off and on--will hold and reevaluate. Will lower Trazodone to one maximum (without repeat) and consider Hydroxyzine 04/27:Continue current regimen and plans 04/28:Continue current regimen and plans. Verify lisinopril with pharmacy 04/29 Long meeting with patient who presents as increasingly paranoid and depressed, feeling hopeless/helpless about situation and reporting she doesn't trust food as she continues to perceive world thru paranoid lens. Increase Risperdal slowly given c/o sedation. Reviewing antidepressant options 05/01 DC Neurontin Update HCP on results and tx recommendations. Collateral from neurologist if patient/HCP are able to identify 05/02 continue current medications. appears less paranoid, VS stable. taking medications. 05/03 continue medications and tx plan 05/06 05/07 discussed CBZ refusal, commits to taking after receiving education presents w/ongoing delusions and rejects idea of returning to apt or having dtr as [employer] FE[employer] WORK[employer] 05/08-Will simplify regime to limit side effects (sedation and cognitive), to allow dose modification and address potential refusal of additions Family meeting this week 05/11/2025: No changes to current plan. Adherent with current med regimen and paranoia slowly decreasing 05/12: no changes Reason for continued inpatient stay Substantial Risk for: inability to function Time Spent With Patient Time: Total time managing care of this patient today ____ minutes.
[2025-05-12 08:21] LABS: Creatinine Clr Calc Pharmacy 92.1; Estimated Glomerular Filt Rate > 60
[2025-05-12 08:34] VITALS: BP 131/61; PULSE 78; RESP 18; TEMP 36.8; O2SAT 100
[2025-05-12] MEDS: metroNIDAZOLE 0.75 % Gel 45 GM TUBE 1 APPL TOPICAL ×2 (08:35→20:40)
[2025-05-12] MEDS: Metoprolol Succinate ER 25 MG TAB.ER.24H PO (08:35)
[2025-05-12 20:00] VITALS: BP 121/57; PULSE 78; RESP 16; TEMP 36.8; O2SAT 95
[2025-05-12 20:39] VITALS: BP 121/57
[2025-05-13 08:00] VITALS: BP 140/75; PULSE 85; RESP 17; TEMP 37.2; O2SAT 96
[2025-05-13] MEDS: metroNIDAZOLE 0.75 % Gel 45 GM TUBE 1 APPL TOPICAL ×2 (08:46→21:01)
[2025-05-13 08:48] VITALS: BP 140/75; PULSE 85
[2025-05-13] MEDS: Metoprolol Succinate ER 25 MG TAB.ER.24H PO (08:48)
--- NOTE | 2025-05-13 08:48 | P.PNPSI_ITS ---
Subjective Subjective Date of Service: 05/13/25 Reason For Visit: psychotic decompensation Subjective Notes: Conditional Voluntary Healthcare Proxy: Yes Guardianship: No Medical Problems Affecting Mental Status: Yes Interim History: Met with patient. Discussed with Nursing. Less irritable. remains paranoid that people have impersonated her and adjusting her food/diet. Does OKl with supportive listening. Denies feeling depressed outside of feeling targeted. Denies SI. Sleeping well. Eating okay. No med concerns. Denies SI. Largely adherent with medications including Tegretol and Risperdal etc.. Medication Compliance: Yes Side effects from medications: No Attending Groups: No Review of Systems Acute medical concerns: No Medical Review of Systems: unchanged Review of Systems Review of Systems no changes Yes all other systems are reviewed and are negative (as noted) and Other; No unobtainable due to endotracheal tube, Unobtainable due to mental condition or Unobtainable due to mental status Reports confusion Psychiatric: Reports anxiety, Reports confusion, Reports depression, Reports difficulty concentrating, Reports hopelessness, Reports anhedonia, Reports paranoia, Reports visual hallucinations and Reports hallucinations Mental Status Exam Mental Status Exam Narrative: Appearance: fair hygiene, appropriate attire Behavior:calm Psychomotor: mild retardation noted Speech: some latency response, normal rate/rhythm/soft volume TP: goal directed overall TC: less preoccupied by persecutory delusional ideas but still present Mood: Im ok Affect: constricted but reports she feels less anxious/depressed SI/HI: denies VH/AH: did not appear internally stimulated Insight/judgment: limited, improving x 2. Memory/cog: alert, oriented x 3, difficulty recalling information provided (ie test results). Diagnostics Vital Signs (24Hr): Vital Signs - 24 hr 05/12/25 20:00 05/12/25 20:39 Temperature 98.2 F Pulse Rate 78 Respiratory Rate 16 Blood Pressure 121/57 L 121/57 L Pulse Oximetry 95 Oxygen Delivery Method Room Air BMI result Body Mass Index 38.3 Labs 04/20/25 19:51 05/12/25 07:57 Labs: Laboratory Results - last 48 hr 05/12/25 07:57 Creatinine 0.74 Estim Creat Clear Calc 92.1 Estimated GFR > 60 Imaging Radiology Impressions: ITS Impressions Head CT 04/29/25 14:09 IMPRESSION: Large area of encephalomalacia in the right parietal lobe probably representing an old infarct. Smaller subcortical white matter low attenuation in the left parietal lobe also probably representing an old infarct. Electronically signed by: Sadia Delatorre MD 04/29/2025 02:36 PM EST [facility] Pelvis Ultrasound 04/29/25 16:58 IMPRESSION: No left fundal or left adnexal mass is identified. Upon further review of the prior CT scan, the left ovarian vein drains from the left adnexal mass that was described on the prior study which is most consistent with left ovary abutting the left uterine fundus. 4.4 cm simple cyst of the right ovary. Follow-up ultrasound in 3-6 month. Electronically signed by: Cheo Antonio MD 04/29/2025 05:39 PM EST [facility] Medications Medications Current Medications Acetaminophen (Acetaminophen 325 Mg Tablet) 650 mg PO Q6H PRN PRN Reason: Headache/Pain, Scale 1-10 Last Admin: 05/09/25 09:13 Dose: 650 mg Al Hydroxide/Mg Hydroxide (Magnesium Hydrox/Alum Hydrox 30 Ml Oral.Susp) 30 ml PO Q6H PRN PRN Reason: Heartburn/Nausea Apixaban (Apixaban 5 Mg Tablet) 5 mg PO BID [facility] Last Admin: 05/12/25 20:40 Dose: 5 mg Carbamazepine (Carbamazepine 200 Mg Tablet) 400 mg PO BID [facility] Last Admin: 05/12/25 20:39 Dose: 400 mg Furosemide (Furosemide 20 Mg Tablet) 20 mg PO DAILY [facility]; Protocol Last Admin: 05/12/25 08:35 Dose: 20 mg Hydroxyzine HCl (Hydroxyzine Hcl 10 Mg Tablet) 10 mg PO Q6H PRN PRN Reason: Anxiety Lisinopril (Lisinopril 10 Mg Tablet) 10 mg PO DAILY [facility]; Protocol Last Admin: 05/12/25 08:35 Dose: 10 mg Magnesium Hydroxide (Milk Of Magnesia 30 Ml Oral.Susp) 30 ml PO DAILY PRN PRN Reason: Constipation Last Admin: 05/09/25 15:17 Dose: 30 ml Metformin HCl (Metformin Hcl 500 Mg Tablet) 500 mg PO DAILY [facility] Last Admin: 05/12/25 08:36 Dose: 500 mg Metoprolol Succinate (Metoprolol Succinate Er 25 Mg Tab.Er.24h) 25 mg PO DAILY [facility]; Protocol Last Admin: 05/12/25 08:35 Dose: 25 mg Metronidazole (Metronidazole 0.75 % Gel 45 Gm Tube) 1 appl TOPICAL BID [facility] Stop: 05/17/25 20:59 Last Admin: 05/12/25 20:40 Dose: 1 appl Mirtazapine (Mirtazapine 7.5 Mg Tablet) 7.5 mg PO BEDTIME [facility] Last Admin: 05/12/25 20:39 Dose: 7.5 mg Nicotine (Nicotine 21 Mg Patch.Td24) 21 mg TRANSDERMA DAILY PRN PRN Reason: smoking cessation Nicotine Polacrilex (Nicotine Polacrilex 2 Mg Gum) 4 mg BUCCAL Q2H PRN PRN Reason: Nicotine Cravings Ondansetron HCl (Ondansetron Odt 4 Mg Tab.Rapdis) 4 mg TRANSLINGU Q6H PRN PRN Reason: Nausea and Vomiting Last Admin: 04/25/25 13:08 Dose: 4 mg Prazosin HCl (Prazosin Hcl 1 Mg Capsule) 1 mg PO BEDTIME [facility]; Protocol Last Admin: 05/12/25 20:39 Dose: 1 mg Risperidone (Risperidone 0.5 Mg Tablet) 0.5 mg PO DAILY [facility] Last Admin: 05/12/25 08:37 Dose: 0.5 mg Risperidone (Risperidone 2 Mg Tablet) 2 mg PO BEDTIME [facility] Senna (Sennosides 8.6 Mg Tablet) 17.2 mg PO BEDTIME [facility] Last Admin: 05/12/25 20:37 Dose: 17.2 mg Sertraline HCl (Sertraline Hcl 100 Mg Tablet) 200 mg PO DAILY [facility] Last Admin: 05/12/25 08:36 Dose: 200 mg Allergies Allergies Allergy/AdvReac Type Severity Reaction Status Date / Time Penicillins AdvReac Unknown Unknown Verified 04/18/25 17:49 shellfish derived (shellfish) AdvReac Unknown Unknown Verified 04/18/25 16:56 blueberries AdvReac Unknown Unknown Uncoded 04/18/25 16:56 Assessment & Plan Assessment & Plan (1) Psychosis: Qualifiers: Psychosis type: unspecified psychosis type Qualified Code(s): F29 - Unspecified psychosis not due to a substance or known physiological condition Status: Acute Code(s): F29 - Unspecified psychosis not due to a substance or known physiological condition (2) Mild neurocognitive disorder due to another medical condition: Status: Acute Code(s): F06.70 - Mild neurocognitive disorder due to known physiological condition without behavioral disturbance (3) Seizure disorder as sequela of cerebrovascular accident: Status: Acute Code(s): I69.398 - Other sequelae of cerebral infarction; G40.909 - Epilepsy, unspecified, not intractable, without status epilepticus (4) CVD (cerebrovascular disease): Status: Acute Code(s): I67.9 - Cerebrovascular disease, unspecified (5) Rosacea: Status: Acute Code(s): L71.9 - Rosacea, unspecified (6) 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 She has not been treated for psychotic symptoms and only prescribed been mostly untreated in the sense that she has been prescribed only antidepressants, despite the ongoing and insidious nature of her current symptomatology. She denies SI/HI. She has agreed to receive treatment in a voluntary basis. Collateral information from daughter reviewed- daughter who also confirms the onset and trajectory of her symptoms and confirmed that also it has been difficult to assist patient due to her paranoid, there are no safety concerns in terms of suicidal or homicidal ideation or violence towards others, however significant impairment in self care and distress associated with delusions/hallucinations that have affected her being open to get help from family. We discussed risks, benefits and alternative treatment options. Pt agreed to start risperidone 0.5mg po BID and to titration. PLAN Legal CV, 15 minutes checks 2. start risperidone 0.5mg po BID. Continue sertraline 200mg po daily. contiue prazosin. Refused Gabapentin again, took risperdal but c/o excessive sedation despite small dose and will hold increase to avoiod making her more sedated/drowsy. 3. OT assessment: cognitive/memory/functional 4. family meeting 5-coord care, aftercare and d/c planning as appropriate for safe transition 04/20: If N/V unresolved will consult medicine. Otherwise continue current management and treatment plan. 04/21: continue current management and treatment plan. Adjust Risperidone slowly given some sedation objectively. 04/26 HCP invoked, patient reminded but seems to have little interest and says she itrusts dtrs who are HCPs but not the one who is [employer]. Ongoing delusions and increasing paranoid beliefs, however, patient c/o being too sleepy despite low dose Risperdal--will checlk labs including CBZ levels and hold on medication increase. Has been refusing Neurontin off and on--will hold and reevaluate. Will lower Trazodone to one maximum (without repeat) and consider Hydroxyzine 04/27:Continue current regimen and plans 04/28:Continue current regimen and plans. Verify lisinopril with pharmacy 04/29 Long meeting with patient who presents as increasingly paranoid and depressed, feeling hopeless/helpless about situation and reporting she doesn't trust food as she continues to perceive world thru paranoid lens. Increase Risperdal slowly given c/o sedation. Reviewing antidepressant options 05/01 DC Neurontin Update HCP on results and tx recommendations. Collateral from neurologist if patient/HCP are able to identify 05/02 continue current medications. appears less paranoid, VS stable. taking medications. 05/03 continue medications and tx plan 05/06 05/07 discussed CBZ refusal, commits to taking after receiving education presents w/ongoing delusions and rejects idea of returning to apt or having dtr as [employer] MA[employer] 05/08-Will simplify regime to limit side effects (sedation and cognitive), to allow dose modification and address potential refusal of additions Family meeting this week 05/10--Family meeting discussed placement 05/11/2025: No changes to current plan. Adherent with current med regimen and paranoia slowly decreasing 05/12: no changes Risperdal 0.5 day and 2 mg Increase Remeron Reason for continued inpatient stay Substantial Risk for: inability to function Time Spent With Patient Time: Total time managing care of this patient today _25___ minutes.
[2025-05-13 20:00] VITALS: BP 146/70; PULSE 70; RESP 18; TEMP 36.8; O2SAT 95
[2025-05-14 08:00] VITALS: BP 141/63; PULSE 81; RESP 18; TEMP 36.6; O2SAT 97
[2025-05-14] MEDS: Metoprolol Succinate ER 25 MG TAB.ER.24H PO (08:14)
[2025-05-14] MEDS: metroNIDAZOLE 0.75 % Gel 45 GM TUBE 1 APPL TOPICAL ×2 (08:52→22:25)
--- NOTE | 2025-05-14 17:02 | P.PNPSI_ITS ---
Subjective Subjective Date of Service: 05/14/25 Reason For Visit: psychotic decompensation Interim History: Refused Tegretol again after repeatedly educated as to indications and after repeated commitment from patient to take full dose. States she feels too sleepy with medications, cannot take 400 during day but would do so at night. I suggested she take 2 doses of 200 mg each during the day and 400 mg at night, which she agrees to doing. Asks when do I think arrangements will be in place for return to community. I said meeting she had re: discharge/community services/supports was postponed. 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 made peace with returning to [facility] with [employer] (not the daughter who lives near) Review of Systems Review of Systems no changes Yes all other systems are reviewed and are negative (as noted) and Other; No unobtainable due to endotracheal tube, Unobtainable due to mental condition or Unobtainable due to mental status Reports confusion Psychiatric: Reports anxiety, Reports confusion, Reports depression, Reports difficulty concentrating, Reports hopelessness, Reports anhedonia, Reports paranoia, Reports visual hallucinations and Reports hallucinations Diagnostics Vital Signs (24Hr): Vital Signs - 24 hr 05/13/25 20:00 05/14/25 08:00 Temperature 98.2 F 97.9 F Pulse Rate 70 81 Respiratory Rate 18 18 Blood Pressure 146/70 H 141/63 H Pulse Oximetry 95 97 Oxygen Delivery Method Room Air BMI result Body Mass Index 38.3 Labs 04/20/25 19:51 05/12/25 07:57 Imaging Radiology Impressions: ITS Impressions Head CT 04/29/25 14:09 IMPRESSION: Large area of encephalomalacia in the right parietal lobe probably representing an old infarct. Smaller subcortical white matter low attenuation in the left parietal lobe also probably representing an old infarct. Electronically signed by: Sadia Delatorre MD 04/29/2025 02:36 PM [facility] Pelvis Ultrasound 04/29/25 16:58 IMPRESSION: No left fundal or left adnexal mass is identified. Upon further review of the prior CT scan, the left ovarian vein drains from the left adnexal mass that was described on the prior study which is most consistent with left ovary abutting the left uterine fundus. 4.4 cm simple cyst of the right ovary. Follow-up ultrasound in 3-6 month. Electronically signed by: Cheo Antonio MD 04/29/2025 05:39 PM EST Medications Medications Current Medications Acetaminophen (Acetaminophen 325 Mg Tablet) 650 mg PO Q6H PRN PRN Reason: Headache/Pain, Scale 1-10 Last Admin: 05/09/25 09:13 Dose: 650 mg Al Hydroxide/Mg Hydroxide (Magnesium Hydrox/Alum Hydrox 30 Ml Oral.Susp) 30 ml PO Q6H PRN PRN Reason: Heartburn/Nausea Apixaban (Apixaban 5 Mg Tablet) 5 mg PO BID [facility] Last Admin: 05/14/25 08:13 Dose: 5 mg Carbamazepine (Carbamazepine 200 Mg Tablet) 400 mg PO BID [facility] Last Admin: 05/14/25 08:13 Dose: 400 mg Furosemide (Furosemide 20 Mg Tablet) 20 mg PO DAILY [facility]; Protocol Last Admin: 05/14/25 08:13 Dose: 20 mg Hydroxyzine HCl (Hydroxyzine Hcl 10 Mg Tablet) 10 mg PO Q6H PRN PRN Reason: Anxiety Lisinopril (Lisinopril 10 Mg Tablet) 10 mg PO DAILY [facility]; Protocol Last Admin: 05/14/25 08:13 Dose: 10 mg Magnesium Hydroxide (Milk Of Magnesia 30 Ml Oral.Susp) 30 ml PO DAILY PRN PRN Reason: Constipation Last Admin: 05/09/25 15:17 Dose: 30 ml Metformin HCl (Metformin Hcl 500 Mg Tablet) 500 mg PO DAILY [facility] Last Admin: 05/14/25 08:13 Dose: 500 mg Metoprolol Succinate (Metoprolol Succinate Er 25 Mg Tab.Er.24h) 25 mg PO DAILY [facility]; Protocol Last Admin: 05/14/25 08:14 Dose: 25 mg Metronidazole (Metronidazole 0.75 % Gel 45 Gm Tube) 1 appl TOPICAL BID [facility] Stop: 05/17/25 20:59 Last Admin: 05/14/25 08:52 Dose: 1 appl Mirtazapine (Mirtazapine 7.5 Mg Tablet) 7.5 mg PO BEDTIME [facility] Last Admin: 05/13/25 20:56 Dose: 7.5 mg Nicotine (Nicotine 21 Mg Patch.Td24) 21 mg TRANSDERMA DAILY PRN PRN Reason: smoking cessation Nicotine Polacrilex (Nicotine Polacrilex 2 Mg Gum) 4 mg BUCCAL Q2H PRN PRN Reason: Nicotine Cravings Ondansetron HCl (Ondansetron Odt 4 Mg Tab.Rapdis) 4 mg TRANSLINGU Q6H PRN PRN Reason: Nausea and Vomiting Last Admin: 05/14/25 10:25 Dose: 4 mg Prazosin HCl (Prazosin Hcl 1 Mg Capsule) 1 mg PO BEDTIME [facility]; Protocol Last Admin: 05/13/25 20:56 Dose: 1 mg Risperidone (Risperidone 0.5 Mg Tablet) 0.5 mg PO DAILY [facility] Last Admin: 05/14/25 08:13 Dose: 0.5 mg Risperidone (Risperidone 2 Mg Tablet) 2 mg PO BEDTIME [facility] Last Admin: 05/13/25 20:56 Dose: 2 mg Senna (Sennosides 8.6 Mg Tablet) 17.2 mg PO BEDTIME [facility] Last Admin: 05/13/25 20:56 Dose: 17.2 mg Sertraline HCl (Sertraline Hcl 100 Mg Tablet) 200 mg PO DAILY [facility] Last Admin: 05/14/25 08:12 Dose: 200 mg Allergies Allergies Allergy/AdvReac Type Severity Reaction Status Date / Time Penicillins AdvReac Unknown Unknown Verified 04/18/25 17:49 shellfish derived (shellfish) AdvReac Unknown Unknown Verified 04/18/25 16:56 blueberries AdvReac Unknown Unknown Uncoded 04/18/25 16:56 Assessment & Plan Assessment & Plan (1) Mild neurocognitive disorder due to another medical condition: Status: Acute Code(s): F06.70 - Mild neurocognitive disorder due to known physiological condition without behavioral disturbance (2) Type 2 diabetes mellitus: Status: Acute Code(s): E11.9 - Type 2 diabetes mellitus without complications (3) Cholelithiasis: Status: Acute Code(s): K80.20 - Calculus of gallbladder without cholecystitis without obstruction (4) Obesity: Status: Acute Code(s): E66.9 - Obesity, unspecified (5) CVD (cerebrovascular disease): Status: Acute Code(s): I67.9 - Cerebrovascular disease, unspecified (6) 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): Status: Acute Code(s): I63.9 - Cerebral infarction, unspecified; F06.31 - Mood disorder due to known physiological condition with depressive features (7) Psychosis: Qualifiers: Psychosis type: unspecified psychosis type Qualified Code(s): F29 - Unspecified psychosis not due to a substance or known physiological condition Status: Acute Code(s): F29 - Unspecified psychosis not due to a substance or known physiological condition (8) Seizure disorder as sequela of cerebrovascular accident: Status: Acute Code(s): I69.398 - Other sequelae of cerebral infarction; G40.909 - Epilepsy, unspecified, not intractable, without status epilepticus (9) Rosacea: Status: Acute Code(s): L71.9 - Rosacea, unspecified Plan 64-year-old female with past medical history as listed below who presented to the emergency with delusions. Patient was admitted here for further stabilization. She is being seen today in follow up for nausea and vomiting. PTSD/social anxiety/major depressive disorder/agoraphobia/PTSD/delusions Treatment per psychiatric team Possible Rosacea Will treat with Metrogel BID for 7 days to see if there is improvement. Patient will need outpatient dermatology. Ovarian cyst Pelvic ultrasound revealed 4.4 cm simple cyst of the right ovary. Will need Follow-up ultrasound in 3-6 CA 125 negative Will need outpatient follow up for Ovarian cyst Cholelithiasis Workup revealed cholelithiasis, normal liver function We will need outpatient follow up History of CVA/hypertension/history of clotting disorder Continue on Lasix, Eliquis, and Toprol. Restart lisinopril due to elevated blood pressures. Cholesterol panel within normal, HDL low. Epilepsy Continue on Tegretol b.i.d., gabapentin at bedtime Type 2 diabetes Continue metformin daily Recent A1c 5.8 Migraines Tylenol as needed Thank you for allowing me to participate in the care of this patient. Will follow with you, please notify medical provider with any changes in condition or concerns. Reason for continued inpatient stay Substantial Risk for: inability to function and med/psych decompensation Time Spent With Patient Time: Total time managing care of this patient today ____ minutes.
[2025-05-14 20:00] VITALS: BP 101/61; PULSE 82; RESP 16; TEMP 37.2; O2SAT 92
--- NOTE | 2025-05-15 03:05 | PC.NURSE ---
Pt continues to take 200 out of the 400mg of ordered HS Carbamazepine.
[2025-05-15 08:40] VITALS: BP 129/60; PULSE 82; TEMP 36.6; O2SAT 94
[2025-05-15] MEDS: metroNIDAZOLE 0.75 % Gel 45 GM TUBE 1 APPL TOPICAL ×2 (08:41→20:11)
[2025-05-15] MEDS: Metoprolol Succinate ER 25 MG TAB.ER.24H PO (08:43)
--- NOTE | 2025-05-15 17:49 | HO.PSYCHPN ---
Subjective Subjective Date of Service: 05/15/25 Reason For Visit: psychotic decompensation Healthcare Proxy: Yes Medical Problems Affecting Mental Status: Yes Interim History: Refused Tegretol again after repeatedly educated as to indications and after repeated commitment from patient to take full dose. States she feels too sleepy with medications, cannot take 400 during day but would do so at night. I suggested she take 2 doses of 200 mg each during the day and 400 mg at night, which she agrees to doing. Asks when do I think arrangements will be in place for return to community. I said meeting she had re: discharge/community services/supports was postponed. 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 made peace with returning to apt with [employer] (not the daughter who lives near) Side effects from medications: Yes Attending Groups: Intermittent Review of Systems Seizure do, patient refusing AED Medical Review of Systems: unchanged Mental Status Exam Mental Status Exam Narrative: Appearance: fair hygiene, appropriate attire Behavior:calm, pleasant. Visible in DR Psychomotor: mild retardation noted Speech: some latency response, normal rate/rhythm/soft volume TP: goal directed overall TC: less preoccupied or verbal re: persecutory delusional ideas Mood: Im feeling OK Affect: constricted, less anxious/distraught SI/HI: denies VH/AH: no and did not appear internally stimulated Insight/judgment: limited x 2. Memory/cog: alert, oriented x 3, has difficulty recalling information provided (ie test results). Diagnostics Vital Signs (24Hr): Vital Signs - 24 hr 05/14/25 20:00 05/15/25 08:40 Temperature 98.9 F 97.8 F Pulse Rate 82 82 Respiratory Rate 16 Blood Pressure 101/61 129/60 Pulse Oximetry 92 94 Oxygen Delivery Method Room Air Room Air BMI result Body Mass Index 38.3 Labs 04/20/25 19:51 05/12/25 07:57 Imaging Radiology Impressions: ITS Impressions Head CT 04/29/25 14:09 IMPRESSION: Large area of encephalomalacia in the right parietal lobe probably representing an old infarct. Smaller subcortical white matter low attenuation in the left parietal lobe also probably representing an old infarct. Electronically signed by: Sadia Delatorre MD 04/29/2025 02:36 PM [facility] [place] 04/29/25 16:58 IMPRESSION: No left fundal or left adnexal mass is identified. Upon further review of the prior CT scan, the left ovarian vein drains from the left adnexal mass that was described on the prior study which is most consistent with left ovary abutting the left uterine fundus. 4.4 cm simple cyst of the right ovary. Follow-up ultrasound in 3-6 month. Electronically signed by: Cheo Antonio MD 04/29/2025 05:39 PM [facility] Medications Medications Current Medications Acetaminophen (Acetaminophen 325 Mg Tablet) 650 mg PO Q6H PRN PRN Reason: Headache/Pain, Scale 1-10 Last Admin: 05/09/25 09:13 Dose: 650 mg Al Hydroxide/Mg Hydroxide (Magnesium Hydrox/Alum Hydrox 30 Ml Oral.Susp) 30 ml PO Q6H PRN PRN Reason: Heartburn/Nausea Apixaban (Apixaban 5 Mg Tablet) 5 mg PO BID [facility] Last Admin: 05/15/25 08:43 Dose: 5 mg Carbamazepine (Carbamazepine 200 Mg Tablet) 400 mg PO BID [facility] Last Admin: 05/15/25 08:42 Dose: 200 mg Furosemide (Furosemide 20 Mg Tablet) 20 mg PO DAILY [facility]; Protocol Last Admin: 05/15/25 08:42 Dose: 20 mg Hydroxyzine HCl (Hydroxyzine Hcl 10 Mg Tablet) 10 mg PO Q6H PRN PRN Reason: Anxiety Lisinopril (Lisinopril 10 Mg Tablet) 10 mg PO DAILY [facility]; Protocol Last Admin: 05/15/25 08:42 Dose: 10 mg Magnesium Hydroxide (Milk Of Magnesia 30 Ml Oral.Susp) 30 ml PO DAILY PRN PRN Reason: Constipation Last Admin: 05/09/25 15:17 Dose: 30 ml Metformin HCl (Metformin Hcl 500 Mg Tablet) 500 mg PO DAILY [facility] Last Admin: 05/15/25 08:43 Dose: 500 mg Metoprolol Succinate (Metoprolol Succinate Er 25 Mg Tab.Er.24h) 25 mg PO DAILY [facility]; Protocol Last Admin: 05/15/25 08:43 Dose: 25 mg Metronidazole (Metronidazole 0.75 % Gel 45 Gm Tube) 1 appl TOPICAL BID [facility] Stop: 05/17/25 20:59 Last Admin: 05/15/25 08:41 Dose: 1 appl Mirtazapine (Mirtazapine 7.5 Mg Tablet) 7.5 mg PO BEDTIME [facility] Last Admin: 05/14/25 20:14 Dose: 7.5 mg Nicotine (Nicotine 21 Mg Patch.Td24) 21 mg TRANSDERMA DAILY PRN PRN Reason: smoking cessation Nicotine Polacrilex (Nicotine Polacrilex 2 Mg Gum) 4 mg BUCCAL Q2H PRN PRN Reason: Nicotine Cravings Ondansetron HCl (Ondansetron Odt 4 Mg Tab.Rapdis) 4 mg TRANSLINGU Q6H PRN PRN Reason: Nausea and Vomiting Last Admin: 05/14/25 10:25 Dose: 4 mg Prazosin HCl (Prazosin Hcl 1 Mg Capsule) 1 mg PO BEDTIME [facility]; Protocol Last Admin: 05/14/25 20:14 Dose: 1 mg Risperidone (Risperidone 0.5 Mg Tablet) 0.5 mg PO DAILY [facility] Last Admin: 05/15/25 08:42 Dose: 0.5 mg Risperidone (Risperidone 2 Mg Tablet) 2 mg PO BEDTIME [facility] Last Admin: 05/14/25 20:14 Dose: 2 mg Senna (Sennosides 8.6 Mg Tablet) 17.2 mg PO BEDTIME [facility] Last Admin: 05/14/25 20:13 Dose: 17.2 mg Sertraline HCl (Sertraline Hcl 100 Mg Tablet) 200 mg PO DAILY [facility] Last Admin: 05/15/25 08:42 Dose: 200 mg Allergies Allergies Allergy/AdvReac Type Severity Reaction Status Date / Time Penicillins AdvReac Unknown Unknown Verified 04/18/25 17:49 shellfish derived (shellfish) AdvReac Unknown Unknown Verified 04/18/25 16:56 blueberries AdvReac Unknown Unknown Uncoded 04/18/25 16:56 Assessment & Plan Assessment & Plan (1) Psychosis: Qualifiers: Psychosis type: unspecified psychosis type Qualified Code(s): F29 - Unspecified psychosis not due to a substance or known physiological condition Status: Acute Code(s): F29 - Unspecified psychosis not due to a substance or known physiological condition 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): Status: Acute Code(s): I63.9 - Cerebral infarction, unspecified; F06.31 - Mood disorder due to known physiological condition with depressive features (3) Mild neurocognitive disorder due to another medical condition: Status: Acute Code(s): F06.70 - Mild neurocognitive disorder due to known physiological condition without behavioral disturbance (4) Seizure disorder as sequela of cerebrovascular accident: Status: Acute Code(s): I69.398 - Other sequelae of cerebral infarction; G40.909 - Epilepsy, unspecified, not intractable, without status epilepticus (5) CVD (cerebrovascular disease): Status: Acute Code(s): I67.9 - Cerebrovascular disease, unspecified (6) Cholelithiasis: Status: Acute Code(s): K80.20 - Calculus of gallbladder without cholecystitis without obstruction (7) Rosacea: Status: Acute Code(s): L71.9 - Rosacea, unspecified (8) Type 2 diabetes mellitus: Status: Acute Code(s): E11.9 - Type 2 diabetes mellitus without complications (9) Obesity: Status: Acute Code(s): E66.9 - Obesity, unspecified Plan 64-year-old female with past medical history as listed below who presented to the emergency with delusions. Patient was admitted here for further stabilization. She is being seen today in follow up for nausea and vomiting. PTSD/social anxiety/major depressive disorder/agoraphobia/PTSD/delusions Treatment per psychiatric team Possible Rosacea Will treat with Metrogel BID for 7 days to see if there is improvement. Patient will need outpatient dermatology. Ovarian cyst Pelvic ultrasound revealed 4.4 cm simple cyst of the right ovary. Will need Follow-up ultrasound in 3-6 CA 125 negative Will need outpatient follow up for Ovarian cyst Cholelithiasis Workup revealed cholelithiasis, normal liver function We will need outpatient follow up History of CVA/hypertension/history of clotting disorder Continue on Lasix, Eliquis, and Toprol. Restart lisinopril due to elevated blood pressures. Cholesterol panel within normal, HDL low. Epilepsy Continue on Tegretol b.i.d., gabapentin at bedtime Type 2 diabetes Continue metformin daily Recent A1c 5.8 Migraines Tylenol as needed Thank you for allowing me to participate in the care of this patient. Will follow with you, please notify medical provider with any changes in condition or concerns. Reason for continued inpatient stay Substantial Risk for: inability to function, rapid decompensation and med/psych decompensation Time Spent With Patient Time: Total time managing care of this patient today ____ minutes.
--- NOTE | 2025-05-15 18:00 | P.PNPSI_ITS ---
Subjective Subjective Reason For Visit: psychotic decompensation Diagnostics Vital Signs (24Hr): Vital Signs - 24 hr 05/14/25 20:00 05/15/25 08:40 Temperature 98.9 F 97.8 F Pulse Rate 82 82 Respiratory Rate 16 Blood Pressure 101/61 129/60 Pulse Oximetry 92 94 Oxygen Delivery Method Room Air Room Air BMI result Body Mass Index 38.3 Labs 04/20/25 19:51 05/12/25 07:57 Imaging Radiology Impressions: ITS Impressions Head CT 04/29/25 14:09 IMPRESSION: Large area of encephalomalacia in the right parietal lobe probably representing an old infarct. Smaller subcortical white matter low attenuation in the left parietal lobe also probably representing an old infarct. Electronically signed by: Sadia Delatorre MD 04/29/2025 02:36 PM EST [facility] Pelvis Ultrasound 04/29/25 16:58 IMPRESSION: No left fundal or left adnexal mass is identified. Upon further review of the prior CT scan, the left ovarian vein drains from the left adnexal mass that was described on the prior study which is most consistent with left ovary abutting the left uterine fundus. 4.4 cm simple cyst of the right ovary. Follow-up ultrasound in 3-6 month. Electronically signed by: Cheo Antonio MD 04/29/2025 05:39 PM EST [facility] Medications Medications Current Medications Acetaminophen (Acetaminophen 325 Mg Tablet) 650 mg PO Q6H PRN PRN Reason: Headache/Pain, Scale 1-10 Last Admin: 05/09/25 09:13 Dose: 650 mg Al Hydroxide/Mg Hydroxide (Magnesium Hydrox/Alum Hydrox 30 Ml Oral.Susp) 30 ml PO Q6H PRN PRN Reason: Heartburn/Nausea Apixaban (Apixaban 5 Mg Tablet) 5 mg PO BID [facility] [place] Last Admin: 05/15/25 08:43 Dose: 5 mg Carbamazepine (Carbamazepine 200 Mg Tablet) 400 mg PO BID [facility] [place] Last Admin: 05/15/25 08:42 Dose: 200 mg Furosemide (Furosemide 20 Mg Tablet) 20 mg PO DAILY [facility]; Protocol Last Admin: 05/15/25 08:42 Dose: 20 mg Hydroxyzine HCl (Hydroxyzine Hcl 10 Mg Tablet) 10 mg PO Q6H PRN PRN Reason: Anxiety Lisinopril (Lisinopril 10 Mg Tablet) 10 mg PO DAILY [facility]; Protocol Last Admin: 05/15/25 08:42 Dose: 10 mg Magnesium Hydroxide (Milk Of Magnesia 30 Ml Oral.Susp) 30 ml PO DAILY PRN PRN Reason: Constipation Last Admin: 05/09/25 15:17 Dose: 30 ml Metformin HCl (Metformin Hcl 500 Mg Tablet) 500 mg PO DAILY [facility] Last Admin: 05/15/25 08:43 Dose: 500 mg Metoprolol Succinate (Metoprolol Succinate Er 25 Mg Tab.Er.24h) 25 mg PO DAILY [facility]; Protocol Last Admin: 05/15/25 08:43 Dose: 25 mg Metronidazole (Metronidazole 0.75 % Gel 45 Gm Tube) 1 appl TOPICAL BID [facility] Stop: 05/17/25 20:59 Last Admin: 05/15/25 08:41 Dose: 1 appl Mirtazapine (Mirtazapine 7.5 Mg Tablet) 7.5 mg PO BEDTIME [facility] Last Admin: 05/14/25 20:14 Dose: 7.5 mg Nicotine (Nicotine 21 Mg Patch.Td24) 21 mg TRANSDERMA DAILY PRN PRN Reason: smoking cessation Nicotine Polacrilex (Nicotine Polacrilex 2 Mg Gum) 4 mg BUCCAL Q2H PRN PRN Reason: Nicotine Cravings Ondansetron HCl (Ondansetron Odt 4 Mg Tab.Rapdis) 4 mg TRANSLINGU Q6H PRN PRN Reason: Nausea and Vomiting Last Admin: 05/14/25 10:25 Dose: 4 mg Prazosin HCl (Prazosin Hcl 1 Mg Capsule) 1 mg PO BEDTIME [facility]; Protocol Last Admin: 05/14/25 20:14 Dose: 1 mg Risperidone (Risperidone 0.5 Mg Tablet) 0.5 mg PO DAILY [facility] Last Admin: 05/15/25 08:42 Dose: 0.5 mg Risperidone (Risperidone 2 Mg Tablet) 2 mg PO BEDTIME [facility] Last Admin: 05/14/25 20:14 Dose: 2 mg Senna (Sennosides 8.6 Mg Tablet) 17.2 mg PO BEDTIME [facility] Last Admin: 05/14/25 20:13 Dose: 17.2 mg Sertraline HCl (Sertraline Hcl 100 Mg Tablet) 200 mg PO DAILY [facility] Last Admin: 05/15/25 08:42 Dose: 200 mg Allergies Allergies Allergy/AdvReac Type Severity Reaction Status Date / Time Penicillins AdvReac Unknown Unknown Verified 04/18/25 17:49 shellfish derived (shellfish) AdvReac Unknown Unknown Verified 04/18/25 16:56 blueberries AdvReac Unknown Unknown Uncoded 04/18/25 16:56 Assessment & Plan Assessment & Plan (1) Psychosis: Qualifiers: Psychosis type: unspecified psychosis type Qualified Code(s): F29 - Unspecified psychosis not due to a substance or known physiological condition Status: Acute Code(s): F29 - Unspecified psychosis not due to a substance or known physiological condition 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): Status: Acute Code(s): I63.9 - Cerebral infarction, unspecified; F06.31 - Mood disorder due to known physiological condition with depressive features (3) Mild neurocognitive disorder due to another medical condition: Status: Acute Code(s): F06.70 - Mild neurocognitive disorder due to known physiological condition without behavioral disturbance (4) Seizure disorder as sequela of cerebrovascular accident: Status: Acute Code(s): I69.398 - Other sequelae of cerebral infarction; G40.909 - Epilepsy, unspecified, not intractable, without status epilepticus (5) CVD (cerebrovascular disease): Status: Acute Code(s): I67.9 - Cerebrovascular disease, unspecified (6) Cholelithiasis: Status: Acute Code(s): K80.20 - Calculus of gallbladder without cholecystitis without obstruction (7) Rosacea: Status: Acute Code(s): L71.9 - Rosacea, unspecified (8) Type 2 diabetes mellitus: Status: Acute Code(s): E11.9 - Type 2 diabetes mellitus without complications (9) Obesity: Status: Acute Code(s): E66.9 - Obesity, unspecified Plan 64-year-old female with past medical history as listed below who presented to the emergency with delusions. Patient was admitted here for further stabilization. She is being seen today in follow up for nausea and vomiting. PTSD/social anxiety/major depressive disorder/agoraphobia/PTSD/delusions Treatment per psychiatric team Possible Rosacea Will treat with Metrogel BID for 7 days to see if there is improvement. Patient will need outpatient dermatology. Ovarian cyst Pelvic ultrasound revealed 4.4 cm simple cyst of the right ovary. Will need Follow-up ultrasound in 3-6 CA 125 negative Will need outpatient follow up for Ovarian cyst Cholelithiasis Workup revealed cholelithiasis, normal liver function We will need outpatient follow up History of CVA/hypertension/history of clotting disorder Continue on Lasix, Eliquis, and Toprol. Restart lisinopril due to elevated blood pressures. Cholesterol panel within normal, HDL low. Epilepsy Continue on Tegretol b.i.d., gabapentin at bedtime Type 2 diabetes Continue metformin daily Recent A1c 5.8 Migraines Tylenol as needed Thank you for allowing me to participate in the care of this patient. Will follow with you, please notify medical provider with any changes in condition or concerns. Time Spent With Patient Time: Total time managing care of this patient today ____ minutes.
--- NOTE | 2025-05-15 18:04 | HO.PSYCHPN ---
Subjective Subjective Date of Service: 05/15/25 Reason For Visit: psychotic decompensation Healthcare Proxy: Yes Medical Problems Affecting Mental Status: Yes Interim History: Refused Tegretol again after repeatedly educated as to indications and after repeated commitment from patient to take full dose. States she feels too sleepy with medications, cannot take 400 during day but would do so at night. I suggested she take 2 doses of 200 mg each during the day and 400 mg at night, which she agrees to doing. Asks when do I think arrangements will be in place for return to community. I said meeting she had re: discharge/community services/supports was postponed. 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 (not the daughter who lives near) Side effects from medications: Yes Attending Groups: Intermittent Review of Systems Seizure do, patient refusing AED Medical Review of Systems: unchanged Review of Systems Review of Systems no changes Yes all other systems are reviewed and are negative (as noted) and Other; No unobtainable due to endotracheal tube, Unobtainable due to mental condition or Unobtainable due to mental status Reports confusion Psychiatric: Reports anxiety, Reports confusion, Reports depression, Reports difficulty concentrating, Reports hopelessness, Reports anhedonia, Reports paranoia, Reports visual hallucinations and Reports hallucinations Mental Status Exam Mental Status Exam Narrative: Appearance: fair hygiene, appropriate attire Behavior:calm, pleasant. Visible in DR Psychomotor: mild retardation noted Speech: some latency response, normal rate/rhythm/soft volume TP: goal directed overall TC: less preoccupied or verbal re: persecutory delusional ideas Mood: Im feeling OK Affect: constricted, less anxious/distraught SI/HI: denies VH/AH: no and did not appear internally stimulated Insight/judgment: limited x 2. Memory/cog: alert, oriented x 3, has difficulty recalling information provided (ie test results). Patient Appearance: Fatigued and Disheveled Patient Orientation: Person and Place Level of Consciousness: Awake, Sedated (less than noted during last mtg) and Follows Commands Patient Behavior: Passive, Suspicious, Anxious, Fearful and Isolative Mood Description: Depressed, Fearful, Blunted, Sad, Nervous and Apprehensive Affect Description: Depressed, Fearful, Blunted, Sad, Nervous and Apprehensive Patient Cognition Impaired: Yes Ability to Follow Directions: Good Speech Pattern: Perseverating, Impoverished, Monotone, Soft-Spoken and Mumbled Memory Description: Immediate Impaired, Erp Project Manager Impaired and Recent Impaired Diagnostics Vital Signs (24Hr): Vital Signs - 24 hr 05/14/25 20:00 05/15/25 08:40 Temperature 98.9 F 97.8 F Pulse Rate 82 82 Respiratory Rate 16 Blood Pressure 101/61 129/60 Pulse Oximetry 92 94 Oxygen Delivery Method Room Air Room Air BMI result Body Mass Index 38.3 Labs 04/20/25 19:51 05/12/25 07:57 Imaging Radiology Impressions: ITS Impressions Head CT 04/29/25 14:09 IMPRESSION: Large area of encephalomalacia in the right parietal lobe probably representing an old infarct. Smaller subcortical white matter low attenuation in the left parietal lobe also probably representing an old infarct. Electronically signed by: Sadia Delatorre MD 04/29/2025 02:36 PM EST RP Pelvis Ultrasound 04/29/25 16:58 IMPRESSION: No left fundal or left adnexal mass is identified. Upon further review of the prior CT scan, the left ovarian vein drains from the left adnexal mass that was described on the prior study which is most consistent with left ovary abutting the left uterine fundus. 4.4 cm simple cyst of the right ovary. Follow-up ultrasound in 3-6 month. Electronically signed by: Cheo Antonio MD 04/29/2025 05:39 PM EST RP Medications Medications Current Medications Acetaminophen (Acetaminophen 325 Mg Tablet) 650 mg PO Q6H PRN PRN Reason: Headache/Pain, Scale 1-10 Last Admin: 05/09/25 09:13 Dose: 650 mg Al Hydroxide/Mg Hydroxide (Magnesium Hydrox/Alum Hydrox 30 Ml Oral.Susp) 30 ml PO Q6H PRN PRN Reason: Heartburn/Nausea Apixaban (Apixaban 5 Mg Tablet) 5 mg PO BID [facility] Last Admin: 05/15/25 08:43 Dose: 5 mg Carbamazepine (Carbamazepine 200 Mg Tablet) 400 mg PO BID [facility] Last Admin: 05/15/25 08:42 Dose: 200 mg Furosemide (Furosemide 20 Mg Tablet) 20 mg PO DAILY [facility]; Protocol Last Admin: 05/15/25 08:42 Dose: 20 mg Hydroxyzine HCl (Hydroxyzine Hcl 10 Mg Tablet) 10 mg PO Q6H PRN PRN Reason: Anxiety Lisinopril (Lisinopril 10 Mg Tablet) 10 mg PO DAILY [facility]; Protocol Last Admin: 05/15/25 08:42 Dose: 10 mg Magnesium Hydroxide (Milk Of Magnesia 30 Ml Oral.Susp) 30 ml PO DAILY PRN PRN Reason: Constipation Last Admin: 05/09/25 15:17 Dose: 30 ml Metformin HCl (Metformin Hcl 500 Mg Tablet) 500 mg PO DAILY [facility] Last Admin: 05/15/25 08:43 Dose: 500 mg Metoprolol Succinate (Metoprolol Succinate Er 25 Mg Tab.Er.24h) 25 mg PO DAILY [facility]; Protocol Last Admin: 05/15/25 08:43 Dose: 25 mg Metronidazole (Metronidazole 0.75 % Gel 45 Gm Tube) 1 appl TOPICAL BID [facility] Stop: 05/17/25 20:59 Last Admin: 05/15/25 08:41 Dose: 1 appl Mirtazapine (Mirtazapine 7.5 Mg Tablet) 7.5 mg PO BEDTIME [facility] Last Admin: 05/14/25 20:14 Dose: 7.5 mg Nicotine (Nicotine 21 Mg Patch.Td24) 21 mg TRANSDERMA DAILY PRN PRN Reason: smoking cessation Nicotine Polacrilex (Nicotine Polacrilex 2 Mg Gum) 4 mg BUCCAL Q2H PRN PRN Reason: Nicotine Cravings Ondansetron HCl (Ondansetron Odt 4 Mg Tab.Rapdis) 4 mg TRANSLINGU Q6H PRN PRN Reason: Nausea and Vomiting Last Admin: 05/14/25 10:25 Dose: 4 mg Prazosin HCl (Prazosin Hcl 1 Mg Capsule) 1 mg PO BEDTIME [facility]; Protocol Last Admin: 05/14/25 20:14 Dose: 1 mg Risperidone (Risperidone 0.5 Mg Tablet) 0.5 mg PO DAILY [facility] Last Admin: 05/15/25 08:42 Dose: 0.5 mg Risperidone (Risperidone 2 Mg Tablet) 2 mg PO BEDTIME [facility] Last Admin: 05/14/25 20:14 Dose: 2 mg Senna (Sennosides 8.6 Mg Tablet) 17.2 mg PO BEDTIME [facility] Last Admin: 05/14/25 20:13 Dose: 17.2 mg Sertraline HCl (Sertraline Hcl 100 Mg Tablet) 200 mg PO DAILY [facility] Last Admin: 05/15/25 08:42 Dose: 200 mg Allergies Allergies Allergy/AdvReac Type Severity Reaction Status Date / Time Penicillins AdvReac Unknown Unknown Verified 04/18/25 17:49 shellfish derived (shellfish) AdvReac Unknown Unknown Verified 04/18/25 16:56 blueberries AdvReac Unknown Unknown Uncoded 04/18/25 16:56 Assessment & Plan Assessment & Plan (1) Psychosis: Qualifiers: Psychosis type: unspecified psychosis type Qualified Code(s): F29 - Unspecified psychosis not due to a substance or known physiological condition Status: Acute Code(s): F29 - Unspecified psychosis not due to a substance or known physiological condition 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): Status: Acute Code(s): I63.9 - Cerebral infarction, unspecified; F06.31 - Mood disorder due to known physiological condition with depressive features (3) Mild neurocognitive disorder due to another medical condition: Status: Acute Code(s): F06.70 - Mild neurocognitive disorder due to known physiological condition without behavioral disturbance (4) Seizure disorder as sequela of cerebrovascular accident: Status: Acute Code(s): I69.398 - Other sequelae of cerebral infarction; G40.909 - Epilepsy, unspecified, not intractable, without status epilepticus (5) CVD (cerebrovascular disease): Status: Acute Code(s): I67.9 - Cerebrovascular disease, unspecified (6) Cholelithiasis: Status: Acute Code(s): K80.20 - Calculus of gallbladder without cholecystitis without obstruction (7) Rosacea: Status: Acute Code(s): L71.9 - Rosacea, unspecified (8) Type 2 diabetes mellitus: Status: Acute Code(s): E11.9 - Type 2 diabetes mellitus without complications (9) Obesity: Status: Acute Code(s): E66.9 - Obesity, unspecified Plan 64-year-old female with past medical history as listed below who presented to the emergency with delusions. Patient was admitted here for further stabilization. She is being seen today in follow up for nausea and vomiting. PTSD/social anxiety/major depressive disorder/agoraphobia/PTSD/delusions Treatment per psychiatric team Possible Rosacea Will treat with Metrogel BID for 7 days to see if there is improvement. Patient will need outpatient dermatology. Ovarian cyst Pelvic ultrasound revealed 4.4 cm simple cyst of the right ovary. Will need Follow-up ultrasound in 3-6 CA 125 negative Will need outpatient follow up for Ovarian cyst Cholelithiasis Workup revealed cholelithiasis, normal liver function We will need outpatient follow up History of CVA/hypertension/history of clotting disorder Continue on Lasix, Eliquis, and Toprol. Restart lisinopril due to elevated blood pressures. Cholesterol panel within normal, HDL low. Epilepsy Continue on Tegretol b.i.d., gabapentin at bedtime Type 2 diabetes Continue metformin daily Recent A1c 5.8 Migraines Tylenol as needed Thank you for allowing me to participate in the care of this patient. Will follow with you, please notify medical provider with any changes in condition or concerns. Reason for continued inpatient stay Substantial Risk for: inability to function, rapid decompensation and med/psych decompensation Time Spent With Patient Time: Total time managing care of this patient today ____ minutes.
[2025-05-15 20:00] VITALS: BP 118/58; PULSE 77; RESP 16; TEMP 37; O2SAT 92
[2025-05-16 08:00] VITALS: BP 141/63; PULSE 86; RESP 17; TEMP 36.7; O2SAT 94
[2025-05-16 08:49] VITALS: BP 141/63; PULSE 86
[2025-05-16] MEDS: Metoprolol Succinate ER 25 MG TAB.ER.24H PO (08:49)
[2025-05-16 08:50] VITALS: BP 141/63
[2025-05-16] MEDS: metroNIDAZOLE 0.75 % Gel 45 GM TUBE 1 APPL TOPICAL (08:51)
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
[2025-05-16 13:48] LABS: MANUAL DIFF FLAG NO
[2025-05-16 13:50] LABS: Hematocrit 37.4 % (37.0-47.0); Hemoglobin 12.6 g/dl (12.0-16.0); Imm Gran Abs Auto 0.01 X10*3/uL (0.00-0.03); Imm Gran Pct Auto 0.2 % (0.0-0.4); Lymphocytes Absolute Auto 2.9 X10*3/uL (1.2-4.9); Mean Corpuscular HGB Conc 33.7 g/dl (31.0-35.0); Mean Corpuscular Hemoglobin 25.8 pg (27.0-33.0); Mean Corpuscular Volume 76.5 fL (80.0-98.0); NRBC Abs Auto 0.000 X10*3/uL (0.0-0.012); NRBC Pct Auto 0.0 /100WBC (0.0-0.2); Platelet Count 206 X10*3/uL (160-400); Red Blood Count 4.89 X10*6/uL (4.20-5.50); White Blood Count 6.4 X10*3/uL (4.8-10.8)
[2025-05-16 14:05] LABS: Carbamazepine Tegretol 8.7 mcg/mL (5.0-12.0)
[2025-05-16 14:06] LABS: Alanine Aminotransferase 28 U/L (0-31); Albumin Level 3.5 g/dL (3.5-5.0); Alkaline Phosphatase 69 U/L (39-117); Anion Gap 9 (12-20); Aspartate Amino Transferase 26 U/L (5-31); Blood Urea Nitrogen 7 mg/dL (9-16); Calcium 8.9 mg/dL (8.4-10.2); Carbon Dioxide 31 mmol/L (22-29); Chloride 104 mmol/L (96-108); Creatinine Clr Calc Pharmacy 86.2; Estimated Glomerular Filt Rate > 60; Potassium 4.5 mmol/L (3.3-5.1); Sodium 139 mmol/L (135-145); Total Protein 7.2 g/dL (6.5-8.0)
[2025-05-16 20:00] VITALS: BP 132/64; PULSE 82; RESP 18; TEMP 37.2; O2SAT 95
[2025-05-17 07:58] VITALS: BP 145/65; PULSE 88; RESP 18; TEMP 37.2; O2SAT 95
[2025-05-17] MEDS: metroNIDAZOLE 0.75 % Gel 45 GM TUBE 1 APPL TOPICAL (08:03)
[2025-05-17] MEDS: Metoprolol Succinate ER 25 MG TAB.ER.24H PO (08:03)
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
[2025-05-17 19:57] VITALS: BP 122/58; PULSE 84; RESP 18; TEMP 37.6; O2SAT 95
[2025-05-18 08:00] VITALS: BP 157/70; PULSE 78; RESP 17; TEMP 36.8; O2SAT 94
[2025-05-18 08:45] VITALS: BP 157/70; PULSE 78
[2025-05-18] MEDS: Metoprolol Succinate ER 25 MG TAB.ER.24H PO (08:45)
[2025-05-18 08:46] VITALS: BP 157/70
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
[2025-05-18 19:40] VITALS: BP 166/74; PULSE 88; RESP 16; TEMP 37.3; O2SAT 93
[2025-05-18 19:43] VITALS: BP 166/74
[2025-05-19 07:32] LABS: Creatinine Clr Calc Pharmacy 97.2; Estimated Glomerular Filt Rate > 60
[2025-05-19 08:00] VITALS: BP 143/63; PULSE 85; RESP 17; TEMP 36.7; O2SAT 94
[2025-05-19 08:19] VITALS: BP 143/63; PULSE 85
[2025-05-19] MEDS: Metoprolol Succinate ER 25 MG TAB.ER.24H PO (08:19)
[2025-05-19 08:20] VITALS: BP 143/63
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
[2025-05-19 20:00] VITALS: BP 137/68; PULSE 84; RESP 18; TEMP 36.5; O2SAT 94
[2025-05-19 20:52] VITALS: BP 137/68
[2025-05-20 09:01] VITALS: BP 117/72; PULSE 83; TEMP 36.9; O2SAT 96
[2025-05-20] MEDS: Metoprolol Succinate ER 25 MG TAB.ER.24H PO (09:08)
[2025-05-20 20:00] VITALS: BP 148/69; PULSE 77; RESP 17; TEMP 36.8; O2SAT 95
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
[2025-05-20 21:06] VITALS: BP 148/59
[2025-05-21 08:25] VITALS: BP 150/65; PULSE 79; RESP 16; TEMP 37; O2SAT 94
[2025-05-21] MEDS: Metoprolol Succinate ER 25 MG TAB.ER.24H PO (09:16)
--- NOTE | 2025-05-21 12:58 | HO.PSYCHPN ---
Subjective Subjective Date of Service: 05/21/25 Reason For Visit: psychotic decompensation Healthcare Proxy: Yes Medical Problems Affecting Mental Status: Yes Interim History: Patient has been calm and has not been voicing delusional beliefs during 1:1 meeting where she has been focusing on her experiencing sedation with medications. She continues to receive psychoeducation about medications, indications, importance of compliance etc. 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 Siena is absolutely opposed to any placement outside the home and this is a shared choice by most in her family. Siena has been in better spirits lately and responded I don't think about it when her beliefs are brought up. Nursing staff have noted that she seems to get suspicious and irritated at night, for medication passes and to make bizarre or perseverative statements, ie, that someone was painting her face black. Daughter reported during meeting that patient has exhibited symptoms only following the strokes and they have made arrangements for her in the family including gun welder, which were to be arranged for by dc time. Patient no longer voicing or disclosing delusional thoughts in conversations with MD. Medication Compliance: No (refusing half of CBZ despite attempts to split dose for c/o sedation as side effect) Side effects from medications: Yes Attending Groups: Intermittent Review of Systems Medical Review of Systems: unchanged Review of Systems Review of Systems no changes Yes all other systems are reviewed and are negative, unobtainable due to endotracheal tube, Unobtainable due to mental condition and Other; No Unobtainable due to mental status Reports confusion Psychiatric: Reports anxiety, Reports confusion, Reports depression, Reports difficulty concentrating, Reports hopelessness, Reports anhedonia, Reports paranoia (not overt in assessment but still can be elicited), Reports visual hallucinations and Reports hallucinations Mental Status Exam Mental Status Exam Narrative: Appearance: Casually dressed, adequate hygiene Behavior: Calm and cooperative Speech is soft in volume o/w normel Thought process: overall goal-directed Thought content: Superficial responses, denies concerns about safety and is looking forward to go home Future oriented Denies SI/HI Mood: OK Affect: mildly restricted range but reactive VH/AH: None Delusions: None overt or voiced Insight/judgment: Impaired insight and judgment Memory/cog: Alert, oriented x 4. Diagnostics Vital Signs (24Hr): Vital Signs - 24 hr 05/20/25 20:00 05/20/25 21:06 05/21/25 08:25 Temperature 98.3 F 98.6 F Pulse Rate 77 79 Respiratory Rate 17 16 Blood Pressure 148/69 H 148/59 H 150/65 H Pulse Oximetry 95 94 Oxygen Delivery Method Room Air Room Air BMI result Body Mass Index 38.3 Labs 05/16/25 13:46 05/19/25 07:02 Imaging Radiology Impressions: ITS Impressions Head CT 04/29/25 14:09 IMPRESSION: Large area of encephalomalacia in the right parietal lobe probably representing an old infarct. Smaller subcortical white matter low attenuation in the left parietal lobe also probably representing an old infarct. Electronically signed by: Sadia Delatorre MD 04/29/2025 02:36 PM EST RP Pelvis Ultrasound 04/29/25 16:58 IMPRESSION: No left fundal or left adnexal mass is identified. Upon further review of the prior CT scan, the left ovarian vein drains from the left adnexal mass that was described on the prior study which is most consistent with left ovary abutting the left uterine fundus. 4.4 cm simple cyst of the right ovary. Follow-up ultrasound in 3-6 month. Electronically signed by: Cheo Antonio MD 04/29/2025 05:39 PM EST RP Medications Medications Current Medications Acetaminophen (Acetaminophen 325 Mg Tablet) 650 mg PO Q6H PRN PRN Reason: Headache/Pain, Scale 1-10 Last Admin: 05/16/25 06:12 Dose: 650 mg Al Hydroxide/Mg Hydroxide (Magnesium Hydrox/Alum Hydrox 30 Ml Oral.Susp) 30 ml PO Q6H PRN PRN Reason: Heartburn/Nausea Apixaban (Apixaban 5 Mg Tablet) 5 mg PO BID [facility] Last Admin: 05/21/25 09:17 Dose: 5 mg Carbamazepine (Carbamazepine 200 Mg Tablet) 400 mg PO BEDTIME [facility] Last Admin: 05/20/25 20:57 Dose: 200 mg Carbamazepine (Carbamazepine 200 Mg Tablet) 200 mg PO BID@0900,1500 [facility] Last Admin: 05/21/25 09:18 Dose: 200 mg Furosemide (Furosemide 20 Mg Tablet) 20 mg PO DAILY [facility]; Protocol Last Admin: 05/21/25 09:17 Dose: 20 mg Hydroxyzine HCl (Hydroxyzine Hcl 10 Mg Tablet) 10 mg PO Q6H PRN PRN Reason: Anxiety Lisinopril (Lisinopril 10 Mg Tablet) 10 mg PO DAILY [facility]; Protocol Last Admin: 05/21/25 09:16 Dose: 10 mg Magnesium Hydroxide (Milk Of Magnesia 30 Ml Oral.Susp) 30 ml PO DAILY PRN PRN Reason: Constipation Last Admin: 05/09/25 15:17 Dose: 30 ml Metformin HCl (Metformin Hcl 500 Mg Tablet) 500 mg PO DAILY [facility] Last Admin: 05/21/25 09:16 Dose: 500 mg Metoprolol Succinate (Metoprolol Succinate Er 25 Mg Tab.Er.24h) 25 mg PO DAILY [facility]; Protocol Last Admin: 05/21/25 09:16 Dose: 25 mg Mirtazapine (Mirtazapine 7.5 Mg Tablet) 7.5 mg PO BEDTIME [facility] Last Admin: 05/20/25 21:01 Dose: 7.5 mg Nicotine (Nicotine 21 Mg Patch.Td24) 21 mg TRANSDERMA DAILY PRN PRN Reason: smoking cessation Nicotine Polacrilex (Nicotine Polacrilex 2 Mg Gum) 4 mg BUCCAL Q2H PRN PRN Reason: Nicotine Cravings Ondansetron HCl (Ondansetron Odt 4 Mg Tab.Rapdis) 4 mg TRANSLINGU Q6H PRN PRN Reason: Nausea and Vomiting Last Admin: 05/14/25 10:25 Dose: 4 mg Prazosin HCl (Prazosin Hcl 1 Mg Capsule) 1 mg PO BEDTIME [facility]; Protocol Last Admin: 05/20/25 21:06 Dose: 1 mg Risperidone (Risperidone 2 Mg Tablet) 2 mg PO BEDTIME [facility] Last Admin: 05/20/25 21:01 Dose: 2 mg Risperidone (Risperidone 0.5 Mg Tablet) 0.5 mg PO BEDTIME [facility] Last Admin: 05/20/25 21:01 Dose: 0.5 mg Senna (Sennosides 8.6 Mg Tablet) 17.2 mg PO BEDTIME [facility] Last Admin: 05/20/25 21:00 Dose: 17.2 mg Sertraline HCl (Sertraline Hcl 100 Mg Tablet) 200 mg PO DAILY [facility] Last Admin: 05/21/25 09:17 Dose: 200 mg Allergies Allergies Allergy/AdvReac Type Severity Reaction Status Date / Time Penicillins AdvReac Unknown Unknown Verified 04/18/25 17:49 shellfish derived (shellfish) AdvReac Unknown Unknown Verified 04/18/25 16:56 blueberries AdvReac Unknown Unknown Uncoded 04/18/25 16:56 Assessment & Plan Assessment & Plan (1) 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 Patient was admitted here for further stabilization. Delusional/psychotic sxs/depressed mood/anxiety: Improved, not voicing delusional complaints, denies and declines to discuss persecutory delusional beliefs she reported on arrival. She seems no longer distraught by concerns over being safe at home and has not expressed paranoid ideas about food or staff of late Per by staff, patient presented at night as still suspicious about medications and has made odd statements ie, that someone had come and painted her face. Collateral from family has been that she has always had some delusional beliefs at baseline. Will continue to assess symptoms considering presentation on evenings. Plan for discharge Tuesday, patient will stay with family Continue current regime, encourage compliance Medical: Possible Rosacea Will treat with Metrogel BID for 7 days to see if there is improvement. Patient will need outpatient dermatology. Ovarian cyst Pelvic ultrasound revealed 4.4 cm simple cyst of the right ovary. Will need Follow-up ultrasound in 3-6 CA 125 negative Will need outpatient follow up for Ovarian cyst Cholelithiasis Workup revealed cholelithiasis, normal liver function We will need outpatient follow up History of CVA/hypertension/history of clotting disorder Continue on Lasix, Eliquis, and Toprol. Restart lisinopril due to elevated blood pressures. Cholesterol panel within normal, HDL low. Epilepsy Continue on Tegretol b.i.d., gabapentin at bedtime Type 2 diabetes Continue metformin daily Recent A1c 5.8 Migraines Tylenol as needed Reason for continued inpatient stay Substantial Risk for: inability to function Time Spent With Patient Time: Total time managing care of this patient today __35__ minutes.
[2025-05-21 20:00] VITALS: BP 121/67; PULSE 86; RESP 16; TEMP 36.8; O2SAT 95
--- NOTE | 2025-05-21 23:57 | PC.NURSE ---
Pt declined 200mg of the ordered 400mg Tegretol, provider semi conductor assembler notified.
[2025-05-22 08:20] VITALS: BP 141/71; PULSE 86; RESP 18; TEMP 37.1; O2SAT 95
[2025-05-22] MEDS: Metoprolol Succinate ER 25 MG TAB.ER.24H PO (09:03)
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
[2025-05-22 20:00] VITALS: BP 131/69; PULSE 80; RESP 18; TEMP 36.7; O2SAT 96
[2025-05-23 08:00] VITALS: BP 144/68; PULSE 80; RESP 17; TEMP 36.8; O2SAT 94
[2025-05-23 08:34] VITALS: BP 144/68; PULSE 80
[2025-05-23] MEDS: Metoprolol Succinate ER 25 MG TAB.ER.24H PO (08:34)
[2025-05-23 08:35] VITALS: BP 144/68
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
[2025-05-23 20:00] VITALS: BP 130/61; PULSE 76; RESP 18; TEMP 36.8; O2SAT 95
--- NOTE | 2025-05-24 01:37 | PC.NURSE ---
Pt declined 200mg of the total 400mg HS ordered Carbamezepine.
[2025-05-24 08:00] VITALS: BP 129/75; PULSE 91; RESP 17; TEMP 37; O2SAT 96
[2025-05-24 08:27] VITALS: BP 129/75; PULSE 91
[2025-05-24] MEDS: Metoprolol Succinate ER 25 MG TAB.ER.24H PO (08:27)
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
[2025-05-24 19:50] VITALS: BP 141/65; PULSE 77; RESP 18; TEMP 36.7; O2SAT 100
[2025-05-24] MEDS: metroNIDAZOLE 0.75 % Gel 45 GM TUBE 1 APPL TOPICAL (21:20)
[2025-05-25 08:48] VITALS: BP 136/62; PULSE 84; RESP 14; TEMP 36.7
[2025-05-25] MEDS: Metoprolol Succinate ER 25 MG TAB.ER.24H PO (08:50)
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
[2025-05-25] MEDS: metroNIDAZOLE 0.75 % Gel 45 GM TUBE 1 APPL TOPICAL ×2 (09:13→22:11)
[2025-05-25 20:00] VITALS: BP 129/60; PULSE 80; RESP 19; TEMP 37.1; O2SAT 95
[2025-05-25 21:08] VITALS: BP 129/60
--- NOTE | 2025-05-25 22:13 | PC.NURSE ---
Siena refused to take carbamazepine 400mg at HS took only 200mg
[2025-05-26 08:10] VITALS: BP 122/61; PULSE 78; RESP 18; TEMP 36.9; O2SAT 95
[2025-05-26] MEDS: metroNIDAZOLE 0.75 % Gel 45 GM TUBE 1 APPL TOPICAL ×2 (08:35→20:53)
[2025-05-26] MEDS: Metoprolol Succinate ER 25 MG TAB.ER.24H PO (08:37)
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
[2025-05-26 10:38] LABS: Creatinine Clr Calc Pharmacy 87.3; Estimated Glomerular Filt Rate > 60
[2025-05-26] MEDS: Milk of Magnesia 30 ML ORAL.SUSP PO (13:15)
[2025-05-26 20:00] VITALS: BP 138/75; PULSE 73; RESP 18; TEMP 36.9; O2SAT 95
[2025-05-27 08:00] VITALS: BP 141/65; PULSE 86; RESP 17; TEMP 37.1; O2SAT 94
[2025-05-27 08:26] VITALS: BP 141/65; PULSE 86
[2025-05-27] MEDS: Metoprolol Succinate ER 25 MG TAB.ER.24H PO (08:26)
[2025-05-27] MEDS: metroNIDAZOLE 0.75 % Gel 45 GM TUBE 1 APPL TOPICAL ×2 (08:26→20:39)
[2025-05-27 08:27] VITALS: BP 141/65
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
[2025-05-27 20:00] VITALS: BP 112/61; PULSE 88; RESP 16; TEMP 36.8; O2SAT 92
[2025-05-28 08:00] VITALS: BP 150/69; PULSE 85; RESP 16; TEMP 36.4; O2SAT 94
--- NOTE | 2025-05-28 08:20 | P.DS_ITS ---
DS: Providers Provider Date of admission: 04/18/25 16:44 Primary care physician: Unknown Physician Consults: 04/18/25 17:15 Consult to Hospitalist Routine Comment: Consulting Provider: [facility] Hospital[facility] Reason For Exam: admission physical 04/20/25 16:47 Consult to Hospitalist Routine Comment: Consulting Provider: 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: Status: Acute DS: Medications Discharge Medications Home Medications: Home Medications ?Medication ?Instructions ?Recorded ?Confirmed apixaban 5 mg tablet (Eliquis) 5 mg PO BID 04/18/25 carbamazepine 200 mg tablet 400 mg PO BID 04/18/25 ezetimibe 10 mg tablet 10 mg PO DAILY 04/18/25 furosemide 20 mg tablet 20 mg PO DAILY 04/18/2504/06 gabapentin 300 mg capsule 300 mg PO BEDTIME 04/18/25 1 06/18/24 levetiracetam 500 mg tablet 1,000 mg PO BID 04/18/25 metformin 500 mg tablet 500 mg PO DAILY 04/18/25 metoprolol succinate 25 mg 25 mg PO DAILY 04/18/25 tablet,extended release 24 hr prazosin 2 mg capsule 2 mg PO QPM 04/18/25 sertraline 100 mg tablet 200 mg PO DAILY 04/18/25 Data Data Completed and Pending Completed studies during hospitalization [Text1]: 05/23/25 05/26/25 07:58 10:02 Hold Purple Top SEE NOTE Creatinine 0.78 Estim Creat Clear Calc 87.3 Estimated GFR > 60 Risperidone Pending Risperidone &9-Hydroxy Pending 9-Hydroxy Risperidone Pending Imaging Diagnostic Imaging Impressions Head CT 04/29/25 14:09 IMPRESSION: Large area of encephalomalacia in the right parietal lobe probably representing an old infarct. Smaller subcortical white matter low attenuation in the left parietal lobe also probably representing an old infarct. Electronically signed by: Sadia Delatorre MD 04/29/2025 02:36 PM EST RP Pelvis Ultrasound 04/29/25 16:58 IMPRESSION: No left fundal or left adnexal mass is identified. Upon further review of the prior CT scan, the left ovarian vein drains from the left adnexal mass that was described on the prior study which is most consistent with left ovary abutting the left uterine fundus. 4.4 cm simple cyst of the right ovary. Follow-up ultrasound in 3-6 month. Electronically signed by: Cheo Antonio MD 04/29/2025 05:39 PM EST RP DS: Summary Time Spent with Patient Time attestation: Total time managing care of this patient today ____ minutes. 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 Renata Junior MD [Other] - 06/18/25 10:30 am Referral Note: [facility] [Other] - 3-5 Days Referral Note: You have been referred for therapy and psychiatry services. The office will call you with appointment for psychiatric evaluation following discharge. Following your initial appointment a therapy and psychiatrist will be assigned. [facility] [Other] - 3-5 Days Referral Note: Your protective services Chair Inspector And Leveler will follow up with your following dishcarge. [facility] [Other] - 05/28/25 Referral Note: Your case maker Fidelina Davenport at [phone] will continue to provide services to you after discharge and coordinate services and BUGGY DRIVER hours. Services will resume on day of discharge. Discharge Medications: No Action carbamazepine 200 mg tablet 400 mg PO BID gabapentin 300 mg capsule 300 mg PO BEDTIME furosemide 20 mg tablet 20 mg PO DAILY Eliquis 5 mg tablet 5 mg PO BID metformin 500 mg tablet 500 mg PO DAILY sertraline 100 mg tablet 200 mg PO DAILY metoprolol succinate 25 mg tablet extended release 24 hr 25 mg PO DAILY prazosin 2 mg capsule 2 mg PO QPM levetiracetam 500 mg tablet 1,000 mg PO BID ezetimibe 10 mg tablet 10 mg PO DAILY Stand Alone Forms: Patient Portal Discharge page Print Language: Khmer
[2025-05-28] MEDS: Metoprolol Succinate ER 25 MG TAB.ER.24H PO (08:39)
[2025-05-28] MEDS: metroNIDAZOLE 0.75 % Gel 45 GM TUBE 1 APPL TOPICAL (08:39)
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
[2025-05-28 10:00] LABS: Risperidone + OH Risperidone 8.3 ng/mL
--- NOTE | 2025-05-29 09:55 | P.EN_ITS ---
Event Note Date of Service: 05/29/25 Event Note: Informed patient could not have Sertraline script filled before going to [place] with daughter, because insurance would not pay for it bc patient reportedly had filled a 3 month script recently. Patient [place] at home [place] and patient unable to come to [place] to retrieve Sertraline. She will be returning to [place] in a week or so. Called script for Setraline 100 mg- Take two tablets at bedtime, #20 tabs, no refill Pharmacy provided by family member: [facility] [address] [place], [place] [id number] Time Spent With Patient Time: Total time managing care of this patient today ____ minutes.
--- NOTE | 2025-05-29 09:55 | PM.EVENT ---
Event Note Date of Service: 05/29/25 Event Note: Informed patient could not have Sertraline script filled before going to [place] with daughter, because insurance would not pay for it bc patient reportedly had filled a 3 month script recently. Patient left her medication at home [place] and patient unable to come to [place] to retrieve Sertraline. She will be returning to [place] in a week or so. Called script for Setraline 100 mg- Take two tablets at bedtime, #20 tabs, no refill Pharmacy provided by family member: Karyna [address] [place], [place] [id number] Time Spent With Patient Time: Total time managing care of this patient today ____ minutes.
== END 2025-05-28 15:14 | disposition home or self-care (01) | DRG 751 ==
PROVIDERS: Internal Medicine; Physician Assistant Medical; Psychiatry & Neurology Psychiatry; Social Worker; Admitting Provider Psychiatry & Neurology Psychiatry; Visit Provider Psychiatry & Neurology Forensic Psychiatry
DX: F29 Unspecified psychosis not due to a substance or known physiological condition (principal); F01.A Vascular dementia, mild; I69.318 Other symptoms and signs involving cognitive functions following cerebral infarction; E11.9 Type 2 diabetes mellitus without complications; F43.10 Post-traumatic stress disorder, unspecified; K80.20 Calculus of gallbladder without cholecystitis without obstruction; E66.9 Obesity, unspecified; Z68.38 Body mass index [BMI] 38.0-38.9, adult; G43.909 Migraine, unspecified, not intractable, without status migrainosus; I69.398 Other sequelae of cerebral infarction; L71.9 Rosacea, unspecified; N83.291 Other ovarian cyst, right side; G40.509 Epileptic seizures related to external causes, not intractable, without status epilepticus; Z79.01 Long term (current) use of anticoagulants; Z79.84 Long term (current) use of oral hypoglycemic drugs; Z79.899 Other long term (current) drug therapy
CPT/HCPCS: 36415; 70450; 74176; 76856; 80048; 80053; 80061; 80076; 80156; 80342; 82565; 83036; 83690; 84443; 85025; 86304

== ENCOUNTER → 2025-04-18 16:44 | Outpatient (BNV) | payer OTHER, SELFPAY | PROVIDERS: Admitting Provider Psychiatry & Neurology Psychiatry; Visit Provider Psychiatry & Neurology Psychiatry | DX: F03.A2 Unspecified dementia, mild, with psychotic disturbance (principal); S06.9XAS Unspecified intracranial injury with loss of consciousness status unknown, sequela; E11.9 Type 2 diabetes mellitus without complications | CPT/HCPCS: 99232 ==

== ENCOUNTER → 2025-04-18 16:44 | Outpatient (BNV) | payer MEDICAID, SELFPAY | PROVIDERS: Admitting Provider Psychiatry & Neurology Psychiatry; Visit Provider Nurse Practitioner Family | DX: E11.9 Type 2 diabetes mellitus without complications (principal) | CPT/HCPCS: 99221; 99231; 99499 ==